=== PATIENT | female | born 1970 | race Caucasian/White ===

== ENCOUNTER → 2017-12-16 08:30 | Outpatient (POV) | payer OTHER, SELFPAY ==
[2017-12-16 09:34] LABS: Basophils # 0.1 K/mm3 (0-0.2); Basophils % 1.1 % (0.1-2.0); Eosinophils # 0.3 K/mm3 (0.0-0.4); Hematocrit 40.3 % (37.0-47.0); Hemoglobin 12.8 g/dL (12.2-16.2); Lymphocytes # 3.1 K/mm3 (0.7-4.5); Mean Corpuscular HGB Conc 31.8 g/dL (31.8-35.4); Mean Corpuscular Hemoglobin 27.4 pg (27.0-31.2); Mean Corpuscular Volume 85.9 fl (81-99); Mean Platelet Volume 8.1 fl (7.4-10.4); Monocytes # 0.4 K/mm3 (0.1-1.0); Monocytes % 4.7 % (1.7-9.3); Neutrophils # 4.3 K/mm3 (1.8-7.8); Neutrophils % 52.2 % (37.0-80.0); Platelet Count 274 K/mm3 (142-424); Red Blood Count 4.69 M/mm3 (4.20-5.40); Red Cell Distribution Width 13.2 % (11.5-17.5); White Blood Count 8.2 K/mm3 (4.8-10.8)
[2017-12-16 09:55] LABS: Alanine Aminotransferase 42 U/L (12-78); Albumin Level 3.1 gm/dL (3.4-5.0); Albumin/Globulin Ratio 0.6 (1.1-1.8); Alkaline Phosphatase 149 U/L (46-116); Aspartate Amino Transferase 33 U/L (15-37); Bilirubin,Total 0.3 mg/dL (0.2-1.0); Blood Urea Nitrogen 17 mg/dL (7-18); Carbon Dioxide 28 mmol/L (21.0-32.0); Chloride 103 mmol/L (98-107); Creatinine,Serum 1.01 mg/dL (0.55-1.02); Estimated Glomerular Filt Rate 59 ml/min (>60); GFR (African American) 71 ML/MIN (>60); Globulin 4.8 gm/dl (1.3-3.2); Glucose 147 mg/dL (74-106); Sodium 139 mmol/L (136-145); Total Protein,Serum 7.9 gm/dL (6.4-8.2)
== END ==
PROVIDERS: PCP Obstetrics & Gynecology; Visit Provider Nurse Practitioner Acute Care
DX: R94.5 Abnormal results of liver function studies (principal)
CPT/HCPCS: 36415; 80053; 85025

== ENCOUNTER → 2018-03-07 15:06 | Outpatient (CLI) | payer OTHER, SELFPAY ==
--- NOTE | 2018-03-07 15:12 | XR_ITS ---
XR foot LT min 3V HISTORY: ITS.REASON: LEFT FOOT PAIN ORDERING PHYSICIAN: Yareli Flower PATIENT AGE: 47 years COMPARISON: None FINDINGS: No fracture or dislocation. No lytic or blastic change. There is normal mineralization.. The joint spaces are well-preserved. No significant degenerative/arthritic changes. No erosive changes evident. IMPRESSION: Negative, no acute finding
== END ==
PROVIDERS: PCP Family Medicine; Visit Provider Nurse Practitioner
DX: M79.672 Pain in left foot (principal)
CPT/HCPCS: 73630

== ENCOUNTER → 2018-11-19 13:10 | Outpatient (CLI) | payer OTHER, SELFPAY ==
--- NOTE | 2018-11-19 13:18 | XR_ITS ---
XR shoulder RT min 2V HISTORY: ITS.REASON: right shoulder pain ORDERING PHYSICIAN: Christina Sparks MD PATIENT AGE: 48 years Comparison: None FINDINGS: No fracture or dislocation. No lytic or blastic change. There is normal mineralization. The joint spaces are well-preserved. No significant degenerative/arthritic changes. No erosive changes evident. IMPRESSION: Negative, no acute finding
[2018-11-19 16:55] LABS: Basophils # 0.1 K/mm3 (0-0.2); Basophils % 0.5 % (0.1-2.0); Eosinophils # 0.2 K/mm3 (0.0-0.4); Hematocrit 40.3 % (37.0-47.0); Hemoglobin 13.1 g/dL (12.2-16.2); Lymphocytes # 3.3 K/mm3 (0.7-4.5); Lymphocytes % 33.1 % (10-50); Mean Corpuscular HGB Conc 32.6 g/dL (31.8-35.4); Mean Corpuscular Hemoglobin 27.6 pg (27.0-31.2); Mean Corpuscular Volume 84.7 fl (81-99); Mean Platelet Volume 7.7 fl (7.4-10.4); Monocytes # 0.6 K/mm3 (0.1-1.0); Neutrophils # 5.8 K/mm3 (1.8-7.8); Neutrophils % 58.3 % (37.0-80.0); Platelet Count 300 K/mm3 (142-424); Red Blood Count 4.75 M/mm3 (4.20-5.40); Red Cell Distribution Width 13.7 % (11.5-17.5)
[2018-11-19 18:04] LABS: Anion Gap 14.6 mEq/L (5-15); Blood Urea Nitrogen 18 mg/dL (7-18); Calcium 9.1 mg/dL (8.5-10.1); Carbon Dioxide 27 mmol/L (21.0-32.0); Chloride 101 mmol/L (98-107); Estimated Glomerular Filt Rate 48 ml/min (>60); GFR (African American) 58 ML/MIN (>60); Glucose 117 mg/dL (74-106); Potassium 3.6 mmoL/L (3.5-5.1); Sodium 139 mmol/L (136-145)
== END ==
PROVIDERS: Visit Provider Orthopaedic Surgery
DX: Z01.818 Encounter for other preprocedural examination (principal); M75.111 Incomplete rotator cuff tear or rupture of right shoulder, not specified as traumatic
CPT/HCPCS: 36415; 73030; 80048; 85025; 93005

== ENCOUNTER 2019-02-24 09:30 | Outpatient (RCR) | payer OTHER, SELFPAY ==
--- NOTE | 2018-12-12 11:20 | HMH.OTOPEV ---
OT Inpatient Evaluation Rehab OT Outpatient Eval Start: 12/12/18 11:03 Freq: Status: Active Protocol: Document 12/12/18 11:03 RMAGUSTINAL (Rec: 12/12/18 11:20 [id number] Electronically Signed By Melissa Marino OT 12/12/18 11:03 Outpatient Therapy Subjective History Subjective History Pt is a 48 year old female who reports to therapy for initial evaluation to right shoulder. Pt recently had surgery on 12/01/18 in order to have a RTC repair and LHBT tenotomy on the Right shoulder . Pt does demonstrate with slight decrease in PROM and strength. Pt will continue to be seen in order to address all deficits. Right Shoulder AROM STG Flex: 130 degrees Abd: 130 degrees ER: 65 degrees IR: 65 degrees Right Shoulder AROM LTG Flex: 160 degrees Abd: 160 degrees ER: 80 degrees IR: 80 degrees Chief Complaint Pain Symptom Type Ache Throb Sharp Dull Stabbing Symptoms Relieved By Nothing Symptoms Aggravated By Physical Activity Prior Functional Limitations None Current Functional Limitations Reaching Lifting Housework Symptom Description Intermittent Activity Dependent Level of pain today (0-10) 0 Pain scale - at its best (0-10) 0 Pain scale - at its worst (0-10) 4 Shoulder/Elbow Eval Shoulder Objective Measurements Shoulder ROM Right Shoulder Abduction Passive Range of 120 degrees Motion (degrees) Shoulder Flexion Passive Range of Motion 110 degrees (degrees) Shoulder External Rotation Passive Range 50 degrees of Motion (degrees) Shoulder Internal Rotation Passive Range 50 degrees of Motion (degrees) pain with passive ROM shoulder exam right standard decreased ROM shoulder exam standard right full ROM shoulder exam standard left Shoulder MMT Shoulder Abduction Strength Grade 3 Fair Shoulder Extension Strength Grade 3+ Fair+ Shoulder Flexion St
--- NOTE | 2019-01-12 11:39 | HMH.RHREAS ---
Rehab Reassessment Rehab OP Re-assessment Start: 01/12/19 11:31 Freq: Status: Active Protocol: Document 01/12/19 11:32 TAHIR (Rec: 01/12/19 11:38 RMISABELHALL [id number]) Electronically Signed By Melissa Marino OT 01/12/19 11:32 Rehab Re-assessment Subjective Subjective It is coming along. Objective Objective Notes Pt continues to be seen twice a week in order to receive PROM manual stretching to right shoulder. Pt is stretched in all planes at the right shoulder while laying supine on mat. Pt also engages in AAROM exercises at right shoulder. Modalities such as e-stim and ice are provided in order to decrease pain/inflammation. Assessment Progress Assessment Progressing as Expected Assessment Notes Pt currently has full PROM while being stretched with minimal pain at the end of the motion. Pt continues to have decreased AROM and strenght at right shoulder. Current AROM R shoulder Flex: 120 degrees Abd: 115 degrees ER: 65 degrees IR: 40 degrees Right Shoulder MMT Current: Flex: 3+ Abd: 3+ ER: 3+ IR: 3+ Patient goals met n/a Goals Not Met MMT and strength goals Revised Goals AROM Goals Flex: 155 degrees Abd: 150 degrees ER: 80 degrees IR: 70 degrees MMT goals Flex: 5- Abd: 5- ER: 5- IR 5- Plan Plan Continue with OT plan of care at this time. Frequency of Therapy 2x's a week Duration of therapy 6 more weeks Time and Billing Re-Eval Time 15 Re-Eval Billing Units 1 PHYSICIAN CERTIFICATION: I certify the specified therapy services for Kristy lopez
== END 2019-02-24 09:35 | disposition home or self-care (01) ==
LOC: OT 09:30
PROVIDERS: Visit Provider Orthopaedic Surgery
DX: M75.121 Complete rotator cuff tear or rupture of right shoulder, not specified as traumatic (principal); M75.21 Bicipital tendinitis, right shoulder
CPT/HCPCS: 97014; 97110; 97140; 97164; 97166; G0283

== ENCOUNTER → 2019-03-10 15:38 | Outpatient (CLI) | payer OTHER, SELFPAY ==
--- NOTE | 2019-03-10 15:40 | MR_ITS ---
MR shoulder RT wo con HISTORY:Right shoulder pain, prior rotator cuff repair ITS.REASON: MRI ORDERING PHYSICIAN: Christina Sparks MD PATIENT AGE: 48 years Comparison: 10/28/2018 TECHNIQUE: Standard multiplanar multiecho sequences are performed without contrast. FINDINGS: Patient has had prior right rotator cuff surgery. A complete tear is not identified. There is increased T2 signal along the mid distal aspect of the supraspinatus tendon. This could represent postoperative findings. A complete tear with musculotendinous retraction is not present. There is discontinuity of the supraspinatus tendon posteriorly along its undersurface and may reflect either postsurgical changes or a partial tear. Artifact is present from the previous surgery. There is a anchor in place along the base of the greater tuberosity. The bicipital tendon is not visualized superiorly possibly related to prior tendon transfer. No obvious labral tear. The infraspinatus tendon, subscapularis, and teres minor tendons appear intact. There is mild acromioclavicular arthropathy. IMPRESSION: 1. Postsurgical changes from prior rotator cuff repair. There is discontinuity along the undersurface of the supraspinatus tendon may be related to a partial tear. A complete tear with tendinous or muscle retraction is not present. There are a few fibers intact which may be related to the previous surgery. 2. Mild acromioclavicular arthropathy.
== END ==
PROVIDERS: PCP Family Medicine; Visit Provider Orthopaedic Surgery
DX: M75.121 Complete rotator cuff tear or rupture of right shoulder, not specified as traumatic (principal); M75.21 Bicipital tendinitis, right shoulder
CPT/HCPCS: 73221

== ENCOUNTER 2019-05-28 14:00 | Outpatient (RCR) | payer OTHER, SELFPAY ==
--- NOTE | 2019-04-07 14:45 | HMH.OTOPEV ---
OT Inpatient Evaluation Rehab OT Outpatient Eval Start: 04/07/19 13:36 Freq: Status: Active Protocol: Document 04/07/19 13:36 RMARSESPERANZA (Rec: 04/07/19 14:06 RMLAMBERT [id number]) Electronically Signed By Melissa Marino OT 04/07/19 13:36 Outpatient Therapy Subjective History Subjective History Pt is a 48 year old female who has returned to therapy following a Right RTC repair. She was seen previously by therapist following her surgery on Dec 01, 2018. Pt had to take time off from therapy due to increase in pain. She returned to surgeon and was dx with biceps tendinits. She had an injection in the area ~2 weeks ago. Since the injection, pt reports her pain has improved but she continues to have difficulty with moving her arm . Pt does demonstrate with declined AROM and strength at right shoulder. Pt will continue to be seen in order to address all deficits to increase functional use of RUE . Chief Complaint Pain,Weakness Symptom Type Ache,Throb,Sharp,Dull,Stabbing Symptoms Relieved By Rest/Positioning Symptoms Aggravated By Physical Activity,Lifting Prior Functional Limitations None Current Functional Limitations Reaching,Lifting,Housework, Dressing,Desk Work/Reading, Driving,Sleeping,Recreation Activity Symptom Description Intermittent,Activity Dependent Level of pain today (0-10) 1 Pain scale - at its best (0-10) 0 Pain scale - at its worst (0-10) 5 Shoulder/Elbow Eval Shoulder Objective Measurements Shoulder ROM Right Shoulder ROM Limitations Muscle Weakness,Pain Shoulder Abduction Active Range of 110 degrees Motion (degrees) Shoulder Flexion Active Range of Motion 100 degrees (degrees) Query Text: Shoulder External Rotation Active Range 23 degrees of Motion (degrees) Shoulder Internal Rotation Active Range 40 degrees of Motion (degrees) pain with active ROM shoulder exam right standard pain with passive ROM shoulder exam ri
--- NOTE | 2019-05-11 16:18 | HMH.RHREAS ---
Rehab Reassessment Rehab OP Re-assessment Start: 05/11/19 15:59 Freq: Status: Active Protocol: Document 05/11/19 16:00 TAHIR (Rec: 05/11/19 16:18 TAHIR [id number]) Electronically Signed By Melissa Marino OT 05/11/19 16:00 Rehab Re-assessment Subjective Subjective It's still pretty painful each day. Objective Objective Notes Pt continues to be seen twice a week in order to address right shoulder deficits from surgery. Pt has been engaging in R shoulder AROM/AAROM/ Strengthening exercises. Pt also receives PROM in flexion, abduction, ER, and IR at right shoulder. Modalities are provided in order to decrease pain/inflammation (IFC, ionto , ice). Assessment Progress Assessment Slower Than Expected Assessment Notes Pt has been having difficulty with right shoulder since surgery. Pt was recently diagnosed with Biceps tendinitis. Pt returns to the doctor on the to be re- evaluated since beginning therapy. Pt continues to rate her pain between a 5-6/10 daily. Current AROM Flex: 100 Abd: 110 ER: 55 IR: 52 Current PROM Flex: 120 Abd: 120 ER: 65 IR: 65 Patient goals met N/A Goals Not Met STG and LTG Revised Goals Continue to work towards initial goals written at evaluation. Plan Plan Continue with OT plan of care at this time. Frequency of Therapy 2x's a week Duration of therapy 4 more weeks Time and Billing Re-Eval Time 15 Re-Eval Billing Units 1 PHYSICIAN CERTIFICATION: I certify the specified therapy services for Kristy Franklin are required, authorized, and reviewed every 30 days.
--- NOTE | 2019-05-14 16:26 | HMH.RHREAS ---
Rehab Reassessment Rehab OP Re-assessment Start: 05/11/19 15:59 Freq: Status: Active Protocol: Document 05/14/19 15:29 TAHIR (Rec: 05/14/19 16:26 RMISABELHALL [id number]) Electronically Signed By Melissa Marino OT 05/14/19 15:29 Rehab Re-assessment Subjective Subjective I dont know if it is helping. Objective Objective Notes Pt continues to be seen twice a week in order to address right shoulder deficits. Pt engages in AROM/AAROM/ strengthening exercises according to patients pain at right shoulder. Pt is also passively ranged at each session Assessment Progress Assessment Slower Than Expected Assessment Notes Pt is continuing to have significant pain during all active and passive motions. Pt reports her pain has stayed the same since initial evaluation. Pt's AROM has not improved since initial evaluation. Pt does have functional range passively. Current R shoulder AROM Flex: 100 degrees Abd: 100 degrees ER: 50 degrees IR: 45 degrees Current R shoulder PROM Flex: 140 degrees Abd: 150 degrees ER: 70 degrees IR: 80 degrees Patient goals met N/A Goals Not Met Short and algorithm developer goals. Revised Goals Continue progressing toward all goals written on initial evaluation. Plan Plan Continue with OT plan of care at this time. Frequency of Therapy 2x's a week Duration of therapy 4 more weeks Time and Billing Re-Eval Time 15 Re-Eval Billing Units 1 PHYSICIAN CERTIFICATION: I certify the specified therapy services for Kristy Franklin are required, authorized, and reviewed every 30 days.
== END 2019-05-28 14:05 | disposition home or self-care (01) ==
LOC: OT 14:00
PROVIDERS: Visit Provider Orthopaedic Surgery
DX: M75.21 Bicipital tendinitis, right shoulder (principal); M75.101 Unspecified rotator cuff tear or rupture of right shoulder, not specified as traumatic
CPT/HCPCS: 97014; 97033; 97035; 97110; 97140; 97164; 97166; G0283

== ENCOUNTER → 2019-06-22 15:04 | Outpatient (CLI) | payer OTHER, SELFPAY ==
--- NOTE | 2019-06-22 15:07 | XR_ITS ---
PROCEDURE: XR KNEE RT 3V CLINICAL INDICATION: RT ANTERIOR KNEE PAIN COMPARISON: No exams were available for comparison FINDINGS: No fracture or dislocation. No lytic or blastic change. There is normal mineralization. There are moderate osteoarthritic changes involving medial and lateral compartment with moderate to severe osteoarthritis of the patellofemoral joint. Spurs are noted throughout. Other findings:None. IMPRESSION: Moderate to severe osteoarthritis Dictated by: Raza Degroot MD 06/22/2019 15:38 Electronically signed by Raza Degroot MD in [place] 06/22/2019 15:38
== END ==
PROVIDERS: PCP Nurse Practitioner Family; Visit Provider Nurse Practitioner Family
DX: M25.561 Pain in right knee (principal)
CPT/HCPCS: 73562

== ENCOUNTER → 2019-06-25 08:13 | Outpatient (CLI) | payer OTHER, SELFPAY ==
--- NOTE | 2019-06-25 08:14 | MM_ITS ---
PROCEDURE: MM DIG SCREENING MAMM BI W/CAD CLINICAL INDICATION: SCREENING There is no personal or family history of breast cancer. COMPARISON: DMDXUAVR DIG MAMM-DX UNI ADD VIEWS-RT from 05/04/2016 DMDXUR DIG MAMM-DX UNI-RT W/CAD from 11/05/2016 DMSB DIG MAMM-SCREEN ASH W/CAD from 05/27/2017 TECHNIQUE: Standard CC and MLO images were obtained. R2 CAD reviewed. FINDINGS: Scattered fibroglandular densities are seen in both breasts. There is benign-appearing calcification in each breast there is no suspicious lesion and no suspicious microcalcifications. And there is a mole marker right breast near the inframammary fold. IMPRESSION: Fibrofatty parenchyma with no suspicious lesions seen BI-RAD Category: 2 Benign Finding(s) FOLLOW-UP: 1YR 1 Year Follow-up (A letter has been sent to the patient regarding results of the study.) Dictated by: Dr. Jhonatan Cheatham MD 06/26/2019 09:[address] Jhonatan Cheatham MD in [place] 06/26/2019 09:57
== END ==
PROVIDERS: PCP Family Medicine; Visit Provider Obstetrics & Gynecology
DX: Z12.31 Encounter for screening mammogram for malignant neoplasm of breast (principal)
CPT/HCPCS: 77067

== ENCOUNTER → 2019-07-16 10:35 | Outpatient (CLI) | payer OTHER, SELFPAY ==
--- NOTE | 2019-07-16 10:37 | MR_ITS ---
PROCEDURE: MR KNEE RT WO CON CLINICAL INDICATION: RIGHT MEDIAL KNEE PAIN Medial right knee pain COMPARISON: XR KNEE RT 3V from 06/22/2019 TECHNIQUE: Routine multiplanar multi echo sequences are performed without gadolinium enhancement. FINDINGS: The cruciate ligaments are intact. The collateral ligaments and quadriceps tendon is intact. There are some scattered areas of increased T1 and T2 signal within the patellar tendon consistent with tendinosis but no definite tendon tear. There are severe osteoarthritic changes involving all 3 compartments. There is a horizontal tear involving the posterior horn of the medial meniscus extending to the mid body portion of the meniscus and there also appears to be a radial tear of the body of the medial meniscus with discontinuity of the meniscus medially in its mid aspect. The anterior horn of the medial meniscus is extruded medially. There thinning of the patellar cartilage. There is a small knee joint effusion. Severe osteoarthritic changes are present involving all 3 compartments with decrease in the joint space and osteophyte formation. IMPRESSION: 1. There is a horizontal tear involving the posterior horn of the medial meniscus extending to the mid body region with a radial tear suspected in the mid body 2. Severe osteoarthritic change with knee joint effusion Dictated by: Raza Degroot MD 07/18/2019 06:59 Electronically signed by Raza Degroot MD in [place] 07/22/2019 06:16
== END ==
PROVIDERS: PCP Family Medicine; Visit Provider Nurse Practitioner
DX: M25.561 Pain in right knee (principal)
CPT/HCPCS: 73721

== ENCOUNTER → 2019-07-31 12:16 | Outpatient (CLI) | payer OTHER, SELFPAY ==
--- NOTE | 2019-07-31 12:21 | XR_ITS ---
PROCEDURE: XR KNEE RT 4V CLINICAL INDICATION: Rt knee pain COMPARISON: XR KNEE RT 3V from 06/22/2019 FINDINGS: No fracture or dislocation. No lytic or blastic change. There is normal mineralization. There are moderate to severe osteoarthritic changes of the medial compartment and patellofemoral joint with moderate osteoarthritic change of the lateral compartment. Other findings:None. IMPRESSION: No change moderate to severe osteoarthritic changes of the right knee Dictated by: Raza Degroot MD 07/31/2019 13:29 Electronically signed by Raza Degroot MD in [place] 07/31/2019 13:29
== END ==
PROVIDERS: PCP Family Medicine; Visit Provider Orthopaedic Surgery
DX: M25.561 Pain in right knee (principal)
CPT/HCPCS: 73564

== ENCOUNTER → 2020-04-29 10:20 | Outpatient (CLI) | payer OTHER, SELFPAY ==
--- NOTE | 2020-04-29 10:26 | XR_ITS ---
PROCEDURE: XR KNEE RT 4V CLINICAL INDICATION: Rt knee pain; TKA discussion COMPARISON: XR KNEE RT 3V from 06/22/2019 XR KNEE RT 4V from 07/31/2019 FINDINGS: There are moderate osteoarthritic changes all 3 compartments with bony osteophytes noted The joint spaces are well-preserved. No significant degenerative/arthritic changes. No erosive changes evident. Other findings:None. IMPRESSION: Moderate osteoarthritic changes which appears slightly worse Dictated by: Raza Degroot MD 04/29/2020 14:31 Electronically signed by Raza Degroot MD in [place] 04/29/2020 14:31
== END ==
PROVIDERS: PCP Family Medicine; Visit Provider Orthopaedic Surgery
DX: M17.10 Unilateral primary osteoarthritis, unspecified knee (principal)
CPT/HCPCS: 73564

== ENCOUNTER → 2020-05-10 06:07 | Outpatient (CLI) | payer OTHER, SELFPAY ==
--- NOTE | 2020-05-10 06:09 | CA_ITS ---
APPROVED REPORT EXAM: Comprehensive 2D, Doppler, and color-flow Echocardiogram Security Systems Integrator: Carolyne Voss RDCS Ht: 5 ft 3 in Wt: 269lbs BSA: 2.19 BP: 114/67 mmHg Indications: CP,EDEMA,SOA,DM,HTN 2D Dimensions LVOT 2.12 cm (M/F) 1.5-2.5 M-Mode Dimensions RVDd 3.40 cm (0.9-2.6) LVDd 4.80 cm (3.5-5.7) LVDs 3.40 cm (3.5-5.7) IVSd 0.68 cm (0.6-1.1) PWd 1.02 cm (0.6-1.1) EF (Teich) 55.90% FS 29.20% EDV (Teich) 107.50 mL ESV (Teich) 47.40 mL LV Diastology E/A Ratio 1.26 Mitral Valve MV A Velocity 58.00 (40-130 cm/s) Left Ventricle Left atrium is mildly enlarged, left ventricle is normal size, left ventricular wall thickness is upper limit of the normal, there is preserved left ventricular systolic function, visually estimated ejection fraction 55% with no regional wall motion abnormality. Diastolic parameters are within normal range. Right Ventricle Right atrium and right ventricle are mildly enlarged with normal contractility. Aortic Valve Aortic valve is minimally thickened and fibrosed, there is no aortic stenosis or aortic insufficiency. Mitral Valve Mitral valve is grossly normal, there is mild mitral regurgitation. Tricuspid Valve Tricuspid valve grossly normal, there is mild tricuspid regurgitation, tricuspid regurgitation jet velocity is inadequate for calculation of the right ventricular systolic pressure. Pulmonic Valve Pulmonic valve is poorly visualized. Great Vessels Aortic root is normal size. Pericardium No significant pericardial effusion noted. Conclusion 1. Mild biatrial enlargement, normal left ventricular size, visually estimated ejection fraction 55% with no regional wall motion abnormality, diastolic parameters are within normal range. 2. Mildly enlarged right ventricle with normal contractility. 3. Mild mitral and tricuspid regurgitation. 4. No significant pericardial effusion noted. Electronically signed by : Andrei Ross, 05/10/2020 16:21:25
--- NOTE | 2020-05-10 06:17 | CA_ITS ---
APPROVED REPORT Exam: Pharmacologic Technologist: Sapna Mayorga Ht: 5 ft 3 in Wt: 269 lbs BSA: 2.19 m2 HR: 76 bpm BP: 125/75 mmHg Indications: Chest pain, Shortness of Breath Medical History Medications: Lisinopril,,,,, Vitamin E,,,,, Pantoprazole,,,,, MeLOXICAM,,,,, GlUCOsamine,,,,, Stress Test Details Test: LEXISCAN HR Resting HR: 83 bpm Max Heart Rate (APMHR): 172 bpm Max HR Achieved: 115 bpm Target HR (85% APMHR): 146 bpm % of APMHR: 66 Recovery HR: 92 bpm BP Resting BP: 125.0/75.0 mmHg Max BP: 142.0/70.0 mmHg Recovery BP: 133.0/74.0 mmHg ECG Clinical Exercise duration: 04:10 min Highest Stage Achieved: Exercise capacity: 1.0 METs Stress ECG Conclusion Resting ECG: Normal sinus rhythm Symptoms: Shortness of air, malaise, aching legs. No chest pain. Arrhythmias/Ectopy: None ST-T Changes: No significant changes. Conclusion: Unremarkable Lexiscan stress. Myoview images reported separately. Electronically signed by : Andrei Ross, 05/10/2020 18:39:24
--- NOTE | 2020-05-10 06:17 | NM_ITS ---
APPROVED REPORT Exam: Nuclear Stress Test Indication: Chest pain, SOB, Palpitations, Fatigue, Dizziness, Pre op, HTN, High cholesterol, Family history Patient Location: Outpatient Stress Tech: Sapna Mayorga NM Tech:Cristina Jennings, ARRT, RT (R)(N) Ht: 5 ft 3 in Wt: 269 lbs Bra Size: 42DD HR: 76 bpm BP: 125/75 mmHg BSA: 2.19 m2 BMI: 47.6 History: Chest pain, SOB, Palpitations, Fatigue, Dizziness, Pre op, HTN, High cholesterol, Family history Procedure: Patient received a 0.4 mg of intravenous Lexiscan, resting heart rate 76 bpm, resting blood pressure 125/75 mmHg, with Lexiscan maximum heart rate achived was 101 bpm which is Less than 85 % of the maximum predicted heart rate and blood pressure was 134/64 mmHg. With Lexiscan, patient denied any complaint of chest pain. Electrocardiogram Resting electrocardiogram showed sinus rhythm, with Lexiscan there is less than 1.[address] segment depression noted from the baseline EKG. The EKG portion of the Lexiscan Myoview is nondiagnostic. Cardiac Stress and Resting SPECT Images: Cardiac Stress and Resting SPECT images were obtained using technetium 99m Myoview 31.1 mCi stress and 10.88 mCi at rest. Gated SPECT for the analysis of segmental wall motion and calculation of the ejection fraction also done. Cardiac stress and resting SPECT images show decreased tracer activity in the anterior apical wall which improves on the resting images suggestive of reversible ischemia. However the study is technically limited due to patient's body habitus, possibility of soft tissue attenuation from breast cannot be excluded. There appears to be transient ischemic dilatation of the left ventricle seen. Computer derived ejection fraction is over 65% with no regional wall motion abnormality, right ventricle is normal size and contractility. Conclusion: 1. The EKG portion of the Lexiscan Myoview is nondiagnostic. 2. Scintigraphic evidence of reversible ischemia involving the anterior apical and anteroseptal wall, there appears to be transient ischemic dilatation of the left ventricle seen. Computer derived ejection fraction is over 65% with no regional wall motion abnormality, right ventricle is normal size and contractility. There appears to be transient ischemic dilatation of the left ventricle seen. 3. Likely abnormal myocardial perfusion imaging, however this study is technically limited due to patient's body habitus. Electronically signed by : Andrei Ross, 05/10/2020 18:42:21
--- NOTE | 2020-05-10 07:17 | HMH.ITSHM ---
Current Home Medications as stated by this patient Kristy Franklin or enrollment eligibility representative. []LISINOPRIL PROTONIX MOBIC VITAMIN E
== END ==
PROVIDERS: PCP Family Medicine; Visit Provider Nurse Practitioner Family
DX: Z01.810 Encounter for preprocedural cardiovascular examination (principal); R07.9 Chest pain, unspecified; R06.00 Dyspnea, unspecified; R60.9 Edema, unspecified; I10 Essential (primary) hypertension; K21.9 Gastro-esophageal reflux disease without esophagitis
CPT/HCPCS: 78452; 93017; 93306; A9502; J2785

== ENCOUNTER 2020-05-20 08:57 | Day surgery (SDC) | payer OTHER, SELFPAY ==
[2020-05-20] VITALS (9 sets, daily range): BP systolic 97–130; BP diastolic 56–83; PULSE 72–81; RESP 16–18; TEMP 36.8; O2SAT 92–99; BMI 47.8
--- NOTE | 2020-05-20 | IR_ITS ---
APPROVED REPORT Patient Location: Outpatient PROCEDURES Left heart catheterization Left ventriculogram Selective coronary angiogram INDICATION Preoperative evaluation, Abnormal stress test Informed consent was obtained prior to the procedure. COMPLICATIONS NONE Estimated Blood Loss: LESS THAN 10 ML TECHNIQUE One percent lidocaine used to anesthetize the right anterior aspect of the wrist. The right radial artery was accessed via the Seldinger technique. A 6 Spanish sheath was placed in the right radial artery. 2.5 mg of verapamil, 800 mcg of nitroglycerin, 1mg Lidocaine and 5000 U Heparin were given through the arterial sheath. The trap catheter was also used to perform left heart catheterization, left ventriculogram and selective coronary angiogram. At the end of the procedure the sheath was removed good hemostasis was achieved using Traclet band, patient was transferred to the postop holding area in stable condition. ANGIOGRAPHIC RESULTS The left main artery Normal The left anterior descending artery Normal The circumflex artery Dominant normal The right coronary artery Nondominant normal The GALVEZ ventriculogram reveals Normal 65% The left ventricular end-diastolic pressure 15 mmHg IMPRESSION Normal coronary arteries Normal ejection fraction Mildly elevated LVEDP PLAN 1. Low risk from a cardiac standpoint to proceed with elective knee surgery Electronically signed by : Fortunato Campoverde, 05/20/2020 11:30:46
[2020-05-20 10:27] LABS: Basophils # 0.1 K/mm3 (0-0.2); Basophils % 1.1 % (0.1-2.0); Chloride 103 mmol/L (98-107); Eosinophils # 0.4 K/mm3 (0.0-0.4); Eosinophils % 4.6 % (0.1-12.0); Hematocrit 40.2 % (37.0-47.0); Hemoglobin 13.5 g/dL (12.2-16.2); Lymphocytes # 3.4 K/mm3 (0.7-4.5); Lymphocytes % 39.4 % (10-50); Mean Corpuscular HGB Conc 33.7 g/dL (31.8-35.4); Mean Corpuscular Hemoglobin 28.5 pg (27.0-31.2); Mean Corpuscular Volume 84.6 fl (81-99); Mean Platelet Volume 8.9 fl (7.4-10.4); Monocytes # 0.5 K/mm3 (0.1-1.0); Monocytes % 5.2 % (1.7-9.3); Neutrophils # 4.3 K/mm3 (1.8-7.8); Neutrophils % 49.7 % (37.0-80.0); Platelet Count 280 K/mm3 (142-424); Red Blood Count 4.75 M/mm3 (4.20-5.40); Red Cell Distribution Width 13.6 % (11.5-17.5); White Blood Count 8.6 K/mm3 (4.8-10.8)
[2020-05-20 10:28] LABS: Potassium 3.6 mmoL/L (3.5-5.1); Sodium 138 mmol/L (136-145)
[2020-05-20 10:30] LABS: Blood Urea Nitrogen 16 mg/dl (7-17)
[2020-05-20 10:31] LABS: Anion Gap 12.6 mEq/L (5-15); Calcium 9.4 mg/dl (8.4-10.2); Carbon Dioxide 26 mmol/L (22.0-30.0); Creatinine Clearance Estimated 71 mL/min (50-200); Estimated Glomerular Filt Rate 77 ml/min (>60); GFR (African American) 93 ML/MIN (>60); Glucose 135 mg/dl (74-100)
[2020-05-20 10:51] LABS: Coronavirus 19 IgG Antibody Negative (Negative); Coronavirus 19 IgM Antibody Negative (Negative)
== END 2020-05-20 14:02 | disposition home or self-care (01) ==
LOC: CATHLAB 08:59
PROVIDERS: PCP Family Medicine; Visit Provider Internal Medicine
DX: I20.8 Other forms of angina pectoris (principal); R94.39 Abnormal result of other cardiovascular function study; I10 Essential (primary) hypertension; E11.9 Type 2 diabetes mellitus without complications; Z88.8 Allergy status to other drugs, medicaments and biological substances; Z79.890 Hormone replacement therapy; Z79.899 Other long term (current) drug therapy
CPT/HCPCS: 80048; 85025; 86328; 93458; 99152; C1725; C1760; C1769; J1644; Q9967

== ENCOUNTER → 2020-06-10 15:48 | Outpatient (CLI) | payer OTHER, SELFPAY | PROVIDERS: Visit Provider Orthopaedic Surgery | DX: Z01.818 Encounter for other preprocedural examination (principal); M17.11 Unilateral primary osteoarthritis, right knee; Z96.651 Presence of right artificial knee joint | CPT/HCPCS: 87081 ==

== ENCOUNTER → 2020-06-15 10:37 | Outpatient (CLI) | payer OTHER, SELFPAY ==
--- NOTE | 2020-06-15 10:55 | XR_ITS ---
PROCEDURE: XR KNEE RT 4V CLINICAL INDICATION: pre-op knee xray: TALK TO EMILY ABOUT MARKER Pain COMPARISON: CR XR KNEE RT 3V from 06/22/2019 CR XR KNEE RT 4V from 07/31/2019 CR XR KNEE RT 4V from 04/29/2020 FINDINGS: Weightbearing views are performed. There is severe osteoarthritic change of the medial compartment and patellofemoral joint with moderate osteoarthritis of the lateral compartment. No fracture or dislocation. No lytic or blastic change. There is mild genu varum. Metallic marker is noted along the lateral aspect of the knee joint at the level of the knee joint and anteriorly at the prepatellar region. Other findings:None. IMPRESSION: Severe osteoarthritis Dictated by: Raza Degroot MD 06/15/2020 15:19 Raza Degroot MD in [place] 06/15/2020 15:19
== END ==
PROVIDERS: PCP Family Medicine; Visit Provider Orthopaedic Surgery
DX: M25.561 Pain in right knee (principal)
CPT/HCPCS: 73564

== ENCOUNTER → 2020-06-20 09:01 | Outpatient (CLI) | payer OTHER, SELFPAY ==
[2020-06-20 09:03] LABS: MANUAL DIFFERENTIAL MANUAL DIFFERENTIAL (MANUAL DIFF)
[2020-06-20 09:26] LABS: Basophils # 0.1 K/mm3 (0-0.2); Basophils % 1.3 % (0.1-2.0); Eosinophils # 0.4 K/mm3 (0.0-0.4); Eosinophils % 4.4 % (0.1-12.0); Hemoglobin 13.8 g/dL (12.2-16.2); Lymphocytes # 3.2 K/mm3 (0.7-4.5); Lymphocytes % 38.3 % (10-50); Mean Corpuscular HGB Conc 33.7 g/dL (31.8-35.4); Mean Corpuscular Volume 83.1 fl (81-99); Mean Platelet Volume 8.5 fl (7.4-10.4); Monocytes # 0.4 K/mm3 (0.1-1.0); Monocytes % 5.1 % (1.7-9.3); Neutrophils # 4.2 K/mm3 (1.8-7.8); Neutrophils % 50.9 % (37.0-80.0); Platelet Count 273 K/mm3 (142-424); Red Blood Count 4.93 M/mm3 (4.20-5.40); Red Cell Distribution Width 13.8 % (11.5-17.5); White Blood Count 8.3 K/mm3 (4.8-10.8)
[2020-06-20 10:16] LABS: Chloride 103 mmol/L (98-107); Sodium 139 mmol/L (136-145)
[2020-06-20 10:17] LABS: Potassium 4.4 mmoL/L (3.5-5.1)
[2020-06-20 10:19] LABS: Alanine Aminotransferase 22 U/L (12-78); Alkaline Phosphatase 106 U/L (38-126); Anion Gap 12.4 mEq/L (5-15); Aspartate Amino Transferase 38 U/L (14-36); Bilirubin,Total 0.6 mg/dl (0.2-1.3); Blood Urea Nitrogen 16 mg/dl (7-17); Calcium 9.6 mg/dl (8.4-10.2); Carbon Dioxide 28 mmol/L (22.0-30.0); Eosinophils % 2 % (0-3); Estimated Glomerular Filt Rate 67 ml/min (>60); GFR (African American) 81 ML/MIN (>60); Glucose 154 mg/dl (74-100); Lymphocytes % 34 % (10-50); Monocytes % 6 % (2-9); Neutrophils % 57 % (42-76); Platelet Estimate Normal; RBC Morphology Normal; Total Cells Counted 100
[2020-06-20 10:20] LABS: Albumin Level 3.8 g/dl (3.5-5.0); Albumin/Globulin Ratio 1.1 (1.1-1.8); Globulin 3.4 g/dL (1.3-3.2); Total Protein,Serum 7.2 g/dl (6.3-8.2)
[2020-06-20 11:10] LABS: Coronavirus 19 IgG Antibody Negative (Negative); Coronavirus 19 IgM Antibody Negative (Negative)
== END ==
PROVIDERS: Visit Provider Orthopaedic Surgery
DX: Z01.818 Encounter for other preprocedural examination (principal); Z20.828 Contact with and (suspected) exposure to other viral communicable diseases; I10 Essential (primary) hypertension
CPT/HCPCS: 36415; 80053; 85007; 85014; 85018; 85048; 85049; 85610; 85730; 86328; 86850

== ENCOUNTER → 2020-06-22 10:23 | Outpatient (CLI) | payer OTHER, SELFPAY ==
[2020-06-22 12:19] LABS: Coronavirus 19 IgG Antibody Negative (Negative); Coronavirus 19 IgM Antibody Negative (Negative)
== END ==
PROVIDERS: Visit Provider Orthopaedic Surgery
DX: Z01.818 Encounter for other preprocedural examination (principal); M25.561 Pain in right knee
CPT/HCPCS: 36415; 86328

== ENCOUNTER 2020-06-23 07:56 | Observation (INO) | payer OTHER, SELFPAY ==
[2020-06-16 13:01] VITALS: BMI 47.6
[2020-06-23] VITALS (24 sets, daily range): BP systolic 115–168; BP diastolic 55–87; PULSE 85–108; RESP 12–26; TEMP 22.2–36.9; O2SAT 93–100; BMI 46.5
--- NOTE | 2020-06-23 11:22 | P.PN_ITS ---
[facility] Anesthesia Checklist - Patient Identification Patient Identification: Arm Band, Verbal (Name & ) - Structural Data Admitted From: Home Planned Operative Procedure/s: Right TKA Consent for Planned Operative Procedure(s) Verified: Yes Verified Documents: Surgical Consent, History and Physical - NPO Status Verified Time NPO: 00:00 - Chart Verification Results Verified: CBC, BMP, PT, PTT, INR - Additional verifications Patient : No Anesthesia Reactions: Yes (nausea/ vomiting) Hx Blood Transfusions: No Blood Transfusion Reaction: No - Airway Assessment C-Spine Mobility Assessed: Yes TMJ Mobility Assessed: Yes Dentition: Good Dentition - Neurological Assessment Level of Consciousness: Awake, Alert, Appropriate, Follows Commands Hx Seizures: No Numbness or tingling in extremities: No - Anesthesia Plan Anesthesia Risk discussed: Yes Anesthesia Plan: Verified ASA Class: III Anesthesia Type: Spinal (with ACB) [facility] History I have reviewed the patient's past medical history: Yes Medical History: Reports:: Gastroesophageal Reflux Disease(GERD), Hypertension Denies:: Cancer, Diabetes Mellitus Type 1, Diabetes Mellitus Type 2, Internal Pacemaker, MRSA, Seizures *Have you ever received a pneumonia vaccine?: No *Have you received a flu vaccine this season?: No Other Medical History: Reports: Arthritis. Denies: Blood Transfusion Reaction Comment:: Morbid obesity Anesthesia experience/problems:: PONV Laterality Cases: Right: Arthroscopy Shoulder (R RTC repair 12/01/2018), Bilateral: Other Other Surgeries: Yes: Appendectomy, Cardiac Catheterization, Cholecystectomy, C- section, Hysterectomy-Total, Other. No: Pacemaker Amputation: No Fractures: No - *Social History Smoking Status: Never smoker Alcohol Intake: never Alcohol Intake Frequency:: other Substance Use Type: denies use *Occupational Status:: employed Housing: house Household Members: spouse *Travel in the last 8 weeks: None Family Hx:: Diabetes, Hypertension, Coronary Artery Disease, Stroke, Cancer
--- NOTE | 2020-06-23 14:29 | P.PN_ITS ---
[facility] Anesthesia Record Part I Intake, IV Amount: 2,500 Estimated blood loss (mL): 150 Urine output (mL): 300 Blood Pressure: 129/57 SaO2: 96 Pulse Rate: 106 Respiratory Rate: 14 Temperature: 97.9 F Patient is:: Awake Stable to PACU at:: 14:25
--- NOTE | 2020-06-23 14:35 | XR_ITS ---
PROCEDURE: XR KNEE RT 2V CLINICAL INDICATION: s/p R TKA Follow-up knee replacement COMPARISON: CR XR KNEE RT 3V from 06/22/2019 CR XR KNEE RT 4V from 07/31/2019 CR XR KNEE RT 4V from 04/29/2020 CR XR KNEE RT 4V from 06/15/2020 FINDINGS: Status post total knee replacement with good alignment. Postsurgical gas is present. No orthopedic complications. Other findings:None. IMPRESSION: Status post total knee replacement with good alignment Dictated by: Raza Degroot MD 06/23/2020 14:58 Raza Degroot MD in OV 06/23/2020 14:58
--- NOTE | 2020-06-23 14:46 | HMH.ORTHHP ---
*Admission Date: 06/23/20 *Reason for consult:: s/p R TKA *History of present illness: 49yo F with chronic R knee pain and radiographic evidence of severe tricompartmental DJD. She failed non-operative treatment with the following: ice, NSAIDs, brace use, corticosteroid injections, physical therapy. She has a history of HTN and GERD but is otherwise healthy; no h/o DVT/PE or diabetes. 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 The pain in her knee has become so severe that it is inhibiting her ability to perform ADLs and is adversely affecting her quality of life. I?ve discussed surgical options with the patient and have recommended total knee arthroplasty. We discussed at length the surgical technique and expected perioperative course, including length of hospitalization, need for postoperative physical therapy, use of anticoagulants, expected level of pain, and total length of recovery. I also explained the potential risks of surgery, including bleeding, infection, fracture, wound healing complications, need for revision surgery, continued pain post-operatively, DVT/PE, and risks of both general and regional anesthesia, including nerve damage, heart attack, stroke and even . I also discussed her increased risk of adverse outcome including wound healing impairment and/or periprosthetic joint infection given her increased BMI of 47. The patient vocalized understanding of these risks and has agreed to proceed with surgery; informed consent was obtained. MRSA nasal swab was negative, so bactroban was not started. Meloxicam was held for the past week, and covid testing was negative. Preoperative evaluation was performed by her PCP and engineering inspection assistant, both of whom deemed her acceptable risk for surgery. The patient underwent R TKA today without complication. EBL roughly 100cc. TXA 1g given at incision and 1g at closure. Prevena incisional wound vac placed at closure. [facility] History I have reviewed the patient's past medical history: Yes Medical History: Reports:: Gastroesophageal Reflux Disease(GERD), Hypertension Denies:: Cancer, Diabetes Mellitus Type 1, Diabetes Mellitus Type 2, Internal Pacemaker, MRSA, Seizures *Have you ever received a pneumonia vaccine?: No *Have you received a flu vaccine this season?: No Other Medical History: Reports: Arthritis. Denies: Blood Transfusion Reaction Anesthesia experience/problems:: PONV Laterality Cases: Right: Arthroscopy Shoulder (R RTC repair 12/01/2018), Bilateral: Other Other Surgeries: Yes: Appendectomy, Cardiac Catheterization, Cholecystectomy, , Hysterectomy-Total, Other. No: Pacemaker Amputation: No Fractures: No - *Social History Smoking Status: Never smoker Alcohol Intake: never Alcohol Intake Frequency:: other Substance Use Type: denies use *Occupational Status:: employed Housing: house Household Members: spouse *Travel in the last 8 weeks: None Family Hx:: Diabetes, Hypertension, Coronary Artery Disease, Stroke, Cancer Review of Systems - Review of Systems Review of systems:: pertinent systems reviewed and negative unless documented below Meds Home Medications Medication Instructions Recorded Confirmed Type glucosamine-chondroitin 250 mg-200 2 tab PO DAILY 11/19/18 06/23/20 History mg tablet Vitamin E 1,000 unit PO DAILY 11/28/18 06/23/20 History pantoprazole 40 mg tablet,delayed 40 mg PO DAILY tab 05/02/20 06/23/20 History release meloxicam 15 mg tablet 15 mg PO DAILY tab 05/17/20 06/23/20 History Estrogens, Conjugated [Premarin] 0.625 mg PO DAILY 06/23/20 06/23/20 History Lisinopril/Hydrochlorothiazide 1 tab PO DAILY 06/23/20 06/23/20 History [Lisinopril-Hctz 20-25 mg Tab*] Allergies Allergy/AdvReac Type Severity Reaction Status Date / Time celecoxib [CELECOXIB] Allergy Unknown Verified 06/23/20 08:41 naproxen [NAPROXEN] Allergy Unknown Verified 06/23/20 08:41 Exam Vital signs and Labs for Last 24 Hours: Temp Pulse Resp BP Pulse Ox 97.9 F
--- NOTE | 2020-06-23 14:46 | HMH.OPNOTE ---
Date of procedure: 06/23/20 Pre-op Diagnosis:: degenerative joint disease R knee Post-op Diagnosis:: degenerative joint disease R knee Procedure performed:: R total knee arthroplasty (TKA) Surgeon:: Christina Sparks MD Employee Health Rn(s):: Kareen Lindsey PROFESSOR OF INDUSTRIAL TECHNOLOGY:: Cholo Noriega Anesthesia: MAC, spinal Estimated blood loss (mL): 100 Clinical Note:: 49yo F with chronic R knee pain and radiographic evidence of severe tricompartmental DJD. She failed non-operative treatment with the following: ice, NSAIDs, brace use, corticosteroid injections, physical therapy. She has a history of HTN and GERD but is otherwise healthy; no h/o DVT/PE or diabetes. 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 The pain in her knee has become so severe that it is inhibiting her ability to perform ADLs and is adversely affecting her quality of life. I?ve discussed surgical options with the patient and have recommended total knee arthroplasty. We discussed at length the surgical technique and expected perioperative course, including length of hospitalization, need for postoperative physical therapy, use of anticoagulants, expected level of pain, and total length of recovery. I also explained the potential risks of surgery, including bleeding, infection, fracture, wound healing complications, need for revision surgery, continued pain post-operatively, DVT/PE, and risks of both general and regional anesthesia, including nerve damage, heart attack, stroke and even . I also discussed her increased risk of adverse outcome including wound healing impairment and/or periprosthetic joint infection given her increased BMI of 47. The patient vocalized understanding of these risks and has agreed to proceed with surgery; informed consent was obtained. MRSA nasal swab was negative, so bactroban was not started. Meloxicam was held for the past week, and covid testing was negative. Preoperative evaluation was performed by her PCP and copy messenger, both of whom deemed her acceptable risk for surgery and cleared. Operative findings:: [employer] II BCS TKA system 5 Femur 4 Tibia 13mm poly 35mm x 9mm patella Operative note:: The patient was identified in pre-operative holding and the R leg signed by myself with marking pen. Consent was verified with the patient and all questions were answered. Pre-operative labs were confirmed to be within acceptable limits, and MRSA nasal swab negative. The patient was seen by anesthesia and taken to the OR, where spinal anesthetic was administered. She was placed supine on the operative table; 2g Ancef were infused intravenously as well as 1g tranexamic acid (add additional 1g was given at closing). Nonsterile tourniquet was placed on the upper R thigh and the leg was prepped and draped in the usual sterile fashion for knee arthroplasty. Timeout was performed, identifying the correct patient, correct procedure, and correct site. The procedure was begun by exsanguinating the R lower extremity with an Esmarch and inflating the tourniquet to 300 mmHg. A longitudinal incision was made down the anterior aspect of the R knee centered over the patella, extending from 2 fingerbreadths superior to the patella to the tibial tubercle. Subcutaneous tissue was incised down to the patellar retinaculum and limited medial and lateral flaps were raised. Medial parapatellar arthrotomy was then made and Bovie used to perform a moderate medial release. Next, the patella was everted and the knee flexed to around 100 degrees. Fat pad was excised and both medial and lateral menisci were excised as well. The ACL and PCL were then excised sharply. The joint was exposed with Balbina retractors medially and laterally. Next the entry reamer was used to find and create the starting point for the distal femoral cutting guide. Through this entry point, the intramedullary alex component of the distal femoral cutting guide was inserted and the cutting guide pinned into place, set at
--- NOTE | 2020-06-23 15:33 | PC.NURSE ---
PT ARRIVED TO THE FLOOR AT THIS TIME
--- NOTE | 2020-06-23 16:30 | HMH.ANESII ---
[facility] Anesthesia Record Part II Discharge Time: 14:55 Destination: floor PACU nurse assessment reviewed?: Yes Patient Condition:: Good Anesthesia Complications:: None Swallowing reflex intact?: Yes Cyanosis?: No Blood Pressure: 151/69 Pulse Rate: 105 Temperature: 97.4 F Mental Status: Alert & Oriented Pain level:: 4 Nausea and/or vomitting:: None Intake, IV Amount: 2,500
[2020-06-24] VITALS (7 sets, daily range): BP systolic 100–144; BP diastolic 69–76; PULSE 80–103; RESP 16–18; TEMP 36.9–37.2; O2SAT 90–98; BMI 46.8
--- NOTE | 2020-06-24 03:11 | PC.NURSE ---
Pt A&OX4. lungs CTA. pt denies SOA pt c/o of rt knee pain and nausea medicated per DEC. Incision of rt knee wound vac and surgical dressing in place c/d/i. Pt has slept in intervals throughout shift. VSS
[2020-06-24 06:46] LABS: Basophils % 0.2 % (0.1-2.0); Eosinophils # 0.1 K/mm3 (0.0-0.4); Eosinophils % 0.6 % (0.1-12.0); Hematocrit 33.4 % (37.0-47.0); Hemoglobin 11.2 g/dL (12.2-16.2); Lymphocytes # 1.6 K/mm3 (0.7-4.5); Lymphocytes % 15.7 % (10-50); Mean Corpuscular HGB Conc 33.6 g/dL (31.8-35.4); Mean Corpuscular Hemoglobin 28.5 pg (27.0-31.2); Mean Corpuscular Volume 84.9 fl (81-99); Mean Platelet Volume 8.2 fl (7.4-10.4); Monocytes # 0.7 K/mm3 (0.1-1.0); Monocytes % 7.2 % (1.7-9.3); Neutrophils # 7.7 K/mm3 (1.8-7.8); Neutrophils % 76.2 % (37.0-80.0); Platelet Count 191 K/mm3 (142-424); Red Blood Count 3.94 M/mm3 (4.20-5.40); Red Cell Distribution Width 13.8 % (11.5-17.5); White Blood Count 10.1 K/mm3 (4.8-10.8)
[2020-06-24 06:48] LABS: Chloride 105 mmol/L (98-107); Potassium 3.6 mmoL/L (3.5-5.1); Sodium 137 mmol/L (136-145)
[2020-06-24 06:51] LABS: Anion Gap 10.6 mEq/L (5-15); Blood Urea Nitrogen 12 mg/dl (7-17); Calcium 8.4 mg/dl (8.4-10.2); Carbon Dioxide 25 mmol/L (22.0-30.0); Creatinine Clearance Estimated 60 mL/min (50-200); Estimated Glomerular Filt Rate 67 ml/min (>60); GFR (African American) 81 ML/MIN (>60); Glucose 176 mg/dl (74-100)
--- NOTE | 2020-06-24 07:19 | HMH.CONS ---
*Admission Date: 06/23/20 *Reason for consult:: Medical management *History of present illness: 49yo F with chronic R knee pain and radiographic evidence of severe tricompartmental DJD. She failed non-operative treatment with the following: ice, NSAIDs, brace use, corticosteroid injections, physical therapy. She has a history of HTN and GERD but is otherwise healthy; no h/o DVT/PE or diabetes. 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 The pain in her knee has become so severe that it is inhibiting her ability to perform ADLs and is adversely affecting her quality of life. I?ve discussed surgical options with the patient and have recommended total knee arthroplasty. We discussed at length the surgical technique and expected perioperative course, including length of hospitalization, need for postoperative physical therapy, use of anticoagulants, expected level of pain, and total length of recovery. I also explained the potential risks of surgery, including bleeding, infection, fracture, wound healing complications, need for revision surgery, continued pain post-operatively, DVT/PE, and risks of both general and regional anesthesia, including nerve damage, heart attack, stroke and even . I also discussed her increased risk of adverse outcome including wound healing impairment and/or periprosthetic joint infection given her increased BMI of 47. The patient vocalized understanding of these risks and has agreed to proceed with surgery; informed consent was obtained. MRSA nasal swab was negative, so bactroban was not started. Meloxicam was held for the past week, and covid testing was negative. Preoperative evaluation was performed by her PCP and hides soaker, both of whom deemed her acceptable risk for surgery. The patient underwent R TKA today without complication. EBL roughly 100cc. TXA 1g given at incision and 1g at closure. Prevena incisional wound vac placed at closure. I have been consulted as patient's primary care physician for medical management if needed. [facility] History I have reviewed the patient's past medical history: Yes Medical History: Reports:: Gastroesophageal Reflux Disease(GERD), Hypertension Denies:: Cancer, Diabetes Mellitus Type 1, Diabetes Mellitus Type 2, Internal Pacemaker, MRSA, Seizures *Have you ever received a pneumonia vaccine?: No *Have you received a flu vaccine this season?: No Other Medical History: Reports: Arthritis. Denies: Blood Transfusion Reaction Anesthesia experience/problems:: PONV Laterality Cases: Right: Arthroscopy Shoulder, Bilateral: Other Other Surgeries: Yes: Appendectomy, Cardiac Catheterization, Cholecystectomy, , Dilation and Curettage, Hysterectomy-Total, Other. No: Pacemaker Amputation: No Fractures: No - *Social History Last grade of school completed: Advanced degree Smoking Status: Never smoker Alcohol Intake: never Alcohol Intake Frequency:: other Substance Use Type: denies use *Occupational Status:: employed Housing: house Household Members: spouse *Travel in the last 8 weeks: None Family Hx:: Coronary Artery Disease, Diabetes Review of Systems - Constitutional Denies body ache(s), Denies chills (None), Denies fatigue, Denies fever(s) - ENT Denies abnormal hearing - *Cardiovascular Denies chest pain, Denies chest pain at rest - *Respiratory Denies change in phlegm color, Denies chest congestion, Denies cough - *Gastrointestinal Denies belching, Denies bloating, Denies change in bowel habits - *Musculoskeletal Reports joint pain - *Neurologic Denies abnormal hearing - Endocrine Denies cold intolerance, Denies excessive sweating, Denies flushing Meds Home Medications Medication Instructions Recorded Confirmed Type glucosamine-chondroitin 250 mg-200 2 tab PO DAILY 11/19/18 06/23/20 History mg tablet Vitamin E 1,000 unit PO DAILY 11/28/18 06/23/20 History pantoprazole 40 mg tablet,delayed 40 mg PO DAILY tab 05/02/20 06/23/20 History release me
--- NOTE | 2020-06-24 07:46 | HMH.PHAVTE ---
[facility] Pharmacy VTE Monitoring - Patient Demographics Admission date: 06/24/20 Report Date: 06/24/20 Time: 07:46 Allergies/Adverse Reactions: Patient Allergies celecoxib [CELECOXIB] Allergy (Unknown, Verified 06/23/20 08:41) naproxen [NAPROXEN] Allergy (Unknown, Verified 06/23/20 08:41) Height: 1.6 m Weight: 119.89 kg Patient Problems: Current Active Problems Degenerative joint disease of knee, right (Acute) - VTE Risk Labs: VTE Related Lab Results Hgb 11.2 g/dL (12.2-16.2) L 06/24/20 06:15 Hct 33.4 % (37.0-47.0) L 06/24/20 06:15 Plt Count 191 K/mm3 (142-424) D 06/24/20 06:15 BUN 12 mg/dl (7-17) 06/24/20 06:15 Creatinine 0.90 mg/dl (0.52-1.04) 06/24/20 06:15 Estimated Creat Clear 60 mL/min (50-200) 06/24/20 06:15 Was VTE Risk Assessment Performed: Yes VTE Score: 5 VTE Risk Level: Low Risk Clinical Trial Participant: No - Prophylaxis VTE Prophylaxis Ordered?: Yes Types of VTE Prophylaxis: IPCS Knee High, Pharmacological (LOVENOX) Location of Applied Device: Left Leg Pharmacologic Type: Enoxaparin
--- NOTE | 2020-06-24 07:48 | HMH.PHAINT ---
HOME MEDICATION RECONCILIATION COMPLETED USING LIST FROM HOME PHARMACY
--- NOTE | 2020-06-24 10:24 | HMH.OTEV ---
OT Inpatient Evaluation Rehab OT IP Evaluation Start: 06/23/20 14:36 Freq: ONCE Status: Complete Protocol: Document 06/24/20 10:15 DANIELA (Rec: 06/24/20 10:24 [email or web address] [id number]) Rehab OT IP Assessment Subjective History 49 year old woman with severe tricompartmental DJD who underwent R TKA on 06/23/20 that was referred to OP OT skilled services to return home with family. Patient verbalize to live with family and independent with ambulation and ADLs prior to R TKA. Subjective I'm hurting. My pain in my R knee is 10/10. Patient verbalize recieving pain medication ~1 hour prior to OT tx. Nursing notified of Patient's pain levels. Objective Patient Orientation Person,Place,Time,Name,Age, Birthday,Day of Month,Day of Week,Month,Year,Time of Day, Situation Upper Extremity Gross ROM WNL Bed Mobility bed mobility-scooting,bed mobility - supine/sit,bed mobility - rolling Assist Level Moderate x 2 (50% assist) Transfer Training Sit/Stand Transfer,Sit/Stand/ Step Transfer Assist Level Moderate x 2 (50% assist) Chair Transfer Ability Moderate x 2 (50% assist) Chair Transfer Technique Stand Step Pivot Chair Transfer Assistive Devices Rolling Walker Feeding Ability Independent Lower Body Dressing Ability Unable/Dependant Upper Body Dressing Ability Assistance X1 Bathing Ability Assistance x1 Performing Toilet Hygiene Ability Unable/Dependant Overall Commode/Toilet Transfer Ability Assistance x2 Commode/Toilet Transfer Technique Stand Step Pivot decrease in endurance Yes Rehab OT IP prob,goals,plan Problems Date of Evaluation: 06/24/20 OT IP Problems Bed Mobility,Transfers,Gait, Balance,Self care,Safety Rehab Potential Rehab Potential Good Equipment Needs Assistive Devices Rolling / Wheeled Walker Plan OT intervention Plan Bed Mobility,Transfers,Balance ,Self care,Safety,Therapeutic Exercise OT Plan Frequency Daily Duration LOS Discharge Go
--- NOTE | 2020-06-24 11:28 | HMH.PTEV ---
Physical Therapy Evaluation Rehab PT IP Evaluation Start: 06/23/20 14:36 Freq: ONCE Status: Active Protocol: Document 06/24/20 10:54 IMTIAZ (Rec: 06/24/20 11:28 IMTIAZ [id number]) Subjective/History History History Patient is a 49 year old female admitted to [facility] 06/23/20 S/P R TKA. Patient lives at home with . 1 step to enter home. Patient reports hx of chronic knee pain prior to surgery. Upon entering room patient was in chair with legs elevated since OT evaluation. R knee incision has a would vac. Patient was educated to prop pillow/ towels under R ankle at all time to promote full knee extension, as well as quad and glute sets. OT reports bed mobility was a mod assist x 2 to achieve EOB. Subjective Subjective I'm in a lot of pain. I haven't eaten since yesterday. I've been feeling very nauseated. Rehab PT IP Eval Objective Appearance Patient Behavior Appropriate Patient Orientation Person,Place,Day of Week Difficulty following instructions none Speech Pattern Clear Ambulation Patient Able to Ambulate Yes Ambulation Observation IP General Gait Pattern Observation Antalgic Gait,Decrease Weight Bear (R) Ambulation Distance (feet) 20 Ambulation Assistive Device Rolling Walker Ambulation Ability Minimal x 1 (25% assist) Balance Ability to Arise Able, uses arms to help Sitting Balance Steady, safe Standing Balance Steady, wide stance Dynamic Sitting Balance Ability Normal Dynamic Standing Balance Ability Good Transfers Sit to Stand Chair Transfer Ability Minimal x 1 (25% assist) Pain right knee Pain Intensity 10 ROM RLE PT ROM Status ABN Abnormal ROM Comment Pt has full ext at this time. Flexion not assesed secondary to would vac. MMT RLE PT MMT WFL Rehab PT IP prob,goals,plan Problems Date of Evaluation: 06/24/20 PT IP Problems Bed Mobility,Transfers,Gait, Balance,Self care,Safety Rehab Potential
--- NOTE | 2020-06-24 13:37 | SW/DCPLANNER ---
RECEIVED REFERRAL FOR THIS PATIENT FOR HOME HEALTH VS OUT PATIENT PT SERVICES... I SPOKE WITH PATIENT AND AT BEDSIDE AND SHE ELECTED TO COME BACK TO THE HOSPITAL FOR HER THERAPY SERVICES... I SPOKE WITH HER ABOUT EQUIPMENT AND SHE STATED SHE HAS A WALKER AND ELEVATED TOILET SEAT ALREADY AND ONLY NEEDS A SHOWER CHAIR AND WHEELCHAIR.. I ORDERED THROUGH [facility] PER PATIENT REQUEST.. IT WILL BE DELIVERED TO THE HOSPITAL LATER THIS AFTERNOON WITH ANTICIPATED DISCHARGE OR SATURDAY... OUTPATIENT APPT SCHEDULED FOR SATURDAY.
--- NOTE | 2020-06-24 15:38 | PC.NURSE ---
Pt has been pleasant and cooperative. A&O X4. Pt has had frequent complaints of pain and has been medicated with Dilaudid and Percocet per DEC. Lungs CTA. No edema noted. RT knee wound vac dressing is C/D/I. RLE is elevated with pillows and a polar pack is in place. F/C was DC'd this shift. Pt ambulates with assistance X1 and a walker. Pt worked with PT today and sat up in the chair for a few hours. Pt voids dark, idania urine per BSC without issue. No BM this shift. 20 G peripheral IV in the RT hand is patent and infusing NS @ 75 ML/HR. VSS. Call light within reach. Will continue to monitor.
--- NOTE | 2020-06-24 16:38 | HMH.ORTHPN ---
Subjective Date: 06/24/20 Time: 12:00 Principal diagnosis: s/p R TKA Interval history: The patient is doing well today, but reports significant pain in the right knee. Pain medication is doing little to take the edge off. No fevers or chills overnight, no shortness of breath or chest pain, no abdominal pain; she has had some nausea and has had little p.o. intake PN: Obj Ex Vital signs: Temp Pulse Resp BP Pulse Ox 99.0 F 94 H 16 144/74 H 94 L 06/24/20 16:00 06/24/20 16:00 06/24/20 16:00 06/24/20 16:00 06/24/20 16:00 - Constitutional no acute distress, obese - Routine HEENT Exam Head: Present: normocephalic Eye: Present: EOMI ENT: Present: mucous membranes moist - Routine Neck Exam Present: trachea midline - Routine Respiratory Exam Absent: respiratory distress - Routine Cardiovascular Exam Present: RRR - Routine Abdominal Exam Present: soft. Absent: tenderness - Routine Extremities Exam Comments: R knee incisional wound vac/dressing in place with good seal +DF/PF/EHL RLE SILT distally RLE in all distributions palpable pedal pulses RLE, foot pink/warm with BCR R calf soft, non-tender - Routine Skin Exam Present: warm - Routine Neurological Exam Present: alert, oriented X3, moving all extremities, normal tone, vision grossly intact, hearing grossly intact, normal speech. Absent: sensory deficit, motor deficit, altered mental status - Routine Psychiatric Exam Present: normal affect - Urinary Catheter Management Brady Cath placed during this visit: no Progress Note: A&P (1) Degenerative joint disease of knee, right Status: Acute Current Visit: Yes (2) GERD (gastroesophageal reflux disease) Status: Acute Current Visit: No (3) HTN (hypertension) Status: Chronic Current Visit: No Assessment and Plan for All Diagnoses:: 49yo F POD 1 s/p R TKA -- WBAT RLE, OOB as dalia with walker -- ice R knee frequently with polar care device given -- PT/OT to continue while admitted -- pain control: oral percocet with IV dilaudid for breakthrough --> will increase percocet to 10 -- DVT prophy: SCDs + lovenox started today, will continue for 14 days -- finish 24hr prophy antibiotics (Ancef) today -- Dr. Rodriguez on consult for medical management -- dispo planning: anticipate d/c home with HHPT vs OPPT; anticipate d/c home tomorrow. Outpatient PT scheduled for Saturday06/28/20 at 9am. Follow-up with me 07/08/20 at 1pm.
--- NOTE | 2020-06-24 19:11 | PC.NURSE ---
report given to octaviano
--- NOTE | 2020-06-25 03:11 | PC.NURSE ---
Pt A&OX4 lungs CTA pt denies SOA. pt c/o of rt knee pain medicated per DEC. Rt knee incision wound vac and surgical dressing in place c/d/i. pt has ambulated to BSC x1 assistance.
[2020-06-25 04:00] VITALS: BP 132/87; PULSE 113; RESP 26; TEMP 36.8; O2SAT 98
[2020-06-25 05:24] VITALS: BMI 47.2
[2020-06-25 08:00] VITALS: BP 145/71; PULSE 99; RESP 18; TEMP 36.8; O2SAT 97
--- NOTE | 2020-06-25 08:29 | HMH.ACPN2 ---
Internal Medicine - PN: Subj *Date: 06/25/20 *Time: 08:29 Interval history: Patient's only complaint this morning is right knee pain which she continues to attribute to the wound VAC. Patient is receiving IV Dilaudid and oral oxycodone for pain control. Exam Vital signs and Labs for Last 24 Hours: Temp Pulse Resp BP Pulse Ox 98.3 F 113 H 26 H 132/87 98 06/25/20 04:00 06/25/20 04:00 06/25/20 04:00 06/25/20 04:00 06/25/20 04:00 I & O for Last 24 hours: Intake & Output 06/22/20 06/23/20 06/24/20 06/25/20 11:59 11:59 11:59 11:59 Intake Total 6375 / 6375 2177 / 2177 Output Total 900 / 900 1625 / 1625 Balance 5475 / 5475 552 / 552 Weight 263 lb 1 oz 264 lb 4.995 oz 266 lb 9 oz - Constitutional no acute distress - *Routine Respiratory Exam Present: CTA bilaterally - *Routine Cardiovascular Exam Present: RRR Assessment and Plan (1) Degenerative joint disease of knee, right Current visit: Yes Status: Acute Category: Medical Code(s): M17.11 - Unilateral primary osteoarthritis, right knee (2) GERD (gastroesophageal reflux disease) Current visit: No Status: Acute Qualifiers: Esophagitis presence: esophagitis presence not specified Qualified Code(s): K21.9 - Gastro-esophageal reflux disease without esophagitis Category: Medical Code(s): K21.9 - Gastro-esophageal reflux disease without esophagitis (3) HTN (hypertension) Current visit: No Status: Chronic Qualifiers: Hypertension type: essential hypertension Qualified Code(s): I10 - Essential (primary) hypertension Category: Medical Code(s): I10 - Essential (primary) hypertension - Assessment and plan all Dx Assessment and Plan for all problems:: Medically patient is stable. No change in medical management
--- NOTE | 2020-06-25 09:30 | PC.NURSE ---
POLAR PAD ICE PLACED ON RIGHT KNEE TO HELP WITH PAIN
[2020-06-25 09:39] LABS: Chloride 100 mmol/L (98-107); Potassium 3.3 mmoL/L (3.5-5.1); Sodium 133 mmol/L (136-145)
[2020-06-25 09:40] LABS: Basophils % 0.4 % (0.1-2.0); Eosinophils # 0.1 K/mm3 (0.0-0.4); Eosinophils % 0.9 % (0.1-12.0); Hematocrit 31.2 % (37.0-47.0); Hemoglobin 10.5 g/dL (12.2-16.2); Lymphocytes # 1.9 K/mm3 (0.7-4.5); Lymphocytes % 17.8 % (10-50); Mean Corpuscular HGB Conc 33.7 g/dL (31.8-35.4); Mean Corpuscular Hemoglobin 28.8 pg (27.0-31.2); Mean Corpuscular Volume 85.5 fl (81-99); Mean Platelet Volume 8.7 fl (7.4-10.4); Monocytes # 0.8 K/mm3 (0.1-1.0); Monocytes % 7.5 % (1.7-9.3); Neutrophils # 7.7 K/mm3 (1.8-7.8); Neutrophils % 73.5 % (37.0-80.0); Platelet Count 178 K/mm3 (142-424); Red Blood Count 3.65 M/mm3 (4.20-5.40); Red Cell Distribution Width 14.1 % (11.5-17.5); White Blood Count 10.5 K/mm3 (4.8-10.8)
[2020-06-25 09:42] LABS: Anion Gap 8.3 mEq/L (5-15); Blood Urea Nitrogen 8 mg/dl (7-17); Carbon Dioxide 28 mmol/L (22.0-30.0); Creatinine Clearance Estimated 68 mL/min (50-200); Estimated Glomerular Filt Rate 77 ml/min (>60); GFR (African American) 93 ML/MIN (>60)
[2020-06-25 09:43] LABS: Calcium 8.2 mg/dl (8.4-10.2); Glucose 167 mg/dl (74-100)
--- NOTE | 2020-06-25 11:00 | PC.NURSE ---
PATIENT IN CHAIR. C/O PAIN PRN DILAUDID ADMIN PER DEC. MD HAS ROUNDED ALREADY AND AWARE OF PAIN LEVEL. WILL CONTINUE TO MONITOR. PATIENTS AT BEDSIDE. SAFETY MEASURES ARE IN PLACE.
--- NOTE | 2020-06-25 11:40 | PC.NURSE ---
PHYSICAL THERAPY AT BEDSIDE WORKING WITH PATIENT
--- NOTE | 2020-06-25 15:11 | PC.NURSE ---
PATIENT LYING IN BED WITH SAFETY MEASURES IN PLACE. PATIENT REMOVED POLAR PACK AT THIS TIME. PATIENT C/O PAIN 10/ DILAUDID AND OXYCODONE ADMIN PER DEC ALL DAY TODAY PRN. NO C/O N,V,D. NO C/O PAINFUL BURNING URINATION PATIENT URINATING VIA BSC TOLERATING FINE. CL/YELLOW URINE. LUNGS CTA PATIENT ON RA. NO C/O SOA/COUGH. PATIENT REMAINS A&OX3. RIGHT KNEE PREVENA WOUND VAC CDI TO INCISION SITE.NO ISSUES THIS SHIFT OTHER THAN PAIN-MD AWARE. PATIENT WORKED WITH PHYSICAL THERAPY TODAY TOLERATED WELL.
--- NOTE | 2020-06-25 15:27 | HMH.ORTHPN ---
Subjective Date: 06/25/20 Time: Principal diagnosis: s/p R TKA Interval history: Pt stable post op R TKA with c/o pain after moving to chair. She feels it may be related to the wound VAC. VAC appears properly positioned. Surrounding skin adjacent to incision is clean and dry w/o erhythema...moves toes and ankles, no evidence clinically of DVT. Sensated to Light touch. HCT 31% today. Impression. Stable surgically with increased pain Continue current meds and pain management. Hold discharge until pain under better control. PN: Obj Ex Vital signs: Temp Pulse Resp BP Pulse Ox 98.2 F 99 H 18 145/71 H 97 06/25/20 08:00 06/25/20 08:00 06/25/20 08:00 06/25/20 08:00 06/25/20 08:00 - Urinary Catheter Management Brady Cath placed during this visit: no Progress Note: A&P (1) Degenerative joint disease of knee, right Status: Acute Current Visit: Yes (2) GERD (gastroesophageal reflux disease) Status: Acute Current Visit: No (3) HTN (hypertension) Status: Chronic Current Visit: No
[2020-06-25 16:00] VITALS: BP 100/50; PULSE 101; RESP 18; TEMP 37.4; O2SAT 92
[2020-06-25 20:06] VITALS: BP 110/57; PULSE 107; RESP 18; TEMP 37.2; O2SAT 97
--- NOTE | 2020-06-26 03:26 | PC.NURSE ---
Pt refusing to use polar cristiano for most of this shift. RN educated pt on about benefits of use including better pain control, decreased swelling. Pt verbalized understanding and said she would use polar cristiano when she felt it was necessary.
[2020-06-26 04:25] VITALS: BP 102/52; PULSE 94; RESP 18; TEMP 37.5; O2SAT 94
[2020-06-26 05:03] VITALS: BMI 47.7
--- NOTE | 2020-06-26 05:17 | PC.NURSE ---
polar pack ice and water was changed at 20:00 patient refuses to keep on
--- NOTE | 2020-06-26 05:45 | PC.NURSE ---
polar pack was refilled at 05:30
[2020-06-26 07:53] VITALS: BP 95/56; PULSE 101; RESP 20; TEMP 37.1; O2SAT 95
--- NOTE | 2020-06-26 08:43 | P.PN_ITS ---
Internal Medicine - PN: Subj *Date: 06/26/20 *Time: 08:44 Interval history: Patient reports improvement in pain control. Exam Vital signs and Labs for Last 24 Hours: Temp Pulse Resp BP Pulse Ox 98.7 F 101 H 20 95/56 L 95 06/26/20 07:53 06/26/20 07:53 06/26/20 07:53 06/26/20 07:53 06/26/20 07:53 Laboratory Results - last 24 hr 06/25/20 09:23: WBC 10.5, RBC 3.65 L, Hgb 10.5 L, Hct 31.2 L, MCV 85.5, MCH 28.8, MCHC 33.7, RDW 14.1, Plt Count 178, MPV 8.7, Neut % (Auto) 73.5, Lymph % (Auto) 17.8, Pecos % (Auto) 7.5, Eos % (Auto) 0.9, Baso % (Auto) 0.4, Neut # (Auto) 7.7, Lymph # (Auto) 1.9, [place] # (Auto) 0.8, Eos # (Auto) 0.1, Baso # (Auto) 0.0 06/25/20 09:23: Sodium 133 L, Potassium 3.3 L, Chloride 100, Carbon Dioxide 28, Anion Gap 8.3, BUN 8 D, Creatinine 0.80, Estimated Creat Clear 68, Estimated GFR 77, Est GFR ( Amer) 93, Glucose 167 H, Calcium 8.2 L I & O for Last 24 hours: Intake & Output 06/23/20 06/24/20 06/25/20 06/26/20 11:59 11:59 11:59 11:59 Intake Total 6375 / 6375 2417 / 2417 3364 / 3364 Output Total 900 / 900 1625 / 1625 1000 / 1000 Balance 5475 / 5475 792 / 792 2364 / 2364 Weight 263 lb 1 oz 264 lb 4.995 oz 266 lb 9 oz 269 lb 3 oz - Constitutional no acute distress - *Routine Respiratory Exam Present: CTA bilaterally - *Routine Cardiovascular Exam Present: RRR Assessment and Plan (1) Degenerative joint disease of knee, right Current visit: Yes Status: Acute Category: Medical Code(s): M17.11 - Unilateral primary osteoarthritis, right knee (2) GERD (gastroesophageal reflux disease) Current visit: No Status: Acute Qualifiers: Esophagitis presence: esophagitis presence not specified Qualified Code(s): K21.9 - Gastro-esophageal reflux disease without esophagitis Category: Medical Code(s): K21.9 - Gastro-esophageal reflux disease without esophagitis (3) HTN (hypertension) Current visit: No Status: Chronic Qualifiers: Hypertension type: essential hypertension Qualified Code(s): I10 - Essential (primary) hypertension Category: Medical Code(s): I10 - Essential (primary) hypertension - Assessment and plan all Dx Assessment and Plan for all problems:: Patient is medically stable. From a medical standpoint she may be discharged when primary service prefers
[2020-06-26 09:05] VITALS: PULSE 101; RESP 20; O2SAT 95
--- NOTE | 2020-06-26 09:08 | P.PN_ITS ---
Subjective Date: 06/26/20 Time: 09:08 Principal diagnosis: s/p R TKA Interval history: Awake alert sitting in chair. Feels much better today with regard to pain control and wnats to go home. Right LE slightly swollen\, no evident DVT clinically. - Homans, - calf ten derness. Dressing intact. sensate to LT B LE. Imp. stable s/p R TKA with adequate pain control... Plan--discharge to home PN: Obj Ex Vital signs: Temp Pulse Resp BP Pulse Ox 98.7 F 101 H 20 95/56 L 95 06/26/20 07:53 06/26/20 07:53 06/26/20 07:53 06/26/20 07:53 06/26/20 07:53 - Urinary Catheter Management Brady Cath placed during this visit: no Progress Note: A&P (1) Degenerative joint disease of knee, right Status: Acute Current Visit: Yes (2) GERD (gastroesophageal reflux disease) Status: Acute Current Visit: No (3) HTN (hypertension) Status: Chronic Current Visit: No
--- NOTE | 2020-06-26 10:38 | HMH.PHAINT ---
DISCHARGE COUNSELING COMPLETED ON PATIENT. TWO NEW PRESCRIPTIONS FOR PERCOCET AND LOVENOX. BOTH SCRIPTS WERE PRINTED. PATIENT IS TO CONTINUE ALL OTHER HOME MEDICATIONS. PATIENT VERBALIZED UNDERSTANDING AND HAD NO QUESTIONS AT THIS TIME. -CYNTHIA FIELDS, RADHIKAD
--- NOTE | 2020-08-03 10:16 | HMH.DCSUM ---
General - General Admission date:: 06/23/20 Discharge date: 06/26/20 HPI HPI: 49yo F with chronic R knee pain and radiographic evidence of severe tricompartmental DJD. She failed non-operative treatment with the following: ice, NSAIDs, brace use, corticosteroid injections, physical therapy. She has a history of HTN and GERD but is otherwise healthy; no h/o DVT/PE or diabetes. 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 The pain in her knee has become so severe that it is inhibiting her ability to perform ADLs and is adversely affecting her quality of life. I?ve discussed surgical options with the patient and have recommended total knee arthroplasty. We discussed at length the surgical technique and expected perioperative course, including length of hospitalization, need for postoperative physical therapy, use of anticoagulants, expected level of pain, and total length of recovery. I also explained the potential risks of surgery, including bleeding, infection, fracture, wound healing complications, need for revision surgery, continued pain post-operatively, DVT/PE, and risks of both general and regional anesthesia, including nerve damage, heart attack, stroke and even . I also discussed her increased risk of adverse outcome including wound healing impairment and/or periprosthetic joint infection given her increased BMI of 47. The patient vocalized understanding of these risks and has agreed to proceed with surgery; informed consent was obtained. MRSA nasal swab was negative, so bactroban was not started. Meloxicam was held for the past week, and covid testing was negative. Preoperative evaluation was performed by her PCP and adult literacy instructor, both of whom deemed her acceptable risk for surgery. The patient underwent R TKA 06/23/2020 without complication. EBL roughly 100cc. TXA 1g given at incision and 1g at closure. Prevena incisional wound vac placed at closure. Hospital Course Hospital Course: The patient underwent R TKA on 06/23/2020 without complication. Post-operatively she was admitted to the med/surg floor for continuing post-operative care. IV antibiotics were continued for 24 hours for standard surgical prophylaxis. Spinal wore off the night of surgery and ortiz removed afterwards, on morning of POD 1. Lovenox started POD 1 for DVT prophylaxis. She began participating in PT/OT the afternoon of surgery and was ambulating well on POD 1. Vitals remained stable with no fevers/chills, no hypotension or tachycardia. Pain was adequately controlled with oral medication. She was medically and surgically appropriate for discharge home on POD 3. The patient was seen on POD 2-[address] Rosario. She was provided with prescriptions for pain medication and lovenox, in addition to written post-op discharge instructions. Objective Vital signs: Temp Pulse Resp BP Pulse Ox 98.7 F 101 H 20 95/56 L 95 06/26/20 07:53 06/26/20 09:05 06/26/20 09:05 06/26/20 07:53 06/26/20 09:05 no acute distress - *Routine HEENT Exam Head: Present: normocephalic Eye: Present: EOMI ENT: Present: mucous membranes moist - *Routine Neck Exam Present: trachea midline - *Routine Respiratory Exam Absent: respiratory distress, wheezes - *Routine Cardiovascular Exam Present: RRR - *Routine Abdominal Exam Present: soft. Absent: tenderness - *Routine Extremities Exam Comments: R knee incisional wound vac/dressing in place with good seal +DF/PF/EHL RLE SILT distally RLE in all distributions palpable pedal pulses RLE, foot pink/warm with BCR R calf soft, non-tender - *Routine Skin Exam Present: warm - *Routine Neurological Exam Present: alert, oriented X3, moving all extremities, normal tone, vision grossly intact, hearing grossly intact, normal speech. Absent: sensory deficit, motor deficit, altered mental status - Routine Psychiatric Exam Present: normal affect Results Completed studies during hospitalization [Text1]:
== END 2020-06-26 10:55 | disposition home or self-care (01) ==
LOC: 2ND 07:57
PROVIDERS: Admitting Provider Orthopaedic Surgery; PCP Family Medicine; Visit Provider Orthopaedic Surgery
PROC: (CPT 27447; principal; 2020-06-23 09:45)
DX: M17.11 Unilateral primary osteoarthritis, right knee (principal); I10 Essential (primary) hypertension; E66.01 Morbid (severe) obesity due to excess calories; Z68.42 Body mass index [BMI] 45.0-49.9, adult
CPT/HCPCS: 27447; 36415; 73560; 80048; 85025; 86850; 96374; 97110; 97116; 97140; 97162; 97165; 97530; C1713; C1776; G0378; J2405; J2704

== ENCOUNTER → 2020-07-07 12:27 | Outpatient (CLI) | payer OTHER, SELFPAY ==
--- NOTE | 2020-07-07 12:34 | XR_ITS ---
PROCEDURE: XR KNEE RT 3V Referring Doctor: Christina Sparks Patient Age:49Y CLINICAL INDICATION: s/p RT TKA 06/23/2020/with follow-up COMPARISON: CR XR KNEE RT 4V from 07/31/2019 CR XR KNEE RT 4V from 04/29/2020 CR XR KNEE RT 4V from 06/15/2020 CR XR KNEE RT 2V from 06/23/2020 FINDINGS: Right knee three view AP lateral and oblique Comparison is made to 06 23 20 postoperative study The right TK A.. Appears to remain in good position well seated. No fracture or loosening evident. Adequate relationships but there is some persistent subcutaneous soft tissue edema particularly medial to the knee. IMPRESSION: Right TKA. Satisfactory appearance. Dictated by: Nicolas Coburn MD 07/07/2020 14:55 Nicolas Coburn MD in [place] 07/07/2020 14:55
== END ==
PROVIDERS: PCP Family Medicine; Visit Provider Orthopaedic Surgery
DX: M25.561 Pain in right knee (principal); Z96.651 Presence of right artificial knee joint
CPT/HCPCS: 73562

== ENCOUNTER 2020-08-24 10:00 | Outpatient (RCR) | payer OTHER, SELFPAY ==
--- NOTE | 2020-06-28 10:01 | HMH.PTOPEV ---
PT Outpatient Evaluation Rehab PT Outpatient Evaluation Start: 06/28/20 09:52 Freq: Status: Active Protocol: Document 06/28/20 09:52 SCOTTIE (Rec: 06/28/20 10:01 SCOTTIE [id number]) Electronically Signed By Prince Mcclure, PT 06/28/20 09:52 Outpatient Therapy Subjective History Subjective History THis is the initial Physical THerapy evaluation for Kristy Franklin. Pt is a 49 y/o female referred to PT s/p R TKA. Pt had TKA 06/23/20. Pt reports to PT w/ c/o significant pain and decreased ROM. Chief Complaint Pain,Stiff,Swelling Symptom Type Ache,Throb,Sharp,Stabbing, Numbness Symptoms Relieved By Rest/Positioning,Ice, Prescription Meds Symptoms Aggravated By Standing,Physical Activity, Walking Prior Functional Limitations None Current Functional Limitations Housework,Standing,Squatting, Recreation Activity,Walking, Stairs Symptom Description Constant but Variable Level of pain today (0-10) 9 Pain scale - at its best (0-10) 2 Pain scale - at its worst (0-10) 10 Hip/Knee Eval Gait Observation General Gait Pattern Observation Antalgic Gait Assistive Device Assistive Devices Rolling / Wheeled Walker Palpation Tenderness right Knee Palpation Finding Tenderness Knee Palpation Overall Comment TTP along B jt line MMT Hip Flexion Strength Grade 3- Fair- Knee Extension Strength Grade 3- Fair- Knee Flexion Strength Grade 3- Fair- ROM Knee Extension Active Range of Motion ( 7 from neutral degrees) Knee Flexion Active Range of Motion ( 77 degrees) Outpatient Therapy Assessment Impairments Problems/Impairmments Palpation Tenderness,Impaired Range of Motion,Impaired Strength,Impaired Endurance, Impaired Transfers,Impaired Gait Pattern,Impaired Walking, Impaired Standing,Impaired Sitting,Impaired Driving, Impaired Shower/Bathing, Impaired Household Care, Impaired Stair Climbing, Impaired Incline Stepping, Impaired Stepping on Uneven Surface,Impaired Squatting, Impaired Recreational Activities,Im
== END 2020-08-24 10:05 | disposition home or self-care (01) ==
LOC: PT 10:00
PROVIDERS: PCP Family Medicine; Visit Provider Orthopaedic Surgery
DX: M25.561 Pain in right knee; Z96.651 Presence of right artificial knee joint
CPT/HCPCS: 97010; 97014; 97110; 97140; 97163; 97164; G0283

== ENCOUNTER → 2020-08-29 07:59 | Outpatient (CLI) | payer OTHER, SELFPAY ==
--- NOTE | 2020-08-29 08:02 | XR_ITS ---
PROCEDURE: XR KNEE RT 3V CLINICAL INDICATION: s/p RT TKA COMPARISON: CR XR KNEE RT 4V from 04/29/2020 CR XR KNEE RT 4V from 06/15/2020 CR XR KNEE RT 2V from 06/23/2020 CR XR KNEE RT 3V from 07/07/2020 FINDINGS: No fracture or dislocation. No lytic or blastic change. There is normal mineralization. Good alignment status post total knee replacement. No evidence of orthopedic complication. No acute fracture or dislocation. No lytic or blastic change. The Other findings:None. IMPRESSION: S/p total knee replacement with good alignment Dictated by: Raza Degroot MD 08/29/2020 10:27 Raza Degroot MD in [place] 08/29/2020 10:27
== END ==
PROVIDERS: PCP Family Medicine; Visit Provider Orthopaedic Surgery
DX: M25.561 Pain in right knee (principal); Z96.651 Presence of right artificial knee joint
CPT/HCPCS: 73562

== ENCOUNTER → 2021-01-06 09:14 | Outpatient (CLI) | payer OTHER, SELFPAY ==
--- NOTE | 2021-01-06 09:20 | XR_ITS ---
PROCEDURE: XR KNEE RT 3V CLINICAL INDICATION: s/p right knee arthroplasty COMPARISON: CR XR KNEE RT 4V from 06/15/2020 CR XR KNEE RT 2V from 06/23/2020 CR XR KNEE RT 3V from 07/07/2020 CR XR KNEE RT 3V from 08/29/2020 FINDINGS: Total right knee arthroplasty is noted. No periprosthetic fractures. Bone density is normal. No significant periprosthetic lucencies noted to suggest the loosening or infection. Patellar osteotomy is noted. No significant soft tissue abnormality. IMPRESSION: Total right knee arthroplasty. No acute abnormality. Dictated by: Faye Mclaughlin 01/06/2021 10:02 Faye Mclaughlin in [place] 01/06/2021 10:02
== END ==
PROVIDERS: PCP Family Medicine; Visit Provider Orthopaedic Surgery
DX: Z96.659 Presence of unspecified artificial knee joint (principal)
CPT/HCPCS: 73562

== ENCOUNTER → 2021-05-24 12:22 | Outpatient (CLI) | payer OTHER, SELFPAY ==
--- NOTE | 2021-05-24 12:26 | XR_ITS ---
PROCEDURE: XR KNEE LT 2V CLINICAL INDICATION: LT KNEE PAIN COMPARISON: CR XR KNEE RT 2V from 06/23/2020 CR XR KNEE RT 3V from 07/07/2020 CR XR KNEE RT 3V from 08/29/2020 CR XR KNEE RT 3V from 01/06/2021 FINDINGS: [id number] osteoarthritic changes are present at the medial compartment and patellofemoral joint. Mild osteoarthritis also noted of the lateral compartment. There are osteophytes with joint space narrowing. Along the left lateral tibial plateau there is an osteophyte measuring 7 mm. IMPRESSION: Mild to moderate osteoarthritic changes. Dictated by: Raza Degroot MD 05/24/2021 12:44 Raza Degroot MD in [place] 05/24/2021 12:44
== END ==
PROVIDERS: PCP Family Medicine; Visit Provider Family Medicine
DX: M25.562 Pain in left knee (principal)
CPT/HCPCS: 73560

== ENCOUNTER → 2021-06-20 08:18 | Outpatient (CLI) | payer OTHER, SELFPAY ==
--- NOTE | 2021-06-20 08:23 | XR_ITS ---
PROCEDURE: XR KNEE LT 4V CLINICAL INDICATION: left knee pain; weightbearing COMPARISON: CR XR KNEE RT 3V from 07/07/2020 CR XR KNEE RT 3V from 08/29/2020 CR XR KNEE RT 3V from 01/06/2021 CR XR KNEE LT 2V from 05/24/2021 FINDINGS: There are mild osteoarthritic changes involving all 3 compartments. A loose body is noted along the lateral aspect of the lateral joint space. This loose body measures approximately 9 mm. There is a small suprapatellar effusion suspected. IMPRESSION: Mild osteoarthritic changes with small loose body along the lateral compartment and small knee joint effusion Dictated by: Raza Degroot MD 06/20/2021 14:43 Raza Degroot MD in [place] 06/20/2021 14:43
--- NOTE | 2021-06-20 10:24 | XR_ITS ---
PROCEDURE: XR KNEE RT 2V CLINICAL INDICATION: sp RT TKA by Dr Sparks COMPARISON: CR XR KNEE RT 3V from 08/29/2020 CR XR KNEE RT 3V from 01/06/2021 CR XR KNEE LT 2V from 05/24/2021 CR XR KNEE LT 4V from 06/20/2021 FINDINGS: Status post total knee arthroplasty with good alignment and no obvious orthopedic complications. No fracture or dislocation. Other findings:None. IMPRESSION: Good alignment status post total knee arthroplasty Dictated by: Raza Degroot MD 06/20/2021 14:22 Raza Degroot MD in [place] 06/20/2021 14:22
== END ==
PROVIDERS: PCP Family Medicine; Visit Provider Orthopaedic Surgery
DX: M25.562 Pain in left knee (principal); Z09 Encounter for follow-up examination after completed treatment for conditions other than malignant neoplasm
CPT/HCPCS: 73560; 73564

== ENCOUNTER 2021-07-25 11:00 | Outpatient (RCR) | payer OTHER, SELFPAY ==
--- NOTE | 2021-06-27 10:41 | HMH.PTOPEV ---
PT Outpatient Evaluation Rehab PT Outpatient Evaluation Start: 06/27/21 10:13 Freq: Status: Active Protocol: Document 06/27/21 10:22 LASHA (Rec: 06/27/21 10:40 LASHA [id number]) Electronically Signed By Paul Russ, PT 06/27/21 10:22 Outpatient Therapy Subjective History Subjective History Pt reports h/o chronic left knee pain, severe OA changes globally in left knee. Pt reports recent cortizone injection has provided 'great relief' of left knee pain and catching/locking. PMH: R TKA 2019 Chief Complaint Pain,Stiff,Catches/Locks Symptom Type Ache,Sharp,Dull Symptoms Relieved By Rest/Positioning,Heat, Prescription Meds Symptoms Aggravated By Standing,Walking Prior Functional Limitations Standing,Walking,Stairs Current Functional Limitations Standing,Squatting,Walking, Stairs Symptom Description Constant but Variable Level of pain today (0-10) 5 Pain scale - at its best (0-10) 4 Pain scale - at its worst (0-10) 10 Hip/Knee Eval Gait Observation General Gait Pattern Observation No Deviations/Normal Palpation Tenderness left Knee Palpation Finding Tenderness Knee Palpation Overall Comment 2-3/4 medial, lateral jt line MMT Hip Flexion Strength Grade 4- Good- Hip Abduction Strength Grade 4- Good- Hip Adduction Strength Grade 4- Good- Hip Extension Strength Grade 4 Good Gluteus Mario Strength Grade 4 Good Hip External Rotation Strength Grade 4- Good- Hip Internal Rotation Strength Grade 4 Good Knee Extension Strength Grade 5 Normal Knee Flexion Strength Grade 5 Normal ROM Knee Flexion Active Range of Motion ( 0-115 degrees) Knee ROM Limitations Soft Tissue Tightness,Pain Effusion joint effusion knee exam standard left Mid - Patellar Circumerential Measure ( 49 cm) Outpatient Therapy Assessment Impairments Problems/Impairmments Palpation Tenderness,Impaired Range of Motion,Impaired Strength,Impaired Gait Pattern ,Impaired Walking,Impaired Standing,Impaired Household Care,Impaired Squatting, Impaired Work Activities, Increased Edema,Subjective C/O Pain,Impaired Self Care/Self Management Prognosis Rehab Potential Good Clinical Impre
== END 2021-07-25 11:05 | disposition home or self-care (01) ==
LOC: PT 11:00
PROVIDERS: PCP Family Medicine; Visit Provider Orthopaedic Surgery
DX: M17.12 Unilateral primary osteoarthritis, left knee (principal)
CPT/HCPCS: 97010; 97014; 97110; 97163; G0283

== ENCOUNTER → 2021-08-22 09:01 | Outpatient (CLI) | payer OTHER, SELFPAY | PROVIDERS: PCP Nurse Practitioner Family; Visit Provider Nurse Practitioner | DX: Z20.822 Contact with and (suspected) exposure to COVID-19 (principal) | CPT/HCPCS: C9803; U0003; U0005 ==

== ENCOUNTER → 2021-11-08 11:17 | Outpatient (CLI) | payer OTHER, SELFPAY ==
[2021-11-09 09:38] LABS: Covid-19 Nasal PCR Sendout Lex POSITIVE
== END ==
PROVIDERS: PCP Family Medicine; Visit Provider Nurse Practitioner
DX: U07.1 COVID-19 (principal)
CPT/HCPCS: C9803; U0004; U0005

== ENCOUNTER → 2022-01-11 11:13 | Outpatient (CLI) | payer OTHER, SELFPAY ==
--- NOTE | 2022-01-11 11:16 | XR_ITS ---
FINAL REPORT CLINICAL HISTORY: knee pain, pre op COMPARISON: 05/24/2021 FINDINGS: LEFT KNEE Three views were obtained. There is no acute fracture or dislocation. No joint effusion is identified. There are moderate to severe degenerative changes with significant medial compartment and patellofemoral joint space narrowing. No soft tissue abnormality is identified. IMPRESSION: Degenerative changes as above. No significant change from previous. Reviewed, Interpreted and Dictated by Cristobal Sommers III, MD Transcribed by Carline Franklin Authenticated by Cristobal Sommers III, MD on 01/11/2022 12:49:55 PM [facility]
== END ==
PROVIDERS: PCP Family Medicine; Visit Provider Orthopaedic Surgery
DX: M25.562 Pain in left knee (principal)
CPT/HCPCS: 73562

== ENCOUNTER → 2022-03-27 10:13 | Outpatient (CLI) | payer OTHER, SELFPAY ==
[2022-03-27 10:17] LABS: Microscopic, Urine URINE MICROSCOPIC (MICROSCOPIC)
--- NOTE | 2022-03-27 10:30 | XR_ITS ---
FINAL REPORT CLINICAL HISTORY: pre-op, hypertension, obesity FINDINGS: Two views of the chest were obtained. The heart size and pulmonary vascularity are within normal limits. The mediastinum is normal. No acute pulmonary abnormality is identified. There is no pneumothorax. There are postoperative changes in the lower cervical spine. IMPRESSION: No active cardiopulmonary disease. Reviewed, Interpreted and Dictated by Cristobal Sommers III, MD Transcribed by Kiara Bustillos Authenticated and [facility]
[2022-03-27 10:37] LABS: Appearance,Urine CLEAR (Clear); Bilirubin,Urine Negative (Negative); Blood, Urine Negative (Negative); Color,Urine YELLOW (Yellow); Glucose,Urine (UA) 3+ (Negative); Ketones,Urine Negative (Negative); Leukocyte Esterase,Urine Negative (Negative); Nitrate,Urine Negative (Negative); PH,Urine 5.5 (5.0-8.5); Protein,Urine Negative (Negative)
[2022-03-27 10:39] LABS: Basophils # 0.2 K/mm3 (0-0.2); Basophils % 1.9 % (0.1-2.0); Eosinophils # 0.4 K/mm3 (0.0-0.4); Eosinophils % 5.2 % (0.1-12.0); Hematocrit 42.8 % (37.0-47.0); Mean Corpuscular HGB Conc 32.7 g/dL (31.8-35.4); Mean Corpuscular Hemoglobin 28.2 pg (27.0-31.2); Mean Corpuscular Volume 86.2 fl (81-99); Mean Platelet Volume 9.4 fl (7.4-10.4); Monocytes # 0.4 K/mm3 (0.1-1.0); Monocytes % 5.4 % (1.7-9.3); Neutrophils % 49.6 % (37.0-80.0); Platelet Count 253 K/mm3 (142-424); Red Blood Count 4.97 M/mm3 (4.20-5.40); Red Cell Distribution Width 14.3 % (11.5-17.5)
[2022-03-27 10:53] LABS: Bacteria,Urine 1+ /lpf; Squamous Epithelial Cell,Urine Occasional #/hpf (0-5); WBC,Urine Occasional #/hpf (0-3)
[2022-03-27 11:17] LABS: Alanine Aminotransferase 32 U/L (12-78); Albumin Level 3.6 g/dl (3.5-5.0); Albumin/Globulin Ratio 1.2 (1.1-1.8); Alkaline Phosphatase 130 U/L (38-126); Aspartate Amino Transferase 40 U/L (14-36); Bilirubin,Total 0.3 mg/dl (0.2-1.3); Blood Urea Nitrogen 16 mg/dl (7-17); Calcium 9.2 mg/dl (8.4-10.2); Carbon Dioxide 26 mmol/L (22.0-30.0); Chloride 103 mmol/L (98-107); Estimated Glomerular Filt Rate 66 ml/min (>60); GFR (African American) 80 ML/MIN (>60); Globulin 3.1 g/dL (1.3-3.2); Glucose 319 mg/dl (74-100); Sodium 137 mmol/L (136-145); Total Protein,Serum 6.7 g/dl (6.3-8.2)
== END ==
PROVIDERS: PCP Family Medicine; Visit Provider Orthopaedic Surgery
DX: M17.12 Unilateral primary osteoarthritis, left knee (principal)
CPT/HCPCS: 36415; 71046; 80053; 81001; 85025; 86850

== ENCOUNTER → 2022-04-03 10:25 | Outpatient (CLI) | payer BC, SELFPAY | PROVIDERS: PCP Family Medicine; Visit Provider Orthopaedic Surgery | DX: Z20.822 Contact with and (suspected) exposure to COVID-19 (principal); Z01.812 Encounter for preprocedural laboratory examination; M25.562 Pain in left knee | CPT/HCPCS: C9803; U0003; U0005 ==

== ENCOUNTER 2022-04-05 07:06 | Observation (INO) | payer BC, SELFPAY ==
[2022-03-29 11:24] VITALS: BMI 50.5
--- NOTE | 2022-03-29 11:39 | SW/DCPLANNER ---
I spoke with this patient today regarding plans once medically stable for discharge after her TKA on 04/02/22. Patient stated that she intends on returning home with assistance from her family, returning to [facility] outpatient PT and will need a rolling walker at time of discharge. Patient stated that she will also need a shower chair: I explained to patient that this DME is never covered under insurance. Patient stated that she will reach out to family/friends to try to borrow shower chair. I will continue to follow this patient after her surgery during hospital admission.
[2022-04-05] VITALS (19 sets, daily range): BP systolic 84–150; BP diastolic 47–83; PULSE 80–118; RESP 12–20; TEMP 36.1–43; O2SAT 91–100; BMI 51.2
[2022-04-05 06:49] LABS: Coronavirus 19, PCR Not Detected (NotDetected); Influenza A, PCR Not Detected (NotDetected); Influenza B, PCR Not Detected (NotDetected)
[2022-04-05 07:12] LABS: POC Glucose,Bedside 253 (70-110)
--- NOTE | 2022-04-05 08:00 | HMH.ORTHHP ---
*Admission Date: 04/05/22 *Reason for consult:: left total knee arthroplasty *History of present illness: Patient is a 51-year-old female admitted to the inpatient service today following an uneventful primary left total knee arthroplasty. She has had chronic left knee pain and degenerative arthritis in her left knee which she states has gradually worsened. Her pain has failed to respond satisfactorily to extensive nonsurgical management. Although she has minimal pain at rest, she rates her pain an 8 out of 10 with activity. She reports that the pain interferes with her work, quality life, and activities of daily living. She also reports frequent night pain and intermittent sleep disturbances. She endorses frequent swelling and crepitus in the left knee and reports that she has frequent sensations of the left knee giving out on her. She has not had any falls. She has had multiple intra-articular steroid injections, physical therapy, and has been taking NSAIDs without any significant relief. She denies any distal tingling/numbness. No history of any hip or back pain. She previously had a right total knee arthroplasty performed by Dr. Sparks and states that she has done well with that knee. 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 Her past medical history is significant for hypertension, angina, arthritis, and GERD. This afternoon following surgery, the patient is doing well. She is sitting in the bed comfortably. She denies any left knee pain, she states that her left lower extremity is still numb after receiving spinal anesthesia. She reports that she was able to eat a little lunch and denies any episodes of nausea or vomiting. She has not yet ambulated. She denies any other symptoms or concerns at this time. [facility] History Medical History: Reports:: Gastroesophageal Reflux Disease(GERD), Hypertension Denies:: Cancer, Diabetes Mellitus Type 1, Diabetes Mellitus Type 2, Internal Pacemaker, MRSA, Seizures *Have you ever received a pneumonia vaccine?: No *Have you received a flu vaccine this season?: No Other Medical History: Reports: Arthritis. Denies: Blood Transfusion Reaction Laterality Cases: Right: Arthroscopy Knee, Arthroscopy Shoulder, Bilateral: Other Other Surgeries: Yes: Appendectomy, Cardiac Catheterization, Cholecystectomy, , Dilation and Curettage, Diagnostic Lap, Hysterectomy-Total, Hysterectomy-Partial, Tubal Ligation, Other. No: Pacemaker Amputation: No Fractures: Yes (cervical) - *Social History Last grade of school completed: Advanced degree Smoking Status: Never smoker Alcohol Intake: never Alcohol Intake Frequency:: other Substance Use Type: denies use *Occupational Status:: employed Housing: house Household Members: spouse *Travel in the last 8 weeks: None Family Hx:: Diabetes, Heart Attack Review of Systems - Review of Systems Review of systems:: pertinent systems reviewed and negative unless documented below - Constitutional Denies anorexia, Denies body ache(s), Denies chills, Denies fatigue, Denies fever(s), Denies headache(s), Denies lack of energy - Eyes Denies change in vision - ENT Denies poor balance, Denies dizziness, Denies mouth pain, Denies nasal congestion, Denies neck pain, Denies sore throat, Denies throat swelling - *Cardiovascular Denies chest pain, Denies chest pain at rest, Denies shortness of breath, Denies shortness of breath with activity, Denies rapid, pounding, or irregular heartbeat, Denies radiating jaw, neck or arm pain - *Respiratory Denies chest congestion, Denies cough, Denies shortness of breath, Denies shortness of breath with activity, Denies pain on inspiration, Denies wheezing - *Gastrointestinal Denies abdominal pain, Denies change in bowel habits, Denies change in stools, Denies constipation, Denies loose stools, Denies bright, red blood in stools, Denies black, tarry stools, Denies nausea, Denies vomiting - *Genitourinary Denies diff
--- NOTE | 2022-04-05 08:10 | HMH.PHAINT ---
MEDICATION RECONCILIATION COMPLETED ON PATIENT USING EXTERNAL FILL HISTORY FROM PHARMACY. -CYNTHIA FIELDS, RADHIKAD
--- NOTE | 2022-04-05 08:58 | P.PN_ITS ---
[facility] Anesthesia Checklist - Structural Data Admitted From: Home Planned Operative Procedure/s: l TKA Consent for Planned Operative Procedure(s) Verified: Yes - Additional verifications Anesthesia Reactions: Yes (nausea/ vomiting) Hx Blood Transfusions: No Blood Transfusion Reaction: No - Airway Assessment C-Spine Mobility Assessed: Yes TMJ Mobility Assessed: Yes Dentition: Good Dentition - Neurological Assessment Level of Consciousness: Awake, Alert, Appropriate - Anesthesia Plan Anesthesia Risk discussed: Yes Anesthesia Plan: Verified ASA Class: III Anesthesia Type: MAC w/Spinal - Preoperative Comments Pre-Operative Comments: morbid obesity [facility] History I have reviewed the patient's past medical history: Yes Medical History: Reports:: Gastroesophageal Reflux Disease(GERD), Hypertension Denies:: Cancer, Diabetes Mellitus Type 1, Diabetes Mellitus Type 2, Internal Pacemaker, MRSA, Seizures *Have you ever received a pneumonia vaccine?: No *Have you received a flu vaccine this season?: No Other Medical History: Reports: Arthritis. Denies: Blood Transfusion Reaction Anesthesia experience/problems:: none Laterality Cases: Right: Arthroscopy Knee, Arthroscopy Shoulder, Bilateral: Other Other Surgeries: Yes: Appendectomy, Cardiac Catheterization, Cholecystectomy, , Dilation and Curettage, Diagnostic Lap, Hysterectomy-Total, Hysterectomy-Partial, Tubal Ligation, Other. No: Pacemaker Amputation: No Fractures: Yes (cervical) - *Social History Last grade of school completed: Advanced degree Smoking Status: Never smoker Alcohol Intake: never Alcohol Intake Frequency:: other Substance Use Type: denies use *Occupational Status:: employed Housing: house Household Members: spouse *Travel in the last 8 weeks: None Family Hx:: Diabetes, Heart Attack
--- NOTE | 2022-04-05 10:34 | SUR.OPER ---
1034-family updated at this time
--- NOTE | 2022-04-05 10:56 | SUR.OPER ---
1055-family updated at this time
--- NOTE | 2022-04-05 11:52 | P.PN_ITS ---
[facility] Anesthesia Record Part I Intake, IV Amount: 2,800 Estimated blood loss (mL): 100 Urine output (mL): 400 Blood Pressure: 97/58 SaO2: 93 Pulse Rate: 102 Respiratory Rate: 12 Temperature: 97.3 F Patient is:: Awake, Stable Stable to PACU at:: 11:45
--- NOTE | 2022-04-05 11:55 | XR_ITS ---
FINAL REPORT CLINICAL HISTORY: total knee COMPARISON: 01/11/2022 FINDINGS: LEFT KNEE Three views were obtained. There is no acute fracture or dislocation. The joint spaces appear normal. There are postoperative changes from knee arthroplasty. There is no evidence of complication. Soft tissue air is identified. IMPRESSION: Status post knee arthroplasty with soft tissue air. Reviewed, Interpreted and Dictated by Cristobal Sommers III, MD Transcribed by Carline Franklin Authenticated and [facility]
[2022-04-05 11:59] LABS: POC Glucose,Bedside 221 (70-110)
--- NOTE | 2022-04-05 12:36 | PC.NURSE ---
PT arrived to the floor at this time
--- NOTE | 2022-04-05 12:39 | HMH.OPNOTE ---
Date of procedure: 04/05/22 Pre-op Diagnosis:: Advanced osteoarthritis, left knee Post-op Diagnosis:: Same Procedure performed:: Total knee arthroplasty, left knee Surgeon:: Vinnie Mclaughlin MD Prism Measurer(s):: Leann Silver PA-C Anesthesia: spinal Estimated blood loss (mL): 50 Clinical Note:: Patient is a 51-year-old female with advanced tricompartmental osteoarthritis and bexa-li-eeis changes over the medial compartment with a progressive varus deformity of her left knee presented with unremitting severe pain. She had extensive nonsurgical management with initial good response. Her symptoms worsened over a period of time and she failed to obtain satisfactory results with conservative management. The arthritic process and pain are advanced to the point that it is becoming a hazard for the patient with risk of falling and injuring herself. A total knee arthroplasty is indicated to relieve the pain, improve function, reduce the risk of falls and improve quality of life. Please refer to my office note for full details. Operative findings:: As noted on the preoperative evaluation, the knee joint has a 5 degrees of varus deformity. As seen on the x-rays, the medial and patellofemoral compartments are showing advanced degenerative changes with [id number] appearance. The menisci and cruciate ligaments are degenerate. There is osteophyte formation over all 3 compartments. Bone quality is good. Operative note:: On the day of the surgery the patient and her were seen in the preoperative area. I have again reviewed the clinical and x-ray findings and again discussed the diagnosis, natural history and management options in detail including both nonsurgical and surgical. Patient has end-stage degenerative arthritis of the left knee and has failed to respond satisfactorily to appropriate conservative management so far and has opted for a total knee arthroplasty. The left knee joint is stiff and painful, and is limiting mobility, ADLs and quality of life. Also the knee gives out and patient is at risk of falls resulting in fractures. I have again discussed the details of the procedure, risks and benefits and alternatives in detail. The complications discussed include but are not limited to infection, injury to nerves and blood vessels including injury to popliteal artery, injury to tendons and ligaments, DVT and PE, fat embolism, intraoperative fracture, limb length inequality, patella fracture, patellofemoral instability, patellar clunk syndrome, quadriceps and patellar tendon rupture, implant failure, component loosening, periprosthetic femur and tibia fractures, stiffness /arthrofibrosis, limp, incomplete relief of pain, incomplete functional recovery, likely need for further surgery in future including revision and anesthetic complications including heart attack, stroke and even . We also discussed about the likely need for blood transfusion and transfusion reactions. We discussed how any of these events can be devastating. We have discussed nonsurgical alternatives as well. Patient understands and wishes to proceed with a left total knee arthroplasty as planned and I believe that he is fully informed as to the risks, benefits, and alternatives including nonsurgical alternatives. We also discussed the postoperative course including the rehab and physical therapy required. A physical examination was performed and documented. Patient understood the risks, agreed to proceed with surgery, signed the consent form and no guarantees or assurances were given or implied. The limb was appropriately marked and initialed by me. The patient was then brought to the operating room and a spinal anesthesia was administered by the cardiovascular sonographer. The patient was then positioned supine on the operating table. All the bony prominences were appropriately padded. A well-padded tourniquet cuff was placed high over the upper thigh. The left knee was then prepped with iso
--- NOTE | 2022-04-05 13:22 | PC.NURSE ---
Spoke with Nia in OR to clarify if we needed to give medication.
--- NOTE | 2022-04-05 13:37 | P.CONPHA_ITS ---
[facility] Pharmacy VTE Monitoring - Patient Demographics Admission date: 04/05/22 Report Date: 04/05/22 Time: 13:38 Allergies/Adverse Reactions: Patient Allergies celecoxib [CELECOXIB] Allergy (Unknown, Verified 04/05/22 08:10) Unknown allergy reaction naproxen [NAPROXEN] Allergy (Unknown, Verified 04/05/22 08:10) Unknown allergy reaction Height: 1.6 m Weight: 131.088 kg - VTE Risk Clinical Trial Participant: No - Prophylaxis VTE Prophylaxis Ordered?: Yes Types of VTE Prophylaxis: IPCS Thigh High (POST OP)
[2022-04-05 15:52] LABS: Microscopic,Cath URINE MICROSCOPIC (MICROSCOPIC)
[2022-04-05 16:44] LABS: Appearance,Urine/Cath CLEAR (Clear); Bilirubin,Cath Negative (Negative); Blood, Urine/Cath Negative (Negative); Color,Urine/Cath YELLOW (Yellow); Glucose,Urine/Cath (UA) Negative (Negative); Ketones,Urine/Cath Negative (Negative); Leukocyte Esterase,Cath Negative (Negative); Nitrate,Cath Negative (Negative); PH,Urine/Cath 5.5 (5.0-8.5); Protein,Urine/Cath Negative (Negative); Specific Gravity, Urine/Cath 1.025 (1.005-1.030); Urobilinogen,Cath 0.2 EU/dl (0.2)
[2022-04-05 17:37] LABS: Squamous Epithelial Ur./Cath Occasional #/hpf (0-5); WBC,Urine/Cath Occasional #/hpf (0-3)
[2022-04-05 17:43] LABS: Hemoglobin A1C 9.1 % (4.0-6.0)
--- NOTE | 2022-04-05 19:45 | PC.NURSE ---
Called and got order for morphine 2 mg q 2 hrs IV PRN for pain, as norco was ineffective. Pt states pain is still there but has improved. Educated pt on frequency of prn meds and repositioned, along with polar pack in use. CB in reach. VSS
[2022-04-06] VITALS: BP 149/89; PULSE 114; RESP 21; TEMP 36.9; O2SAT 95
--- NOTE | 2022-04-06 03:22 | PC.NURSE ---
Patient has require pain control around the clock. Patient vitals remain stable. Patient remains on room air. Pulses palpable in both feet. No acute changes have occurred thus far.
[2022-04-06 04:00] VITALS: BP 150/93; PULSE 119; RESP 20; TEMP 36.9; O2SAT 96
[2022-04-06 07:33] VITALS: BP 151/89; PULSE 104; RESP 20; TEMP 36.8; O2SAT 100
[2022-04-06 08:00] VITALS: PULSE 116; O2SAT 100
[2022-04-06 08:26] LABS: Basophils % 0.3 % (0.1-2.0); Eosinophils # 0.1 K/mm3 (0.0-0.4); Eosinophils % 0.6 % (0.1-12.0); Hematocrit 38.2 % (37.0-47.0); Hemoglobin 12.7 g/dL (12.2-16.2); Lymphocytes # 1.5 K/mm3 (0.7-4.5); Lymphocytes % 15.4 % (10-50); Mean Corpuscular HGB Conc 33.3 g/dL (31.8-35.4); Mean Corpuscular Hemoglobin 27.2 pg (27.0-31.2); Mean Corpuscular Volume 81.6 fl (81-99); Mean Platelet Volume 8.4 fl (7.4-10.4); Monocytes # 0.8 K/mm3 (0.1-1.0); Monocytes % 7.8 % (1.7-9.3); Neutrophils # 7.4 K/mm3 (1.8-7.8); Neutrophils % 75.9 % (37.0-80.0); Platelet Count 196 K/mm3 (142-424); Red Blood Count 4.69 M/mm3 (4.20-5.40); Red Cell Distribution Width 13.7 % (11.5-17.5); White Blood Count 9.7 K/mm3 (4.8-10.8)
[2022-04-06 08:35] LABS: Anion Gap 7.9 mEq/L (5-15); Blood Urea Nitrogen 12 mg/dl (7-17); Calcium 8.5 mg/dl (8.4-10.2); Carbon Dioxide 27 mmol/L (22.0-30.0); Chloride 101 mmol/L (98-107); Creatinine Clearance Estimated 70 mL/min (50-200); Estimated Glomerular Filt Rate 76 ml/min (>60); GFR (African American) 92 ML/MIN (>60); Glucose 275 mg/dl (74-100); Potassium 3.9 mmoL/L (3.5-5.1); Sodium 132 mmol/L (136-145)
--- NOTE | 2022-04-06 09:00 | PC.NURSE ---
Patient refused Estradial stating the Dr. Mclaughlin did not want her to restart for 2 weeks post surgery r/t increase risk for blood clots.
--- NOTE | 2022-04-06 09:13 | HMH.OTEV ---
OT Inpatient Evaluation Rehab OT IP Evaluation Start: 04/05/22 12:04 Freq: ONCE Status: Complete Protocol: Document 04/06/22 09:07 JAYLENALAN (Rec: 04/06/22 09:12 DANIELA [id number]) Rehab OT IP Assessment Subjective History Patient is a 51-year-old female with advanced tricompartmental osteoarthritis and bone-on- bone changes over the medial compartment with a progressive varus deformity of her left knee presented with unremitting severe pain. Patient underwent total knee arthroplasty on 04/05/22. She had extensive nonsurgical management with initial good response. Her symptoms worsened over a period of time and she failed to obtain satisfactory results with conservative management. The arthritic process and pain are advanced to the point that it is becoming a hazard for the patient with risk of falling and injuring herself. A total knee arthroplasty is indicated to relieve the pain, improve function, reduce the risk of falls and improve quality of life. Subjective I can get up. Nursing in room at arrival of tx to provide pain medication. Instructed Patient on proper hand/foot placement to complete supine->sit @ EOB-> stand->ambulate ~3ft to recliner with usage of RW requiring CGA/Min A for safety and needing increase time 2* pain levels. Left Patient sitting up in chair with needs met at end of session and will attempt to complete additional ADLs and fx'l mobility task with pain management more under control. Objective Patient Orientation Person,Place,Name,Birthday,
[2022-04-06 10:34] VITALS: BP 149/83; PULSE 116; RESP 17; TEMP 36.7; O2SAT 100
--- NOTE | 2022-04-06 11:47 | HMH.PTEV ---
Physical Therapy Evaluation Rehab PT IP Evaluation Start: 04/05/22 12:04 Freq: ONCE Status: Active Protocol: Document 04/06/22 11:45 PHORNE (Rec: 04/06/22 11:47 PHORNE [id number]) Subjective/History History History 51 yowf adm to [facility] for L TKA. She reports no steps to enter the home and is generally independent with all mobility. Subjective Subjective Pt reports significant pain in L LE with all movement, but agrees to treatment. Rehab PT IP Eval Objective Appearance Patient Behavior Appropriate Patient Orientation Person,Place,Time Difficulty following instructions none Speech Pattern Clear Ambulation Patient Able to Ambulate Yes Ambulation Observation IP General Gait Pattern Observation Antalgic Gait Ambulation Distance (feet) 10 Ambulation Assistive Device Rolling Walker Ambulation Ability Contact Guard/Hand Hold Balance Ability to Arise Able, uses arms to help Sitting Balance Steady, safe Standing Balance Steady, wide stance Dynamic Sitting Balance Ability Good Dynamic Standing Balance Ability Good Transfers Bed Transfer Ability Contact Guard/Hand Hold Chair Transfer Ability Contact Guard/Hand Hold Sit to Stand Bed Transfer Ability Contact Guard/Hand Hold Sit to Stand Chair Transfer Ability Contact Guard/Hand Hold Rehab PT IP prob,goals,plan Problems Date of Evaluation: 04/06/22 PT IP Problems Bed Mobility,Transfers,Gait, Self care Rehab Potential Rehab Potential Good Equipment Needs Assistive Devices Rolling / Wheeled Walker Plan PT Intervention Plan Bed Mobility,Transfers,Gait, Self care,Therapeutic Exercise PT Plan Frequency BID Duration LOS Discharge Goals Bed Transfer Ability Supervision/Stand by Sit to Stand Chair Transfer Ability Supervision/Stand by Ambulation Assistive Device Rolling Walker Ambulation Distance (feet) 30 Discharge Plan PT Discharge Plan Pt is appropriate to return home once medically stable, recommend HHPT vs Outpatient PT. G -code Required No Eval Complexity Eval Charge Codes 32142 - Moderate Complexity PHYSICIAN CERTIFICATION: I certify the specified therapy services for Kristy Franklin are required, authorized, and reviewed every 30 days.
--- NOTE | 2022-04-06 12:02 | CARE MANAGER ---
Patient will require a rolling walker and a BSC r/t TKA. BSC is needed due to ambulation distance in home to bathroom.
--- NOTE | 2022-04-06 12:10 | HMH.DCSUM ---
General - General Admission date:: 04/05/22 Discharge date: 04/06/22 HPI HPI: Patient is a 51-year-old female admitted to the inpatient service today following an uneventful primary left total knee arthroplasty. She has had chronic left knee pain and degenerative arthritis in her left knee which she states has gradually worsened. Her pain has failed to respond satisfactorily to extensive nonsurgical management. Although she has minimal pain at rest, she rates her pain an 8 out of 10 with activity. She reports that the pain interferes with her work, quality life, and activities of daily living. She also reports frequent night pain and intermittent sleep disturbances. She endorses frequent swelling and crepitus in the left knee and reports that she has frequent sensations of the left knee giving out on her. She has not had any falls. She has had multiple intra-articular steroid injections, physical therapy, and has been taking NSAIDs without any significant relief. She denies any distal tingling/numbness. No history of any hip or back pain. She previously had a right total knee arthroplasty performed by Dr. Sparks and states that she has done well with that knee. 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 Her past medical history is significant for hypertension, angina, arthritis, and GERD. This afternoon following surgery, the patient is doing well. She is sitting in the bed comfortably. She denies any left knee pain, she states that her left lower extremity is still numb after receiving spinal anesthesia. She reports that she was able to eat a little lunch and denies any episodes of nausea or vomiting. She has not yet ambulated. She denies any other symptoms or concerns at this time. Hospital Course Hospital Course: Following an uncomplicated primary left total knee arthroplasty the patient was admitted to the inpatient service and has progressed well. Her postoperative check x-ray was satisfactory with good alignment and fixation of the orthopedic components. She was advised to ambulate weightbearing as tolerated on the left lower extremity and has managed this very well. Her pain is well controlled with oral analgesics. She is eating and drinking well without any difficulty. Patient is medically stable at the time of discharge he was cleared for discharge by Dr. Mclaughlin as well as physical therapy. Her surgical dressings were changed on the first postoperative day and the surgical incision is healthy and healing well. No erythema, induration, purulent drainage, bleeding, or other signs of infection noted. Distal neurovascular status is intact and there is no clinical evidence of DVT. The patient was started on aspirin 325 mg p.o. daily for DVT prophylaxis after surgery. On the day of discharge, she is afebrile and her vital signs have been stable throughout her admission. She is being discharged home with home health services. Additionally, during her inpatient admission, the patient's blood glucose was also found to be elevated. Her HbA1c drawn postoperatively was found to be 9.1. The patient is not a known diabetic. I spoke with Dr. Hernandez, who recommended starting the patient on metformin 500 mg twice daily until the patient is able to follow-up with her primary care provider, Dr. Best. Objective Vital signs: Temp Pulse Resp BP Pulse Ox 98.1 F 116 H 17 149/83 H 100 04/06/22 10:34 04/06/22 10:34 04/06/22 10:34 04/06/22 10:34 04/06/22 10:34 no acute distress, obese, cooperative - *Routine HEENT Exam Head: Present: normocephalic, atraumatic Eye: Present: EOMI, PERRL ENT: Present: mucous membranes moist - *Routine Neck Exam Present: supple, full ROM, trachea midline. Absent: JVD, lymphadenopathy, tracheal deviation - *Routine Respiratory Exam Absent: accessory muscle use, respiratory distress Comments: Symmetric chest movement, able to speak in complete sentences
--- NOTE | 2022-04-06 12:42 | PC.NURSE ---
ROUNDED ON PATIENT. PATIENT WAS RESTING IN BED WITH EYES CLOSED. FAMILY AT BEDSIDE. UPON ENTERING ROOM PATIENT EASILY AWOKE. SHE DID START YELLING OUT IN PAIN AND STATED IT WAS TIME FOR HER PAIN MEDICATION. PRIMARY NURSE GETTING PAIN MEDICATION AT THAT TIME. NO CONCERNS OR QUESTIONS CURRENTLY.
[2022-04-06 13:39] VITALS: BMI 51.1
--- NOTE | 2022-04-06 14:19 | CARE MANAGER ---
Spoke with patient and she signed Patient Choice for [facility]. Orders for BSC and rolling walker were faxed to [facility]. Delivered to hospital prior to discharge.
[2022-04-06 15:04] VITALS: BP 146/87; PULSE 111; RESP 17; TEMP 36.9; O2SAT 100
--- NOTE | 2022-04-06 17:18 | PC.NURSE ---
patient has been provided with a new ice pitcher and trash has been taken out
--- NOTE | 2022-04-10 13:52 | CARE MANAGER ---
Called and spoke with Mrs. Franklin today to discuss post discharge status. Patient confirmed that she is planning to attend her scheduled outpatient PT appointment tomorrow, 04/11 @ 1500. She states that she was able to get her medications prior to leaving this facility. She has no concerns or questions at this time.
--- NOTE | 2022-04-10 14:50 | HMH.ANESII ---
[facility] Anesthesia Record Part II Discharge Time: 12:25 Destination: Medical Surgical Department PACU nurse assessment reviewed?: Yes Patient Condition:: Good Anesthesia Complications:: None Swallowing reflex intact?: Yes Cyanosis?: No Blood Pressure: 94/58 Pulse Rate: 95 Temperature: 97.3 F Mental Status: Alert & Oriented Pain level:: 0 Nausea and/or vomitting:: None Intake, IV Amount: 0
[2022-04-10 14:51] VITALS: BP 94/58; PULSE 95; TEMP 36.3
== END 2022-04-06 18:05 | disposition home health service (06) ==
LOC: 2ND 07:36
PROVIDERS: Physician Assistant Surgical; Admitting Provider Orthopaedic Surgery; PCP Family Medicine; Visit Provider Orthopaedic Surgery
PROC: (CPT 27447; principal; 2022-04-05 07:30)
DX: M17.12 Unilateral primary osteoarthritis, left knee (principal); I10 Essential (primary) hypertension; Z79.890 Hormone replacement therapy; Z79.899 Other long term (current) drug therapy; E11.9 Type 2 diabetes mellitus without complications; Z79.84 Long term (current) use of oral hypoglycemic drugs; Z20.822 Contact with and (suspected) exposure to COVID-19
CPT/HCPCS: 27447; 73560; 80048; 81001; 82962; 83036; 85025; 86850; 96374; 97162; 97165; C1776; C9803; G0378; J2405; J2704; J3370; U0003; U0005

== ENCOUNTER → 2022-04-24 10:05 | Outpatient (CLI) | payer BC, SELFPAY ==
--- NOTE | 2022-04-24 10:12 | XR_ITS ---
FINAL REPORT CLINICAL HISTORY: s/p lt TKA on 04/05/2022 COMPARISON: 04/05/2022 FINDINGS: LEFT KNEE Note this exam was performed on 04/24/2022 and submitted for interpretation on 04/25/2022. Three views of the left knee were obtained. There are postoperative changes from knee arthroplasty. Bony alignment is normal. No complication is identified. There is no joint effusion. Soft tissues are unremarkable. IMPRESSION: Postoperative change with no identified complication. Reviewed, Interpreted and Dictated by Cristobal Sommers III, MD Transcribed by Kiara Bustillos Authenticated and [facility]
== END ==
PROVIDERS: PCP Family Medicine; Visit Provider Orthopaedic Surgery
DX: M25.562 Pain in left knee (principal); Z96.652 Presence of left artificial knee joint
CPT/HCPCS: 73562

== ENCOUNTER → 2022-05-22 09:24 | Outpatient (CLI) | payer BC, SELFPAY ==
--- NOTE | 2022-05-22 09:34 | XR_ITS ---
FINAL REPORT CLINICAL HISTORY: s/p Lt TKA COMPARISON: April 24, 2022 FINDINGS: LEFT KNEE: Three views of the left knee were obtained. There is no acute fracture or dislocation. Stable postoperative changes from knee arthroplasty. There is no joint effusion. Soft tissues are unremarkable. IMPRESSION: No acute bony abnormality. Reviewed, Interpreted and Dictated by Cristobal Sommers III, MD Transcribed by Margot Cheney Authenticated and [facility]
== END ==
PROVIDERS: PCP Family Medicine; Visit Provider Physician Assistant Surgical
DX: M25.562 Pain in left knee (principal); Z96.652 Presence of left artificial knee joint
CPT/HCPCS: 73562

== ENCOUNTER 2022-06-05 08:00 | Outpatient (RCR) | payer BC, SELFPAY ==
--- NOTE | 2022-04-11 16:15 | HMH.PTOPEV ---
PT Outpatient Evaluation Rehab PT Outpatient Evaluation Start: 04/11/22 14:57 Freq: Status: Active Protocol: Document 04/11/22 14:57 SONIA (Rec: 04/11/22 16:14 SONIA [id number]) Electronically Signed By Roz Stovall PT 04/11/22 14:57 Outpatient Therapy Subjective History Subjective History Pt is a 51 y/o female that presents to PT s/p left total knee arthroplasty performed at [facility]. Pt denies complications with the surgery and only stayed overnight in the hospital. Pt states she was given a brace the day of surgery by PT and was told to wear it during standing/ walking due to the knee giving out and to wear it until she could do a SLR independently. Pt states she was independent prior to surgery and not using an AD for ambulation. Pt reports she has a wheelchair ramp at home, no stairs. Pt states she is independent with car transfers but requires help from with donning shoes/socks. Pt reports she had her right knee replaced almost 2 years ago. Pt denies numbness/tingling. Pt states the doctor told her to do ankle pumps which she has been doing. Pt reports she is taking cat naps but is unable to sleep due to pain. Pt reports she returns to see her doctor on the . 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
--- NOTE | 2022-05-09 11:03 | HMH.RHREAS ---
Rehab Reassessment Rehab OP Re-assessment Start: 05/09/22 09:54 Freq: Status: Active Protocol: Document 05/09/22 09:55 SONIA (Rec: 05/09/22 11:03 SONIA [id number]) Electronically Signed By Roz Stovall, PT 05/09/22 09:55 Rehab Re-assessment Subjective Subjective Pt reports she feels she has improved 100% since the initial evaluation in regards to her overall function. Pt states she is able to perform transfers and ADLs independently without issues now. Pt reports she feels safe walking without an AD and has no fear of falling. Pt reports pain at worse as 6/10 within the past week. Pt reports she returns to her surgeon on 05/22/22. Objective Objective Notes L knee AROM: -6 to 97 LE MMT: hip flex 3+, knee ext/ flex 4/5 Gait: lack of terminal knee extension in stance phase and decreased flexion in swing phase, improved heel strike since IE Incision observation: well healing without signs of infection Assessment Progress Assessment Progressing as Expected Assessment Notes Pt is ~5 weeks s/p L TKA performed on 04/05/22 and has attended 7 PT sessions consisting of gait training, manual therapy, ROM, MMT, aerobic exercise, and modalities. Pt would continue to benefit from skilled PT to further improve gait mechanics , knee AROM, and LE strength/ endurance to assist with return to PLOF. Patient goals met ST/11 Goals Not Met Distal knee girth measurement Revised Goals n/a Plan Plan Continue initial POC Frequency of Therapy 2-3x/week Duration of therapy 4 weeks Time and Billing Re-Eval Time 8 Re-Eval Billing Units 1 PHYSICIAN CERTIFICATION: I certify the
== END 2022-06-05 08:05 | disposition home or self-care (01) ==
LOC: PT 08:00
PROVIDERS: PCP Family Medicine; Visit Provider Orthopaedic Surgery
DX: M17.12 Unilateral primary osteoarthritis, left knee (principal); Z96.652 Presence of left artificial knee joint
CPT/HCPCS: 97010; 97014; 97110; 97112; 97140; 97163; 97164; 97530; G0283

== ENCOUNTER → 2022-06-19 08:53 | Outpatient (CLI) | payer BC, SELFPAY ==
--- NOTE | 2022-06-19 08:55 | XR_ITS ---
FINAL REPORT CLINICAL HISTORY: s/p lt TKA COMPARISON: May 22, 2022 FINDINGS: Three views of the left knee reveal no evidence of fracture or dislocation. There has been total knee arthroplasty. There is no evidence of joint effusion. No localized soft tissue abnormality is seen. IMPRESSION: Knee arthroplasty without evidence of complication. Reviewed, Interpreted and Dictated by Cristobal Sommers III, MD Transcribed by Sohan Ralph Authenticated and [facility]
== END ==
PROVIDERS: PCP Family Medicine; Visit Provider Orthopaedic Surgery
DX: Z96.652 Presence of left artificial knee joint (principal); M25.562 Pain in left knee
CPT/HCPCS: 73562

== ENCOUNTER → 2022-11-08 12:41 | Outpatient (CLI) | payer BC, SELFPAY ==
--- NOTE | 2022-11-08 12:51 | XR_ITS ---
FINAL REPORT CLINICAL HISTORY: back and neck pain, hx of cspine surgery FINDINGS: CERVICAL SPINE Five views demonstrate no acute fracture. There is fusion from C5-C7. There are mild degenerative changes with osteophytes. There is mild right neural foraminal narrowing at C5-6. There is no malalignment. IMPRESSION: Degenerative and postoperative changes. THORACIC SPINE Three views demonstrate no acute fracture. There are mild degenerative changes with osteophytes. There is no malalignment. IMPRESSION: No acute process. Reviewed, Interpreted and Dictated by Cristobal Sommers III, MD Transcribed by Carline Franklin Authenticated and . [facility]
== END ==
PROVIDERS: PCP Family Medicine; Visit Provider Nurse Practitioner Family
DX: M54.2 Cervicalgia (principal); M54.6 Pain in thoracic spine; Z98.890 Other specified postprocedural states
CPT/HCPCS: 72084

== ENCOUNTER → 2022-11-15 07:52 | Outpatient (CLI) | payer BC, SELFPAY ==
--- NOTE | 2022-11-15 07:58 | MR_ITS ---
FINAL REPORT CLINICAL HISTORY: CERVICALGIA COMPARISON: 09/20/2017 FINDINGS: Multi planar MR imaging was obtained of the cervical spine. There is magnetic artifact from anterior and interbody fusion hardware at C5-6 and C6-7. There is abnormal decreased signal throughout the cervical discs. The vertebrae are of normal height. There is no malalignment. The cervical cord demonstrates normal signal and configuration. C2-C3: There is no evidence of significant disc bulge or protrusion. There is no significant facet hypertrophy. C3-C4: There is a large left paracentral disc protrusion with high-grade compromise of the left side of the spinal canal and high-grade left and moderate right neuroforaminal narrowing. C4-C5: A mild to moderate diffuse disc bulge is present with mild bilateral neuroforaminal narrowing. C5-C6: A right paracentral disc protrusion is present with endplate hypertrophy. There is moderate compromise of the right-side of the spinal canal with high-grade right neuroforaminal narrowing. C6-C7: There is a moderate diffuse disc bulge with moderate right neuroforaminal narrowing. C7-T1: A mild diffuse disc bulge is present with mild bilateral neuroforaminal narrowing. IMPRESSION: Interval anterior interbody fusion at C5-6 and C6-7. Left paracentral protrusion at C3-4 with the left high-grade neuroforaminal narrowing. Right paracentral protrusion at C4-5 with right high-grade neuroforaminal narrowing. Reviewed, Interpreted and Dictated by Abner Harley MD Transcribed by Kiara Bustillos Authenticated and [facility]
== END ==
PROVIDERS: PCP Family Medicine; Visit Provider Nurse Practitioner Family
DX: M54.2 Cervicalgia (principal); Z98.890 Other specified postprocedural states
CPT/HCPCS: 72141; 76376

== ENCOUNTER → 2022-12-04 08:57 | Outpatient (POV) | payer BC, SELFPAY ==
[2022-12-04 09:01] VITALS: BP 130/85; PULSE 91; RESP 18; O2SAT 99; BMI 47.8
--- NOTE | 2022-12-04 09:16 | EXP.PAIN.OV ---
HPI Data of Consult Patient: new to practice Consult date: 12/04/22 Requesting Physician: Roz Joyce APRN Primary Care Provider: Eros Best MD Consult Narrative Reason for consult: Neck pain, right shoulder pain, scapular pain History of present illness: Ms. Franklin is a 52 year old female who presents today as a new patient. She is a referral from [facility]. Today she rates her pain a 1 out of 10. Patient states her pain is primarily in her right shoulder/scapula area that radiates to her mid back and around towards her abdomen. Patient states this has been going on for approximately a month and a half. Patient states that this has happened before approximately 6 months ago and that it did resolve over time however this instance seems to be lingering. Patient does state that it is a aching with tingling and numbness and occasional spasms. Patient states the spasms are random and do not seem to be precipitated by any certain activity. Patient states she has used [id number] ibuprofen with some improvement. Patient states she was prescribed tramadol in the past however she only used a couple of these. Patient does use a heating pad which does provide significant improvement however only temporary. Patient denies any topicals or history of physical therapy/chiropractor. Patient states that she did try a muscle relaxer at the last episode she had however she did not notice significant improvement. Patient denies any specific injury or trauma that started this pain. 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 Patient does have a history of cervical fusion approximately [address] Jerome Joyce at [facility]. Patient states she did get significant improvement following this surgery that it did help take away some of her radicular symptoms into her bilateral arms. Her Sam is [phone]. Its been reviewed and appropriate. CC: Roz Joyce APRN [facility] Disclaimer: The information contained in this section may have been updated after the patient was seen, as this information can be updated by other users. Medical History (Updated 12/04/22 @ 09:41 by Roz Joyce APRN) Chest pain Degenerative disc disease, cervical Dyspnea Edema Encounter for pre-operative cardiovascular clearance GERD (gastroesophageal reflux disease) HTN (hypertension) Social History (Updated 12/04/22 @ 09:14 by Neha Wong RN) Smoking Status: Never smoker second hand exposure: No alcohol intake: never substance use type: denies use current occupational status: other Travel in the last 8 weeks: None household members: spouse housing: house current occupation: [employer] current occupational exposures/hazards: Yes caffeine: Yes Review of Systems Review of Systems Review of systems:: pertinent systems reviewed and negative unless documented below Review of systems (narrative): Review of Systems: General: No recent weight changes, no fever, no sleep disturbances Respiratory: No cough, no shortness of air, no recurring pulmonary infections Cardiovascular/peripheral vascular: No chest pain, no palpitations, no edema, no shortness of breath Gastrointestinal: No new onset incontinence, normal bowel movements reported Genitourinary: No new onset incontinence Musculoskeletal: Mid back pain pain, right shoulder pain, scapular pain Psychiatric: [Normal mood/affect] Neurological: [Denies weakness in extremities], [denies balance issues] Meds Home Medications and Allergies Home Medications Medication Instructions Recorded Confirmed Type glucosamine-chondroitin 250 mg-200 2 tab PO DAILY Supplement 11/19/18 12/04/22 History mg tablet (Osteo Bi-Flex) vitamin E 670 mg (1,000 unit) 1,000 unit PO DAILY Supplement 11/28/18 12/04/22 History capsule pantoprazole 40 mg tablet,delayed 40 mg PO DAILY GERD 05/02/20
== END | disposition home or self-care (01) ==
PROVIDERS: PCP Family Medicine; Visit Provider Nurse Practitioner Family
DX: M51.14 Intervertebral disc disorders with radiculopathy, thoracic region (principal); M79.18 Myalgia, other site; M54.12 Radiculopathy, cervical region; Z98.1 Arthrodesis status; M25.511 Pain in right shoulder
CPT/HCPCS: 99202; G0463

== ENCOUNTER 2022-12-11 10:51 | Day surgery (SDC) | payer BC, SELFPAY ==
[2022-12-11 11:01] VITALS: BP 147/60; PULSE 81; RESP 18; TEMP 36.4; O2SAT 99; BMI 47.8
[2022-12-11 11:07] VITALS: BP 146/86; PULSE 76; RESP 18; O2SAT 97
[2022-12-11 11:08] VITALS: BP 146/86; PULSE 76; RESP 18; O2SAT 97
[2022-12-11 11:13] VITALS: BP 145/75; PULSE 72; RESP 18; O2SAT 99
--- NOTE | 2022-12-11 11:13 | P.PCN_ITS ---
Procedure Date: 12/11/22 Time: 11:14 Anesthesiologist:: Moris Taylor CRNA Complications:: None Pre-procedure Diagnosis:: Myofascial pain right trapezius. Right thoracic paraspinous muscle. Post-procedure Diagnosis:: Same. Indications for Procedure:: Patient has extreme point tenderness over the right trapezius as well as the right thoracic paraspinous muscles. Procedure Details:: Details of the procedure explained to the patient. The patient taken to procedure room placed in sitting position. The area over the right trapezius muscle as well as right thoracic paraspinous muscle was cleaned using chlorhexidine as a cleansing solution. Using a 25-gauge needle 2 separate sites of the right trapezius were injected after negative aspiration with 3 cc of 0.25% Marcaine +10 mg of Depo-Medrol at each site. Using a 25-gauge inch and h care home needle the right thoracic paraspinous muscle was injected at 2 separate areas. Each area was injected with 3 cc of 0.25% Marcaine +10 mg of Depo-Medrol at each site. This was after negative aspiration. Patient tolerated the procedure without difficulty. There are no complications Plan and Disposition:: Patient was discharged without incident.
== END 2022-12-11 11:13 | disposition home or self-care (01) ==
PROVIDERS: PCP Family Medicine; Visit Provider Nurse Anesthetist, Certified Registered
DX: M79.18 Myalgia, other site (principal)
CPT/HCPCS: 20552; J1040

== ENCOUNTER → 2023-01-24 14:10 | Outpatient (POV) | payer BC, SELFPAY ==
[2023-01-24 14:42] VITALS: BP 125/61; PULSE 89; RESP 20; BMI 48.6
--- NOTE | 2023-01-24 14:42 | EXP.PAIN.SOA ---
[facility] Pain Management SOAP Note Subjective:: Patient is a pleasant 52-year-old female who presents today for follow-up of trigger point injections of right trapezius and right thoracic paraspinous muscles on 12/11/2022. We are currently treating the patient for neck pain, right shoulder pain, scapular pain, myofascial pain of right trapezius and right thoracic paraspinous muscles, status post cervical spinal fusion, mid back pain, degenerative disc disease of thoracic spine with cervical and thoracic radiculopathy. Today she rates her pain a 1 out of 10. Patient states she has had at least 80 to 90% improvement following these injections. At our last visit we did prescribe her methocarbamol 500 mg at bedtime along with compounding cream. Patient states both of these have provided significant improvement. She states she does not need refills of the muscle relaxer at this time. Patient did have a denial from insurance for her thoracic MRI due to not having physical therapy. Patient's Sam is [phone]. Its been reviewed and appropriate. Review of Systems: General: No recent weight changes, no fever, no sleep disturbances Respiratory: No cough, no shortness of air, no recurring pulmonary infections Cardiovascular/peripheral vascular: No chest pain, no palpitations, no edema, no shortness of breath Gastrointestinal: No new onset incontinence, normal bowel movements reported Genitourinary: No new onset incontinence Musculoskeletal: Neck pain, mid back pain Psychiatric: [Normal mood/affect] Neurological: [Denies weakness in extremities], [denies balance issues] Objective:: Physical Exam: General: Alert and oriented x3, no acute distress, pleasant and cooperative Lungs: Respirations even and unlabored, symmetrical chest expansion Eyes: PERRL Musculoskeletal: Flexion and extension of cervical, thoracic [spine] somewhat guarded secondary to pain, [antalgic gait noted] Neurological: Speech clear, no gross sensory deficit Assessment:: Neck pain, right shoulder pain, scapular pain, myofascial pain of right trapezius and right thoracic paraspinous muscles, status post cervical spinal fusion, mid back pain, degenerative disc disease of cervical and thoracic spine with cervical and thoracic radiculopathy symptoms Plan:: Patient has had significant improvement of her neck and mid back pain following her trigger point injections and does not require any additional injective therapy. I will order the patient physical therapy at today's visit and have the patient return to clinic in 1 month for reevaluation of symptoms and plan of care. Patient has been instructed to contact the clinic with any concerns before the next appointment. Dr. Rodriguez has reviewed this note and agrees with this plan of care. This note was dictated using voice recognition software and make contain errors or omissions. [facility] Disclaimer: The information contained in this section may have been updated after the patient was seen, as this information can be updated by other users. Medical History Chest pain Degenerative disc disease, cervical Dyspnea Edema Encounter for pre-operative cardiovascular clearance GERD (gastroesophageal reflux disease) HTN (hypertension) Family History (Updated 12/11/22 @ 11:02 by Alpa Ponce RN) Other No significant family history Social History Smoking Status: Never smoker second hand exposure: No alcohol intake: never substance use type: denies use current occupational status: other Travel in the last 8 weeks: None household members: spouse housing: house current occupation: [employer] current occupational exposures/hazards: Yes caffeine: Yes
== END ==
PROVIDERS: PCP Family Medicine; Visit Provider Nurse Practitioner Family
DX: M50.10 Cervical disc disorder with radiculopathy, unspecified cervical region (principal); M51.14 Intervertebral disc disorders with radiculopathy, thoracic region; Z98.1 Arthrodesis status; M79.18 Myalgia, other site; M25.511 Pain in right shoulder
CPT/HCPCS: 99212; G0463

== ENCOUNTER → 2023-02-21 09:29 | Outpatient (POV) | payer BC, SELFPAY ==
[2023-02-21 10:07] VITALS: BP 112/76; PULSE 78; RESP 18; O2SAT 96; BMI 48.6
--- NOTE | 2023-02-21 10:55 | EXP.PAIN.SOA ---
[facility] Pain Management SOAP Note Subjective:: Patient is a pleasant 52-year-old female who presents today for follow-up. 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 Today she rates her pain a 3 out of 10. At her last visit we did order physical therapy due to insurance denial for additional thoracic MRI imaging. Patient does state that she has gone for multiple occasions now however it is worsening her symptoms. Patient is experiencing debilitating mid back pain that is worse with this increased activity. Patient states it makes it difficult to perform activities of daily living such as cooking and cleaning or even simple ambulation. Due to the pain. Patient is currently managed with methocarbamol 500 mg at bedtime and compounding cream. Patient has tried and failed conservative therapy such as oral medications, heat and ice, topicals, physical therapy, at home stretching and exercise for longer than 6 weeks. Her Sam is [phone]. Its been reviewed and appropriate. Review of Systems: General: No recent weight changes, no fever, no sleep disturbances Respiratory: No cough, no shortness of air, no recurring pulmonary infections Cardiovascular/peripheral vascular: No chest pain, no palpitations, no edema, no shortness of breath Gastrointestinal: No new onset incontinence, normal bowel movements reported Genitourinary: No new onset incontinence Musculoskeletal: Mid back pain Psychiatric: [Normal mood/affect] Neurological: [Denies weakness in extremities], [denies balance issues] Objective:: Physical Exam: General: Alert and oriented x3, no acute distress, pleasant and cooperative Lungs: Respirations even and unlabored, symmetrical chest expansion Eyes: PERRL Musculoskeletal: Flexion and extension of thoracic [spine] somewhat guarded secondary to pain, [antalgic gait noted] Neurological: Speech clear, no gross sensory deficit Assessment:: degenerative disc disease of cervical and thoracic spine with cervical and thoracic radiculopathy symptoms, neck pain, right shoulder pain, scapular pain, myofascial pain of right trapezius, right thoracic paraspinous muscles, mid back pain and status post cervical fusion Plan:: Patient is continuing to experience significant debilitating pain in her mid back with limited range of motion. Patient has tried physical therapy however this is causing worsening symptoms of her back pain. I will resubmit for MRI without contrast of her thoracic spine during today's visit. She has tried and failed conservative therapy such as oral medications, heat and ice, topicals, physical therapy and at home and stretching for longer than 6 weeks. Patient will follow-up in clinic following this imaging in 1 month to review findings and determine plan of care. Patient has been instructed to contact the clinic with any concerns before the next appointment. Dr. Rodriguez has reviewed this note and agrees with this plan of care. This note was dictated using voice recognition software and make contain errors or omissions. [facility] Disclaimer: The information contained in this section may have been updated after the patient was seen, as this information can be updated by other users. Medical History Chest pain Degenerative disc disease, cervical Dyspnea Edema Encounter for pre-operative cardiovascular clearance GERD (gastroesophageal reflux disease) HTN (hypertension) Family History (Updated 12/11/22 @ 11:02 by Alpa Ponce RN) Other No significant family history Social History Smoking Status: Never smoker second hand exposure: No alcoh
== END ==
PROVIDERS: PCP Family Medicine; Visit Provider Nurse Practitioner Family
DX: M50.10 Cervical disc disorder with radiculopathy, unspecified cervical region (principal); M51.14 Intervertebral disc disorders with radiculopathy, thoracic region; M25.511 Pain in right shoulder; M79.18 Myalgia, other site
CPT/HCPCS: 99212; G0463

== ENCOUNTER 2023-02-21 10:30 | Outpatient (RCR) | payer BC, SELFPAY ==
--- NOTE | 2023-02-07 11:29 | HMH.PTOPEV ---
PT Outpatient Evaluation Rehab PT Outpatient Evaluation Start: 02/07/23 11:19 Freq: Status: Active Protocol: Document 02/07/23 11:19 LASHA (Rec: 02/07/23 11:29 LASHA [id number]) E-signed By Paul Russ, PT Outpatient Therapy Subjective History Subjective History Pt reports h/o chronic LBP for multiple years. Pt reports recent exacerbation over the last 'couple months' w/pain just left of midline in the lumbar region, and w/ intermittent N&T in anterior thigh area of B/L LE's. Pt has also undergone recent pain mngmt injection in the right thoracic area with good results, and is hopeful for a lumbar spine MRI soon. Pt reports work-related lifting/ pt. care at [facility] is very provocative for LBP. Chief Complaint Pain,Stiff,Paresthesia Symptom Type Ache,Sharp,Dull,Numbness, Tingling Symptoms Relieved By Rest/Positioning,Heat Symptoms Aggravated By Physical Activity,Lifting Prior Functional Limitations Lifting,Housework Current Functional Limitations Lifting,Housework Symptom Description Constant but Variable Level of pain today (0-10) 2 Pain scale - at its best (0-10) 1 Pain scale - at its worst (0-10) 8 Lumbopelvic Eval Posture Thoracic Spine Posture Standing Position Neutral Lumbar Spine Posture Standing Position Increased Lordosis Assistive device Assistive Devices None / NA Gait Observation General Gait Pattern Observation No Deviations/Normal Palapation tenderness right thoracic spinal tenderness Yes: 2/4 lumbar spinal tenderness Yes: 2/4 paraspinal tenderness Yes: 2/4 buttock tenderness Yes: 1/4 left thoracic spinal tenderness Yes: 2/4 lumbar spinal tenderness Yes: 3/4 paraspinal tenderness Yes: 3/4 buttock tenderness Yes: 1/4 Lumbar/Sacral Palpation Findings Tenderness Accessory Movement T-spine Vertebrae Accessory Movements Central P/A Smith that Elicit Symptoms T10 bilateral T11 bilateral T12 bilateral L-spine Vertebrae Accessory Movements Left P/A Smith that Elicit Symptoms L4 left L5 left Range of Motion Lumbar Spi
== END 2023-02-21 10:35 | disposition home or self-care (01) ==
LOC: PT 10:30
PROVIDERS: PCP Family Medicine; Visit Provider Nurse Practitioner Family
DX: M54.9 Dorsalgia, unspecified (principal); M54.50 Low back pain, unspecified
CPT/HCPCS: 97010; 97012; 97014; 97110; 97163; 97530; G0283

== ENCOUNTER → 2023-03-12 10:57 | Outpatient (CLI) | payer BC, SELFPAY ==
--- NOTE | 2023-03-12 11:01 | MR_ITS ---
FINAL REPORT TECHNIQUE: Multiplanar MR without contrast CLINICAL HISTORY: MID BACK PAIN pain between shoulder blades stinging and burning sensation off and on x 6-7 years FINDINGS: The vertebral heights are normal. Marrow signal pattern is unremarkable. Alignment is normal. Thoracic spinal cord shows a normal MR appearance. T1-T2: Unremarkable. T2-T3: Unremarkable. T3-T4: Unremarkable. T4-T5: Small bilateral disc protrusions without canal stenosis. T5-T6: Small left paracentral disc protrusion indents the thecal sac. T6-T7: Moderate bilateral disc protrusions with mild canal stenosis. T7-T8: Moderate to large annular bulge asymmetric to the left. Moderate central canal stenosis. T8-T9: Moderate to large annular bulge. Moderate central canal stenosis. T9-T10: Moderate to large annular bulge. Moderate right paracentral disc protrusion. Moderate central canal stenosis. Severe right lateral canal stenosis. T10-T11: Moderate left paracentral disc protrusion contacts the cord. Moderate to severe left lateral canal stenosis. T11-T12: Moderate right paracentral disc protrusion. Moderate right canal stenosis and right neuroforaminal narrowing. T12-L1: Large right lateral canal disc protrusion. Advanced right lateral canal stenosis with mass effect on the cord. IMPRESSION: Severe multilevel degenerative disease. Reviewed, Interpreted and Dictated by Rico Shane MD Transcribed by Sohan Ralph Authenticated and . [facility]
== END ==
PROVIDERS: PCP Family Medicine; Visit Provider Nurse Practitioner Family
DX: M54.6 Pain in thoracic spine (principal)
CPT/HCPCS: 72146

== ENCOUNTER → 2023-03-21 09:31 | Outpatient (POV) | payer BC, SELFPAY ==
--- NOTE | 2023-03-21 09:47 | EXP.PAIN.SOA ---
[facility] Pain Management SOAP Note Subjective:: Patient is a pleasant 52-year-old female who presents today for thoracic MRI follow-up. 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 Today she rates her pain a 1 out of 10. Patient denies any new trauma or injury. Patient denies any change to location or type of pain she experiences. She does states she is doing better today however she had a really rough time last night. She states she worked all day and then had significant pain but it has resolved this morning. Patient is currently managed with methocarbamol 500 mg at bedtime and compounding cream. She denies any side effects from these medications. She states she does not need any refills. Her Sam is [id number]. Its been reviewed and appropriate. Review of Systems: General: No recent weight changes, no fever, no sleep disturbances Respiratory: No cough, no shortness of air, no recurring pulmonary infections Cardiovascular/peripheral vascular: No chest pain, no palpitations, no edema, no shortness of breath Gastrointestinal: No new onset incontinence, normal bowel movements reported Genitourinary: No new onset incontinence Musculoskeletal: Mid back pain Psychiatric: [Normal mood/affect] Neurological: [Denies weakness in extremities], [denies balance issues] Objective:: Physical Exam: General: Alert and oriented x3, no acute distress, pleasant and cooperative Lungs: Respirations even and unlabored, symmetrical chest expansion Eyes: PERRL Musculoskeletal: Flexion and extension of thoracic [spine] somewhat guarded secondary to pain, [antalgic gait noted] Neurological: Speech clear, no gross sensory deficit FINAL REPORT TECHNIQUE: Multiplanar MR without contrast CLINICAL HISTORY: MID BACK PAIN? pain between shoulder blades ? stinging and burning sensation ? off and on x 6-7 years FINDINGS: The vertebral heights are normal. Marrow signal pattern is unremarkable. Alignment is normal.? Thoracic spinal cord shows a normal MR appearance.? T1-T2: Unremarkable.? T2-T3: Unremarkable.? T3-T4: Unremarkable.? T4-T5: Small bilateral disc protrusions without canal stenosis.? T5-T6: Small left paracentral disc protrusion indents the thecal sac.? T6-T7: Moderate bilateral disc protrusions with mild canal stenosis. T7-T8: Moderate to large annular bulge asymmetric to the left. Moderate central canal stenosis.? T8-T9: Moderate to large annular bulge.? Moderate central canal stenosis.? T9-T10: Moderate to large annular bulge.? Moderate right paracentral disc protrusion.? Moderate central canal stenosis.? Severe right lateral canal stenosis.? T10-T11: Moderate left paracentral disc protrusion contacts the cord.? Moderate to severe left lateral canal stenosis.? T11-T12: Moderate right paracentral disc protrusion.? Moderate right canal stenosis and right neuroforaminal narrowing.? T12-L1: Large right lateral canal disc protrusion.? Advanced right lateral canal stenosis with mass effect on the cord. IMPRESSION: Severe multilevel degenerative disease. Reviewed, Interpreted and Dictated by Rico Shane MD Transcribed by Sohan Ralph Authenticated and ERN [place] FINAL REPORT CLINICAL HISTORY: CERVICALGIA COMPARISON: 09/20/2017 FINDINGS: Multi planar MR imaging was obtained of the cervical spine. There is magnetic artifact from anterior and interbody fusion hardware at C5-6 and C6-7.? There is abnormal decreased signal throughout the cervical discs. The vertebrae are of normal height. There is no malalignment. The cervical cord demonstrates normal signal and configuration.? C2-C3: There is no evidence of sig
== END ==
PROVIDERS: PCP Family Medicine; Visit Provider Nurse Practitioner Family
DX: M51.14 Intervertebral disc disorders with radiculopathy, thoracic region (principal); M50.10 Cervical disc disorder with radiculopathy, unspecified cervical region; M25.511 Pain in right shoulder; M79.18 Myalgia, other site; M43.22 Fusion of spine, cervical region
CPT/HCPCS: 99212; G0463

== ENCOUNTER → 2023-07-11 13:39 | Outpatient (CLI) | payer BC, SELFPAY ==
--- NOTE | 2023-07-11 13:44 | MM_ITS ---
PROCEDURE INFORMATION: Exam: US Right Breast, Complete MG Bilateral Diagnostic Breast Tomosynthesis Exam date and time: 07/11/2023 2:12 PM Age: 52 years old Clinical indication: Right breast palpable lump TECHNIQUE: Imaging protocol: Complete ultrasound of all four quadrants of the right breast and the retroareolar regions, including ultrasound of the axilla when performed. Bilateral Diagnostic tomosynthesis and 2D mammography including computer-aided detection (CAD) when performed. Unilateral or bilateral exam. COMPARISON: MG MM DIG MAMM BI DX W/CAD 07/11/2023 1:40 PM FINDINGS: MAMMOGRAPHY: Breast composition: The breasts are almost entirely fatty. Interval development of a lobulated 2.0 x 3.5 cm mass corresponding to the patient's complaint of a palpable abnormality in the right approximate 3 o'clock axis. No suspicious microcalcifications in either breast. No mass lesion or suspicious findings in the left breast. No skin thickening or axillary adenopathy. ULTRASOUND: Sonographic images of the right 2 o'clock axis 5 cm from the nipple demonstrates a poorly defined partially lobulated hypoechoic solid mass measuring 2.3 x 2.3 x 3.2 cm in dimension. There is associated architectural distortion present. The finding is suspicious for primary carcinoma. There is no other solid or cystic mass in the remainder of the right breast. No axillary adenopathy. IMPRESSION: Palpable abnormality in the right breast corresponds to a suspicious solid mass. Ultrasound-guided core biopsy is recommended for further evaluation. ASSESSMENT: BI-RADS Category 5: Highly suggestive of malignancy
== END ==
PROVIDERS: PCP Family Medicine; Visit Provider Nurse Practitioner
DX: N63.10 Unspecified lump in the right breast, unspecified quadrant (principal)
CPT/HCPCS: 76641; 77062; 77066; G0279

== ENCOUNTER → 2023-07-22 08:49 | Outpatient (CLI) | payer BC, SELFPAY ==
--- NOTE | 2023-07-22 09:06 | US_ITS ---
FINAL REPORT CLINICAL HISTORY: RT BREAST 200 -- DR. NATALIA BURNS-- US GUIDED CORE BX, right breast mass FINDINGS: ULTRASOUND-GUIDED RIGHT BREAST CORE BIOPSY TECHNIQUE: Limited images were obtained to localize region of interest. The right breast was prepped in a routine sterile fashion and locally anesthetized with 1% lidocaine. Standard written informed consent was obtained. The biopsy needle was positioned within the outer periphery of the lesion. A total of 4 passes were made with a 16 gauge core biopsy needle. A biopsy marker clip was deployed in satisfactory position. Postbiopsy mammogram showed postbiopsy changes with clip in satisfactory position. Procedure was well tolerated . CONCLUSION: 1. Technically successful ultrasound guided core biopsy of right breast lesion as above. 2. Biopsy marker clip deployed Histopathology results reveal invasive ductal carcinoma.. Pathology is concordant with mammographic findings. Recommend medical and surgical oncologic follow-up. Authenticated and ERN
--- NOTE | 2023-07-22 09:07 | MM_ITS ---
FINAL REPORT CLINICAL HISTORY: . CLIP PLACEMENT FINDINGS: MAMMOGRAM RIGHT TECHNIQUE: Standard digital 2-D views COMPARISON: Prebiopsy exam done earlier 2022 DENSITY: There are scattered areas of fibroglandular density FINDINGS: Post biopsy marker clip is noted to be in satisfactory position. Postbiopsy changes are noted. Biopsy marker clip is seen associated with of the right upper inner quadrant. IMPRESSION: Biopsy marker clip in good position RECOMMENDATION: Given findings of invasive ductal carcinoma, medical and surgical oncologic follow-up recommended Authenticated and ERN
== END ==
PROVIDERS: PCP Family Medicine; Visit Provider Nurse Practitioner
DX: N63.11 Unspecified lump in the right breast, upper outer quadrant (principal)
CPT/HCPCS: 19083; 77065

== ENCOUNTER → 2023-08-15 11:00 | Outpatient (POV) | payer BC, SELFPAY ==
--- NOTE | 2023-08-15 11:44 | EXP.PAIN.SOA ---
[facility] Pain Management SOAP Note Subjective:: Patient is a pleasant 52-year-old female who presents today for follow-up. We are currently treating the patient for degenerative disc disease of cervical and thoracic spine with cervical and thoracic radiculopathy symptoms, myofascial pain, mid back pain, status post cervical fusion. Today she rates her pain a 6 out of 10. Patient denies any new trauma or injury since the last visit. Patient does state that she did end up going to the neurosurgeon, Dr. Foss and he did state that although her imaging did show severe degenerative disc disease that the procedure was too risky and he was not recommending surgery. Patient does state that he was recommending conservative therapy and recommending coming back to our office for treatment. Patient does describe her pain as a constant achy, throbbing sensation that does limit her ability to perform activities of daily living such as cooking and cleaning. Patient is currently managed with methocarbamol 500 mg at bedtime, compounded cream and has been given tramadol 50 mg in the past. Patient denies any side effects from the muscle relaxer the cream however states the tramadol made her severely sick and she did not continue this. She does state that recently she has been diagnosed with breast cancer and is going to see her doctor today regarding it. Her Sam has been reviewed and is appropriate. Review of Systems: General: No recent weight changes, no fever, no sleep disturbances Respiratory: No cough, no shortness of air, no recurring pulmonary infections Cardiovascular/peripheral vascular: No chest pain, no palpitations, no edema, no shortness of breath Gastrointestinal: No new onset incontinence, normal bowel movements reported Genitourinary: No new onset incontinence Musculoskeletal: Neck pain, mid back pain Psychiatric: [Normal mood/affect] Neurological: [Denies weakness in extremities], [denies balance issues] Objective:: Physical Exam: General: Alert and oriented x3, no acute distress, pleasant and cooperative Lungs: Respirations even and unlabored, symmetrical chest expansion Eyes: PERRL Musculoskeletal: Flexion and extension of thoracic [spine] somewhat guarded secondary to pain, [antalgic gait noted] Neurological: Speech clear, no gross sensory deficit Assessment:: Degenerative disc disease of thoracic and cervical spine with cervical and thoracic radiculopathy symptoms, mid back pain, neck pain, myofascial pain, cervical fusion, chronic pain syndrome Plan:: Patient continues to experience significant pain in her neck and mid back with radiating symptoms. I have discussed with the patient due to her chronic pain that she may benefit from a intrathecal pain pump trial in the future. Risk and benefits and educational handouts were given to the patient during today's visit. Patient would like to proceed forward with this plan of care. I will order a psychological evaluation and if she is deemed an appropriate candidate for the device we will plan on proceeding forward at a later date for the pump trial. I have counseled the patient due to her recent diagnosis of breast cancer that this will be also contingent on her plan of care with this physician and making sure there are no contraindications to our interventions here in this office. Patient has tried and failed conservative therapy such as oral medication, heat and ice, topicals, physical therapy, at home stretching and exercise for longer than 12 weeks. Patient has also been to neurosurgery and was told she is not a surgical candidate. Patient will follow-up in clinic in 1 month following her psych eval for reevaluation of symptoms and plan of care. Patient has been instructed to contact the clinic with any concerns before the next appointment. Dr. Rodriguez has reviewed this note and agrees with this plan of care. This note was dictated using voice recognition software and make contain errors or omissions. ROSSANA
[2023-08-15 12:49] VITALS: BP 153/78; PULSE 83; RESP 18; O2SAT 97; BMI 49.6
== END ==
PROVIDERS: PCP Family Medicine; Visit Provider Nurse Practitioner Family
DX: M50.10 Cervical disc disorder with radiculopathy, unspecified cervical region (principal); M51.14 Intervertebral disc disorders with radiculopathy, thoracic region; M43.22 Fusion of spine, cervical region; M79.10 Myalgia, unspecified site; G89.4 Chronic pain syndrome
CPT/HCPCS: 99212; G0463

== ENCOUNTER → 2023-08-16 08:37 | Outpatient (CLI) | payer BC, SELFPAY | PROVIDERS: PCP Family Medicine; Visit Provider Internal Medicine Hematology & Oncology | DX: C50.811 Malignant neoplasm of overlapping sites of right female breast (principal) | CPT/HCPCS: 36415; 82533 ==

== ENCOUNTER → 2023-09-12 09:41 | Outpatient (POV) | payer BC, SELFPAY ==
--- NOTE | 2023-09-12 09:58 | EXP.PAIN.SOA ---
[facility] Pain Management SOAP Note Subjective:: Patient is a pleasant 52-year-old female who presents today for follow-up. We are currently treating the patient for degenerative disc disease of cervical and lumbar spine with cervical and lumbar radiculopathy symptoms, myofascial pain, mid back pain, status post cervical fusion, recent diagnosis of breast cancer. Today she rates her pain a 3 out of 10. Patient denies any new trauma or injury. She does state that she is officially started her chemo treatments and she will go once a week for 12 weeks and then it will decrease for additional couple months. Patient at our last visit had wanted to proceed forward with the intrathecal pain pump trial however due to the recent diagnosis this is on hold. Patient was previously prescribed compounding cream, methocarbamol 500 mg at night and tramadol 50 mg however she states she is not using this medication at all. Her Sam has been reviewed and is appropriate. Review of Systems: General: No recent weight changes, no fever, no sleep disturbances Respiratory: No cough, no shortness of air, no recurring pulmonary infections Cardiovascular/peripheral vascular: No chest pain, no palpitations, no edema, no shortness of breath Gastrointestinal: No new onset incontinence, normal bowel movements reported Genitourinary: No new onset incontinence Musculoskeletal: Low back pain Psychiatric: [Normal mood/affect] Neurological: [Denies weakness in extremities], [denies balance issues] Objective:: Physical Exam: General: Alert and oriented x3, no acute distress, pleasant and cooperative Lungs: Respirations even and unlabored, symmetrical chest expansion Eyes: PERRL Musculoskeletal: Flexion and extension of lumbar [spine] somewhat guarded secondary to pain, [antalgic gait noted] Neurological: Speech clear, no gross sensory deficit Assessment:: Degenerative disc disease of cervical and lumbar spine with cervical and lumbar radiculopathy symptoms, myofascial pain, mid back pain, status post cervical fusion, recent diagnosis of breast cancer Plan:: Patient is doing overall well today. I have discussed with her that we are here for anything she may need while she goes through her breast cancer treatment. We will hold off on the intrathecal pump trial at this time. Patient will return to clinic in 2 months for reevaluation of symptoms and plan of care. Patient has been instructed to contact the clinic with any concerns before the next appointment. Dr. Rodriguez has reviewed this note and agrees with this plan of care. This note was dictated using voice recognition software and make contain errors or omissions. [facility] Disclaimer: The information contained in this section may have been updated after the patient was seen, as this information can be updated by other users. Medical History Chest pain Degenerative disc disease, cervical Dyspnea Edema Encounter for pre-operative cardiovascular clearance GERD (gastroesophageal reflux disease) HTN (hypertension) Family History (Updated 12/11/22 @ 11:02 by Alpa Ponce RN) Other No significant family history Social History Smoking Status: Never smoker second hand exposure: No alcohol intake: never substance use type: denies use current occupational status: other Travel in the last 8 weeks: None household members: spouse housing: house current occupation: [employer] current occupational exposures/hazards: Yes caffeine: Yes
[2023-09-12 10:00] VITALS: BP 148/100; PULSE 94; RESP 19; O2SAT 94; BMI 49.6
== END ==
PROVIDERS: PCP Family Medicine; Visit Provider Nurse Practitioner Family
DX: M50.10 Cervical disc disorder with radiculopathy, unspecified cervical region (principal); M51.16 Intervertebral disc disorders with radiculopathy, lumbar region; M79.10 Myalgia, unspecified site; M43.22 Fusion of spine, cervical region; C50.919 Malignant neoplasm of unspecified site of unspecified female breast
CPT/HCPCS: 99212; G0463

== ENCOUNTER → 2023-09-23 12:58 | Outpatient (CLI) | payer BC, SELFPAY ==
[2023-09-23 13:06] LABS: Microscopic, Urine URINE MICROSCOPIC (MICROSCOPIC)
[2023-09-23 13:22] LABS: Appearance,Urine CLEAR (Clear); Blood, Urine Negative (Negative); Color,Urine YELLOW (Yellow); Glucose,Urine (UA) 3+ (Negative); Ketones,Urine Negative (Negative); Leukocyte Esterase,Urine Negative (Negative); Nitrate,Urine Negative (Negative); Protein,Urine Negative (Negative); Specific Gravity, Urine >= 1.030 (1.005-1.030)
[2023-09-23 13:26] LABS: Bilirubin,Urine 1+ (Negative)
[2023-09-23 15:43] LABS: Bacteria,Urine Trace /lpf; Squamous Epithelial Cell,Urine Occasional #/hpf (0-5)
== END ==
PROVIDERS: PCP Family Medicine; Visit Provider Internal Medicine Hematology & Oncology
DX: R30.0 Dysuria (principal)
CPT/HCPCS: 36415; 81001

== ENCOUNTER → 2023-11-07 11:20 | Outpatient (POV) | payer BC, OTHER, SELFPAY ==
--- NOTE | 2023-11-07 11:28 | A.OFFVIS_ITS ---
[facility] Pain Management SOAP Note Subjective:: Patient is a pleasant 52-year-old female who presents today for follow-up. We are currently treating the patient for degenerative disc disease of cervical and lumbar spine with cervical and lumbar radiculopathy symptoms, myofascial pain, mid back pain, status post cervical fusion, recent diagnosis of breast cancer. Today she rates her pain a 4 out of 10. Patient denies any new trauma or injury. Patient is still undergoing chemotherapy and does have fatigue and weakness related to this. Patient states she is still not needed to be on her previous tramadol pain medication or muscle relaxer. Patient is still prescribed compounded cream. Patient states that they have had 1 updated scan and it did show some shrinkage to be mass. Patient does state that she has been experiencing more problems with her port. Patient states initially she had accessing issues however currently it is infected and they are trying to give her antibiotics to see if this will improve otherwise they will have to have another port placed with this 1 removed. Her Sam has been reviewed and is appropriate. Review of Systems: General: No recent weight changes, no fever, no sleep disturbances Respiratory: No cough, no shortness of air, no recurring pulmonary infections Cardiovascular/peripheral vascular: No chest pain, no palpitations, no edema, no shortness of breath Gastrointestinal: No new onset incontinence, normal bowel movements reported Genitourinary: No new onset incontinence Musculoskeletal: Low back pain Psychiatric: [Normal mood/affect] Neurological: [Denies weakness in extremities], [denies balance issues] Objective:: Physical Exam: General: Alert and oriented x3, no acute distress, pleasant and cooperative Lungs: Respirations even and unlabored, symmetrical chest expansion Eyes: PERRL Musculoskeletal: Flexion and extension of lumbar [spine] somewhat guarded secondary to pain, [antalgic gait noted] Neurological: Speech clear, no gross sensory deficit Assessment:: Degenerative disc disease of cervical and lumbar spine with cervical and lumbar radiculopathy symptoms, myofascial pain, mid back pain, status post cervical fusion, recent diagnosis of breast cancer Plan:: Patient is doing well overall and does not need anything at this time. I have counseled the patient that she will return in 3 months for reevaluation of s ymptoms and plan of care. Her does mention today that he has chronic issues with his knees. I have counseled him that he can call at any time and make an appointment as a new patient for evaluation. Patient has been instructed to contact the clinic with any concerns before the next appointment. Dr. Rodriguez has reviewed this note and agrees with this plan of care. This note was dictated using voice recognition software and make contain errors or omissions. [facility] Disclaimer: The information contained in this section may have been updated after the patient was seen, as this information can be updated by other users. Medical History Chest pain Degenerative disc disease, cervical Dyspnea Edema Encounter for pre-operative cardiovascular clearance GERD (gastroesophageal reflux disease) HTN (hypertension) Family History (Updated 12/11/22 @ 11:02 by Alpa Ponce RN) Other No significant family history Social History Smoking Status: Never smoker second hand exposure: No alcohol intake: never substance use type: denies use current occupational status: other Travel in the last 8 weeks: None household members: spouse housing: house current occupation: [employer] current occupational exposures/hazards: Yes caffeine: Yes
[2023-11-07 12:23] VITALS: BP 111/77; PULSE 99; RESP 18; O2SAT 100; BMI 49.0
== END ==
LOC: SC.PAIN 11:21
PROVIDERS: Visit Provider Nurse Practitioner Family
DX: M50.10 Cervical disc disorder with radiculopathy, unspecified cervical region (principal); M43.22 Fusion of spine, cervical region; M51.16 Intervertebral disc disorders with radiculopathy, lumbar region; M79.10 Myalgia, unspecified site; C50.919 Malignant neoplasm of unspecified site of unspecified female breast
CPT/HCPCS: 99212; G0463

== ENCOUNTER 2024-01-02 09:58 | Outpatient (POV) | payer OTHER, SELFPAY ==
--- NOTE | 2024-01-02 10:07 | A.OFFVIS_ITS ---
[facility] Pain Management SOAP Note Subjective:: Patient is a pleasant 52-year-old female who presents today for follow-up. We are currently treating the patient for degenerative disc disease of cervical and lumbar spine with cervical and lumbar radiculopathy symptoms, myofascial pain, mid back pain, status post cervical fusion, recent diagnosis of breast cancer. Today she rates her pain a 2 out of 10 but does state the pain will go up with the added pressure on her back. She states that this pain is now all along her left mid back area around where her bra strap would be. She describes it as an aching, throbbing sensation that is worse with increased pressure. She states that she has not been able to sleep in the bed for several weeks due to this pain. She states the pain is interfering with her ability to perform activities of daily living such as cooking and cleaning. Patient denies any new trauma or injury. She does state that her chemo and radiation has seen to be effective. She states that they are not seen any of the cancer anymore. She states that she is going for a lumpectomy on January 14 and that they are planning on taking a lymph node or 2 as a precaution. Patient has recently been prescribed Percocet 5 mg and pregabalin from an outside provider. She is prescribed compounded cream from our office. She does state that she feels like she misplaced this and would like more. Her Sam has been reviewed and is appropriate. Review of Systems: General: No recent weight changes, no fever, no sleep disturbances Respiratory: No cough, no shortness of air, no recurring pulmonary infections Cardiovascular/peripheral vascular: No chest pain, no palpitations, no edema, no shortness of breath Gastrointestinal: No new onset incontinence, normal bowel movements reported Genitourinary: No new onset incontinence Musculoskeletal: Mid back pain, left-sided Psychiatric: [Normal mood/affect] Neurological: [Denies weakness in extremities], [denies balance issues] Objective:: Physical Exam: General: Alert and oriented x3, no acute distress, pleasant and cooperative Lungs: Respirations even and unlabored, symmetrical chest expansion Eyes: PERRL Musculoskeletal: Flexion and extension of thoracic [spine] somewhat guarded secondary to pain, [antalgic gait noted] point tenderness along left thoracic paraspinous muscles Neurological: Speech clear, no gross sensory deficit Assessment:: Degenerative disc disease of cervical and lumbar spine with cervical and lumbar radiculopathy symptoms, myofascial pain, mid back pain, status post cervical fusion, recent diagnosis of breast cancer Plan:: Patient is experiencing worsening pain in her mid back along the left side. Patient did have limited range of motion of her thoracic spine with point tenderness along her left thoracic paraspinous muscles. I have discussed with the patient that she may benefit from trigger point injections at this area. Risk and benefits were discussed with patient and she would like to proceed forward with this plan of care. Patient did have trigger point injections along the right side a few months ago and it did provide 100% relief and patient states she is still not having any problems on that side. patient will be scheduled for left trigger point injections of her thoracic paraspinous muscles. I have counseled the patient to contact the number for her compounding cream and that she should still have refills however if she does not want to contact our office. Patient has been instructed to contact the clinic with any concerns before the next appointment. Dr. Rodriguez has reviewed this note and agrees with this plan of care. This note was dictated using voice recognition software and make contain errors or omissions. Mid back along the left side [facility] Disclaimer: The information contained in this section may have been updated after the patient was seen, as this information can be updated by other users. Medical History Degenerative disc disease, cervical Dyspnea Chest pain GERD (gastroesophageal reflux disease) HTN (hypertension) Encounter for pre-operative cardiovascular clearance Edema Family History (Updated 12/11/22 @ 11:02 by Alpa Ponce RN) Other No significant family history Social History Smoking Status: Never smoker second hand exposure: No alcohol intake: never substance use type: denies use current occupational status: other Travel in the last 8 weeks: None household members: spouse housing: house current occupation: [employer] current occupational exposures/hazards: Yes caffeine: Yes
[2024-01-02 10:10] VITALS: BP 125/71; PULSE 95; RESP 18; O2SAT 99; BMI 48.3
== END 2024-01-02 23:59 ==
LOC: SC.PAIN 09:59
PROVIDERS: PCP Family Medicine; Visit Provider Nurse Practitioner Family
DX: M50.10 Cervical disc disorder with radiculopathy, unspecified cervical region (principal); M51.16 Intervertebral disc disorders with radiculopathy, lumbar region; M79.10 Myalgia, unspecified site; M43.22 Fusion of spine, cervical region; C50.919 Malignant neoplasm of unspecified site of unspecified female breast
CPT/HCPCS: 99212; G0463

== ENCOUNTER 2024-01-28 09:22 | Day surgery (SDC) | payer OTHER, SELFPAY ==
[2024-01-28 09:39] VITALS: BP 111/60; PULSE 104; RESP 16; TEMP 36.2; O2SAT 96; BMI 48.5
[2024-01-28] MEDS: LIDOCAINE 1% 5ML PF VIAL 5 ML (09:45)
[2024-01-28] MEDS: methylPREDNISolone ACETATE 80MG/ML VIAL 80 MG (09:45)
[2024-01-28] MEDS: BUPIVACAINE 0.25% 10ML INJ 25 MG IJ (09:45)
[2024-01-28 09:46] VITALS: BP 111/78; PULSE 105; RESP 19; O2SAT 95
[2024-01-28 09:47] VITALS: BP 111/78; PULSE 96; RESP 19; O2SAT 96
--- NOTE | 2024-01-28 09:52 | EXP.PAIN.PRO ---
Procedure Date: 01/28/24 Time: 09:35 Anesthesiologist:: Moris Taylor CRNA Complications:: None Pre-procedure Diagnosis:: Myofascial pain left trapezius/rhomboid. Post-procedure Diagnosis:: Same. Indications for Procedure:: Patient is a pleasant 53-year-old female that comes our clinic today for trigger point injections of the left trapezius and rhomboid muscle. Patient reports spasm in the muscle lasting several weeks now. She rates her pain 7/10. She has responded well to trigger point injections in the past in the same area. Procedure Details:: Details of the procedure explained to the patient. The patient taken the procedure room patient sitting position. The area over the left trapezius and rhomboid was cleansed using chlorhexidine as a cleansing solution. Both muscles on the left were injected with 3 cc into separate areas after negative aspiration with a 25-gauge inch and half needle. The solution contained 1% lidocaine +0.25% Marcaine and 40 mg of Depo-Medrol. Patient tolerated procedure without difficulty. Dental complications. Plan and Disposition:: Patient was discharged out incident.
[2024-01-28 09:54] VITALS: BP 134/71; PULSE 94; RESP 16; O2SAT 96
== END 2024-01-28 09:54 | disposition home or self-care (01) ==
PROVIDERS: PCP Family Medicine; Visit Provider Nurse Anesthetist, Certified Registered
DX: M79.18 Myalgia, other site (principal)
CPT/HCPCS: 20552; J1010

== ENCOUNTER 2024-02-10 13:43 | Outpatient (POV) | payer OTHER, SELFPAY ==
[2024-02-10 13:53] VITALS: BP 140/78; PULSE 78; RESP 18; TEMP 36.6; O2SAT 98; BMI 48.3
--- NOTE | 2024-02-10 14:46 | EXP.PAIN.SOA ---
[facility] Pain Management SOAP Note Subjective:: Patient is a pleasant 53-year-old female who presents today for follow-up of trigger point injections of her left trapezius and left rhomboid muscle on 01/28/2024. Patient states she has had 100% improvement following this injection. She does state that pain is a 0 out of 10. She does state however that she has been experiencing worsening bilateral shoulder pain and states that pain can go and 9 out of 10. She states that it is typically worse with increased activity or ambulation or while she goes to bed trying to sleep. Patient states that she has difficulty laying [id number] due to the shoulder pain. Patient denies any surgery on the left side however states about 3 to 4 years ago she did have a rotator cuff repair. Patient states that the pain does interfere with her ability to perform activities of daily living such as cooking and cleaning and that she also has decreased strength and feels overall weakness into her arms related to her shoulder pain. Patient does state that she is scheduled to start her first radiation treatments coming up Saturday and that she will go 5 days a week for a full month. Patient is prescribed Percocet and pregabalin from an outside provider. She did also recently get a prescription for some tramadol. Patient does get compounded cream from our office and states it still helps. Her Sam has been reviewed and is appropriate. Review of Systems: General: No recent weight changes, no fever, no sleep disturbances Respiratory: No cough, no shortness of air, no recurring pulmonary infections Cardiovascular/peripheral vascular: No chest pain, no palpitations, no edema, no shortness of breath Gastrointestinal: No new onset incontinence, normal bowel movements reported Genitourinary: No new onset incontinence Musculoskeletal: Bilateral shoulder pain Psychiatric: [Normal mood/affect] Neurological: [Denies weakness in extremities], [denies balance issues] Objective:: Physical Exam: General: Alert and oriented x3, no acute distress, pleasant and cooperative Lungs: Respirations even and unlabored, symmetrical chest expansion Eyes: PERRL Musculoskeletal: Flexion and extension of bilateral shoulders somewhat guarded secondary to pain, [antalgic gait noted] Neurological: Speech clear, no gross sensory deficit Assessment:: Degenerative disc disease of cervical and lumbar spine with cervical and lumbar radiculopathy symptoms, myofascial pain, mid back pain, status post cervical fusion, recent diagnosis of breast cancer Plan:: Patient is experiencing worsening pain in her bilateral shoulders with limited range of motion. I have discussed with patient that she may benefit from intra-articular shoulder injection. Risk and benefits were discussed with patient and she would like to proceed forward with this plan of care. Patient has tried and failed conservative therapy. We will submit to insurance for bilateral shoulder intra-articular injection. Patient has been instructed to contact the clinic with any concerns before the next appointment. Dr. Rodriguez has reviewed this note and agrees with this plan of care. This note was dictated using voice recognition software and make contain errors or omissions. [facility] Disclaimer: The information contained in this section may have been updated after the patient was seen, as this information can be updated by other users. Medical History Degenerative disc disease, cervical Dyspnea Chest pain GERD (gastroesophageal reflux disease) HTN (hypertension) Encounter for pre-operative cardiovascular clearance Edema Family History Other No significant family history Social History Smoking Status: Never smoker second hand exposure: No alcohol intake: never substance use type: denies use current occupational status: other Travel in the last 8 weeks: None household members: spouse housing: house current occupation: [employer] current occupational exposures/hazards: Yes caffeine: Yes
== END 2024-02-10 23:59 | disposition home or self-care (01) ==
LOC: SC.PAIN 13:44
PROVIDERS: PCP Family Medicine; Visit Provider Nurse Practitioner Family
DX: M50.10 Cervical disc disorder with radiculopathy, unspecified cervical region (principal); M51.16 Intervertebral disc disorders with radiculopathy, lumbar region; M79.10 Myalgia, unspecified site; M43.22 Fusion of spine, cervical region; C50.919 Malignant neoplasm of unspecified site of unspecified female breast
CPT/HCPCS: 99212; G0463

== ENCOUNTER → 2024-03-03 14:11 | Day surgery (SDC) | payer OTHER, SELFPAY ==
[2024-03-03 14:28] VITALS: BP 119/56; PULSE 98; RESP 18; TEMP 36.6; O2SAT 95; BMI 49.4
--- NOTE | 2024-03-03 14:52 | P.PCN_ITS ---
Procedure Date: 03/03/24 Time: 14:45 Anesthesiologist:: Moris Taylor CRNA Complications:: None Pre-procedure Diagnosis:: DJD bilateral shoulders. Chronic bilateral shoulder pain. Post-procedure Diagnosis:: Same. Indications for Procedure:: Patient is a very pleasant 53-year-old female comes our clinic today for bilateral shoulder injections. Patient has 5/5 strength bilateral arms. However, she has limited range of motion due to bilateral shoulder pain. She rates pain 7/10. Procedure Details:: Procedure Details: Bilateral shoulder intra-articular injection Informed consent was obtained risk and benefits of the procedure were explained to the patient. Patient was taken to the procedure room. The right shoulder was prepped using ChloraPrep. A 25-gauge needle was used first anteriorly, laterally, and then posteriorly to inject 10 mL bupivacaine 0.25% and Depo- Medrol 40 mg. Same procedure was carried out in the left shoulder. Patient tolerated procedure well with no complications. Plan and Disposition:: Patient was discharged without incident.
[2024-03-03 14:58] VITALS: BP 108/69; PULSE 101; RESP 18; O2SAT 95
[2024-03-03 15:20] VITALS: BP 125/88; PULSE 85; RESP 18; O2SAT 95
[2024-03-03] MEDS: LIDOCAINE 1% 5ML PF VIAL 5 ML (15:20)
[2024-03-03] MEDS: methylPREDNISolone ACETATE 80MG/ML VIAL 80 MG (15:20)
[2024-03-03] MEDS: BUPIVACAINE 0.25% 10ML INJ 25 MG IJ (15:20)
[2024-03-03 15:22] VITALS: BP 125/88; PULSE 85; RESP 18; O2SAT 95
== END | disposition home or self-care (01) ==
PROVIDERS: PCP Family Medicine; Visit Provider Nurse Anesthetist, Certified Registered
DX: M19.011 Primary osteoarthritis, right shoulder (principal); M19.012 Primary osteoarthritis, left shoulder; M25.511 Pain in right shoulder; M25.512 Pain in left shoulder; G89.29 Other chronic pain
CPT/HCPCS: 20610

== ENCOUNTER 2024-03-16 18:27 | Emergency (ER) | payer OTHER, SELFPAY ==
[2024-03-16 18:27] VITALS: BP 96/61; PULSE 90; RESP 20; TEMP 36.6; O2SAT 95; BMI 48.6
--- NOTE | 2024-03-16 19:33 | XR_ITS ---
PROCEDURE INFORMATION: Exam: XR Right Ankle Exam date and time: 03/16/2024 7:33 PM Age: 53 years old Clinical indication: Injury or trauma; Fall; Blunt trauma; Ankle; Right TECHNIQUE: Imaging protocol: Radiologic exam of the right ankle. Views: 3 or more views. COMPARISON: CR XR KNEE RT 2V 06/20/2021 10:25 AM FINDINGS: Bones/joints: Small bone fragment just distal to the lateral malleolus is likely an avulsion fracture from the lateral talus. Medial malleolar osteophytic spurring. Small posterior and plantar surface calcaneal enthesophytes. Soft tissues: Lateral soft tissue swelling. IMPRESSION: 1. Small bone fragment just distal to the lateral malleolus is likely an avulsion fracture from the lateral talus. 2. Lateral soft tissue swelling.
[2024-03-16 19:45] VITALS: BP 98/63; PULSE 98; RESP 18; O2SAT 95
--- NOTE | 2024-03-16 19:54 | HMH.EDGENADL ---
Discharge Plan Disposition Patient Disposition: Home, Self-Care Prescriptions Prescriptions: No Action meloxicam 15 mg tablet 15 mg PO DAILY estradiol 0.5 mg tablet 0.5 mg PO DAILY Patient Comments: TAKE 1 TABLET BY MOUTH ONCE DAILY pantoprazole [Protonix] 40 mg tablet,delayed release (DR/EC) 40 mg PO DAILY glucosamine-chondroitin [Osteo Bi-Flex] 250-200 mg tablet 2 tab PO DAILY metformin 500 MG tablet 500 mg PO BID aspirin 325 MG tablet 325 mg PO DAILY vitamin E 1,000 UNIT capsule 1,000 unit PO DAILY lisinopril-hydrochlorothiazide 1 EACH tablet 1 tab PO DAILY docusate sodium 100 MG capsule 100 mg PO BIDP PRN (Reason: Constipation) Qty: 20 0RF oxycodone-acetaminophen 1 EACH tablet 1 tab PO Q4H PRN (Reason: Moderate To Severe Pain) Qty: 40 0RF methocarbamol 500 mg tablet 500 mg PO HS PRN (Reason: Spasms) Qty: 30 0RF Referrals Follow up/Referrals: Eros Best MD [Primary Care Provider] - See instructions Grayson Joyce DO [Staff Physician] - See instructions Activity Restrictions/Add. Instructions Additional Instructions/Restrictions: Please do not bear weight on your affected leg, please wear your boot and crutches and call Dr. Joyce's office tomorrow morning and schedule an appointment. For pain please take Tylenol and ibuprofen. Clinical Impressions Clinical Impression: Avulsion fracture of talus Discharge ED Provider: Aramis Jha General Adult HPI General Chief complaint: Extremity Injury, Lower Stated complaint: AO 03/16, right ankle pain Time Seen by Provider: 03/16/24 19:45 Mode of Arrival: Ambulatory Source of Information: Patient Limitations: No Limitations Description of Symptoms (Recalled from ER Triage Doc. by RN): pt was at park today and rolled right ankle on edge of pavement today, no head injury or loc, pain on outside of ankle upon weight bearing History of Present Illness HPI narrative: Patient is a 53-year-old female with no pertinent past medical history presents emergency department for evaluation of traumatic ankle injury. She suffered an [place] causing pain to her right ankle with limited ability to bear weight since. No other traumatic complaints at this time. Related Data Home Medications Medication Instructions Recorded Confirmed glucosamine-chondroitin 250 mg-200 2 tab PO DAILY Supplement 11/19/18 01/28/24 mg tablet (Osteo Bi-Flex) vitamin E 670 mg (1,000 unit) 1,000 unit PO DAILY Supplement 11/28/18 01/28/24 capsule pantoprazole 40 mg tablet,delayed 40 mg PO DAILY GERD 05/02/20 01/28/24 release (Protonix) meloxicam 15 mg tablet 15 mg PO DAILY pain 05/17/20 01/28/24 lisinopril 20 1 tab PO DAILY Hypertension 06/23/20 01/28/24 mg-hydrochlorothiazide 25 mg tablet estradiol 0.5 mg tablet 0.5 mg PO DAILY hormone replacement 02/01/22 01/28/24 aspirin 325 mg tablet 325 mg PO DAILY Blood thinner 12/04/22 01/28/24 metformin 500 mg tablet 500 mg PO BID Diabetes 12/04/22 01/28/24 Previous Rx's Medication Instructions Recorded docusate sodium 100 mg capsule 100 mg PO BIDP PRN Constipation 04/06/22 #20 caps oxycodone-acetaminophen 5 mg-325 1 tab PO Q4H PRN Moderate To 04/06/22 mg tablet Severe Pain #40 tabs methocarbamol 500 mg tablet 500 mg PO HS PRN Spasms #30 tabs 07/24/23 Allergies Allergy/AdvReac Type Severity Reaction Status Date / Time celecoxib [CELECOXIB] Allergy Unknown Unknown Verified 01/28/24 09:40 allergy reaction naproxen [NAPROXEN] Allergy Unknown Unknown Verified 01/28/24 09:40 allergy reaction PFS PFS Disclaimer: The information contained in this section may have been updated after the patient was seen, as this information can be updated by other users. Medical History (Updated 03/16/24 @ 21:03 by Aramis Jha MD) Degenerative disc disease, cervical Dyspnea Chest pain GERD (gastroesophageal reflux disease) HTN (hypertension) Encounter for pre-operative cardiovascular clearance Edema Family History Other No significant family history Social History Smoking Status: Never smoker second hand exposure: No alcohol intake: never substance use type: denies use current occupational status: other Travel in the last 8 weeks: None household members: spouse housing: house current occupation: [employer] current occupational exposures/hazards: Yes caffeine: Yes ROS Obtained: Yes Systems reviewed as appropriate & no additional complaints except as documented Physical Exam General General appearance: alert and in no apparent distress Head Head exam: atraumatic and normocephalic Eye Eye exam: Present PERRL ENT ENT exam: Present mucous membranes moist Neck Neck exam: Present normal inspection Chest Chest inspection: Present normal inspection and symmetric chest wall rise Respiratory Respiratory exam: Absent respiratory distress Cardiovascular Cardiovascular exam: Present regular rate and normal rhythm Abdominal Exam Abdominal exam: Present soft Extremities Exam Extremities exam: Present other (Swelling of the lateral aspect of the right ankle. Palpable dorsal pedal pulse. Tenderness over the lateral malleolus.) Neurological Exam Neurological exam: Present alert and oriented X3 Psychiatric Psychiatric exam: Present normal affect Skin Skin exam: Present warm and dry Medical Decision Making Sam Inquiry Pt receiving controlled substance: No Vital Signs: 03/16/24 18:27 03/16/24 19:45 03/16/24 20:00 Temperature 97.8 F Temperature Source Oral Pulse Rate 98 H 96 H Pulse Rate [Right Radial] 90 Respiratory Rate 20 18 16 Blood Pressure 98/63 L 117/70 Blood Pressure [Right Arm] 96/61 L Blood Pressure Mean [Right Arm] 72 02 Sat by Pulse Oximetry 95 95 95 Oxygen Delivery Method Room Air Room Air Room Air 03/16/24 20:15 Temperature Temperature Source Pulse Rate 94 H Pulse Rate [Right Radial] Respiratory Rate 18 Blood Pressure 126/73 Blood Pressure [Right Arm] Blood Pressure Mean [Right Arm] 02 Sat by Pulse Oximetry 96 Oxygen Delivery Method Room Air Orders (Tests/Meds): ORDERS Category Date Time Status Ankle XR -Right minimum 3 Views [XR ankle RT min 3V] Exams 03/16/24 19:33 Completed Stat Medical Decision Narrative: In summary patient is a 53-year-old female with past medical history described above presents emergency department for evaluation of an inversion injury of her right ankle. Patient is hemodynamically stable and nontoxic-appearing upon arrival, afebrile. Based on history and physical exam differential includes fracture of the ankle, strain, among others. Limited workup was conducted with plain film. X-ray informally interpreted by me, it appears there is a fracture fragment of the lateral aspect of the ankle. Formal read shows avulsion fracture of the talus. The case was discussed with Dr. Joyce who recommends nonweightbearing status. Patient was placed in a boot and was given crutches and will schedule follow-up with Dr. Joyce on an outpatient basis. Critical Care Critical Care Time Critical Care Time: No
[2024-03-16 20:00] VITALS: BP 117/70; PULSE 96; RESP 16; O2SAT 95
[2024-03-16 20:15] VITALS: BP 126/73; PULSE 94; RESP 18; O2SAT 96
[2024-03-16 21:06] VITALS: BP 125/72; PULSE 91; RESP 18; TEMP 36.6; O2SAT 96
== END 2024-03-16 21:07 | disposition home or self-care (01) ==
PROVIDERS: Emergency Provider Emergency Medicine; PCP Family Medicine
DX: S92.151A Displaced avulsion fracture (chip fracture) of right talus, initial encounter for closed fracture (principal); M25.571 Pain in right ankle and joints of right foot; X50.1XXA Overexertion from prolonged static or awkward postures, initial encounter
CPT/HCPCS: 73610; 99283

== ENCOUNTER 2024-03-23 13:47 | Outpatient (POV) | payer OTHER, SELFPAY ==
[2024-03-23 13:52] VITALS: BP 139/86; PULSE 100; RESP 16; O2SAT 96; BMI 48.6
--- NOTE | 2024-03-23 13:55 | EXP.PAIN.SOA ---
[facility] Pain Management SOAP Note Subjective:: Patient is a pleasant 53-year-old female who presents today for follow-up of bilateral shoulder injections 03/03/2024. Today she rates her pain a 3 out of 10. Patient states that she did get approximately 60 to 70% relief following these injections and that they are still working well. She states she is able to sleep better and move around easier with better motion. Patient does state however that she did have an [place] She states she just stepped off the concrete and then awkward position enough that caused a right talus fracture. Patient does present today in a walking boot. Patient states she is going to see orthopedics as soon as she leaves our office. Patient is unsure whether or not it is going to require surgical intervention or just staying in the boot for longer as it heals. Patient does also state that she did just bring her pill for completion of her radiation treatment for breast cancer. She states that here she thought she was doing really well and was having much better pain improvement and then this happened. Patient is prescribed Percocet and pregabalin from outside providers. She is prescribed compounded cream from our office. Her Sam has been reviewed and is appropriate. Review of Systems: General: No recent weight changes, no fever, no sleep disturbances Respiratory: No cough, no shortness of air, no recurring pulmonary infections Cardiovascular/peripheral vascular: No chest pain, no palpitations, no edema, no shortness of breath Gastrointestinal: No new onset incontinence, normal bowel movements reported Genitourinary: No new onset incontinence Musculoskeletal: Right ankle pain Psychiatric: [Normal mood/affect] Neurological: [Denies weakness in extremities], [denies balance issues] Objective:: Physical Exam: General: Alert and oriented x3, no acute distress, pleasant and cooperative Lungs: Respirations even and unlabored, symmetrical chest expansion Eyes: PERRL Musculoskeletal: Flexion and extension of lumbar [spine] somewhat guarded secondary to pain, [antalgic gait noted] Neurological: Speech clear, no gross sensory deficit Assessment:: Degenerative disc disease of cervical and lumbar spine with cervical and lumbar radiculopathy symptoms, myofascial pain, mid back pain, status post cervical fusion, recent diagnosis of breast cancer Plan:: Patient has had significant improvement following her shoulder intra-articular injections and does not require any additional injection interventions at this time. We will follow-up on her right ankle fracture in future visits. Patient will return to clinic in 2 months for reevaluation of symptoms and plan of care. Patient has been instructed to contact the clinic with any concerns before the next appointment. Dr. Rodriguez has reviewed this note and agrees with this plan of care. This note was dictated using voice recognition software and make contain errors or omissions. [facility] Disclaimer: The information contained in this section may have been updated after the patient was seen, as this information can be updated by other users. Medical History (Updated 03/16/24 @ 21:03 by Aramis Jha MD) Degenerative disc disease, cervical Dyspnea Chest pain GERD (gastroesophageal reflux disease) HTN (hypertension) Encounter for pre-operative cardiovascular clearance Edema Family History Other No significant family history Social History Smoking Status: Never smoker second hand exposure: No alcohol intake: never substance use type: denies use current occupational status: unemployed Travel in the last 8 weeks: None household members: spouse housing: house current occupation: [employer] current occupational exposures/hazards: Yes caffeine: Yes
== END 2024-03-23 23:59 | disposition home or self-care (01) ==
LOC: SC.PAIN 13:47
PROVIDERS: PCP Family Medicine; Visit Provider Nurse Practitioner Family
DX: M50.10 Cervical disc disorder with radiculopathy, unspecified cervical region (principal); M51.16 Intervertebral disc disorders with radiculopathy, lumbar region; M79.10 Myalgia, unspecified site; M43.22 Fusion of spine, cervical region; C50.919 Malignant neoplasm of unspecified site of unspecified female breast
CPT/HCPCS: 99212; G0463

== ENCOUNTER 2024-04-20 13:26 | Outpatient (CLI) | payer OTHER, SELFPAY ==
--- NOTE | 2024-04-20 13:29 | XR_ITS ---
FINAL REPORT CLINICAL HISTORY: right foot fx; F/U FINDINGS: AP, oblique and lateral views of the right foot were obtained. There is no prior exam for comparison. There is no acute fracture or dislocation. There is mild multi joint degenerative disease. There is soft tissue edema along the dorsum of the foot. IMPRESSION: Multi joint degenerative disease. Reviewed, Interpreted and Dictated by Deborah Mcnally MD Transcribed by Carline Franklin Authenticated and [facility]
--- NOTE | 2024-04-20 14:04 | XR_ITS ---
FINAL REPORT CLINICAL HISTORY: Rt Ankle pain FINDINGS: AP, oblique, and lateral views of the right ankle were obtained. There is no prior exam for comparison. There is no fracture or dislocation. There is a chronic appearing avulsion from the medial malleolus. Soft tissue edema is identified. IMPRESSION: No acute osseous abnormality of the right ankle. Reviewed, Interpreted and Dictated by Deborah Mcnally MD Transcribed by Carline Franklin Authenticated and [facility]
== END 2024-04-20 23:59 | disposition home or self-care (01) ==
LOC: RAD 13:27
PROVIDERS: PCP Family Medicine; Visit Provider Physician Assistant
DX: M25.571 Pain in right ankle and joints of right foot (principal); M79.671 Pain in right foot; S92.151A Displaced avulsion fracture (chip fracture) of right talus, initial encounter for closed fracture
CPT/HCPCS: 73610; 73630

== ENCOUNTER 2024-04-20 14:56 | Outpatient (RCR) | payer OTHER, SELFPAY | END 2024-04-20 23:59 | disposition home or self-care (01) | LOC: PT 14:56 | PROVIDERS: Visit Provider Physician Assistant | DX: M25.571 Pain in right ankle and joints of right foot (principal); S82.891A Other fracture of right lower leg, initial encounter for closed fracture; S93.431A Sprain of tibiofibular ligament of right ankle, initial encounter | CPT/HCPCS: 97760 ==

== ENCOUNTER 2024-04-30 10:49 | Outpatient (POV) | payer OTHER, SELFPAY ==
[2024-04-30 10:51] VITALS: BP 104/64; PULSE 87; RESP 18; TEMP 36.8; O2SAT 98; BMI 49.6
--- NOTE | 2024-04-30 11:58 | EXP.PAIN.SOA ---
[facility] Disclaimer: The information contained in this section may have been updated after the patient was seen, as this information can be updated by other users. Medical History Degenerative disc disease, cervical Dyspnea Chest pain GERD (gastroesophageal reflux disease) HTN (hypertension) Encounter for pre-operative cardiovascular clearance Edema Family History Other No significant family history Social History Smoking Status: Never smoker second hand exposure: No alcohol intake: never substance use type: denies use current occupational status: other Travel in the last 8 weeks: None household members: spouse housing: house current occupation: [employer] current occupational exposures/hazards: Yes caffeine: Yes PM Subjective & Objective Subjective Subjective:: Patient is a pleasant 53-year-old female who presents today for follow-up. She does state that her pain today is a 4 out of 10 however states it will go up to a 6 out of 10 very quickly and is all in her low back. Patient denies any radiating symptoms into her legs. She describes it as a pressure, achy sensation that is worse with bending, twisting or lifting. Patient states it is pretty much constant and that she even has trouble rolling over while she is in bed. Patient denies any new injuries. She does state the pain is interfering with her ability perform activities of daily living and she is interested in any help we may be able to provide. Patient denies having prior low back injections for some time. Patient states that she has had chronic low back pain however it has not been as severe except for the last several months. Patient is still in recovery of her previous breast cancer. She is prescribed Percocet and pregabalin from outside providers and compounded cream from our office. She denies any side effects. Her Sam has been reviewed and is appropriate. Review of Systems: General: No recent weight changes, no fever, no sleep disturbances Respiratory: No cough, no shortness of air, no recurring pulmonary infections Cardiovascular/peripheral vascular: No chest pain, no palpitations, no edema, no shortness of breath Gastrointestinal: No new onset incontinence, normal bowel movements reported Genitourinary: No new onset incontinence Musculoskeletal: Low back pain Psychiatric: [Normal mood/affect] Neurological: [Denies weakness in extremities], [denies balance issues] Pain at rest (0-10 scale): 6 Objective Objective:: Physical Exam: General: Alert and oriented x3, no acute distress, pleasant and cooperative Lungs: Respirations even and unlabored, symmetrical chest expansion Eyes: PERRL Musculoskeletal: Flexion and extension of lumbar [spine] somewhat guarded secondary to pain, [antalgic gait noted] positive Kemps test Neurological: Speech clear, no gross sensory deficit Has patient had previous pain injection?: No Conservative treatment options previously tried: Home exercise plan Length of treatment: Longer than 12 weeks and Prescription medications Length of treatment: Longer than 12 weeks Meds Home Medications and Allergies Home Medications ?Medication ?Instructions ?Recorded ?Confirmed ?Type glucosamine-chondroitin 250 mg-200 2 tab PO DAILY Supplement 11/19/18 04/20/24 History mg tablet (Osteo Bi-Flex) vitamin E 670 mg (1,000 unit) 1,000 unit PO DAILY Supplement 11/28/18 04/20/24 History capsule pantoprazole 40 mg tablet,delayed 40 mg PO DAILY GERD 05/02/20 04/20/24 History release (Protonix) meloxicam 15 mg tablet 15 mg PO DAILY pain 05/17/20 04/20/24 History lisinopril 20 1 tab PO DAILY Hypertension 06/23/20 04/20/24 History mg-hydrochlorothiazide 25 mg tablet estradiol 0.5 mg tablet 0.5 mg PO DAILY hormone replacement 02/01/22 04/20/24 History docusate sodium 100 mg capsule 100 mg PO BIDP PRN Constipation 04/06/22 04/20/24 Rx #20 caps oxycodone-acetaminophen 5 mg-325 1 tab PO Q4H PRN Moderate To 04/06/22 04/20/24 Rx mg tablet Severe Pain #40 tabs aspirin 325 mg tablet 325 mg PO DAILY Blood thinner 12/04/22 04/20/24 History metformin 500 mg tablet 500 mg PO BID Diabetes 12/04/22 04/20/24 History methocarbamol 500 mg tablet 500 mg PO HS PRN Spasms #30 tabs 07/24/23 04/20/24 Rx New Prescriptions to Start Prescriptions: Allergies Allergy/AdvReac Type Severity Reaction Status Date / Time celecoxib [CELECOXIB] Allergy Unknown Unknown Verified 04/20/24 14:28 allergy reaction naproxen [NAPROXEN] Allergy Unknown Unknown Verified 04/20/24 14:28 allergy reaction Assessment and Plan *Assessment and plan (1) Degenerative disc disease, lumbar: Status: Acute Category: Medical Code(s): M51.36 - Other intervertebral disc degeneration, lumbar region (2) Lumbar facet arthropathy: Status: Acute Category: Medical Code(s): M47.816 - Spondylosis without myelopathy or radiculopathy, lumbar region Plan Patient is experiencing worsening pain throughout her low back with no radiating symptoms to her legs. Patient did have limited range of motion of her lumbar spine and a positive Kemps test. I have discussed with patient that she may benefit from a lumbar medial branch block bilaterally. Risk and benefits were discussed with patient and she would like to proceed forward with this plan of care. Patient has tried and failed conservative treatment including oral medication, heat and ice, topicals, ongoing chiropractor therapy that has been going on for months and continued at home stretching exercises for longer than 6 weeks. We will submit to insurance for the lumbar MBB L4-L5 and L5-S1 under fluoroscopy. Patient was counseled if she does have significant improvement following this procedure that we will plan on repeating this injection with the plan to do a lumbar RFA at a later date. Patient agrees with this plan of care. Patient has been instructed to contact the clinic with any concerns before the next appointment. Dr. Rodriguez has reviewed this note and agrees with this plan of care. This note was dictated using voice recognition software and make contain errors or omissions. All injections are used with Lidocaine or Bupivacaine and Depo Medrol.
== END 2024-04-30 23:59 | disposition home or self-care (01) ==
LOC: SC.PAIN 10:49
PROVIDERS: PCP Family Medicine; Visit Provider Nurse Practitioner Family
DX: M51.36 Other intervertebral disc degeneration, lumbar region (principal); M47.816 Spondylosis without myelopathy or radiculopathy, lumbar region; Z96.659 Presence of unspecified artificial knee joint; Z86.03 Personal history of neoplasm of uncertain behavior; Z79.899 Other long term (current) drug therapy
CPT/HCPCS: 99212; G0463

== ENCOUNTER 2024-05-12 10:37 | Day surgery (SDC) | payer OTHER, SELFPAY ==
[2024-05-12 11:06] VITALS: BP 133/77; PULSE 90; RESP 18; TEMP 36.8; O2SAT 97; BMI 49.6
[2024-05-12] MEDS: methylPREDNISolone ACETATE 80MG/ML VIAL 80 MG (11:09)
[2024-05-12] MEDS: LIDOCAINE 1% 5ML PF VIAL 5 ML (11:09)
[2024-05-12] MEDS: BUPIVACAINE 0.25% 10ML INJ 25 MG IJ (11:09)
[2024-05-12 11:10] VITALS: BP 134/71; PULSE 89; RESP 19; O2SAT 95
[2024-05-12 11:11] VITALS: BP 134/71; PULSE 89; RESP 19; O2SAT 95
--- NOTE | 2024-05-12 11:13 | P.PCN_ITS ---
Procedure Date: 05/12/24 Time: 11:00 Anesthesiologist:: Moris Taylor CRNA Complications:: None Pre-procedure Diagnosis:: Degenerative disc [facility] spine pathology right lumbar radiculopathy. Lumbar spondylosis. Multilevel lumbar facet arthropathy. Post-procedure Diagnosis:: Same. Indications for Procedure:: Patient is a pleasant 53-year-old female who comes our clinic today for round 1 lumbar medial branch blocks/facet injections bilaterally L4-5, L5-S1. Patient describes low back pain is constant, dull, aching. She has difficulty with flexion, extension, left and right rotation. Standing increases pain significantly. She rates her pain 7/10. Procedure Details:: Informed consent was obtained and the risk and benefits of the procedure was explained to the patient. Patient was taken to the procedure room where noninvasive monitors were placed, including noninvasive blood pressure cuff as well as pulse oximeter. The area over the lumbar spine was cleansed using chlorhexidine as a cleansing solution. I anesthetized the skin and subcutaneous tissues with 1% Lidocaine. I placed 22-gauge spinal needles into the facet joint/ medial branches of L4-L5, and L5-S1] bilaterally. Needle placement was confirmed with fluoroscopy. After confirmation of needle placement, each site was injected with 1 mL of 1% lidocaine and 0.25 % Marcaine and 10 mg of Depo- Medrol. A total of 80 mg of depo medrol was used for bilateral medial branch blocks of L4-L5, and L5-S1] bilaterally. Patient tolerated the procedure without difficulty. There were no complications. Plan and Disposition:: Patient was discharge without incident.
[2024-05-12 11:14] VITALS: BP 145/89; PULSE 86; RESP 20; O2SAT 97
== END 2024-05-12 11:15 | disposition home or self-care (01) ==
PROVIDERS: PCP Family Medicine; Visit Provider Nurse Anesthetist, Certified Registered
DX: M47.816 Spondylosis without myelopathy or radiculopathy, lumbar region (principal); M51.16 Intervertebral disc disorders with radiculopathy, lumbar region
CPT/HCPCS: 64493; 64494; J1010

== ENCOUNTER 2024-05-21 13:40 | Outpatient (POV) | payer OTHER, SELFPAY ==
[2024-05-21 13:49] VITALS: BP 142/61; PULSE 91; RESP 16; O2SAT 94; BMI 50.5
--- NOTE | 2024-05-21 14:13 | EXP.PAIN.SOA ---
[facility] Disclaimer: The information contained in this section may have been updated after the patient was seen, as this information can be updated by other users. Medical History Degenerative disc disease, cervical Dyspnea Chest pain GERD (gastroesophageal reflux disease) HTN (hypertension) Encounter for pre-operative cardiovascular clearance Edema Family History Other No significant family history Social History Smoking Status: Never smoker second hand exposure: No alcohol intake: never substance use type: denies use current occupational status: unemployed Travel in the last 8 weeks: None household members: spouse housing: house current occupation: [employer] current occupational exposures/hazards: Yes caffeine: Yes PM Subjective & Objective Subjective Subjective:: Patient is a pleasant 53-year-old female who presents today for follow-up and worsening pain in her right shoulder. She does rate her pain today a 10 out of 10. She states the pain is throughout her back and right shoulder and will even have occasional knee pain. Patient describes it as a constant aching, throbbing sensation that is very limited with range of motion. Patient states that she frequently has trouble sleeping due to the pain between her shoulder and her chronic back pain. Patient does state it interferes with her ability to perform activities of daily living such as cooking and cleaning. Patient denies having any recent updated shoulder imaging. Patient does state in the past she did have a rotator cuff tear that was repaired by Dr. Arango. Patient denies any other issues. Patient feels like she may have really done something more significant here lately. Her Sam has been reviewed and is appropriate. Review of Systems: General: No recent weight changes, no fever, no sleep disturbances Respiratory: No cough, no shortness of air, no recurring pulmonary infections Cardiovascular/peripheral vascular: No chest pain, no palpitations, no edema, no shortness of breath Gastrointestinal: No new onset incontinence, normal bowel movements reported Genitourinary: No new onset incontinence Musculoskeletal: Right shoulder pain, chronic low back pain Psychiatric: [Normal mood/affect] Neurological: [Denies weakness in extremities], [denies balance issues] Pain at rest (0-10 scale): 10 Objective Objective:: Physical Exam: General: Alert and oriented x3, no acute distress, pleasant and cooperative Lungs: Respirations even and unlabored, symmetrical chest expansion Eyes: PERRL Musculoskeletal: Flexion and extension of right shoulder somewhat guarded secondary to pain, [antalgic gait noted] Neurological: Speech clear, no gross sensory deficit Has patient had previous pain injection?: No Conservative treatment options previously tried: Home exercise plan Length of treatment: Longer than 6 weeks and Prescription medications Length of treatment: Longer than 6 weeks Meds Home Medications and Allergies Home Medications ?Medication ?Instructions ?Recorded ?Confirmed ?Type glucosamine-chondroitin 250 mg-200 2 tab PO DAILY Supplement 11/19/18 05/21/24 History mg tablet (Osteo Bi-Flex) vitamin E 670 mg (1,000 unit) 1,000 unit PO DAILY Supplement 11/28/18 05/21/24 History capsule pantoprazole 40 mg tablet,delayed 40 mg PO DAILY GERD 05/02/20 05/21/24 History release (Protonix) meloxicam 15 mg tablet 15 mg PO DAILY pain 05/17/20 05/21/24 History lisinopril 20 1 tab PO DAILY Hypertension 06/23/20 05/21/24 History mg-hydrochlorothiazide 25 mg tablet estradiol 0.5 mg tablet 0.5 mg PO DAILY hormone replacement 02/01/22 05/21/24 History docusate sodium 100 mg capsule 100 mg PO BIDP PRN Constipation 04/06/22 05/21/24 Rx #20 caps oxycodone-acetaminophen 5 mg-325 1 tab PO Q4H PRN Moderate To 04/06/22 05/21/24 Rx mg tablet Severe Pain #40 tabs aspirin 325 mg tablet 325 mg PO DAILY Blood thinner 12/04/22 05/21/24 History metformin 500 mg tablet 500 mg PO BID Diabetes 12/04/22 05/21/24 History methocarbamol 500 mg tablet 500 mg PO HS PRN Spasms #30 tabs 07/24/23 05/21/24 Rx New Prescriptions to Start Prescriptions: Allergies Allergy/AdvReac Type Severity Reaction Status Date / Time celecoxib [CELECOXIB] Allergy Unknown Unknown Verified 05/12/24 10:53 allergy reaction naproxen [NAPROXEN] Allergy Unknown Unknown Verified 05/12/24 10:53 allergy reaction Assessment and Plan *Assessment and plan (1) Lumbar facet arthropathy: Status: Acute Category: Medical Code(s): M47.816 - Spondylosis without myelopathy or radiculopathy, lumbar region (2) Degenerative disc disease, lumbar: Status: Acute Category: Medical Code(s): M51.36 - Other intervertebral disc degeneration, lumbar region (3) Degenerative disc disease, thoracic: Status: Acute Category: Medical Code(s): M51.34 - Other intervertebral disc degeneration, thoracic region (4) Status post cervical spinal fusion: Status: Acute Category: Surgical Code(s): Z98.1 - Arthrodesis status (5) Degenerative disc disease, cervical: Status: Acute Category: Medical Code(s): M50.30 - Other cervical disc degeneration, unspecified cervical region (6) Right shoulder pain: Status: Acute Qualifiers: Chronicity: chronic Qualified Code(s): M25.511 - Pain in right shoulder; G89.29 - Other chronic pain Category: Medical Code(s): M25.511 - Pain in right shoulder Plan Patient has chronic pain throughout her entire spine that is been going on for years and progressively worsened. In the past we did discuss prior to her breast cancer diagnosis that she may be a beneficial candidate of a pain pump trial. Patient does state that she would like to proceed forward with this now that her cancer is in remission. I did go over the risk and benefits and educational handouts today. I will order the patient a psychological evaluation and if she is deemed an appropriate candidate we will proceed forward with a trial at a later date. I did also discuss at length regarding her worsening shoulder pain and will order x-ray and MRI without contrast to follow to rule out any additional tears. I have also discussed with the patient that she did really well with her last intra-articular shoulder injection with 90% relief lasting up until the last week. I did review over the risk and benefits of repeat shoulder injection and she would like to proceed forward with this plan of care. Patient has tried and failed conservative therapy including continued at home stretching exercise for longer than 6 weeks. We will schedule the patient for repeat right intra-articular shoulder injection. Patient has been instructed to contact the clinic with any concerns before the next appointment. Dr. Rodriguez has reviewed this note and agrees with this plan of care. This note was dictated using voice recognition software and make contain errors or omissions. All injections are used with Lidocaine or Bupivacaine and Depo Medrol.
--- NOTE | 2024-05-21 14:21 | XR_ITS ---
FINAL REPORT CLINICAL HISTORY: RT SHOULDER PAIN FINDINGS: Right shoulder Three views were obtained. There is no acute fracture or dislocation. There are mild degenerative changes of the AC and glenohumeral joints. Postoperative changes are seen in the right axilla. Right-sided chest port is present. No soft tissue abnormality is identified. IMPRESSION: Mild degenerative changes. Reviewed, Interpreted and Dictated by Cristobal Sommers III, MD Transcribed by Carline Franklin Authenticated and [facility]
== END 2024-05-21 23:59 | disposition home or self-care (01) ==
PROVIDERS: PCP Family Medicine; Visit Provider Nurse Practitioner Family
DX: M47.816 Spondylosis without myelopathy or radiculopathy, lumbar region (principal); M51.36 Other intervertebral disc degeneration, lumbar region; M51.34 Other intervertebral disc degeneration, thoracic region; Z98.1 Arthrodesis status; M50.30 Other cervical disc degeneration, unspecified cervical region; M25.511 Pain in right shoulder; G89.29 Other chronic pain; Z96.652 Presence of left artificial knee joint; Z73.89 Other problems related to life management difficulty; Z79.899 Other long term (current) drug therapy; Z85.3 Personal history of malignant neoplasm of breast
CPT/HCPCS: 73030; 99212; G0463

== ENCOUNTER 2024-06-02 14:01 | Day surgery (SDC) | payer OTHER, SELFPAY ==
[2024-06-02 14:16] VITALS: BP 130/69; PULSE 84; RESP 16; TEMP 36.3; O2SAT 100; BMI 50.5
[2024-06-02 14:36] VITALS: BP 130/78; PULSE 83; RESP 16; O2SAT 100
[2024-06-02] MEDS: BUPIVACAINE 0.25% 10ML INJ 25 MG IJ (14:40)
[2024-06-02] MEDS: LIDOCAINE 1% 5ML PF VIAL 5 ML (14:40)
[2024-06-02 14:41] VITALS: BP 132/74; PULSE 88; RESP 18; O2SAT 98
[2024-06-02] MEDS: methylPREDNISolone ACETATE 80MG/ML VIAL 80 MG (14:41)
[2024-06-02 14:42] VITALS: BP 132/74; PULSE 88; RESP 18; O2SAT 98
--- NOTE | 2024-06-02 14:57 | P.PCN_ITS ---
Procedure Date: 06/02/24 Time: 14:50 Anesthesiologist:: Moris Taylor CRNA Complications:: None Pre-procedure Diagnosis:: DJD right shoulder. Chronic right shoulder pain. Post-procedure Diagnosis:: Same. Indications for Procedure:: Patient is a pleasant 53-year-old female who comes our clinic today for right intra-articular shoulder injection. Patient has had rotator cuff surgery on the right shoulder years ago. She is continue to have some pain in the right shoulder. Recent x-ray shows degenerative joint disease. Patient has responded well to intra-articular cortisone injections in the past. She rates her pain today 7/10. Patient has 5/5 strength in the right arm. However, decreased range of motion secondary to right shoulder pain. Procedure Details:: Procedure Details: Right shoulder intra-articular injection Informed consent was obtained risk and benefits of the procedure were explained to the patient. Patient was taken to the procedure room. The right shoulder was prepped using ChloraPrep. A 25-gauge needle was used first anteriorly, laterally, and then posteriorly to inject 10 mL bupivacaine 0.25% and Depo- Medrol 40 mg. Patient tolerated procedure well with no complications. Plan and Disposition:: Patient was discharged without incident.
== END 2024-06-02 14:36 | disposition home or self-care (01) ==
LOC: SC.PAINP 14:02
PROVIDERS: PCP Family Medicine; Visit Provider Nurse Anesthetist, Certified Registered
DX: M19.011 Primary osteoarthritis, right shoulder (principal); M25.511 Pain in right shoulder; G89.29 Other chronic pain
CPT/HCPCS: 20610; J1010

== ENCOUNTER 2024-07-01 14:06 | Outpatient (POV) | payer OTHER, SELFPAY ==
[2024-07-01 14:15] VITALS: BP 104/68; PULSE 94; RESP 16; O2SAT 98; BMI 54.0
--- NOTE | 2024-07-01 14:46 | EXP.PAIN.SOA ---
[facility] Disclaimer: The information contained in this section may have been updated after the patient was seen, as this information can be updated by other users. Medical History Degenerative disc disease, cervical Dyspnea Chest pain GERD (gastroesophageal reflux disease) HTN (hypertension) Encounter for pre-operative cardiovascular clearance Edema Family History Other No significant family history Social History Smoking Status: Never smoker second hand exposure: No alcohol intake: never substance use type: denies use current occupational status: other Travel in the last 8 weeks: None household members: spouse housing: house current occupation: [employer] current occupational exposures/hazards: Yes caffeine: Yes PM Subjective & Objective Subjective Subjective:: Patient is a pleasant 53-year-old female who presents today for follow-up of right shoulder intra-articular injection on 06/02/2024 and MRI denial. Today she rates her pain a 7 out of 10. Patient denies any new injuries or trauma. Patient does state that in her shoulder she has had at least 80% improvement and feels like it still helping. Patient states she has been able to move that joint around easier with decreased pain and feels much more functional. Patient does state however a lot of her pain today is more related to her low back. Patient denies any radiating symptoms into her legs. She does state the pain is a constant aching, throbbing sensation with it more severe along the left side today however the right has been bad as well. Patient does state that that pain interferes with her ability perform activities of daily living such as cooking and cleaning and that she is interested in injection therapy to see about improvement. Patient is currently in remission of breast cancer. She is prescribed pregabalin 150 mg twice a day from an outside provider. Her Sam has been reviewed and is appropriate. Review of Systems: General: No recent weight changes, no fever, no sleep disturbances Respiratory: No cough, no shortness of air, no recurring pulmonary infections Cardiovascular/peripheral vascular: No chest pain, no palpitations, no edema, no shortness of breath Gastrointestinal: No new onset incontinence, normal bowel movements reported Genitourinary: No new onset incontinence Musculoskeletal: Low back pain Psychiatric: [Normal mood/affect] Neurological: [Denies weakness in extremities], [denies balance issues] Pain at rest (0-10 scale): 7 Objective Objective:: Physical Exam: General: Alert and oriented x3, no acute distress, pleasant and cooperative Lungs: Respirations even and unlabored, symmetrical chest expansion Eyes: PERRL Musculoskeletal: Flexion and extension of lumbar [spine] somewhat guarded secondary to pain, [antalgic gait noted] point tenderness along bilateral SIs with positive bilateral Justina's, Connie's, Gaenslen's, compression and distraction exam Neurological: Speech clear, no gross sensory deficit Has patient had previous pain injection?: Yes Percent improvement in pain since last injection: 80% Conservative treatment options previously tried: Home exercise plan Length of treatment: Longer than 12 weeks Meds Home Medications and Allergies Home Medications ?Medication ?Instructions ?Recorded ?Confirmed ?Type glucosamine-chondroitin 250 mg-200 2 tab PO DAILY Supplement 11/19/18 07/01/24 History mg tablet (Osteo Bi-Flex) vitamin E 670 mg (1,000 unit) 1,000 unit PO DAILY Supplement 11/28/18 07/01/24 History capsule pantoprazole 40 mg tablet,delayed 40 mg PO DAILY GERD 05/02/20 07/01/24 History release (Protonix) meloxicam 15 mg tablet 15 mg PO DAILY pain 05/17/20 07/01/24 History lisinopril 20 1 tab PO DAILY Hypertension 06/23/20 07/01/24 History mg-hydrochlorothiazide 25 mg tablet estradiol 0.5 mg tablet 0.5 mg PO DAILY hormone replacement 02/01/22 07/01/24 History docusate sodium 100 mg capsule 100 mg PO BIDP PRN Constipation 04/06/22 07/01/24 Rx #20 caps oxycodone-acetaminophen 5 mg-325 1 tab PO Q4H PRN Moderate To 04/06/22 07/01/24 Rx mg tablet Severe Pain #40 tabs aspirin 325 mg tablet 325 mg PO DAILY Blood thinner 12/04/22 07/01/24 History metformin 500 mg tablet 500 mg PO BID Diabetes 12/04/22 07/01/24 History methocarbamol 500 mg tablet 500 mg PO HS PRN Spasms #30 tabs 07/24/23 07/01/24 Rx New Prescriptions to Start Prescriptions: Allergies Allergy/AdvReac Type Severity Reaction Status Date / Time celecoxib [CELECOXIB] Allergy Unknown Unknown Verified 07/01/24 14:16 allergy reaction naproxen [NAPROXEN] Allergy Unknown Unknown Verified 07/01/24 14:16 allergy reaction Assessment and Plan *Assessment and plan (1) Bilateral sacroiliitis: Status: Acute Category: Medical Code(s): M46.1 - Sacroiliitis, not elsewhere classified Plan Patient did have significant improvement following her intra-articular shoulder injection and does not need any additional injections in this location. Patient is however experiencing worsening pain in her low back with point tenderness along her bilateral SIs and a positive bilateral Justina's, Connie's, Gaenslen's, compression and distraction exam. I did discuss with the patient that she may benefit from bilateral SI injections. Risk and benefits were discussed with the patient and she would like to proceed forward with this plan of care. Patient has tried and failed conservative therapy including continued at home stretching exercise for longer than 12 weeks. Patient will be submitted for bilateral SI injections under fluoroscopy. I did also review over the denial related to her MRI of her right shoulder. I will order her physical therapy evaluation and treatment of her right shoulder pain and follow-up with her at a later date regarding this. Patient agrees with plan of care. Patient has been instructed to contact the clinic with any concerns before the next appointment. Dr. Rodriguez has reviewed this note and agrees with this plan of care. This note was dictated using voice recognition software and make contain errors or omissions. All injections are used with Lidocaine or Bupivacaine and Depo Medrol.
== END 2024-07-01 23:59 | disposition home or self-care (01) ==
LOC: SC.PAIN 14:07
PROVIDERS: PCP Family Medicine; Visit Provider Nurse Practitioner Family
DX: M46.1 Sacroiliitis, not elsewhere classified (principal); Z73.89 Other problems related to life management difficulty
CPT/HCPCS: 99212; G0463

== ENCOUNTER 2024-07-28 13:33 | Day surgery (SDC) | payer OTHER, SELFPAY ==
[2024-07-28 13:58] VITALS: BP 112/67; PULSE 89; RESP 16; O2SAT 92; BMI 52.2
[2024-07-28] MEDS: BUPIVACAINE 0.25% 10ML INJ 25 MG IJ (14:12)
[2024-07-28] MEDS: methylPREDNISolone ACETATE 80MG/ML VIAL 80 MG (14:12)
[2024-07-28] MEDS: LIDOCAINE 1% 5ML PF VIAL 5 ML (14:12)
--- NOTE | 2024-07-28 14:15 | P.PCN_ITS ---
Procedure Date: 07/28/24 Time: 14:00 Anesthesiologist:: Moris Taylor CRNA Complications:: None Pre-procedure Diagnosis:: Bilateral sacroiliitis. Post-procedure Diagnosis:: Same. Indications for Procedure:: Patient is a very pleasant 53-year-old female who comes our clinic today for bilateral sacroiliac joint injections of cortisone and local anesthetic. Patient had minimal to no relief from previous lumbar facet blocks at the L4-5 and L5-S1 level. She reports lumbar back pain off the midline bilaterally. Bilateral posterior hip pain. Difficulty transitioning from sitting to standing. Difficulty with ambulation. Difficulty with standing in 1 spot for any length of time. She rates her pain 7/10. Procedure Details:: Procedure: Bilateral sacroiliac joint injections under fluoroscopy Informed consent was obtained and the risks and benefits of the procedure were explained to the patient.~ The patient was taken to the procedure room and noninvasive monitors were placed including a noninvasive blood pressure cuff and pulse oximeter.~ The patient was placed prone on the procedure table. Both hips were cleansed using Betadine as a cleansing solution. C-arm fluoroscopy was used to view the right sacroiliac joint.~ The skin and subcutaneous tissues were anesthetized using lidocaine 1.5% and a 25-gauge needle.~ After this, a 22-gauge spinal needle was inserted under fluoroscopic guidance into the inferior aspect of the right sacroiliac joint.~ Omnipaque dye was injected and good spread was seen throughout the joint.~ After this, approximately 5 mL of bupivacaine, 0.25% and Depo-Medrol, 40 mg was incrementally injected into the right sacroiliac joint. We then moved to the left sacroiliac joint.~ The skin and subcutaneous tissues were anesthetized using lidocaine 1.5% and a 25-gauge needle.~ After this, a 22- gauge spinal needle was inserted under fluoroscopic guidance into the inferior aspect of the left sacroiliac joint.~ Omnipaque dye was injected and good spread was seen throughout the joint. After this, approximately 5 mL of bupivacaine, 0.25% and Depo-Medrol, 40 mg was incrementally injected into the left sacroiliac joint.~ The patient tolerated the procedure well with no complications. The patient was observed in the Pain Clinic and then was discharged home neurologically intact. Plan and Disposition:: Patient was discharged without incident.
[2024-07-28 14:30] VITALS: BP 105/64; PULSE 84; RESP 16; O2SAT 98
== END 2024-07-28 14:30 | disposition home or self-care (01) ==
PROVIDERS: PCP Family Medicine; Visit Provider Nurse Anesthetist, Certified Registered
DX: M46.1 Sacroiliitis, not elsewhere classified (principal)
CPT/HCPCS: 27096; G0260; J1010

== ENCOUNTER 2024-08-06 11:00 | Outpatient (RCR) | payer OTHER, SELFPAY ==
--- NOTE | 2024-07-06 15:07 | HMH.OTOPEV ---
OT Inpatient Evaluation Rehab OT Outpatient Eval Start: 07/06/24 14:38 Freq: Status: Active Protocol: Document 07/06/24 14:39 RMLAMBERT (Rec: 07/06/24 15:07 RMARSHALL [id number]) E-signed By Melissa Cheney, OT Outpatient Therapy Subjective History Subjective History Pt seen this date for initial evaluation due to R shoulder pain. Pt had RTC repair on to R shoulder. Pt reports that the pain returned a few months ago. Pt does not recall any incidence of injury that could have caused the pain to begin. Pt has received 2 steroid injections. The latest injection was on . Pt reports that the injection helps with pain and mobility, but it is only temporary. Pt is R hand dominant. Pt presents with R shoulder weakness and impaired ROM. Pt has a history of R sided breast cancer from July 2023. Pt had a lumpectomy, chemo, and radiation for treatment. Pt reports that the cancer is no longer present. New diagnosis of cancer in past 12 Yes months? 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 Strength,Decreased Coordination Symptom Type Ache,Throb,Sharp,Dull,Stabbing ,Burning,Numbness,Tingling, Shooting Symptoms Relieved By Rest/Positioning Symptoms Aggravated By Prone,Supine,Bending/Stooping, Physical Activity,Twisting, Lifting Prior Functional Limitations None Current Functional Limitations Reaching,Lifting,Housework, Dressing,Driving,Sleeping, Recreation Activity Symptom Description Intermittent Level of pain today (0-10) 2 Pain scale - at its best (0-10) 1 Pain scale - at its worst (0-10) 8 Shoulder/Elbow Eval Shoulder Objective Measurements Shoulder ROM Right Shoulder ROM Limitations Muscle Weakness,Pain Shoulder Abduction Active Range of 122 Motion (degrees) Shoulder Flexion Active Range of Motion 120 (degrees) Query Text: Shoulder External Rotation Active Range 25 of Motion (degrees) Shoulder Internal Rotation Active Range 60 of Motion (degrees) Shoulder MMT Shoulder Abduction Strength Grade 3+ Fair+ Shoulder Flexion Strength Grade 3+ Fair+ Shoulder External Rotation Strength 3+ Fair+ Grade Shoulder Internal Rotation Strength 3+ Fair+ Grade Shoulder Strength Patient Testing Sitting Position Elbow Objective Measurements QuickDASH Activities Please rate your ability to do the following activities in the last week by selecting the number below the appropriate response. 1. Open a tight or new jar. Severe difficulty 2. Do heavy greeting card editor (e.g., wash Moderate difficulty miguel, floors). 3. Carry a shopping bag or briefcase. Mild difficulty 4. Wash your back. Severe difficulty 5. Use a knife to cut food. Moderate difficulty 6. Recreational activities in which you Severe difficulty take some force or impact through your arm, shoulder, or hand (e.g., golf, hammering, tennis, etc.). 7. During the past week, to what extent Moderately has your arm, shoulder or hand problem interfered with your normal social activities with family, friends, neighbors or groups? 8. During the past week, were you Moderately limited limited in your work or other regular daily activites as a result of your arm, shoulder or hand problem? 9. Arm, shoulder or hand pain. Severe 10. Tingling (pins and needles) in your Mild arm, shoulder or hand. 11. During the past week, how much Moderate difficulty difficulty have you had sleeping because of the pain in your arm, shoulder or hand? Quick DASH 35 OT Outpatient Assessment Impairments Problems/Impairments Impaired Range of Motion, Impaired Strength,Impaired Endurance,Subjective C/O Pain Prognosis Rehab Potential Good Clinical Impression Consistent with Diagnosis Yes Short Term Goals Number of Weeks 3 Increase Range of Motion Yes: flex: 145 abduction: 145 IR: 70 ER: 50 Increase Strength Yes: 4-/5 throughout R shoulder Increase Endurance Yes: Pt will tolerate ~20 minutes of R shoulder exercise prior to rest Decrease Subjective C/O Pain Yes: 5/10 at worst Patient to be Ind w/ HEP Yes: AROM/AAROM exercises; pulleys, wand, wall wipes Improve Quick Dash Score Yes: activities: 25 or below Custodial Goals Number of Weeks 6 Increase Range of Motion Yes: flex: 165 abduction: 165 IR: 70 ER: 80 Increase Strength Yes: 4/5 throughout R shoulder Increase Endurance Yes: Pt will tolerate ~30 minutes of R shoulder exercise prior to rest Decrease Subjective C/O Pain Yes: 3/10 at worst Patient to be Ind w/ Advanced HEP Yes: Advanced strengthening [place] exercises Improve Quick Dash Score Yes: activities: 15 or below Outpatient Therapy Plan of Care Treatment Plan May Include Therapeutic Exercise Including Home Yes Exercise Program Manual Therapy Techniques Yes Neuromuscular Re-education Yes Therapeutic Activities to Return to Yes Previous Functional/Work Level ADL/Self Care Education Yes Thermal Modalities Yes Electrical Stimulation Yes Ultrasound/Phonophoresis Yes Iontophoresis Yes Orthotics/Bracing/Splinting Yes Massage Yes Eval/Re-Eval Yes Frequency Times per week 2 Duration Number of Weeks 6 Addendums This patient is a candidate for social No or vocational rehab? Patient/Guardian verbally acknowledges Yes understanding of treatment program and consents to further treatment? Patient/Guardian verbally acknowledges Yes understanding of diagnosis, prognosis and goals for treatment? Eval Complexity OT Charge 21708 - Moderate Complexity PHYSICIAN CERTIFICATION: I certify the specified therapy services for Kristy Franklin are required, authorized, and reviewed every 30 days.
--- NOTE | 2024-08-03 10:46 | HMH.RHREAS ---
Rehab Reassessment Rehab OP Re-assessment Start: 07/06/24 14:38 Freq: Status: Active Protocol: Document 08/03/24 10:07 TAHIR (Rec: 08/03/24 10:46 LAMBERT [id number]) E-signed By Melissa Cheney OT Rehab Re-assessment Subjective Subjective It is still bothering me a lot. Objective Objective Notes Pt continues to be seen weekly in order to address right shoulder deficits. Each session, pt engages in AROM and AAROM exercises. Pt has not been able to tolerate strengthening exercises due to pain. Pt also receives PROM manual stretching in all planes: flexion, abduction, ER , and IR. Modalities are provided in order to decrease pain/inflammation. Assessment Progress Assessment Slower Than Expected Assessment Notes Pt continues to have significant pain in right shoulder despite therapy. Pt complains of pain reaching 8/ 10 at worst. Pt returns to doctor this coming due to continued pain. Pt's AROM has maintained since initial evaluation, but has not made much of an improvement. Pt also complains of catching in the shoulder especially when moving in abduction. Therapist has been focusing on AROM and AAROM exercises in order to improve overall motion. Pt has been unable to complete strengthening exercises due to pain while completing them. Current R shoulder AROM: Flex: 125 Abd: 120 ER: 35 IR: [address] and 5 Goals Not Met See below Revised Goals ST, 2, 4, and 6 LT-6 Plan Plan Continue with OT plan of care at this time Frequency of Therapy 1-2x's a week Duration of therapy 4 more weeks Time and Billing Re-Eval Time 9 Re-Eval Billing Units 1 PHYSICIAN CERTIFICATION: I certify the specified therapy services for Kristy Franklin are required, authorized, and reviewed every 30 days.
== END 2024-08-06 23:59 | disposition home or self-care (01) ==
LOC: OT 11:00
PROVIDERS: Visit Provider Nurse Practitioner Family
DX: M25.511 Pain in right shoulder (principal)
CPT/HCPCS: 97014; 97110; 97140; 97166; G0283

== ENCOUNTER 2024-08-06 12:40 | Outpatient (POV) | payer OTHER, SELFPAY ==
[2024-08-06 13:53] VITALS: BP 101/71; PULSE 83; RESP 16; O2SAT 96; BMI 53.1
--- NOTE | 2024-08-06 14:30 | A.OFFVIS_ITS ---
[facility] Disclaimer: The information contained in this section may have been updated after the patient was seen, as this information can be updated by other users. Medical History Degenerative disc disease, cervical Dyspnea Chest pain GERD (gastroesophageal reflux disease) HTN (hypertension) Encounter for pre-operative cardiovascular clearance Edema Family History Other No significant family history Social History Smoking Status: Never smoker second hand exposure: No alcohol intake: never substance use type: denies use current occupational status: other Travel in the last 8 weeks: None household members: spouse housing: house current occupation: [employer] current occupational exposures/hazards: Yes caffeine: Yes PM Subjective & Objective Subjective Subjective:: Patient is a pleasant 53-year-old female who presents today for follow-up of bilateral SI injections and worsening pain in her right shoulder and overall back. She does rate her pain today a 5 out of 10. She denies any new trauma or injury. She describes her pain as a constant aching, throbbing sensation that is very limited with range of motion. Patient states that she frequently has trouble sleeping due to the pain. Patient does state it interferes with her ability to perform activities of daily living such as cooking and cleaning. She has completed 6 weeks physical therapy with no additional changes to her shoulder pain. She would like to proceed forward with MRI imaging. She has taylor Vargas has been reviewed and is appropriate. Review of Systems: General: No recent weight changes, no fever, no sleep disturbances Respiratory: No cough, no shortness of air, no recurring pulmonary infections Cardiovascular/peripheral vascular: No chest pain, no palpitations, no edema, no shortness of breath Gastrointestinal: No new onset incontinence, normal bowel movements reported Genitourinary: No new onset incontinence Musculoskeletal: Right shoulder pain, chronic back pain Psychiatric: [Normal mood/affect] Neurological: [Denies weakness in extremities], [denies balance issues] Pain at rest (0-10 scale): 5 Objective Objective:: Physical Exam: General: Alert and oriented x3, no acute distress, pleasant and cooperative Lungs: Respirations even and unlabored, symmetrical chest expansion Eyes: PERRL Musculoskeletal: Flexion and extension of lumbar [spine] somewhat guarded secondary to pain, [antalgic gait noted] Neurological: Speech clear, no gross sensory deficit Has patient had previous pain injection?: Yes Percent improvement in pain since last injection: 75-80% Conservative treatment options previously tried: Home exercise plan Length of treatment: longer than 12 weeks Meds Home Medications and Allergies Home Medications ?Medication ?Instructions ?Recorded ?Confirmed ?Type glucosamine-chondroitin 250 mg-200 2 tab PO DAILY Supplement 11/19/18 08/06/24 History mg tablet (Osteo Bi-Flex) vitamin E 670 mg (1,000 unit) 1,000 unit PO DAILY Supplement 11/28/18 08/06/24 History capsule pantoprazole 40 mg tablet,delayed 40 mg PO DAILY GERD 05/02/20 08/06/24 History release (Protonix) meloxicam 15 mg tablet 15 mg PO DAILY pain 05/17/20 08/06/24 History furosemide 40 mg tablet 40 mg PO DAILY 07/08/24 08/06/24 History glimepiride 4 mg tablet 4 mg PO DAILY 07/08/24 08/06/24 History lisinopril 20 mg tablet 20 mg PO DAILY HTN 07/08/24 08/06/24 History potassium chloride 10 mEq 10 meq PO DAILY 07/08/24 08/06/24 History tablet,extended release pregabalin 150 mg capsule 150 mg PO BID 07/08/24 08/06/24 History sitagliptin phosphate 100 mg 100 mg PO DAILY DM 07/08/24 08/06/24 History tablet (Januvia) New Prescriptions to Start Prescriptions: Allergies Allergy/AdvReac Type Severity Reaction Status Date / Time celecoxib [CELECOXIB] Allergy Unknown Unknown Verified 07/08/24 11:31 allergy reaction naproxen [NAPROXEN] Allergy Unknown Unknown Verified 07/08/24 11:31 allergy reaction Assessment and Plan *Assessment and plan (1) Degenerative disc disease, lumbar: Status: Acute Category: Medical Code(s): M51.36 - Other intervertebral disc degeneration, lumbar region (2) Degenerative disc disease, thoracic: Status: Acute Category: Medical Code(s): M51.34 - Other intervertebral disc degeneration, thoracic region (3) Status post cervical spinal fusion: Status: Acute Category: Surgical Code(s): Z98.1 - Arthrodesis status (4) Right shoulder pain: Status: Acute Qualifiers: Chronicity: chronic Qualified Code(s): M25.511 - Pain in right shoulder; G89.29 - Other chronic pain Category: Medical Code(s): M25.511 - Pain in right shoulder Plan Patient has chronic pain throughout her entire back as well as right shoulder with limited range of motion of her lumbar spine. Patient has already completed a psychological evaluation and was deemed appropriate candidate for the intrathecal pain pump trial. Patient did have this completed at the beginning of June. Patient was reviewed over the risk and benefits of the trial and she would like to proceed forward with this plan of care. Patient does also have a significant history of breast cancer that is currently in remission. Patient has tried and failed conservative therapy including continued at home stretching exercise for longer than 12 weeks. I will also order the patient an MRI without contrast of her right shoulder due to the continued pain unchanged by 6 weeks of physical therapy. Patient will be scheduled for an intrathecal pain pump trial under fluoroscopy. Patient has been instructed to contact the clinic with any concerns before the next appointment. Dr. Rodriguez has reviewed this note and agrees with this plan of care. This note was dictated using voice recognition software and make contain errors or omissions. All injections are used with Lidocaine or Bupivacaine and Depo Medrol.
== END 2024-08-06 23:59 | disposition home or self-care (01) ==
LOC: SC.PAIN 12:41
PROVIDERS: PCP Family Medicine; Visit Provider Nurse Practitioner Family
DX: M51.34 Other intervertebral disc degeneration, thoracic region; Z98.1 Arthrodesis status; M25.511 Pain in right shoulder; G89.29 Other chronic pain; Z73.89 Other problems related to life management difficulty; M51.360 Other intervertebral disc degeneration, lumbar region with discogenic back pain only
CPT/HCPCS: 99212; G0463

== ENCOUNTER 2024-08-27 07:54 | Outpatient (CLI) | payer OTHER, SELFPAY ==
--- NOTE | 2024-08-27 07:59 | XR_ITS ---
FINAL REPORT CLINICAL HISTORY: right shoulder pain COMPARISON: 05/21/2024 FINDINGS: RIGHT SHOULDER 2 views demonstrate no acute fracture or dislocation. There are mild hypertrophic changes at the acromioclavicular and glenohumeral joints consistent with mild osteoarthritis. The soft tissues are unremarkable. A right chest port is present. There are surgical clips in the right axilla. IMPRESSION: Degenerative changes without acute bony abnormality, similar to the prior exam. Reviewed, Interpreted and Dictated by Abner Harley MD Transcribed by Esther Rose Authenticated and [facility]
== END 2024-08-27 23:59 | disposition home or self-care (01) ==
LOC: RAD 07:56
PROVIDERS: PCP Family Medicine; Visit Provider Physician Assistant
DX: M25.511 Pain in right shoulder (principal)
CPT/HCPCS: 73030

== ENCOUNTER 2024-09-17 06:58 | Day surgery (SDC) | payer OTHER, SELFPAY ==
[2024-09-17 07:23] VITALS: BP 125/69; PULSE 82; RESP 18; TEMP 36.6; O2SAT 97; BMI 54.9
--- NOTE | 2024-09-17 07:30 | EXP.ANES.CKL ---
[facility] Disclaimer: The information contained in this section may have been updated after the patient was seen, as this information can be updated by other users. Medical History (Updated 09/17/24 @ 07:29 by Lolly Reina RN) History of COVID-19 Anxiety Diabetes mellitus, type 2 Breast cancer Abnormal result of cardiovascular function study Angina pectoris Chest pain Dyspnea Edema Encounter for pre-operative cardiovascular clearance Gastroesophageal reflux disease Hypertension Osteoarthritis of right knee Degenerative disc disease, cervical Dyspnea Chest pain GERD (gastroesophageal reflux disease) HTN (hypertension) Encounter for pre-operative cardiovascular clearance Edema Surgical History (Updated 09/17/24 @ 07:31 by Lolly Reina RN) Hx of neck surgery History of appendectomy History of cholecystectomy Hx of section Hx of total knee replacement H/O: hysterectomy H/O rotator cuff surgery Family History (Updated 09/17/24 @ 07:29 by Lolly Reina RN) Other DJD (degenerative joint disease) Diabetes Fatty liver Hypertension Social History (Updated 08/27/24 @ 09:41 by CECILY Christianson) Smoking Status: Never smoker second hand exposure: No alcohol intake: never substance use type: denies use current occupational status: unemployed Travel in the last 8 weeks: None household members: spouse housing: house current occupation: [employer] current occupational exposures/hazards: Yes caffeine: Yes [facility] Anesthesia Checklist Patient Identification Patient Identification: Arm Band and Verbal (Name & ) Structural Data Admitted From: Home Planned Operative Procedure/s: Colonoscopy Consent for Planned Operative Procedure(s) Verified: Yes Verified Documents: Surgical Consent and History and Physical NPO Status Verified Time NPO: 06:00 Additional verifications Patient : No Anesthesia Reactions: Yes (+PONV) Hx Blood Transfusions: No Blood Transfusion Reaction: No Cardiovascular Assessment Heart Sounds: S1 & S2 Pulse Rhythm: Irregular Peripheral Edema: No Airway Assessment Mallampati Score:: Class II C-Spine Mobility Assessed: Yes TMJ Mobility Assessed: Yes Dentition: Good Dentition (Nothing loose per pt.) Neurological Assessment Level of Consciousness: Awake, Alert, Appropriate and Follows Commands Hx Seizures: No Numbness or tingling in extremities: No Anesthesia Plan Anesthesia Risk discussed: Yes Anesthesia Plan: Verified ASA Class: III Anesthesia Type: MAC
[2024-09-17] MEDS: LACTATED RINGERS 1000ML 1,000 ML 25 ML IV (07:37)
--- NOTE | 2024-09-17 08:20 | EXP.HP ---
History of Present Illness *Admission Date: 09/17/24 *Reason for visit:: Family history colon cancer/personal history of adenomatous polyps *History of present illness: Mrs. Franklin is a 53-year-old female who is here for surveillance colonoscopy secondary to personal history of adenomatous polyps and family history. The examination is deemed medically necessary for surveillance colonoscopy. The patient has been seen, interviewed and examined prior to the procedure by both myself and the anesthesia provider. [facility] Disclaimer: The information contained in this section may have been updated after the patient was seen, as this information can be updated by other users. Medical History (Updated 09/17/24 @ 07:29 by Lolly Reina RN) History of COVID-19 Anxiety Diabetes mellitus, type 2 Breast cancer Abnormal result of cardiovascular function study Angina pectoris Chest pain Dyspnea Edema Encounter for pre-operative cardiovascular clearance Gastroesophageal reflux disease Hypertension Osteoarthritis of right knee Degenerative disc disease, cervical Dyspnea Chest pain GERD (gastroesophageal reflux disease) HTN (hypertension) Encounter for pre-operative cardiovascular clearance Edema Surgical History (Updated 09/17/24 @ 07:31 by Lolly Reina RN) Hx of neck surgery History of appendectomy History of cholecystectomy Hx of section Hx of total knee replacement H/O: hysterectomy H/O rotator cuff surgery Family History (Updated 09/17/24 @ 07:36 by Lolly Reina RN) Grandmother Colon cancer Family/Other Colon cancer Other DJD (degenerative joint disease) Diabetes Fatty liver Hypertension Social History (Updated 09/17/24 @ 07:31 by Lolly Reina RN) Smoking Status: Never smoker second hand exposure: No alcohol intake: never substance use type: denies use current occupational status: unemployed Travel in the last 8 weeks: None household members: spouse housing: house current occupation: [employer] current occupational exposures/hazards: Yes caffeine: Yes Other Medical History Have you received the Flu Vaccine for this season: Yes Have you received the Pneumonia Vaccine: Yes Review of Systems Review of Systems Review of systems (narrative): Negative *Cardiovascular Comments: Negative *Gastrointestinal Comments: Negative *Genitourinary Comments: Negative *Musculoskeletal Comments: Negative *Neurologic Comments: Negative Meds Home Medications and Allergies Home Medications ?Medication ?Instructions ?Recorded ?Confirmed ?Type glucosamine-chondroitin 250 mg-200 2 tab PO DAILY Supplement 11/19/18 09/17/24 History mg tablet (Osteo Bi-Flex) vitamin E 670 mg (1,000 unit) 1,000 unit PO DAILY Supplement 11/28/18 09/17/24 History capsule pantoprazole 40 mg tablet,delayed 40 mg PO DAILY GERD 05/02/20 09/17/24 History release (Protonix) meloxicam 15 mg tablet 15 mg PO DAILY pain 05/17/20 09/17/24 History furosemide 40 mg tablet 40 mg PO DAILY 07/08/24 09/17/24 History glimepiride 4 mg tablet 4 mg PO DAILY 07/08/24 09/17/24 History lisinopril 20 mg tablet 20 mg PO DAILY HTN 07/08/24 09/17/24 History potassium chloride 10 mEq 10 meq PO BID 07/08/24 09/17/24 History tablet,extended release pregabalin 150 mg capsule 150 mg PO BID 07/08/24 09/17/24 History sitagliptin phosphate 100 mg 100 mg PO DAILY DM 07/08/24 09/17/24 History tablet (Januvia) sodium,potassium,mag sulfates 17.5 See Rx Instructions PO .COMPLEX 09/07/24 09/17/24 Rx gram-3.13 gram-1.6 gram oral soln #354 mL (Suprep Bowel Prep Kit) peg 3350-electrolytes 236 240 ml PO Q10M colonscopy #4,000 mL 09/09/24 09/17/24 Rx gram-22.74 gram-6.74 gram-5.86 gram solution (Golytely) New Prescriptions to Start Prescriptions: Allergies Allergy/AdvReac Type Severity Reaction Status Date / Time celecoxib (CELECOXIB) Allergy Unknown Unknown Verified 09/17/24 07:18 allergy reaction naproxen (NAPROXEN) Allergy Unknown Unknown Verified 09/17/24 07:18 allergy reaction adhesive Allergy Blister Verified 09/17/24 07:18 carboplatin Allergy Hives Verified 09/17/24 07:18 Exam Data for Last 24 hours Vital signs and Labs for Last 24 Hours: Temp Pulse Resp BP Pulse Ox O2 Del Method 97.9 F 82 18 125/69 97 Room Air 09/17/24 07:23 09/17/24 07:23 09/17/24 07:23 09/17/24 07:23 09/17/24 07:23 09/17/24 07:23 I & O for Last 24 hours: Intake & Output 09/14/24 09/15/24 09/16/24 09/17/24 23:59 23:59 23:59 23:59 Weight 310 lb *Routine HEENT Exam Head: Present normocephalic Eye: Present EOMI and PERRL ENT: Present mucous membranes moist *Routine Neck Exam Neck: Present supple *Routine Respiratory Exam Respiratory: Present CTA bilaterally *Routine Cardiovascular Exam Cardiovascular: Present RRR *Routine Abdominal Exam Abdominal: Present soft and normoactive bowel sounds; Absent tenderness *Routine Rectal Exam Rectal:: deferred *Routine Genitalia Exam Genitalia:: deferred *Routine Extremities Exam Extremities: Absent cyanosis, clubbing or edema *Routine Skin Exam Skin: Present warm; Absent rash *Routine Neurological Exam Neurological: Present alert and oriented X3 Assessment and Plan *Assessment and plan (1) History of adenomatous polyp of colon: Status: Acute Category: Medical Code(s): Z86.0101 - Personal history of adenomatous and serrated colon polyps (2) Family history of colon cancer: Status: Acute Category: Medical Code(s): Z80.0 - Family history of malignant neoplasm of digestive organs Plan A/P: 1. Personal history of adenomatous polyps and family history is the preprocedural diagnosis. The patient will be anesthetized/sedated using MAC sedation. The patient has been seen and examined. Cardiac and lung assessment prior to the examination is stable. Proceed with planned surveillance colonoscopy
[2024-09-17 08:25] VITALS: O2SAT 100
--- NOTE | 2024-09-17 08:50 | P.PCN_ITS ---
[facility] Procedure Note Date: 09/17/24 Time: 08:51 Procedure Note:: Colonoscopy Procedure Report: Colonoscopy with cold snare polypectomy Endoscopist: Abhishek Toscano II, MD Referring physician: Brayden Best M.D. Date of Procedure: September 17, 2024 Equipment: Olympus 190 variable stiffness pediatric colonoscope Sedation: MAC sedation Indication: Mrs. Franklin is a 53-year-old female who is here for follow-up screening/surveillance colonoscopy. She had a colonoscopy 10 years ago at which time adenomatous polyps were removed. Her maternal uncle had colon cancer in his mid to late 40s and her maternal grandmother had colon cancer in her early 60s. The patient reports no abdominal pain, weight loss, change in her bowel habits or rectal bleeding. Her prior diarrhea resolved. Procedure: Prior to the procedure, a history and physical exam was performed, and patient's medications and allergies were reviewed. The risks, benefits and alternatives of the sedation and procedure were discussed with the patient. All questions were answered and informed consent was obtained. The patient was brought to the procedure room. Patient identification and proposed procedure were verified by the physician and the nurse. The patient was placed in a left lateral decubitus position and the scope was passed under direct vision. Throughout the procedure, the patient's blood pressure, pulse, and oxygen saturations were monitored continuously. The colonoscopy was accomplished without difficulty. The patient tolerated the procedure well. Findings: On digital rectal examination there was normal rectal tone. There were no external hemorrhoids. The colonoscope was introduced through the anal canal to the rectum and advanced to the cecum. The ileocecal valve and appendiceal orifice were identified. The scope was advanced a short distance into the ileum which appeared grossly normal. The scope was then withdrawn into the colon. There were 2 polyps (cecum x 1 (5 mm) and sigmoid x 1 (4 mm)). Both of these were removed via cold snare polypectomy. The cecum, ascending and transverse colon and mucosa were grossly normal. There were scattered extensive diverticuli throughout the descending and sigmoid colon (LEFT colon). The rectum itself was normal. Upon retroflexion within the rectum there were grade 1-2 internal hemorrhoids. The preparation was excellent throughout with Huntington Preparation Score of 9. The cecal time was 12 minutes. Impression: 1. Diminutive colonic polyps x 2 2. Extensive left-sided diverticulosis 3. Grade 1-2 internal hemorrhoids Plan: I will follow-up the polyp histology and recommend repeat surveillance colonoscopy again in 7 years. I would encourage psyllium bulking fiber supplementation on a maintenance basis.
[2024-09-17 08:54] VITALS: BP 137/94; PULSE 85; RESP 16; TEMP 36.1; O2SAT 98
[2024-09-17 09:04] VITALS: BP 143/83; PULSE 80; RESP 16; O2SAT 99
[2024-09-17 09:07] LABS: POC Glucose,Bedside 93 (70-110)
[2024-09-17 09:14] VITALS: BP 112/62; PULSE 76; RESP 16; O2SAT 96
[2024-09-17 09:24] VITALS: BP 116/74; PULSE 75; RESP 16; O2SAT 96
== END 2024-09-17 09:33 | disposition home or self-care (01) ==
PROVIDERS: PCP Family Medicine; Visit Provider Internal Medicine Gastroenterology
PROC: (CPT 45385; principal; 2024-09-17 08:30)
DX: Z12.11 Encounter for screening for malignant neoplasm of colon (principal); Z86.0101 Personal history of adenomatous and serrated colon polyps; Z80.0 Family history of malignant neoplasm of digestive organs; K63.5 Polyp of colon; K57.30 Diverticulosis of large intestine without perforation or abscess without bleeding; K64.8 Other hemorrhoids
CPT/HCPCS: 45385; 82962; J7120

== ENCOUNTER 2024-09-18 07:45 | Outpatient (CLI) | payer OTHER, SELFPAY ==
--- NOTE | 2024-09-18 07:46 | MR_ITS ---
FINAL REPORT CLINICAL HISTORY: Shoulder pain. LIMITED ROM. WEAKNESS IN ARM COMPARISON: 03/20/2019 FINDINGS: Multiplanar MR imaging of the right shoulder was performed without contrast. There are postoperative changes of rotator cuff repair again seen. There is a complete tear of the distal supraspinatus tendon, worse from prior exam. There is also a partial-thickness, articular surface tear of the infraspinatus tendon measuring greater than 50%, also worse. There is moderate AC joint arthrosis. A moderate amount of fluid is seen in the subacromial/subdeltoid bursa. The glenoid labrum is intact. The long head of the biceps tendon is not well-visualized and likely partially torn. There is no evidence of fracture, bone bruise or marrow edema. No significant glenohumeral joint effusion is identified. The musculature is intact. There is no evidence of soft tissue mass. IMPRESSION: Complete tear of the distal supraspinatus tendon, worse from prior exam. Partial tear of the infraspinatus tendon, greater than 50%, worse from prior exam. Probable tear of the long head of the biceps tendon. Reviewed, Interpreted and Dictated by Cristobal Sommers III, MD Transcribed by Adriana Sood Authenticated and [facility]
== END 2024-09-18 23:59 | disposition home or self-care (01) ==
LOC: RAD 07:46
PROVIDERS: PCP Family Medicine; Visit Provider Physician Assistant
DX: M75.51 Bursitis of right shoulder (principal)
CPT/HCPCS: 73221

== ENCOUNTER 2024-11-11 11:23 | Outpatient (POV) | payer OTHER, SELFPAY ==
[2024-11-11 11:54] VITALS: BP 125/86; PULSE 90; RESP 16; O2SAT 98; BMI 55.7
--- NOTE | 2024-11-11 12:13 | A.OFFVIS_ITS ---
[facility] Disclaimer: The information contained in this section may have been updated after the patient was seen, as this information can be updated by other users. Medical History History of COVID-19 Anxiety Diabetes mellitus, type 2 Breast cancer Abnormal result of cardiovascular function study Angina pectoris Chest pain Dyspnea Edema Encounter for pre-operative cardiovascular clearance Gastroesophageal reflux disease Hypertension Osteoarthritis of right knee Degenerative disc disease, cervical Dyspnea Chest pain GERD (gastroesophageal reflux disease) HTN (hypertension) Encounter for pre-operative cardiovascular clearance Edema Surgical History Hx of neck surgery History of appendectomy History of cholecystectomy Hx of section Hx of total knee replacement darius H/O: hysterectomy H/O rotator cuff surgery Family History Grandmother Colon cancer Family/Other Colon cancer Other DJD (degenerative joint disease) Diabetes Fatty liver Hypertension Social History Smoking Status: Never smoker second hand exposure: No alcohol intake: never substance use type: denies use current occupational status: other Travel in the last 8 weeks: None household members: spouse housing: house current occupation: [employer] current occupational exposures/hazards: Yes caffeine: Yes PM Subjective & Objective Subjective Subjective:: Patient is a pleasant 54-year-old female who presents today for follow-up. Today she rates her pain a 6 out of 10. She does state that she has been having worsening mid back pain and did go see Dr. Douglas who was discussing possible injection therapy. She states that they are wanting her to try conservative treatment before proceeding forward with surgical intervention. Patient did end up having a thoracic MRI done. She does present today with a copy of those records. Patient did state that Dr. Douglas was asking whether or not if there were any contraindications for his office to doing this injection versus ours. Patient is prescribed compounded cream from our office and is requesting refills. Patient does also state that she was having more mid back spasms last night that she has not been experiencing. Her Sam has been reviewed and is appropriate. Review of Systems: General: No recent weight changes, no fever, no sleep disturbances Respiratory: No cough, no shortness of air, no recurring pulmonary infections Cardiovascular/peripheral vascular: No chest pain, no palpitations, no edema, no shortness of breath Gastrointestinal: No new onset incontinence, normal bowel movements reported Genitourinary: No new onset incontinence Musculoskeletal: Low back pain, mid back pain Psychiatric: [Normal mood/affect] Neurological: [Denies weakness in extremities], [denies balance issues] Pain at rest (0-10 scale): 6 Objective Objective:: Physical Exam: General: Alert and oriented x3, no acute distress, pleasant and cooperative Lungs: Respirations even and unlabored, symmetrical chest expansion Eyes: PERRL Musculoskeletal: Flexion and extension of thoracic [spine] somewhat guarded secondary to pain, [antalgic gait noted] Neurological: Speech clear, no gross sensory deficit Has patient had previous pain injection?: No Conservative treatment options previously tried: Home exercise plan Length of treatment: Longer than 12 weeks Meds Home Medications and Allergies Home Medications ?Medication ?Instructions ?Recorded ?Confirmed ?Type glucosamine-chondroitin 250 mg-200 2 tab PO DAILY Supplement 11/19/18 11/11/24 History mg tablet (Osteo Bi-Flex) vitamin E 670 mg (1,000 unit) 1,000 unit PO DAILY Supplement 11/28/18 11/11/24 History capsule pantoprazole 40 mg tablet,delayed 40 mg PO DAILY GERD 05/02/20 11/11/24 History release (Protonix) meloxicam 15 mg tablet 15 mg PO DAILY pain 05/17/20 11/11/24 History furosemide 40 mg tablet 40 mg PO DAILY 07/08/24 11/11/24 History glimepiride 4 mg tablet 4 mg PO DAILY 07/08/24 11/11/24 History lisinopril 20 mg tablet 20 mg PO DAILY HTN 07/08/24 11/11/24 History potassium chloride 10 mEq 10 meq PO BID 07/08/24 11/11/24 History tablet,extended release pregabalin 150 mg capsule 150 mg PO BID 07/08/24 11/11/24 History sitagliptin phosphate 100 mg 100 mg PO DAILY DM 07/08/24 11/11/24 History tablet (Januvia) sodium,potassium,mag sulfates 17.5 See Rx Instructions PO .COMPLEX 09/07/24 11/11/24 Rx gram-3.13 gram-1.6 gram oral soln #354 mL (Suprep Bowel Prep Kit) peg 3350-electrolytes 236 240 ml PO Q10M colonscopy #4,000 mL 09/09/24 11/11/24 Rx gram-22.74 gram-6.74 gram-5.86 gram solution (Golytely) New Prescriptions to Start Prescriptions: Allergies Allergy/AdvReac Type Severity Reaction Status Date / Time celecoxib (CELECOXIB) Allergy Unknown Unknown Verified 09/22/24 09:10 allergy reaction naproxen (NAPROXEN) Allergy Unknown Unknown Verified 09/22/24 09:10 allergy reaction adhesive Allergy Blister Verified 09/22/24 09:10 carboplatin Allergy Hives Verified 09/22/24 09:10 Assessment and Plan *Assessment and plan (1) Thoracic radiculopathy: Status: Acute Category: Medical Code(s): M54.14 - Radiculopathy, thoracic region (2) Degenerative disc disease, thoracic: Status: Acute Category: Medical Code(s): M51.34 - Other intervertebral disc degeneration, thoracic region Plan I did discuss with the patient that I have no problem with her proceeding forward with the injection with Dr. Douglas's office and we will plan on following up with her after. Patient has already completed a psychological evaluation wi th the possible plan to proceed forward with the pump trial. Patient does state that she is still very interested in this option and most likely feels like she will proceed forward. Patient will be sent in a prescription of Flexeril 10 [facility] [place]. Patient has had this medication in the past and denies any side effects. I will also refill her compounded cream. P atient will return to clinic in 1 month. Patient has been instructed to contact the clinic with any concerns before the next appointment. Dr. Rodriguez has reviewed this note and agrees with this plan of care. This note was dictated using voice recognition software and make contain errors or omissions. All injections are used with Lidocaine, Bupivacaine and Depo Medrol. Occasionally urine drug screen is needed to verify patient's compliance with our office pain contract. This is ordered based off specific treatments related to chronic pain with the potential to abuse certain medications.
== END 2024-11-11 23:59 | disposition home or self-care (01) ==
PROVIDERS: PCP Family Medicine; Visit Provider Nurse Practitioner Family
DX: M51.14 Intervertebral disc disorders with radiculopathy, thoracic region (principal)
CPT/HCPCS: 99212; G0463

== ENCOUNTER 2025-01-07 10:30 | Outpatient (POV) | payer BC, SELFPAY ==
[2025-01-07 11:09] VITALS: BP 109/63; PULSE 81; RESP 14; O2SAT 95; BMI 55.7
--- NOTE | 2025-01-07 11:14 | EXP.PAIN.SOA ---
[facility] Disclaimer: The information contained in this section may have been updated after the patient was seen, as this information can be updated by other users. Medical History History of COVID-19 Anxiety Diabetes mellitus, type 2 Breast cancer Abnormal result of cardiovascular function study Angina pectoris Chest pain Dyspnea Edema Encounter for pre-operative cardiovascular clearance Gastroesophageal reflux disease Hypertension Osteoarthritis of right knee Degenerative disc disease, cervical Dyspnea Chest pain GERD (gastroesophageal reflux disease) HTN (hypertension) Encounter for pre-operative cardiovascular clearance Edema Surgical History Hx of neck surgery History of appendectomy History of cholecystectomy Hx of section Hx of total knee replacement darius H/O: hysterectomy H/O rotator cuff surgery Family History Grandmother Colon cancer Family/Other Colon cancer Other DJD (degenerative joint disease) Diabetes Fatty liver Hypertension Social History Smoking Status: Never smoker second hand exposure: No alcohol intake: never substance use type: denies use current occupational status: other Travel in the last 8 weeks: None household members: spouse housing: house current occupation: [employer] current occupational exposures/hazards: Yes caffeine: Yes PM Subjective & Objective Subjective Subjective:: Patient is a pleasant 54-year-old female who presents today for 1 month follow-up. Today she does rate her pain a 7 out of 10 and states that it is all in her low back and denies any radiating symptoms to her legs. Patient does state that she did end up having the epidural injection with [facility] and she had at least 75% improvement and feels like it is still helping. Patient states that the chronic back pain is just very bothersome. Patient denies any recent imaging. She states it is worse with walking, bending or lifting. She is prescribed Flexeril 10 mg 3 times a day and compounded cream. her Sam has been reviewed and is appropriate. Review of Systems: General: No recent weight changes, no fever, no sleep disturbances Respiratory: No cough, no shortness of air, no recurring pulmonary infections Cardiovascular/peripheral vascular: No chest pain, no palpitations, no edema, no shortness of breath Gastrointestinal: No new onset incontinence, normal bowel movements reported Genitourinary: No new onset incontinence Musculoskeletal: Low back pain Psychiatric: [Normal mood/affect] Neurological: [Denies weakness in extremities], [denies balance issues] Pain at rest (0-10 scale): 7 Objective Objective:: Physical Exam: General: Alert and oriented x3, no acute distress, pleasant and cooperative Lungs: Respirations even and unlabored, symmetrical chest expansion Eyes: PERRL Musculoskeletal: Flexion and extension of lumbar [spine] somewhat guarded secondary to pain Neurological: Speech clear, no gross sensory deficit Has patient had previous pain injection?: No Conservative treatment options previously tried: Home exercise plan Length of treatment: Longer than 12 weeks Meds Home Medications and Allergies Home Medications ?Medication ?Instructions ?Recorded ?Confirmed ?Type glucosamine-chondroitin 250 mg-200 2 tab PO DAILY Supplement 11/19/18 01/07/25 History mg tablet (Osteo Bi-Flex) vitamin E 670 mg (1,000 unit) 1,000 unit PO DAILY Supplement 11/28/18 01/07/25 History capsule pantoprazole 40 mg tablet,delayed 40 mg PO DAILY GERD 05/02/20 01/07/25 History release (Protonix) meloxicam 15 mg tablet 15 mg PO DAILY pain 05/17/20 01/07/25 History furosemide 40 mg tablet 40 mg PO DAILY 07/08/24 01/07/25 History glimepiride 4 mg tablet 4 mg PO DAILY 07/08/24 01/07/25 History lisinopril 20 mg tablet 20 mg PO DAILY HTN 07/08/24 01/07/25 History potassium chloride 10 mEq 10 meq PO BID 07/08/24 01/07/25 History tablet,extended release pregabalin 150 mg capsule 150 mg PO BID 07/08/24 01/07/25 History sitagliptin phosphate 100 mg 100 mg PO DAILY DM 07/08/24 01/07/25 History tablet (Januvia) sodium,potassium,mag sulfates 17.5 See Rx Instructions PO .COMPLEX 09/07/24 01/07/25 Rx gram-3.13 gram-1.6 gram oral soln #354 mL (Suprep Bowel Prep Kit) peg 3350-electrolytes 236 240 ml PO Q10M colonscopy #4,000 mL 09/09/24 01/07/25 Rx gram-22.74 gram-6.74 gram-5.86 gram solution (Golytely) cyclobenzaprine 10 mg tablet 10 mg PO TID #90 tabs 11/11/24 01/07/25 Rx New Prescriptions to Start Prescriptions: Allergies Allergy/AdvReac Type Severity Reaction Status Date / Time celecoxib (CELECOXIB) Allergy Unknown Unknown Verified 09/22/24 09:10 allergy reaction naproxen (NAPROXEN) Allergy Unknown Unknown Verified 09/22/24 09:10 allergy reaction adhesive Allergy Blister Verified 09/22/24 09:10 carboplatin Allergy Hives Verified 09/22/24 09:10 Assessment and Plan *Assessment and plan (1) Lumbar degenerative disc disease: Status: Acute Category: Medical Code(s): M51.369 - Other intervertebral disc degeneration, lumbar region without mention of lumbar back pain or lower extremity pain Plan Patient is experiencing chronic pain throughout her low back that has been present for longer than 6 months. I will order x-ray imaging and plan to proceed forward with an MRI without contrast of her lumbar spine due to her chronic low back pain. Patient will return to clinic in 1 month for reevaluation of symptoms and plan of care. Patient has been instructed to contact the clinic with any concerns before the next appointment. Dr. Rodriguez has reviewed this note and agrees with this plan of care. This note was dictated using voice recognition software and make contain errors or omissions. All injections are used with Lidocaine, Bupivacaine and Depo Medrol. Occasionally urine drug screen is needed to verify patient's compliance with our office pain contract. This is ordered based off specific treatments related to chronic pain with the potential to abuse certain medications.
--- NOTE | 2025-01-07 11:21 | XR_ITS ---
FINAL REPORT CLINICAL HISTORY: Low back pain x2 months FINDINGS: No fracture is identified. There are moderate diffuse degenerative disc changes, most pronounced at L5-S1. Alignment is normal. IMPRESSION: Moderate degenerative disc disease. Reviewed, Interpreted and Dictated by Rico Shane MD Transcribed by Carline Franklin Authenticated and [facility]
== END 2025-01-07 23:59 | disposition home or self-care (01) ==
PROVIDERS: PCP Family Medicine; Visit Provider Nurse Practitioner Family
DX: M51.369 Other intervertebral disc degeneration, lumbar region without mention of lumbar back pain or lower extremity pain (principal)
CPT/HCPCS: 72100; 99212; G0463

== ENCOUNTER 2025-02-04 08:24 | Outpatient (CLI) | payer BC, SELFPAY ==
--- NOTE | 2025-02-04 08:27 | MR_ITS ---
FINAL REPORT CLINICAL HISTORY: HARDWARE IN NECK /ASH KNEES/LBP XMONTHS. BILATERAL LEG PAIN WITH NUMBNESS AND TINGLING. NO INJURY OR TRAUMA COMPARISON: None FINDINGS: Multiplanar MR imaging of the lumbar spine was performed without contrast. On the sagittal T2-weighted images, there is abnormal decreased signal throughout the lower thoracic and lower lumbar discs. The vertebrae are of normal height. The vertebral alignment is normal. T11-12: Moderate globular right paracentral disc protrusion with moderate compromise right side of the spinal canal, well-seen on image 3 of series 5. T12-L1: Large right paracentral disc extrusion. High-grade compromise right side of the spinal canal, well-seen on image 7 of series 2 and images 7 and 8 of series 5. L1-2: There is no significant canal stenosis or neural foraminal narrowing. L2-3: There is no significant canal stenosis or neural foraminal narrowing. L3-4: Moderate diffuse disc bulge. Broad-based midline disc protrusion. Moderate spinal canal compromise and bilateral neuroforaminal narrowing. L4-5: Mild to moderate right paracentral disc protrusion. Moderate compromise right side of the spinal canal, well-seen on image 26 of series 5. L5-S1: Moderate diffuse disc bulge. High-grade left and moderate to high-grade right neuroforaminal narrowing. IMPRESSION: Multilevel degenerative changes. Dominant abnormality is a large right paracentral disc extrusion at T12-L1 with high-grade compromise right side of the spinal canal. Reviewed, Interpreted and Dictated by Abner Harley MD Transcribed by Georgia Hester Authenticated and [facility]
--- OUTSIDE RECORDS SUMMARY | 2025-02-04 08:27 | XMS_ITS ---
Care Plan - [facility] Created on: February 04, 2025 Kristy Franklin : 1970 Sex: Female Author Organization [facility] Address [address] [place] [address] Phone Care Team Providers Care Composition Tile Layer Name Role Phone Isiah GOSS, Jerome Cooney Unavailable [phone] Jael Flower APRN Primary Care Provider [phone] CHANTELLE COELLO MD Unavailable [phone]
--- OUTSIDE RECORDS SUMMARY | 2025-02-04 08:27 | XMS_ITS | Clinical Summary ---
Author Organization [facility] , [facility] Address [address] [place] [address] Phone Care Team Providers Care Press Assistant And Feeder Name Role Phone Isiah GOSS, Jerome Cooney Unavailable [phone] Jael Flower APRN Primary Care Provider [phone] CHANTELLE COELLO MD Unavailable [phone] Reason for Visit and Chief Complaint The Chief Complaint is: follow-up; C5-7 ACDF 6.26.18 Problems Includes: Problems addressed during this encounter and other active Problems All Visits Onset Date Resolved Date Provider Condition S tatus Joint Pain, Localized in Both Shoulders 03/20/2018 Jerome Joyce MD Active Last Documented On 8 1:17PM ; [facility] Plan of Treatment Patient was seen by myself Gregg Bustillos PA-C and Dr. Joyce We will see her back in 6 weeks we'll try a injection for the right shoulder today she'll continue with her diclofenac inset taking it once a day she'll try twice a day The risks of the procedure were explained and verbally acknowledge by the patient. A verbal consent was obtained. Skin was prepped with betadine/alcohol. Patient was given a cortisone injection to the subacromial space of the right shoulder 1 cc Celestone 4 cc lidocaine and Marcaine in the tolerated well. Band-Aid was applied to the site afterwards. she was advised to make sure she checks her blood sugars as she is diabetic also. - Last Documented On 09/02/2018 4:50PM ; [facility] Pending Tests Order Diagnosis Results Due [facility] - [facility] MRI Shoulder 11/04/18 Jerome Joyce MD Last Documented On 9 3:29PM ; [facility], [facility] Instructions to patient Instructions for patient see pcp for weight management Last Documented On 8 8:54AM ; [facility] Lose weight Last Documented On 8 8:54AM ; [facility] Assessments Includes: Assessments from this encounter Findings Right shoulder pain acromioclavicular joint arthritis - Last Documented On 09/02/2018 4:50PM ; [facility] C5-C7 fusion - Last Documented On 09/02/2018 4:50PM ; [facility] Instructions Includes: Instructions from this encounter Instructions to patient Instructions for patient see pcp for weight management Last Documented On 8 8:54AM ; [facility] Lose weight Last Documented On 8 8:54AM ; [facility], [facility] Medical Equipment - Implanted Devices Includes: Current Devices No Medical Equipment Recorded Medications Includes: Medications discussed during this encounter and other current Medications Current Medications (continue as prescribed) Lisinopril 20MG Oral Tablet 05/15/2018 Provider: Diagnosis: Last Documented On 8 9:06AM By [facility], [facility] Diclofenac Sodium 75MG Oral Tablet Delayed Release 06/2018 Provider: Diagnosis: Last Documented On 8 9:06AM By Bria AVINA [facility], [facility] Protonix 40MG Oral Packet 05/15/2018 Provider: Diagnosis: Last Documented On 8 9:06AM By [facility], [facility] Premarin 0.625MG Oral Tablet 05/15/2018 Provider: Diagnosis: Last Documented On 8 9:06AM By Bria Bernal ; [facility], [facility] SAMe 400MG Oral Tablet 05/15/2018 Provider: Diagnosis: Last Documented On 8 9:07AM By Bria Bernal ; [facility], [facility] Past Medications on file Percocet 5-325MG Oral Tablet 03/26/2018 - 04/25/2018 P rovider: Jerome Joyce MD Diagnosis: 1-2 po q 4-6h prn for pain surgery 04/01/18 Last Documented On 8 10:50AM By Georgia Carmona ; [facility], [facility] Medications Administered Includes: Administered Medications from this encounter No Administered Medications Recorded Vital Signs Includes: Vital Signs from this encounter Vital Name 08/21/2018 08:53A Blood Pressure Sitting (mmHg) 130/85 Pulse Rate-Sitting (bpm) 74 Height (in) 63 Weight (lb) 250 Body Mass Index (kg/m2) 44.3 Body Surface Area (m2) 2.1 Note: csl Last Documented: On 08/21/2018 9:03AM ; [facility], [facility] Results Includes: Results discussed during this encounter No Results Recorded For Specified Dates History of Present Illness Includes: History of Present Illness from this encounter HPI Kristy Franklin is a 47 year old female. - Medication list reviewed with patient. Patient is here today for follow-up of her C5-C7 ACDF she has a secondary new complaint today of some right shoulder pain. She still having pain with the right arm right shoulder area. It bothers her more at nighttime. Her cervical fusion was done April 01, 2018 Social History Description Last Updated No tobacco use 03/20/2018 Last Documented On 8 8:53AM ; [facility], [facility] Smoking status : Never smoker 03/20/2018 Last Documented On 8 8:53AM ; [facility], [facility] Caffeine use 03/20/2018 Last Documented On 8 8:53AM ; [facility], [facility] Exercising regularly 03/20/2018 Last Documented On 8 8:53AM ; [facility], [facility] No recent change in diet 03/20/2018 Last Documented On 8 8:53AM ; [facility], [facility] Not a current smoker 03/20/2018 Last Documented On 8 8:53AM ; [facility], [facility] Not using alcohol 03/20/2018 Last Documented On 8 8:53AM ; [facility], [facility] Not using drugs 03/20/2018 Last Documented On 8 8:53AM ; [facility], [facility] Procedures and Surgical History Includes: Procedures from this encounter Procedures Code Diagnosis Performing Provider Service L ocation Service Date history of orthopedic options: physical therapy Last Documented On 8 8:53AM ; [facility], [facility] Clinical summary provided to patient Last Documented On 8 8:54AM ; [facility], [facility] Surgical History Last Updated History of appendectomy 03/20/2018 Last Documented On 8 8:53AM ; [facility] History of hysterectomy 03/20/2018 Last Documented On 8 8:53AM ; [facility] Medical History Includes: Medical History addressed during this encounter Description Last Updated Arthritic joint problems 03/20/2018 Last Documented On 8 8:53AM ; [facility] Gallbladder disease 03/20/2018 Last Documented On 8 8:53AM ; [facility] History of diverticulitis of colon 03/20 Last Documented On 8 8:53AM ; [facility] Intermittent hypertension 03/20/2018 Last Documented On 8 8:53AM ; [facility], [facility] Family History Includes: Family History addressed during this encounter Description Last Updated Family history of diabetes m ellitus mother, maternal grandmother, paternal grandmother 03/20/2018 Last Documented On 8 8:53AM ; [facility] Family history of heart disease mother, father 03/20/2018 Last Documented On 8 8:53AM ; [facility], [facility] Maternal grandmother's history of family history of cancer 03/20/2018 Last Documented On 8 8:53AM ; [facility] Review of Systems Includes: Review of Systems from this encounter Systemic: Not feeling tired (fatigue), no recent weight loss, and no recent weight gain. No edema. Head: No headache and no sinus pain. Eyes: No vision problems and no glaucomatous visual field defect. Otolaryngeal: No hearing loss and no tinnitus. No nasal symptoms. Cardiovascular: No chest pain or discomfort and no palpitations. Pulmonary: No daytime asthma symptoms, no cough, and no chronic cough. No wheezing. Gastrointestinal: No heartburn and no abdominal pain. Endocrine: No hot flashes and no muscle weakness. Hematologic: No easy bleeding and no tendency for easy bruising. Musculoskeletal: No lower back pain. No soft tissue swelling and no localized joint pain. Neurological: No dizziness, no convulsions, and no numbness. Psychological: No anxiety, no emotional lability, no depression, and no insomnia. Not crying for no reason. Skin: No dry skin, no rash, and no ulcers. Allergic and Immunologic: No complaint of seasonal allergic reaction. Mental Status Includes: Mental Status from this encounter Description No anxiety Functional Status Includes: Functional Status from this encounter No Functional Status Recorded Physical Exam Includes: Physical Exam from this encounter Allergies Includes: Active Allergies Substance Type Reaction Onset Date Resolved Date Statu s Naproxen Allergy 03/20/2018 Active Last Documented On 9 8:45AM ; [facility], [facility] CeleBREX Allergy 03/20/2018 Active Last Documented On 9 8:45AM ; [facility], [facility] Encounters Encounter Provider Location Date Check-In Time Check- Out Time Diagnosis Follow Up Jerome Joyce MD [facility] 8 8:47AM 9:33AM Insurance Includes: Active Insurance Policies Plan Name Member ID Group # Subscriber Relationship Effect gala Dates 1 - [facility] [id number] Kristy Franklin Self 2 - [facility] [id number] Kristy David 10/07/2017 - Unknown Clinical Notes Includes: Clinical Notes from this encounter No Clinical Notes Recorded
--- OUTSIDE RECORDS SUMMARY | 2025-02-04 08:27 | XMS_ITS | Clinical Summary ---
Author Organization [facility] , [facility] Address [address] [place] [address] Phone Care Team Providers Care Wafer Cutter Name Role Phone Isiah GOSS, Jerome Cooney Unavailable [phone] Jael Flower APRN Primary Care Provider [phone] CHANTELLE COELLO MD Unavailable [phone] Reason for Visit and Chief Complaint The Chief Complaint is: right shoulder pain Problems Includes: Problems addressed during this encounter and other active Problems All Visits Onset Date Resolved Date Provider Condition S tatus Joint Pain, Localized in Both Shoulders 03/20/2018 Jerome Joyce MD Active Last Documented On 8 1:17PM ; [facility], [facility] Plan of Treatment Pending Tests Order Diagnosis Results Due Ordering P rovider Radiology - MRI MRI Shoulder 11/04/18 Jerome Joyce MD Last Documented On 9 3:29PM ; [facility], [facility] Instructions to patient Instructions for patient to see pcp for bp and wt Last Documented On 9 8:45AM ; [facility], [facility] Lose weight Last Documented On 9 8:45AM ; [facility], [facility] Assessments Includes: Assessments from this encounter No Assessments Recorded Instructions Includes: Instructions from this encounter Instructions to patient Instructions for patient to see pcp for bp and wt Last Documented On 9 8:45AM ; [facility], [facility] Lose weight Last Documented On 9 8:45AM ; [facility], [facility] Medical Equipment - Implanted Devices Includes: Current Devices No Medical Equipment Recorded Medications Includes: Medications discussed during this encounter and other current Medications Current Medications (continue as prescribed) Lisinopril 20MG Oral Tablet 05/15/2018 Provider: Diagnosis: Last Documented On 8 9:06AM By Bria Bernal ; [facility], [facility] Diclofenac Sodium 75MG Oral Tablet Delayed Release 06/2018 Provider: Diagnosis: Last Documented On 8 9:06AM By Bria Bernal ; [facility], [facility] Protonix 40MG Oral Packet 05/15/2018 Provider: Diagnosis: Last Documented On 8 9:06AM By Bria Bernal ; [facility], [facility] Premarin 0.625MG Oral Tablet 05/15/2018 Provider: Diagnosis: Last Documented On 8 9:06AM By Bria Bernal ; [facility], [facility] SAMe 400MG Oral Tablet 05/15/2018 Provider: Diagnosis: Last Documented On 8 9:07AM By Bria Bernal ; [facility], [facility] Past Medications on file Percocet 5-325MG Oral Tablet 03/26/2018 - 04/25/2018 Randa coker: Jerome Joyce MD Diagnosis: 1-2 po q 4-6h prn for pain surgery 04/01/18 Last Documented On 8 10:50AM By Georgia Carmona ; [facility], [facility] Medications Administered Includes: Administered Medications from this encounter No Administered Medications Recorded Vital Signs Includes: Vital Signs from this encounter Vital Name 10/30/2018 08:47A Height (in) 63 Weight (lb) 270 Body Mass Index (kg/m2) 47.8 Body Surface Area (m2) 2.2 Last Documented: On 10/30/2018 8:47AM ; [facility], [facility] Results Includes: Results discussed during this encounter No Results Recorded For Specified Dates History of Present Illness Includes: History of Present Illness from this encounter HPI Kristy Franklin is a 48 year old female. - Medication list reviewed with patient. Social History Description Last Updated No tobacco use 03/20/2018 Last Documented On 9 8:45AM ; [facility], [facility] Smoking status : Never smoker 03/20/2018 Last Documented On 9 8:45AM ; [facility], [facility] Caffeine use 03/20/2018 Last Documented On 9 8:45AM ; [facility] Exercising regularly 03/20/2018 Last Documented On 9 8:45AM ; [facility] No recent change in diet 03/20/2018 Last Documented On 9 8:45AM ; [facility] Not a current smoker 03/20/2018 Last Documented On 9 8:45AM ; [facility] Not using alcohol 03/20/2018 Last Documented On 9 8:45AM ; [facility] Not using drugs 03/20/2018 Last Documented On 9 8:45AM ; [facility] Procedures and Surgical History Includes: Procedures from this encounter Procedures Code Diagnosis Performing Provider Service L ocation Service Date history of orthopedic options: physical therapy Last Documented On 9 8:45AM ; [facility] Clinical summary provided to patient Last Documented On 9 8:45AM ; [facility] Surgical History Last Updated History of appendectomy 03/20/2018 Last Documented On 9 8:45AM ; [facility] History of hysterectomy 03/20/2018 Last Documented On 9 8:45AM ; [facility] Medical History Includes: Medical History addressed during this encounter Description Last Updated Arthritic joint problems 03/20/2018 Last Documented On 9 8:45AM ; [facility] Gallbladder disease 03/20/2018 Last Documented On 9 8:45AM ; [facility] History of diverticulitis of colon 03/20 Last Documented On 9 8:45AM ; [facility] Intermittent hypertension 03/20/2018 Last Documented On 9 8:45AM ; [facility] Family History Includes: Family History addressed during this encounter Description Last Updated Family history of diabetes m ellitus mother, maternal grandmother, paternal grandmother 03/20/2018 Last Documented On 9 8:45AM ; [facility] Family history of heart disease mother, father 03/20/2018 Last Documented On 9 8:45AM ; [facility] Maternal grandmother's history of family history of cancer 03/20/2018 Last Documented On 9 8:45AM ; [facility] Review of Systems Includes: Review of [...] Active Last Documented On 9 8:45AM ; [facility] CeleBREX Allergy 03/20/2018 Active Last Documented On 9 8:45AM ; [facility] Encounters Encounter Provider Location Date Check-In Time Check- Out Time Diagnosis Follow Up Jerome Jyoce MD [facility] 9 8:34AM 8:58AM Insurance Includes: Active Insurance Policies Plan Name Member ID Group # Subscriber Relationship Effect gala Dates 1 - [facility] [id number] Kristy Franklin Self 2 - [facility] [id number] Kristy David 10/07/2017 - Unknown Clinical Notes Includes: Clinical Notes from this encounter No Clinical Notes Recorded
--- OUTSIDE RECORDS SUMMARY | 2025-02-04 08:27 | XMS_ITS ---
Author Organization [facility] Address [address] [place] [address] Phone Care Team Providers Care Mobile Mechanic Name Role Phone Isiah GOSS, Jerome Cooney Unavailable [phone] Jael Flower APRN Primary Care Provider [phone] OUMOU GOSS, CHANTELLE Mitchell Unavailable [phone] Problems Includes: Active, inactive, and resolved Problems All Visits Onset Date Resolved Date Provider Condition S tatus Joint Pain, Localized in Both Shoulders 03/20/2018 Jerome Joyce MD Active Last Documented On 8 1:17PM ; [facility] Plan of Treatment Pending Tests Order Diagnosis Results Due Ordering P rovider Radiology - MRI MRI Shoulder 11/04/18 Jerome Joyce MD Last Documented On 9 3:29PM ; [facility], [facility] Instructions to patient Instructions for patient to see pcp for bp and wt Last Documented On 9 8:45AM ; [facility] Lose weight Last Documented On 9 8:45AM ; [facility] Instructions for patient to see pcp for bp and wt Last Documented On 9 1:06PM ; [facility] Lose weight Last Documented On 9 1:06PM ; [facility] Instructions for patient see pcp for weight management Last Documented On 8 8:54AM ; [facility], [facility] Lose weight Last Documented On 8 8:54AM ; [facility] Assessments Includes: Assessments for all patient encounters No Assessments Recorded Instructions Includes: Instructions for all patient encounters Instructions to patient Instructions for patient to see pcp for bp and wt Last Documented On 9 8:45AM ; [facility] Lose weight Last Documented On 9 8:45AM ; [facility] Instructions for patient to see pcp for bp and wt Last Documented On 9 1:06PM ; [facility] Lose weight Last Documented On 9 1:06PM ; [facility], [facility] Instructions for patient see pcp for weight management Last Documented On 8 8:54AM ; [facility] Lose weight Last Documented On 8 8:54AM ; [facility], [facility] Medical Equipment - Implanted Devices Includes: Current and historical Devices No Medical Equipment Recorded Medications Includes: Current and historical Medications Current Medications (continue as prescribed) Lisinopril 20MG Oral Tablet 05/15/2018 Provider: Diagnosis: Last Documented On 8 9:06AM By Bria Bernal ; [facility], [facility] Diclofenac Sodium 75MG Oral Tablet Delayed Release 06/2018 Provider: Diagnosis: Last Documented On 8 9:06AM By Bria Bernal ; [facility], [facility] Protonix 40MG Oral Packet 05/15/2018 Provider: Diagnosis: Last Documented On 8 9:06AM By Bria Culp [facility], [facility] Premarin 0.625MG Oral Tablet 05/15/2018 Provider: Diagnosis: Last Documented On 8 9:06AM By Bria Bernal ; [facility], [facility] SAMe 400MG Oral Tablet 05/15/2018 Provider: Diagnosis: Last Documented On 8 9:07AM By Bria Bernal ; [facility], [facility] Past Medications on file Percocet 5-325MG Oral Tablet 03/26/2018 - 04/25/2018 Randa coker: Jerome Joyce MD Diagnosis: 1-2 po q 4-6h prn for pain surgery 04/01/18 Last Documented On 8 10:50AM By Georgia Carmona ; [facility], [facility] Medications Administered Includes: Administered Medications in patient's chart No Administered Medications Recorded Results Includes: Results from 02/05/2024 through 02/04/2025 No Results Recorded For Specified Dates History of Present Illness History of Present Illness not supported for this document type No History of Present Illness Recorded Social History Description Last Updated No tobacco use 03/20/2018 Last Documented On 8 4:23PM ; [facility] Smoking status : Never smoker 03/20/2018 Last Documented On 8 4:23PM ; [facility] Caffeine use 03/20/2018 Last Documented On 8 4:23PM ; [facility], [facility] Exercising regularly 03/20/2018 Last Documented On 8 4:23PM ; [facility], [facility] No recent change in diet 03/20/2018 Last Documented On 8 4:23PM ; [facility], [facility] Not a current smoker 03/20/2018 Last Documented On 8 4:23PM ; [facility] Not using alcohol 03/20/2018 Last Documented On 8 4:23PM ; [facility], [facility] Not using drugs 03/20/2018 Last Documented On 8 4:23PM ; [facility], [facility] Procedures and Surgical History Surgical History Last Updated History of appendectomy 03/20/2018 Last Documented On 8 4:23PM ; [facility], [facility] History of hysterectomy 03/20/2018 Last Documented On 8 4:23PM ; [facility], [facility] Medical History Includes: Medical History in patient's chart Description Last Updated Arthritic joint problems 03/20/2018 Last Documented On 8 4:23PM ; [facility], [facility] Gallbladder disease 03/20/2018 Last Documented On 8 4:23PM ; [facility], [facility] History of diverticulitis of colon 03/20 Last Documented On 8 4:23PM ; [facility], [facility] Intermittent hypertension 03/20/2018 Last Documented On 8 4:23PM ; [facility] Family History Includes: Family History in patient's chart Description Last Updated Family history of diabetes m ellitus mother, maternal grandmother, paternal grandmother 03/20/2018 Last Documented On 8 4:23PM ; [facility], [facility] Family history of heart disease mother, father 03/20/2018 Last Documented On 8 4:23PM ; [facility], [facility] Maternal grandmother's history of family history of cancer 03/20/2018 Last Documented On 8 4:23PM ; [facility], [facility] Review of Systems Review of Systems not supported for this document type No Review of Systems Recorded Mental Status Description No anxiety Functional Status No Functional Status Recorded Physical Exam Physical Exam not supported for this document type No Physical Exam Recorded Allergies Includes: Active, inactive, and resolved Allergies Substance Type Reaction Onset Date Resolved Date Statu s Naproxen Allergy 03/20/2018 Active Last Documented On 9 8:45AM ; [facility] CeleBREX Allergy 03/20/2018 Active Last Documented On 9 8:45AM ; [facility], [facility] Insurance Includes: Active Insurance Policies Plan Name Member ID Group # Subscriber Relationship Effect gala Dates 1 - [facility] [id number] Kristy Franklin Self 2 - [facility] [id number] Kristy David 10/07/2017 - Unknown Clinical Notes Includes: Signed Clinical Notes starting from 09/20/2022 No Clinical Notes Recorded
--- OUTSIDE RECORDS SUMMARY | 2025-02-04 08:27 | XMS_ITS | Clinical Summary ---
Author Organization [facility] Address [address] [place] [address] Phone Care Team Providers Care Manager Laboratory Name Role Phone Isiah GOSS, Jerome Cooney Unavailable [phone] Jael Flower APRN Primary Care Provider [phone] OUMOU GOSS, CHANTELLE Mitchell Unavailable [phone] Reason for Visit and Chief Complaint MRI Problems Includes: Problems addressed during this encounter and other active Problems All Visits Onset Date Resolved Date Provider Condition S tatus Joint Pain, Localized in Both Shoulders 03/20/2018 Jerome Joyce MD Active Last Documented On 8 1:17PM ; [facility] Plan of Treatment No Plan of Treatment Recorded Assessments Includes: Assessments from this encounter No Assessments Recorded Medical Equipment - Implanted Devices Includes: Current Devices No Medical Equipment Recorded Medications Includes: Medications discussed during this encounter and other current Medications Current Medications (continue as prescribed) Lisinopril 20MG Oral Tablet 05/15/2018 Provider: Diagnosis: Last Documented On 8 9:06AM By Bria [facility], [facility] Diclofenac Sodium 75MG Oral Tablet Delayed Release 06/2018 Provider: Diagnosis: Last Documented On 8 9:06AM By Bria [facility] Protonix 40MG Oral Packet 05/15/2018 Provider: Diagnosis: Last Documented On 8 9:06AM By [facility], [facility] Premarin 0.625MG Oral Tablet 05/15/2018 Provider: Diagnosis: Last Documented On 8 9:06AM By Bria Culp [facility], [facility] SAMe 400MG Oral Tablet 05/15/2018 Provider: Diagnosis: Last Documented On 8 9:07AM By Bria Culp [facility], [facility] Medications Administered Includes: Administered Medications from this encounter No Administered Medications Recorded Results Includes: Results discussed during this encounter No Results Recorded For Specified Dates History of Present Illness Includes: History of Present Illness from this encounter No History of Present Illness Recorded Social History No Social History Recorded - Smoking Status Unknown Medical History Includes: Medical History addressed during this encounter No Medical History Recorded Family History Includes: Family History addressed during this encounter No Family History Recorded Review of Systems Includes: Review of Systems from this encounter No Review of Systems Recorded Mental Status Includes: Mental Status from this encounter No Mental Status Recorded Functional Status Includes: Functional Status from this encounter No Functional Status Recorded Physical Exam Includes: Physical Exam from this encounter No Physical Exam Recorded Allergies Includes: Active Allergies Substance Type Reaction Onset Date Resolved Date Statu s Naproxen Allergy 03/20/2018 Active Last Documented On 9 8:45AM ; [facility], [facility] CeleBREX Allergy 03/20/2018 Active Last Documented On 9 8:45AM ; [facility], [facility] Encounters Encounter Provider Location Date Check-In Time Check-Out Time Diagnosis MRI [facility] 10/28/2018 3:10PM 4:01PM Insurance Includes: Active Insurance Policies Plan Name Member ID Group # Subscriber Relationship Effect gala Dates 1 - [facility] [id number] Kristy Franklin Self 2 - [facility] [id number] Kristy David 10/07/2017 - Unknown Clinical Notes Includes: Clinical Notes from this encounter No Clinical Notes Recorded
--- OUTSIDE RECORDS SUMMARY | 2025-02-04 08:27 | XMS_ITS | Clinical Summary ---
Author Organization [facility] , [facility] Address [address] [place] [address] Phone Care Team Providers Care Binding Folder Machine Name Role Phone Isiah GOSS, Jerome Cooney Unavailable [phone] Jael Flower APRN Primary [...] Active Last Documented On 8 1:17PM ; [facility], [facility] Plan of Treatment Patient was seen by myself Gregg Bustillos PA-C. Patient will follow up after the MRI of the right shoulder with myself and Dr. Joyce - Last Documented On 10/31/2018 3:29PM ; [facility], [facility] Pending Tests Order Diagnosis Results Due Ordering P rovider Radiology - MRI MRI Shoulder 11/04/18 Jerome Joyce MD Last Documented On 9 3:29PM ; [facility], [facility] Instructions to patient Instructions for patient to see pcp for bp and wt Last Documented On 9 1:06PM ; [facility], [facility] Lose weight Last Documented On 9 1:06PM ; [facility], [facility] Assessments Includes: Assessments from this encounter Findings Right shoulder pain - Last Documented On 10/31/2018 3:29PM ; [facility], [facility] Instructions Includes: Instructions from this encounter Instructions to patient Instructions for patient to see pcp for bp and wt Last Documented On 9 1:06PM ; [facility] Lose weight Last Documented On 9 1:06PM ; [facility], [facility] Medical Equipment - Implanted Devices Includes: Current Devices No Medical Equipment Recorded Medications Includes: Medications discussed during this encounter and other current Medications Current Medications (continue as prescribed) Lisinopril 20MG Oral Tablet 05/15/2018 Provider: Diagnosis: Last Documented On 8 9:06AM By Bria Bernal ; [facility] Diclofenac Sodium 75MG Oral Tablet Delayed Release 06/2018 Provider: Diagnosis: Last Documented On 8 9:06AM By Bria Bernal ; [facility] Protonix 40MG Oral Packet 05/15/2018 Provider: Diagnosis: Last Documented On 8 9:06AM By Bria Bernal ; [facility] Premarin 0.625MG Oral Tablet 05/15/2018 Provider: Diagnosis: Last Documented On 8 9:06AM By Bria Bernal ; [facility] SAMe 400MG Oral Tablet 05/15/2018 Provider: Diagnosis: Last Documented On 8 9:07AM By Bria Bernal ; [facility] Past Medications on file Percocet 5-325MG Oral Tablet 03/26/2018 - 04/25/2018 Randa coker: Jerome Joyce MD Diagnosis: 1-2 po q 4-6h prn for pain surgery 04/01/18 Last Documented On 8 10:50AM By Georgia Carmona ; [facility] Medications Administered Includes: Administered Medications from this encounter No Administered Medications Recorded Vital Signs Includes: Vital Signs from this encounter Vital Name 10/21/2018 01:05P Blood Pressure Sitting (mmHg) 136/80 Pulse Rate-Sitting (bpm) 88 Height (in) 63 Weight (lb) 270 Body Mass Index (kg/m2) 47.8 Body Surface Area (m2) 2.2 Note: kg Last Documented: On 10/21/2018 1:05PM ; [facility], [facility] Results Includes: Results discussed during this encounter No Results Recorded For Specified Dates History of Present Illness Includes: History of Present Illness from this encounter DEWAYNE Franklin is a 47 year old female. - Medication list reviewed with patient. Follow-up on her right shoulder pain she says injection maybe helped for a day she continues to complain of pain between both scapulas pain that radiated down the right arm to about mid deltoid. Social History Description Last Updated No tobacco use 03/20/2018 Last Documented On 9 1:04PM ; [facility], [facility] Smoking status : Never smoker 03/20/2018 Last Documented On 9 1:04PM ; [facility] Caffeine use 03/20/2018 Last Documented On 9 1:04PM ; [facility] Exercising regularly 03/20/2018 Last Documented On 9 1:04PM ; [facility], [facility] No recent change in diet 03/20/2018 Last Documented On 9 1:04PM ; [facility] Not a current smoker 03/20/2018 Last Documented On 9 1:04PM ; [facility] Not using alcohol 03/20/2018 Last Documented On 9 1:04PM ; [facility] Not using drugs 03/20/2018 Last Documented On 9 1:04PM ; [facility] Procedures and Surgical History Includes: Procedures from this encounter Procedures Code Diagnosis Performing Provider Service L ocation Service Date history of orthopedic options: physical therapy Last Documented On 9 1:04PM ; [facility] Clinical summary provided to patient Last Documented On 9 1:05PM ; [facility], [facility] Surgical History Last Updated History of appendectomy 03/20/2018 Last Documented On 9 1:04PM ; [facility], [facility] History of hysterectomy 03/20/2018 Last Documented On 9 1:04PM ; [facility], [facility] Medical History Includes: Medical History addressed during this encounter Description Last Updated Arthritic joint problems 03/20/2018 Last Documented On 9 1:04PM ; [facility] Gallbladder disease 03/20/2018 Last Documented On 9 1:04PM ; [facility], [facility] History of diverticulitis of colon 03/20 Last Documented On 9 1:04PM ; [facility], [facility] Intermittent hypertension 03/20/2018 Last Documented On 9 1:04PM ; [facility], [facility] Family History Includes: Family History addressed during this encounter Description Last Updated Family history of diabetes m ellitus mother, maternal grandmother, paternal grandmother 03/20/2018 Last Documented On 9 1:04PM ; [facility], [facility] Family history of heart disease mother, father 03/20/2018 Last Documented On 9 1:04PM ; [facility], [facility] Maternal grandmother's history of family history of cancer 03/20/2018 Last Documented On 9 1:04PM ; [facility], [facility] Review of Systems Includes: Review of [...] Active Last Documented On 9 8:45AM ; [facility], [facility] CeleBREX Allergy 03/20/2018 Active Last Documented On 9 8:45AM ; [facility], [facility] Encounters Encounter Provider Location Date Check-In Time Check- Out Time Diagnosis [facility] 9 12:44PM 1:16PM Insurance Includes: Active Insurance Policies Plan Name Member ID Group # Subscriber Relationship Effect gala Dates 1 - [facility] [id number] Kristy David 2 - [facility] [id number] Kristy David 10/07/2017 - Unknown Clinical Notes Includes: Clinical Notes from this encounter No Clinical Notes Recorded
--- OUTSIDE RECORDS SUMMARY | 2025-02-04 08:27 | XMS_ITS | Clinical Summary ---
Author Organization [facility] , [facility] Address [address] [place] [address] Phone Care Team Providers Care Probe Operator Name Role Phone Isiah GOSS, Jerome Cooney Unavailable [phone] Jael Flower APRN Primary [...] Active Last Documented On 8 1:17PM ; [facility], [facility] Plan of Treatment Pending Tests Order Diagnosis Results Due Ordering P rovider Radiology - MRI MRI Shoulder 11/04/18 Jerome Joyce MD Last Documented On 9 3:29PM ; [facility], [facility] Assessments Includes: Assessments from this encounter No Assessments Recorded Medical Equipment - Implanted Devices Includes: Current Devices No Medical Equipment Recorded Medications Includes: Medications discussed during this encounter and other current Medications Current Medications (continue as prescribed) Lisinopril 20MG Oral Tablet 05/15/2018 Provider: Diagnosis: Last Documented On 8 9:06AM By Bria Bernal ; [facility] Diclofenac Sodium 75MG Oral Tablet Delayed Release 06/2018 Provider: Diagnosis: Last Documented On 8 9:06AM By Bria Bernal ; [facility], [facility] Protonix 40MG Oral Packet 05/15/2018 Provider: Diagnosis: Last Documented On 8 9:06AM By Bria Bernal ; [facility] Premarin 0.625MG Oral Tablet 05/15/2018 Provider: Diagnosis: Last Documented On 8 9:06AM By Bria Bernal ; [facility] SAMe 400MG Oral Tablet 05/15/2018 Provider: Diagnosis: Last Documented On 8 9:07AM By Bria Bernal ; [facility], [facility] Past Medications on file Percocet 5-325MG Oral Tablet 03/26/2018 - 04/25/2018 Randa coker: Jerome Joyce MD Diagnosis: 1-2 po q 4-6h prn for pain surgery 04/01/18 Last Documented On 8 10:50AM By Georgia Carmona ; [facility] Medications Administered Includes: Administered Medications from this encounter No Administered Medications Recorded Vital Signs Includes: Vital Signs from this encounter Vital Name 07/10/2018 08:41A Height (in) 63 Weight (lb) 250 Body Mass Index (kg/m2) 44.3 Body Surface Area (m2) 2.1 Note: TL Last Documented: On 07/10/2018 8:44AM ; [facility] Results Includes: Results discussed during this encounter No Results Recorded For Specified Dates History of Present Illness Includes: History of Present Illness from this encounter HPI Kristy Franklin is a 47 year old female. - Medication list reviewed with patient. Follow up for C5-C7 ACDF she's recently she's noticed a return of pain in the right arm using a right arm. 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 Social History Description Last Updated No tobacco use 03/20/2018 Last Documented On 8 8:40AM ; [facility] Smoking status : Never smoker 03/20/2018 Last Documented On 8 8:40AM ; [facility] Caffeine use 03/20/2018 Last Documented On 8 8:40AM ; [facility] Exercising regularly 03/20/2018 Last Documented On 8 8:40AM ; [facility] No recent change in diet 03/20/2018 Last Documented On 8 8:40AM ; [facility] Not a current smoker 03/20/2018 Last Documented On 8 8:40AM ; [facility] Not using alcohol 03/20/2018 Last Documented On 8 8:40AM ; [facility] Not using drugs 03/20/2018 Last Documented On 8 8:40AM ; [facility] Procedures and Surgical History Includes: Procedures from this encounter Procedures Code Diagnosis Performing Provider Service L ocation Service Date history of orthopedic options: physical therapy Last Documented On 8 8:41AM ; [facility] Surgical History Last Updated History of appendectomy 03/20/2018 Last Documented On 8 8:40AM ; [facility] History of hysterectomy 03/20/2018 Last Documented On 8 8:40AM ; [facility] Medical History Includes: Medical History addressed during this encounter Description Last Updated Arthritic joint problems 03/20/2018 Last Documented On 8 8:40AM ; [facility] Gallbladder disease 03/20/2018 Last Documented On 8 8:40AM ; [facility] History of diverticulitis of colon 03/20 Last Documented On 8 8:40AM ; [facility] Intermittent hypertension 03/20/2018 Last Documented On 8 8:40AM ; [facility] Family History Includes: Family History addressed during this encounter Description Last Updated Family history of diabetes m ellitus mother, maternal grandmother, paternal grandmother 03/20/2018 Last Documented On 8 8:40AM ; [facility] Family history of heart disease mother, father 03/20/2018 Last Documented On 8 8:40AM ; [facility] Maternal grandmother's history of family history of cancer 03/20/2018 Last Documented On 8 8:40AM ; [facility] Review of Systems Includes: Review of Systems [...] Active Last Documented On 9 8:45AM ; [facility] CeleBREX Allergy 03/20/2018 Active Last Documented On 9 8:45AM ; [facility] Encounters Encounter Provider Location Date Check-In Time Check- Out Time Diagnosis Post Op Jerome Joyce MD [facility] 8 8:20AM 9:05AM Insurance Includes: Active Insurance Policies Plan Name Member ID Group # Subscriber Relationship Effect gala Dates 1 - [facility] [id number] Kristy Franklin Self 2 - [facility] [id number] Kristy David 10/07/2017 - Unknown Clinical Notes Includes: Clinical Notes from this encounter No Clinical Notes Recorded
== END 2025-02-04 23:59 | disposition home or self-care (01) ==
LOC: RAD 08:25
PROVIDERS: PCP Family Medicine; Visit Provider Nurse Practitioner Family
DX: M51.369 Other intervertebral disc degeneration, lumbar region without mention of lumbar back pain or lower extremity pain (principal)
CPT/HCPCS: 72148

== ENCOUNTER 2025-02-05 14:12 | Outpatient (POV) | payer BC, SELFPAY ==
--- OUTSIDE RECORDS SUMMARY | 2025-02-05 14:15 | XMS_ITS | Clinical Summary ---
Author Organization [facility] , [facility] Address [address] [place] [address] Phone Care Team Providers Care Apron Operator Name Role Phone Isiah GOSS, Jerome Cooney Unavailable [phone] Jael Flower APRN Primary [...] Active Last Documented On 8 1:17PM ; [facility], [facility] Plan of Treatment Pending Tests Order Diagnosis Results Due Ordering P rovider Radiology - MRI MRI Shoulder 11/04/18 Jerome Joyce MD Last Documented On 9 3:29PM ; [facility], [facility] Assessments Includes: Assessments from this encounter No Assessments Recorded Medical Equipment - Implanted Devices Includes: Current Devices No Medical Equipment Recorded Medications Includes: Medications discussed during this encounter and other current Medications Current Medications (continue as prescribed) Lisinopril 20MG Oral Tablet 05/15/2018 Provider: Diagnosis: Last Documented On 8 9:06AM By [facility]ria [facility]al ; [facility] Diclofenac Sodium 75MG Oral Tablet Delayed Release 06/2018 Provider: Diagnosis: Last Documented On 8 9:06AM By Bria Bernal ; [facility], [facility] Protonix 40MG Oral Packet 05/15/2018 Provider: [...] Active Last Documented On 9 8:45AM ; [facility] CeleBREX Allergy 03/20/2018 Active Last Documented On 9 8:45AM ; [facility] Encounters Encounter Provider Location Date Check-In Time Check- Out Time Diagnosis Post Op Jerome Joyce MD [facility] 8 8:20AM 9:05AM Insurance Includes: Active Insurance Policies Plan Name Member ID Group # Subscriber Relationship Effect gala Dates 1 - [facility] [id number] Kristy Franklin Self 2 - [facility] [id number] Kristy David 10/07/2017 - Unknown Clinical Notes Includes: Clinical Notes from this encounter No Clinical Notes Recorded
--- OUTSIDE RECORDS SUMMARY | 2025-02-05 14:15 | XMS_ITS | Clinical Summary ---
Author Organization [facility] , [facility] Address [address] [place] [address] Phone Care Team Providers Care Field Instructor Name Role Phone Isiah GOSS, Jerome Cooney Unavailable [phone] Jael Flower APRN Primary [...] Active Last Documented On 8 1:17PM ; [facility], [facility] Plan of Treatment Patient was seen by myself Gregg Bustillos PA-C. Patient will follow up after the MRI of the right shoulder with myself and Dr. Joyce - Last Documented On 10/31/2018 3:29PM ; [facility], [facility] Pending Tests Order Diagnosis Results Due Ordering P rovider Radiology - MRI MRI Shoulder 11/04/18 Jerome Joyce MD Last Documented On 9 3:29PM ; [facility], [facility] Instructions to patient Instructions for patient to see pcp for bp and wt Last Documented On 9 1:06PM ; [facility], [facility] Lose weight Last Documented On 9 1:06PM ; [facility], [facility] Assessments Includes: Assessments from this encounter Findings Right shoulder pain - Last Documented On 10/31/2018 3:29PM ; [facility], [facility] Instructions Includes: Instructions from this encounter Instructions to patient Instructions for patient to see pcp for bp and wt Last Documented On 9 1:06PM ; [facility] Lose weight Last Documented On 9 1:06PM ; [facility], [facility] Medical Equipment - Implanted Devices Includes: Current Devices No Medical Equipment Recorded Medications Includes: Medications discussed during this encounter and other current Medications Current Medications (continue as prescribed) Lisinopril 20MG Oral Tablet 05/15/2018 Provider: Diagnosis: Last Documented On 8 9:06AM By Bria Bernal ; [facility], [facility] Diclofenac Sodium 75MG Oral Tablet Delayed Release 06/2018 Provider: Diagnosis: Last Documented On 8 9:06AM By Bria Bernal ; [facility] Protonix 40MG Oral Packet 05/15/2018 Provider: Diagnosis: Last Documented On 8 9:06AM By Bria Bernal ; [facility] Premarin 0.625MG Oral Tablet 05/15/2018 Provider: Diagnosis: Last Documented On 8 9:06AM By Bria Bernal ; [facility] SAMe 400MG Oral Tablet 05/15/2018 Provider: Diagnosis: Last Documented On 8 9:07AM By Bria Bernal ; [facility], [facility] Past Medications on file Percocet 5-325MG Oral Tablet 03/26/2018 - 04/25/2018 Randa coker: Jerome Joyce MD Diagnosis: 1-2 po q 4-6h prn for pain surgery 04/01/18 Last Documented On 8 10:50AM By Georgia Carmona ; [facility], [facility] Medications Administered Includes: Administered Medications from this encounter No Administered Medications Recorded Vital Signs Includes: Vital Signs from this encounter Vital Name 10/21/2018 01:05P Blood Pressure Sitting (mmHg) 136/80 Pulse Rate-Sitting (bpm) 88 Height (in) 63 Weight (lb) 270 Body Mass Index (kg/m2) 47.8 Body Surface Area (m2) 2.2 Note: kg Last Documented: On 10/21/2018 1:05PM ; [facility], [facility] Results Includes: Results discussed during [...] Documented On 9 1:04PM ; [facility], [facility] Smoking status : Never smoker 03/20/2018 Last Documented On 9 1:04PM ; [facility] Caffeine use 03/20/2018 Last Documented On 9 1:04PM ; [facility] Exercising regularly 03/20/2018 Last Documented On 9 1:04PM ; [facility], [facility] No recent change in diet 03/20/2018 Last Documented On 9 1:04PM ; [facility] Not a current smoker 03/20/2018 Last Documented On 9 1:04PM ; [facility], [facility] Not using alcohol 03/20/2018 Last Documented On 9 1:04PM ; [facility], [facility] Not using drugs 03/20/2018 Last Documented On 9 1:04PM ; [facility] Procedures and Surgical History Includes: Procedures from this encounter Procedures Code Diagnosis Performing Provider Service L ocation Service Date history of orthopedic options: physical therapy Last Documented On 9 1:04PM ; [facility], [facility] Clinical summary provided to patient Last Documented On 9 1:05PM ; [facility], [facility] Surgical History Last Updated History of appendectomy 03/20/2018 Last Documented On 9 1:04PM ; [facility], [facility] History of hysterectomy 03/20/2018 Last Documented On 9 1:04PM ; [facility], [facility] Medical History Includes: Medical History addressed during this encounter Description Last Updated Arthritic joint problems 03/20/2018 Last Documented On 9 1:04PM ; [facility] Gallbladder disease 03/20/2018 Last Documented On 9 1:04PM ; [facility], [facility] History of diverticulitis of colon 03/20 Last Documented On 9 1:04PM ; [facility], [facility] Intermittent hypertension 03/20/2018 Last Documented On 9 1:04PM ; [facility], [facility] Family History Includes: Family History addressed during this encounter Description Last Updated Family history of diabetes m ellitus mother, maternal grandmother, paternal grandmother 03/20/2018 Last Documented On 9 1:04PM ; [facility], [facility] Family history of heart disease mother, father 03/20/2018 Last Documented On 9 1:04PM ; [facility], [facility] Maternal grandmother's history of family history of cancer 03/20/2018 Last Documented On 9 1:04PM ; [facility], [facility] Review of Systems Includes: Review [...] Active Last Documented On 9 8:45AM ; [facility], [facility] CeleBREX Allergy 03/20/2018 Active Last Documented On 9 8:45AM ; [facility], [facility] Encounters Encounter Provider Location Date Check-In Time Check- Out Time Diagnosis [facility] 9 12:44PM 1:16PM Insurance Includes: Active Insurance Policies Plan Name Member ID Group # Subscriber Relationship Effect gala Dates 1 - [facility] [id number] Kristy David 2 - [facility] [id number] Kristy David 10/07/2017 - Unknown Clinical Notes Includes: Clinical Notes from this encounter No Clinical Notes Recorded
--- OUTSIDE RECORDS SUMMARY | 2025-02-05 14:15 | XMS_ITS | Clinical Summary ---
Author Organization [facility] , [facility] Address [address] [place] [address] Phone Care Team Providers Care Electronic Imaging System Operator Name Role Phone Isiah GOSS, Jerome Cooney Unavailable [phone] Jael Flower APRN Primary Care [...] Active Last Documented On 8 1:17PM ; [facility] Plan of Treatment Patient was seen [...] - Last Documented On 09/02/2018 4:50PM ; [facility] Pending Tests Order Diagnosis Results Due Ordering [facility] Radiology - MRI MRI Shoulder 11/04/18 Jerome Joyce MD Last Documented On 9 3:29PM ; [facility], [facility] Instructions to patient Instructions for patient [...] Last Documented On 8 8:54AM ; [facility], [facility] Medical Equipment - Implanted Devices Includes: Current Devices No Medical Equipment Recorded Medications Includes: Medications discussed during this encounter and other current Medications Current Medications (continue as prescribed) Lisinopril 20MG Oral Tablet 05/15/2018 Provider: Diagnosis: Last Documented On 8 9:06AM By Bria [facility], [facility] Diclofenac Sodium 75MG Oral Tablet Delayed Release 06/2018 Provider: Diagnosis: Last Documented On 8 9:06AM By Bria [facility], [facility] Protonix 40MG Oral Packet 05/15/2018 Provider: Diagnosis: Last Documented On 8 9:06AM By Bria [facility], [facility] Premarin 0.625MG Oral Tablet 05/15/2018 Provider: Diagnosis: Last Documented On 8 9:06AM By Bria Bernal ; [facility], [facility] SAMe 400MG Oral Tablet 05/15/2018 Provider: Diagnosis: Last Documented On 8 9:07AM By Bria eBrnal ; [facility], [facility] Past Medications on file Percocet 5-325MG Oral Tablet 03/26/2018 - 04/25/2018 P rovider: Jerome Joyce MD Diagnosis: 1-2 po q 4-6h prn for pain surgery 04/01/18 Last Documented On 8 10:50AM By Georgia Carmona ; [facility], [facility] Medications Administered Includes: Administered Medications from this encounter No Administered Medications Recorded Vital Signs Includes: Vital Signs from this encounter Vital Name 08/21/2018 08:53A Blood Pressure Sitting (mmHg) 130/85 Pulse Rate-Sitting (bpm) 74 Height (in) 63 Weight (lb) 250 Body Mass Index (kg/m2) 44.3 Body Surface Area (m2) 2.1 Note: csl Last Documented: On 08/21/2018 9:03AM ; [facility], [facility] Results Includes: Results discussed during this [...] 03/20/2018 Last Documented On 8 8:53AM ; [facility], [facility] Smoking status : Never smoker 03/20/2018 Last Documented On 8 8:53AM ; [facility], [facility] Caffeine use 03/20/2018 Last Documented On 8 8:53AM ; [facility], [facility] Exercising regularly 03/20/2018 Last Documented On 8 8:53AM ; [facility], [facility] No recent change in diet 03/20/2018 Last Documented On 8 8:53AM ; [facility], [facility] Not a current smoker 03/20/2018 Last Documented On 8 8:53AM ; [facility], [facility] Not using alcohol 03/20/2018 Last Documented On 8 8:53AM ; [facility], [facility] Not using drugs 03/20/2018 Last Documented On 8 8:53AM ; [facility], [facility] Procedures and Surgical History Includes: Procedures from this encounter Procedures Code Diagnosis Performing Provider Service L ocation Service Date history of orthopedic options: physical therapy Last Documented On 8 8:53AM ; [facility], [facility] Clinical summary provided to patient Last Documented On 8 8:54AM ; [facility], [facility] Surgical History Last Updated History of [...] Documented On 8 8:53AM ; [facility], [facility] Family History Includes: Family History addressed during this encounter Description Last Updated Family history of diabetes m ellitus mother, maternal grandmother, paternal grandmother 03/20/2018 Last Documented On 8 8:53AM ; [facility] Family history of heart disease mother, father 03/20/2018 Last Documented On 8 8:53AM ; [facility], [facility] Maternal grandmother's history of family history of cancer 03/20/2018 Last Documented On 8 8:53AM ; [facility] Review of Systems Includes: Review of [...] Active Last Documented On 9 8:45AM ; [facility], [facility] CeleBREX Allergy 03/20/2018 Active Last Documented On 9 8:45AM ; [facility], [facility] Encounters Encounter Provider Location Date Check-In Time Check- Out Time Diagnosis Follow Up Jerome Joyce MD [facility] 8 8:47AM 9:33AM Insurance Includes: Active Insurance Policies Plan Name Member ID Group # Subscriber Relationship Effect gala Dates 1 - [facility] [id number] Kristy Franklin Self 2 - [facility] [id number] Kristy David 10/07/2017 - Unknown Clinical Notes Includes: Clinical Notes from this encounter No Clinical Notes Recorded
--- OUTSIDE RECORDS SUMMARY | 2025-02-05 14:15 | XMS_ITS ---
Author Organization [facility] , [facility] Address [address] [place] [address] Phone Care Team Providers Care Erp Specialist Name Role Phone Isiah GOSS, Jerome Cooney Unavailable [phone] Jael Flower APRN Primary Care Provider [phone] OUMOU GOSS, CHANTELLE Mitchell Unavailable [phone] Problems Includes: Active, inactive, and resolved Problems All Visits Onset Date Resolved Date Provider Condition S tatus Joint Pain, Localized in Both Shoulders 03/20/2018 Jerome Joyce MD Active Last Documented On 8 1:17PM ; [facility], [facility] Plan of Treatment Pending Tests Order Diagnosis Results Due Ordering P rovider Radiology - MRI MRI Shoulder 11/04/18 Jerome Joyce MD Last Documented On 9 3:29PM ; [facility] Instructions to patient Instructions for patient to see pcp for bp and wt Last Documented On 9 8:45AM ; [facility] Lose weight Last Documented On 9 8:45AM ; [facility] Instructions for patient to see pcp for bp and wt Last Documented On 9 1:06PM ; [facility] Lose weight Last Documented On 9 1:06PM ; [facility], [facility] Instructions for patient see pcp for weight management Last Documented On 8 8:54AM ; [facility], [facility] Lose weight Last Documented On 8 8:54AM ; [facility] Assessments Includes: Assessments for all patient encounters No Assessments Recorded Instructions Includes: Instructions for all patient encounters Instructions to patient Instructions for patient to see pcp for bp and wt Last Documented On 9 8:45AM ; [facility] Lose weight Last Documented On 9 8:45AM ; [facility] Instructions for patient to see pcp for bp and wt Last Documented On 9 1:06PM ; [facility] Lose weight Last Documented On 9 1:06PM ; [facility], [facility] Instructions for patient see pcp for weight management Last Documented On 8 8:54AM ; [facility] Lose weight Last Documented On 8 8:54AM ; [facility], [facility] Medical Equipment - Implanted Devices Includes: Current and historical Devices No Medical Equipment Recorded Medications Includes: Current and historical Medications Current Medications (continue as prescribed) Lisinopril 20MG Oral Tablet 05/15/2018 Provider: Diagnosis: Last Documented On 8 9:06AM By Bria Bernal ; [facility], [facility] Diclofenac Sodium 75MG Oral Tablet Delayed Release 06/2018 Provider: Diagnosis: Last Documented On 8 9:06AM By Bria Bernal ; [facility], [facility] Protonix 40MG Oral Packet 05/15/2018 Provider: Diagnosis: Last Documented On 8 9:06AM By Bria [facility]ulp [facility], [facility] Premarin 0.625MG Oral Tablet 05/15/2018 Provider: Diagnosis: Last Documented On 8 9:06AM By Bria Bernal ; [facility], [facility] SAMe 400MG Oral Tablet 05/15/2018 Provider: Diagnosis: Last Documented On 8 9:07AM By Bria Bernal ; [facility], [facility] Past Medications on file Percocet 5-325MG Oral Tablet 03/26/2018 - 04/25/2018 Randa coker: Jerome Joyce MD Diagnosis: 1-2 po q 4-6h prn for pain surgery 04/01/18 Last Documented On 8 10:50AM By Georgia Carmona ; [facility], [facility] Medications Administered Includes: Administered Medications in patient's chart No Administered Medications Recorded Results Includes: Results from 02/06/2024 through 02/05/2025 No Results Recorded For Specified Dates History of Present Illness History of Present Illness not supported for this document type No History of Present Illness Recorded Social History Description Last Updated No tobacco use 03/20/2018 Last Documented On 8 4:23PM ; [facility] Smoking status : Never smoker 03/20/2018 Last Documented On 8 4:23PM ; [facility] Caffeine use 03/20/2018 Last Documented On 8 4:23PM ; [facility], [facility] Exercising regularly 03/20/2018 Last Documented On 8 4:23PM ; [facility], [facility] No recent change in diet 03/20/2018 Last Documented On 8 4:23PM ; [facility], [facility] Not a current smoker 03/20/2018 Last Documented On 8 4:23PM ; [facility] Not using alcohol 03/20/2018 Last Documented On 8 4:23PM ; [facility], [facility] Not using drugs 03/20/2018 Last Documented On 8 4:23PM ; [facility], [facility] Procedures and Surgical History Surgical History Last Updated History of appendectomy 03/20/2018 Last Documented On 8 4:23PM ; [facility], [facility] History of hysterectomy 03/20/2018 Last Documented On 8 4:23PM ; [facility], [facility] Medical History Includes: Medical History in patient's chart Description Last Updated Arthritic joint problems 03/20/2018 Last Documented On 8 4:23PM ; [facility], [facility] Gallbladder disease 03/20/2018 Last Documented On 8 4:23PM ; [facility], [facility] History of diverticulitis of colon 03/20 Last Documented On 8 4:23PM ; [facility], [facility] Intermittent hypertension 03/20/2018 Last Documented On 8 4:23PM ; [facility] Family History Includes: Family History in patient's chart Description Last Updated Family history of diabetes m ellitus mother, maternal grandmother, paternal grandmother 03/20/2018 Last Documented On 8 4:23PM ; [facility], [facility] Family history of heart disease mother, father 03/20/2018 Last Documented On 8 4:23PM ; [facility], [facility] Maternal grandmother's history of family history of cancer 03/20/2018 Last Documented On 8 4:23PM ; [facility], [facility] Review of Systems Review of Systems not [...] Documented On 9 8:45AM ; [facility] CeleBREX Allergy 03/20/2018 Active Last Documented On 9 8:45AM ; [facility], [facility] Insurance Includes: Active Insurance Policies Plan Name Member ID Group # Subscriber Relationship Effect gala Dates 1 - [facility] [id number] Kristy Franklin Self 2 - [facility] [id number] Kristy David 10/07/2017 - Unknown Clinical Notes Includes: Signed Clinical Notes starting from 09/20/2022 No Clinical Notes Recorded
--- OUTSIDE RECORDS SUMMARY | 2025-02-05 14:15 | XMS_ITS | Clinical Summary ---
Author Organization [facility] , [facility] Address [address] [place] [address] Phone Care Team Providers Care Weather Observer Name Role Phone Isiah GOSS, Jerome Cooney Unavailable [phone] Jael Flower APRN Primary [...] Active Last Documented On 8 1:17PM ; [facility], [facility] Plan of Treatment Pending Tests Order Diagnosis Results Due Ordering P rovider Radiology - MRI MRI Shoulder 11/04/18 Jerome Joyce MD Last Documented On 9 3:29PM ; [facility], [facility] Instructions to patient Instructions for patient to see pcp for bp and wt Last Documented On 9 8:45AM ; [facility], [facility] Lose weight Last Documented On 9 8:45AM ; [facility], [facility] Assessments Includes: Assessments from this encounter No Assessments Recorded Instructions Includes: Instructions from this encounter Instructions to patient Instructions for patient to see pcp for bp and wt Last Documented On 9 8:45AM ; [facility], [facility] Lose weight Last Documented On 9 8:45AM ; [facility], [facility] Medical Equipment - Implanted Devices Includes: Current Devices No Medical Equipment Recorded Medications Includes: Medications discussed during this encounter and other current Medications Current Medications (continue as prescribed) Lisinopril 20MG Oral Tablet 05/15/2018 Provider: Diagnosis: Last Documented On 8 9:06AM By Bria Bernal ; [facility], [facility] Diclofenac Sodium 75MG Oral Tablet Delayed Release 06/2018 Provider: Diagnosis: Last Documented On 8 9:06AM By Bria Bernal ; [facility], [facility] Protonix 40MG Oral Packet 05/15/2018 Provider: Diagnosis: Last Documented On 8 9:06AM By Bria Bernal ; [facility], [facility] Premarin 0.625MG Oral Tablet 05/15/2018 Provider: Diagnosis: Last Documented On 8 9:06AM By Bria Bernal ; [facility], [facility] SAMe 400MG Oral Tablet 05/15/2018 Provider: Diagnosis: Last Documented On 8 9:07AM By Bria Bernal ; [facility] Past Medications on file Percocet 5-325MG Oral Tablet 03/26/2018 - 04/25/2018 Randa coker: Jerome Joyce MD Diagnosis: 1-2 po q 4-6h prn for pain surgery 04/01/18 Last Documented On 8 10:50AM By Georgia Carmona ; [facility], [facility] Medications Administered Includes: Administered Medications from this encounter No Administered Medications Recorded Vital Signs Includes: Vital Signs from this encounter Vital Name 10/30/2018 08:47A Height (in) 63 Weight (lb) 270 Body Mass Index (kg/m2) 47.8 Body Surface Area (m2) 2.2 Last Documented: On 10/30/2018 8:47AM ; [facility], [facility] Results Includes: Results discussed during this encounter No Results Recorded For Specified Dates History of Present Illness Includes: History of Present Illness from this encounter HPI Kristy Franklin is a 48 year old female. - Medication list reviewed with patient. Social History Description Last Updated No tobacco use 03/20/2018 Last Documented On 9 8:45AM ; [facility], [facility] Smoking status : Never smoker 03/20/2018 Last Documented On 9 8:45AM ; [facility], [facility] Caffeine use 03/20/2018 Last Documented On 9 [...] 03/20/2018 Last Documented On 9 8:45AM ; [facility] Maternal grandmother's history of family history of cancer 03/20/2018 Last Documented On 9 8:45AM ; [facility] Review of Systems Includes: Review of [...] Last Documented On 9 8:45AM ; [facility] CeleBREX Allergy 03/20/2018 Active Last Documented On 9 8:45AM ; [facility] Encounters Encounter Provider Location Date Check-In Time Check- Out Time Diagnosis Follow Up Jerome Joyce MD [facility] 9 8:34AM 8:58AM Insurance Includes: Active Insurance Policies Plan Name Member ID Group # Subscriber Relationship Effect gala Dates 1 - [facility] [id number] Kristy Franklin Self 2 - [facility] [id number] Kristy David 10/07/2017 - Unknown Clinical Notes Includes: Clinical Notes from this encounter No Clinical Notes Recorded
--- OUTSIDE RECORDS SUMMARY | 2025-02-05 14:15 | XMS_ITS | Clinical Summary ---
Author Organization [facility] , [facility] Address [address] [place] [address] Phone Care Team Providers Care Waiter/Waitress First Class Name Role Phone Isiah GOSS, Jerome Cooney Unavailable [phone] Jael Flower APRN Primary [...] Last Documented On 8 1:17PM ; [facility] Plan of Treatment No Plan of Treatment Recorded Assessments Includes: Assessments from this encounter No Assessments Recorded Medical Equipment - Implanted Devices Includes: Current Devices No Medical Equipment Recorded Medications Includes: Medications discussed during this encounter and other current Medications Current Medications (continue as prescribed) Lisinopril 20MG Oral Tablet 05/15/2018 Provider: Diagnosis: Last Documented On 8 9:06AM By [facility], [facility] Diclofenac Sodium 75MG Oral Tablet Delayed Release 06/2018 Provider: Diagnosis: Last Documented On 8 9:06AM By [facility] Protonix 40MG Oral Packet 05/15/2018 Provider: Diagnosis: Last Documented On 8 9:06AM By B[facility], [facility] Premarin 0.625MG Oral Tablet 05/15/2018 Provider: Diagnosis: Last Documented On 8 9:06AM By Bria Culp [facility], [facility] SAMe 400MG Oral Tablet 05/15/2018 Provider: Diagnosis: Last Documented On 8 9:07AM By Bria Culp [facility], [facility] Medications Administered Includes: Administered Medications from [...] Active Last Documented On 9 8:45AM ; [facility], [facility] CeleBREX Allergy 03/20/2018 Active Last Documented On 9 8:45AM ; [facility], [facility] Encounters Encounter Provider Location Date Check-In Time Check-Out Time Diagnosis MRI [facility] 10/28/2018 3:10PM 4:01PM Insurance Includes: Active Insurance Policies Plan Name Member ID Group # Subscriber Relationship Effect gala Dates 1 - [facility] [id number] Kristy Franklin Self 2 - [facility] [id number] Kristy David 10/07/2017 - Unknown Clinical Notes Includes: Clinical Notes from this encounter No Clinical Notes Recorded
--- OUTSIDE RECORDS SUMMARY | 2025-02-05 14:15 | XMS_ITS ---
Care Plan - [facility], [facility] Created on: February 05, 2025 Kristy Franklin : 1970 Sex: Female Author Organization [facility] , [facility] Address [address] [place] [address] Phone Care Team Providers Care Nurse Clinical Name Role Phone Isiah GOSS, Jerome Cooney Unavailable [phone] Jael Flower APRN Primary Care Provider [phone] CHANTELLE COELLO MD Unavailable [phone]
[2025-02-05 14:27] VITALS: BP 139/76; PULSE 82; RESP 16; O2SAT 96; BMI 55.7
--- NOTE | 2025-02-05 14:45 | A.OFFVIS_ITS ---
[facility] Disclaimer: The information contained in this section may have been updated after the patient was seen, as this information can be updated by other users. Medical History History of COVID-19 Anxiety Diabetes mellitus, type 2 Breast cancer Abnormal result of cardiovascular function study Angina pectoris Chest pain Dyspnea Edema Encounter for pre-operative cardiovascular clearance Gastroesophageal reflux disease Hypertension Osteoarthritis of right knee Degenerative disc disease, cervical Dyspnea Chest pain GERD (gastroesophageal reflux disease) HTN (hypertension) Encounter for pre-operative cardiovascular clearance Edema Surgical History Hx of neck surgery History of appendectomy History of cholecystectomy Hx of section Hx of total knee replacement darius H/O: hysterectomy H/O rotator cuff surgery Family History Grandmother Colon cancer Family/Other Colon cancer Other DJD (degenerative joint disease) Diabetes Fatty liver Hypertension Social History Smoking Status: Never smoker second hand exposure: No alcohol intake: never substance use type: denies use current occupational status: other Travel in the last 8 weeks?: None household members: spouse housing: house current occupation: [employer] current occupational exposures/hazards: Yes caffeine: Yes PM Subjective & Objective Subjective Subjective:: Patient is a pleasant 54-year-old female who presents today for follow-up of her updated lumbar MRI. Today she rates her pain a 2 out of 10 in the middle back however does states she has been having worsening pain in her low back that does radiate down into and across her hips and upper right leg. Patient describes it as fairly constant and describes it as an aching sensation with numbness. Patient does like that occasionally she feels like even her right leg is going to give out. Patient has continued conservative treatment with minimal improvement. Patient was previously discussed that she may be a beneficial candidate of a intrathecal pump and has passed a psychological evaluation in the past however it is out of date. Patient does state that she would like to proceed forward with this option. Patient is being seen by orthospine at [facility] and does have a follow-up coming up to discuss whether or not she is a candidate of surgical intervention. Her Sam has been reviewed and is appropriate. Review of Systems: General: No recent weight changes, no fever, no sleep disturbances Respiratory: No cough, no shortness of air, no recurring pulmonary infections Cardiovascular/peripheral vascular: No chest pain, no palpitations, no edema, no shortness of breath Gastrointestinal: No new onset incontinence, normal bowel movements reported Genitourinary: No new onset incontinence Musculoskeletal: Low back pain, bilateral hip pain, right leg pain Psychiatric: [Normal mood/affect] Neurological: [Denies weakness in extremities], [denies balance issues] Pain at rest (0-10 scale): 5 Objective Objective:: Physical Exam: General: Alert and oriented x3, no acute distress, pleasant and cooperative Lungs: Respirations even and unlabored, symmetrical chest expansion Eyes: PERRL Musculoskeletal: Flexion and extension of lumbar [spine] somewhat guarded secondary to pain, [antalgic gait noted] positive leg raise Neurological: Speech clear, no gross sensory deficit FINDINGS: Multiplanar MR imaging of the lumbar spine was performed without contrast. On the sagittal T2-weighted images, there is abnormal decreased signal throughout the lower thoracic and lower lumbar discs. The vertebrae are of normal height. The vertebral alignment is normal. T11-12: Moderate globular right paracentral disc protrusion with moderate compromise right side of the spinal canal, well-seen on image 3 of series 5. T12-L1: Large right paracentral disc extrusion. High-grade compromise right side of the spinal canal, well-seen on image 7 of series 2 and images 7 and 8 of series 5. L1-2: There is no significant canal stenosis or neural foraminal narrowing. L2-3: There is no significant canal stenosis or neural foraminal narrowing. L3-4: Moderate diffuse disc bulge. Broad-based midline disc protrusion. Moderate spinal canal compromise and bilateral neuroforaminal narrowing. L4-5: Mild to moderate right paracentral disc protrusion. Moderate compromise right side of the spinal canal, well-seen on image 26 of series 5. L5-S1: Moderate diffuse disc bulge. High-grade left and moderate to high-grade right neuroforaminal narrowing. IMPRESSION: Multilevel degenerative changes. Dominant abnormality is a large right paracentral disc extrusion at T12-L1 with high-grade compromise right side of the spinal canal. Reviewed, Interpreted and Dictated by Abner Harely MD Transcribed by Georgia Hester Authenticated and ERN RUSHFORD Has patient had previous pain injection?: No Conservative treatment options previously tried: Home exercise plan Length of tr eatment: Longer than 12 weeks Meds Home Medications and Allergies Home Medications ?Medication ?Instructions ?Recorded ?Confirmed ?Type glucosamine-chondroitin 250 mg-200 2 tab PO DAILY Supplement 11/19/18 02/05/25 History mg tablet (Osteo Bi-Flex) vitamin E 670 mg (1,000 unit) 1,000 unit PO DAILY Supplement 11/28/18 02/05/25 History capsule pantoprazole 40 mg tablet,delayed 40 mg PO DAILY GERD 05/02/20 02/05/25 History release (Protonix) meloxicam 15 mg tablet 15 mg PO DAILY pain 05/17/20 02/05/25 History furosemide 40 mg tablet 40 mg PO DAILY 07/08/24 02/05/25 History glimepiride 4 mg tablet 4 mg PO DAILY 07/08/24 02/05/25 History lisinopril 20 mg tablet 20 mg PO DAILY HTN 07/08/24 02/05/25 History potassium chloride 10 mEq 10 meq PO BID 07/08/24 02/05/25 History tablet,extended release pregabalin 150 mg capsule 150 mg PO BID 07/08/24 02/05/25 History sitagliptin phosphate 100 mg 100 mg PO DAILY DM 07/08/24 02/05/25 History tablet (Januvia) sodium,potassium,mag sulfates 17.5 See Rx Instructions PO .COMPLEX 09/07/24 02/05/25 Rx gram-3.13 gram-1.6 gram oral soln #354 mL (Suprep Bowel Prep Kit) peg 3350-electrolytes 236 240 ml PO Q10M colonscopy #4,000 mL 09/09/24 02/05/25 Rx gram-22.74 gram-6.74 gram-5.86 gram solution (Golytely) cyclobenzaprine 10 mg tablet 10 mg PO TID #90 tabs 11/11/24 02/05/25 Rx New Prescriptions to Start Prescriptions: Allergies Allergy/AdvReac Type Severity Reaction Status Date / Time celecoxib (CELECOXIB) Allergy Unknown Unknown Verified 09/22/24 09:10 allergy reaction naproxen (NAPROXEN) Allergy Unknown Unknown Verified 09/22/24 09:10 allergy reaction adhesive Allergy Blister Verified 09/22/24 09:10 carboplatin Allergy Hives Verified 09/22/24 09:10 Assessment and Plan *Assessment and plan (1) Degenerative disc disease: Status: Acute Category: Medical (2) Lumbar radiculopathy: Status: Acute Category: Medical Code(s): M54.16 - Radiculopathy, lumbar region Plan Patient is experiencing worsening pain in her low back with numbness and tingling into her hips and right lower extremity. Patient did have limited range of motion of her lumbar spine with a positive leg raise. I did discuss with patient that I do believe they would benefit from a lumbar epidural steroid injection. Risk and benefits were discussed with patient and the patient would like to proceed forward with this plan of care. Patient is not on any blood thinner. Patient has tried and failed conservative therapy including continued at home stretching exercise for longer than 12 weeks between injections. Patient has not had any lumbar epidurals from our office. Patient did have significant narrowing at the L3-L4 level and does have her symptoms consistent following the dermatome at that level radiating down into her hips and upper thighs. We will schedule the patient for an LESI L3-L4 under fluoroscopy. I wi ll also go ahead and order her psychological evaluation and if she is deemed an appropriate candidate we will proceed forward with the pump trial at a later date. Patient agrees with this plan of care. Patient has been instructed to contact the clinic with any concerns before the next appointment. Dr. Rodriguez has reviewed this note and agrees with this plan of care. This note was dictated using voice recognition software and make contain errors or omissions. All injections are used with Lidocaine, Bupivacaine and Depo Medrol. Occasionally urine drug screen is needed to verify patient's compliance with our office pain contract. This is ordered based off specific treatments related to chronic pain with the potential to abuse certain medications.
== END 2025-02-05 23:59 | disposition home or self-care (01) ==
LOC: SC.PAIN 14:13
PROVIDERS: PCP Family Medicine; Visit Provider Nurse Practitioner Family
DX: M54.16 Radiculopathy, lumbar region (principal); Z96.653 Presence of artificial knee joint, bilateral
CPT/HCPCS: 99212; G0463

== ENCOUNTER 2025-03-02 06:40 | Day surgery (SDC) | payer OTHER, SELFPAY ==
[2025-02-26 09:43] VITALS: BMI 55.7
[2025-03-02] VITALS (7 sets, daily range): BP systolic 106–146; BP diastolic 51–94; PULSE 79–88; RESP 16–18; TEMP 36.1–36.6; O2SAT 96–99
[2025-03-02] MEDS: PHENYLEPHRINE 2.5% OPHTH SOLN 2ML OP ×3 (06:55→07:05)
[2025-03-02] MEDS: CYCLOPENTOLATE 2% OPHTH SOLN 2ML BOTTLE OP ×3 (06:55→07:05)
[2025-03-02] MEDS: TETRACAINE 0.5% OPTH SOL 15ML OP ×3 (06:55→07:05)
[2025-03-02] MEDS: MIDAZOLAM 2MG/2ML VIAL 1 MG IV (08:04)
[2025-03-02] MEDS: SODIUM CHLORIDE 0.9% 10ML FLUSH SYRINGE 10 ML IV (08:04)
[2025-03-02] MEDS: TIMOLOL 0.5% OPTH SOLN 5ML OP (08:17)
[2025-03-02] MEDS: LIDOCAINE 1% PF 2ML AMPULE 2 ML IJ (08:17)
--- NOTE | 2025-03-02 12:31 | HMH.PROCNOTE ---
[facility] Procedure Note Date: 03/02/25 Time: 12:31 Procedure Note:: .cat
--- NOTE | 2025-03-02 12:34 | P.PCN_ITS ---
[facility] Procedure Note Date: 03/02/25 Time: 12:34 Procedure Note:: Preoperative Diagnosis: Cataract combined NS Cortical Complex [Left] Eye Postop diagnosis: same Operation: Microscopic phacoemulsification with intraocular lens implant [Left] Eye Specimen: None Blood Loss: None The patient was examined in the office with a complaint of poor vision in the [left] eye. The patient reports that this interferes with ADLs such as reading, watching TV and/or driving or the vision is like looking through a foggy haze and is very troubling. The patient was examined and found to have a visually significant cataract with best corrected vision of [20/400] by refraction and/or glare testing. Treatment options, risks and benefits were explained and the patient elected to have cataract surgery in an attempt to improve their vision. The patient had the eye anesthetized with topical tetracaine, the eye ways prepped and draped in the usual fashion for cataract surgery. A paracentesis and a temporal keratotomy were made. 0.2cc of 1% lidocaine PF was placed into the anterior chamber. And aqueous/viscoelastic exchange was done and a 360 degree capsulorexis was performed. Through hydrodissection and delineation with BSS on a cannula was done. The lens nucleus was phecoemulsified with CDE of [6.73]. Residual cortical material was removed using automated I&A The capsular bag was deepened with viscoelastica and a PCIOL was placed in the capsular bag with good centration and stability. Residual viscoelastic was removed using automated I&A. The keratotomy incision was hydrated with BSS on a cannula. The wound were checked and found to be water tight. IOP was checked digitally and adjusted as needed so as not to be too high. 1 drop of timolol 0.5%, ofloxacin, prednisolone acetate and ketorolac was instilled and eye shield taped over the eye. The patient was taken to recovery in good condition and will be seen postoperatively.
[2025-03-02 14:50] LABS: POC Glucose,Bedside 140 (70-110)
== END 2025-03-02 08:41 | disposition home or self-care (01) ==
PROVIDERS: PCP Family Medicine; Visit Provider Ophthalmology
PROC: (CPT 66984; principal; 2025-03-02 08:00)
DX: H25.812 Combined forms of age-related cataract, left eye (principal)
CPT/HCPCS: 66984; 82962; J2250; V2632

== ENCOUNTER 2025-03-16 06:38 | Day surgery (SDC) | payer OTHER, SELFPAY ==
[2025-03-15 14:09] VITALS: BMI 56.7
[2025-03-16] VITALS (10 sets, daily range): BP systolic 113–155; BP diastolic 56–87; PULSE 74–87; RESP 16–17; TEMP 36.1–36.6; O2SAT 96–100
[2025-03-16] MEDS: CYCLOPENTOLATE 2% OPHTH SOLN 2ML BOTTLE OP ×3 (07:15→07:25)
[2025-03-16] MEDS: TETRACAINE 0.5% OPTH SOL 15ML OP ×3 (07:15→07:25)
[2025-03-16] MEDS: PHENYLEPHRINE 2.5% OPHTH SOLN 2ML OP ×3 (07:15→07:25)
[2025-03-16 07:27] LABS: POC Glucose,Bedside 92 (70-110)
[2025-03-16] MEDS: MIDAZOLAM 2MG/2ML VIAL 1 MG IV (08:05)
[2025-03-16] MEDS: SODIUM CHLORIDE 0.9% 10ML FLUSH SYRINGE 10 ML IV (08:05)
[2025-03-16] MEDS: LIDOCAINE 1% PF 2ML AMPULE 2 ML IJ (08:15)
[2025-03-16] MEDS: TIMOLOL 0.5% OPTH SOLN 5ML OP (08:15)
[2025-03-16] MEDS: TRI-MOXI 15MG/1MG/ML 1ML OPHTH VIAL 1 ML OP (08:16)
--- NOTE | 2025-03-16 10:31 | P.PCN_ITS ---
[facility] Procedure Note Date: 03/16/25 Time: 10:32 Procedure Note:: Preoperative Diagnosis: Cataract combined NS Cortical Complex [Left] Eye Postop diagnosis: same Operation: Microscopic phacoemulsification with intraocular lens implant [Left] Eye Specimen: None Blood Loss: None The patient was examined in the office with a complaint of poor vision in the [left] eye. The patient reports that this interferes with ADLs such as reading, watching TV and/or driving or the vision is like looking through a foggy haze and is very troubling. The patient was examined and found to have a visually significant cataract with best corrected vision of [20/400] by refraction and/or glare testing. Treatment options, risks and benefits were explained and the patient elected to have cataract surgery in an attempt to improve their vision. The patient had the eye anesthetized with topical tetracaine, the eye ways prepped and draped in the usual fashion for cataract surgery. Patient was placed in the reverse trendelenburg positipon. A paracentesis and a temporal keratotomy were made. 0.2cc of 1% lidocaine PF was placed into the anterior chamber. An aqueous/viscoelastic exchange was done. The patient had posterior pressure. A rent in the capsulorhexis develped requiring a postage stamp ca psulorhexis. Thorough hydrodissection and delineation with BSS on a cannula was done. The lens nucleus was phacoemulsified with CDE of [11.17]. Residual cortical material was removed using automated I&A The capsular bag was deepened with viscoelastic and a PCIOL was placed in the capsular bag with good centration and stability. 0.2ml of trimoxie was injected into the posterior chamber through the zonule for dropless cataract surgery. Residual viscoelastic was removed using automated I&A. The posterior pressure caused prolapse of the iris through the keratotomy multiple times when trying to hydrate the keratotomy. The keratotomy was sutured with 10-0 nylon with the knots buried. The iris was verified to not be caught in the keratotomy incision. The implant was recentered behind the iris. The anterior chamber was deepened through the paracentesis incicion with BSS. The wound was checked and found to be water tight. IOP was checked digitally and adjusted as needed so as not to be too high. 1 drop of timolol 0.5%, ofloxacin, prednisolone acetate and ketorolac was instilled and eye shield taped over the eye. The patient was taken to recovery in good condition and will be seen postoperatively.
== END 2025-03-16 08:55 | disposition home or self-care (01) ==
PROVIDERS: PCP Family Medicine; Visit Provider Ophthalmology
PROC: (CPT 66982; principal; 2025-03-16 08:00)
DX: E11.36 Type 2 diabetes mellitus with diabetic cataract (principal); H25.812 Combined forms of age-related cataract, left eye; K21.9 Gastro-esophageal reflux disease without esophagitis; E78.00 Pure hypercholesterolemia, unspecified; M17.11 Unilateral primary osteoarthritis, right knee; Z97.3 Presence of spectacles and contact lenses; Z98.41 Cataract extraction status, right eye; Z96.1 Presence of intraocular lens; Z88.6 Allergy status to analgesic agent; Z88.8 Allergy status to other drugs, medicaments and biological substances; Z79.84 Long term (current) use of oral hypoglycemic drugs; Z79.1 Long term (current) use of non-steroidal anti-inflammatories (NSAID); Z79.899 Other long term (current) drug therapy; Z83.3 Family history of diabetes mellitus; Z91.09 Other allergy status, other than to drugs and biological substances
CPT/HCPCS: 66982; 82962; J2250; V2632

== ENCOUNTER 2025-03-25 11:17 | Outpatient (POV) | payer OTHER, SELFPAY ==
--- OUTSIDE RECORDS SUMMARY | 2025-03-25 11:19 | XMS_ITS | Encounter Summary ---
Author Organization [employer] Address [address] [place] [address] Care Team Providers Care Sales Representative Printing Name Role Phone Raul Best MD Primary Care Provider [phone] Teetee Singleton MD Unavailable [phone] Jose Angel Schaefer Unavailable Unavailable Reason for Visit * Reason Onset Date Comments Medication Refill 03/10/2025 Encounter Details Date Type Department Care Team (Late st Contact Info) Description 03/10/2025 Refill [place] [facility] [address] [facility] [address] [place] [address] Teetee Singleton MD [facility] [address] [place] [address] Social History Tobacco Use Types Packs/Day Years Used Date Smoking Tobacco: Never Passive Smoke Exposure: Past Smokeless Tobacco: Never Alcohol Use Standard Drinks/Week Comments Not Currently 0 (1 standard drink = 0.6 oz pur e alcohol) PHQ-2 Answer Date Recorded PHQ-2 Total Score 0 01/23/2024 PRAPARE - Transportation Answer Date Re corded In the past 12 months, has l ack of transportation kept you from medical appointments or from getting medications? No 12/06/2023 Lack of Transportation (Non-Medical) Not on file 12/06/2023 Housing Stability Vital Sign Answer Hal e Recorded In the last 12 months, was t here a time when you were not able to pay the mortgage or rent on time? No 12/06/2023 In the last 12 months, how many places have you lived? 1 12/06/2023 In the last 12 months, was t here a time when you did not have a steady place to sleep or slept in a residential (including now)? No 12/06/2023 Utilities Answer Date Recorded In the past 12 months, has t he electric, gas, oil, or water company threatened to shut off services in your home? No 12/06/2023 Interpersonal Safety Answer Date Record ed How often does anyone, dov thomas family and friends, physically hurt you? Never 12/06/2023 How often does anyone, dov thomas family and friends, insult or talk down to you? Never 12/06/2023 How often does anyone, dov thomas family and friends, threaten you with harm? Never 12/06/2023 How often does anyone, dov thomas family and friends, scream or curse at you? Never 12/06/2023 Housing Stability Answer Date Recorded What is your living situation today? I have a [facility] place to live 12/06/[address] you li ve. Do you have problems with any of the following? None of the above 12/06/2023 Food Insecurity Answer Date Recorded Within the past 12 months, y ou worried that your food would run out before you got money to buy more. Never true 12/06/2023 Within the past 12 months, t he food you bought just didn't last and you didn't have money to get more. Never true 12/06/2023 Transportation Needs Answer Date Record ed In the past 12 months, has l ack of reliable transportation kept you from medical appointments, meetings, work or from getting things needed for daily living? No 12/06/2023 Financial Resource Strain Answer Date R ecorded How hard is it for you to pa y for the very basics like food, housing, medical care, and heating? Would you say it is: Not hard at all 12/06/2023 Employment Answer Date Recorded Do you want help finding or keeping work or a job? I do not need or want help 12/06/2023 Family and Community Support Answer Hal e Recorded If for any reason you need h elp with day-to-day activities such as bathing, preparing meals, shopping, managing finances, etc., do you get the help you need? I don't need any help 12/06/2023 Feeling Lonely or Isolated 0 12/05 Educational Attainment Answer Date Marvin rded Do you speak a language other than [place] at ho me? No 12/06/2023 Do you want help with school or training? For example, starting or completing job training or getting a high school diploma, GED or equivalent. No 12/06/2023 Physical Activity Answer Date Recorded Number of minutes of exercise per week 0 12/06/2023 Alcohol Use Answer Date Recorded 5 or More Drinks Per Day Past 12 Months 0 08/15/2024 Depression Answer Date Recorded Calculation of above two rows 0 Stress Answer Date Recorded Stress means a situation in which a person feels tense, restless, nervous, or anxious, or is unable to sleep at night because his or her mind is troubled all the time. Do you feel this kind of stress these days? Not at all 12/06/2023 Disabilities Answer Date Recorded Because of a physical, menta l, or emotional condition, do you have serious difficulty concentrating, remembering, or making decisions? (5 years or older) No 12/06/2023 Because of a physical, menta l, or emotional condition, do you have difficulty doing errands alone such as visiting a doctor's office or shopping? (15 years or older) No 12/06/2023 Substance Use Answer Date Recorded How many times in the past y ear have you used prescription drugs for non-medical reasons? Never 12/06/2023 How many times in the past year have you used il legal drugs? 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 Answer Date of Assessment Author No 12/08/2023 11:28 AM Yudith Ortiz RN * Are you blind or do you have serious difficulty seeing, even when wearing glasses? Answer Date of Assessment Author No 12/08/2023 11:28 AM Yudith Ortiz RN * Do you have serious difficulty walking or climbing stairs? Answer Date of Assessment Author No 12/08/2023 11:28 AM Yudith Ortiz RN * Do you have serious difficulty dressing or bathing? Answer Date of Assessment Author No 12/08/2023 11:28 AM Yudith Ortiz RN * Because of a physical, mental, or emotional condition, do you have serious difficulty doing errandsalone such as visiting the doctor? Answer Date of Assessment Author No 12/08/2023 11:28 AM Yudith Ortiz RN documented as of this encounter Mental Status * Because of a physical, mental, or emotional condition, do you have serious difficulty concentrating, remembering, or making decisions? (5 years old or older) Answer Entry Date Author No 12/08/2023 11:28 AM Yudith Ortiz RN documented in this encounter Miscellaneous Notes * Telephone Encounter - Nia Vitale RN - 03/10/2025 8:03 AM EDT Prescription Refill Name/Strength/Directions: Potassium Chloride 10 MEQ CR tablet, Take 1 tablet by mouth two times daily. Quantity:60 tablets Last Fill Date/Provider:02/09/25Lili Santos PA-C Last Appt:01/18/25 Next Appt:07/20/25 [facility] Med[facility] refilled per protocol. documented in this encounter Plan of Treatment Upcoming Encounters Date Type Department Care Team (Late st Contact Info) Description 07/20/2025 9:30 AM EDT Office Visit [place] - [place] [address] [facility] [address] [place] [address] Teetee Singleton MD [address] [facility] [address] [place] [address] 08/23/2025 10:00 AM EST Appointment [address] [place] [phone] 08/23/2025 11:00 AM EST Office Visit [facility] [address] [facility] [address] [place] [address] Erick Valle MD [address] [place] [phone] 08/23/2025 11:30 AM EST Appointment [facility] - [facility] [address] [facility] [address] [place] [phone] Jayson Schwartz MD [address] [place] [address] documented as of this encounter Visit Diagnoses Not on filedocumented in this encounter Care Teams Sales Representative Printing Relationship Specialty Start Date End Date Raul Best MD [address] [place] [address] PCP - General Family Medicine 07/25/23 Teetee Singleton MD [address] [facility] [address] [place], [place] [id number] Medical Oncologist Hematology and Oncology 08/14/23 Jose Angel Schaefer Comber Operator Research Coordinator 04/21/24 documented as of this encounter
--- OUTSIDE RECORDS SUMMARY | 2025-03-25 11:19 | XMS_ITS | Encounter Summary ---
Author Organization [employer] Address [address] [place] [address] Care Team Providers Care Marketing Forecaster Name Role Phone Raul Best MD Primary Care Provider [phone] Teetee Singleton MD Unavailable [phone] Jose Angel Schaefer Unavailable Unavailable Reason for Visit * Reason Onset Date Comments Medication Refill 02/09/2025 Encounter Details Date Type Department Care Team (Late st Contact Info) Description 02/09/2025 Refill [place] [facility] - [place] [address] [place] [phone] Thalia Noe RN Social History Tobacco Use Types Packs/Day Years [...] place to sleep or slept in a longterm (including now)? No 12/06/2023 Utilities Answer Date [...] your living situation today? I have a [facility] place to live 12/06/2023 Think about the [...] Do you speak a language other than [place] at [facility]? No 12/06/2023 Do you want help with [...] Assessment Author No 12/08/2023 11:28 AM Yudith Ortiz, SAL * Do you have serious difficulty walking or climbing stairs? Answer Date of Assessment Author No 12/08/2023 11:28 AM Yudith Ortiz, SAL * Do you have serious difficulty dressing [...] encounter Miscellaneous Notes * Telephone Encounter - Thalia Noe RN - 02/09/2025 3:55 PM EDT wasn't sure if patient still needed last K was 4.3 documented in this encounter Plan of Treatment Upcoming Encounters Date Type Department Care Team (Late st Contact Info) Description 07/20/2025 9:30 AM EDT Office Visit [place] [facility] - [place] [address] [facility] [address] [place] [phone] Teetee Singleton MD [address] [place] [id number] 08/23/2025 10:00 AM EST [facility]ointment [facility] [address] [facility] [address] [place] [address] 08/23/2025 11:00 AM EST [facility] [address] [facility] [address] [place] [address] Erick Valle MD [address] [facility] [address] [place] [address] 08/23/2025 11:30 AM EST Appointment [place] [facility] - [facility] [address] [facility] [address] [place] [address] Jayson Schwartz MD [address] [place] [address] documented as of this encounter Visit Diagnoses Not on filedocumented in this encounter Care Teams Marketing Forecaster Relationship Specialty Start Date End Date Raul Best MD [address] [place] [address] PCP - General Family Medicine 07/25/23 Teetee Singleton MD [address] [facility] [address] [place] [address] Medical Oncologist Hematology and Oncology 08/14/23 Jose Angel Schaefer Clinical Research Administrator Research Coordinator 04/21/24 documented as of this encounter
--- OUTSIDE RECORDS SUMMARY | 2025-03-25 11:19 | XMS_ITS | Encounter Summary ---
Author Organization [employer] Address [address] [place] [address] Care Team Providers Care Riding Coach Name Role Phone Raul Best MD Primary Care Provider [phone] Teetee Singleton MD Unavailable [phone] Jose Angel Schaefer Unavailable Unavailable Reason for Visit * Reason Onset Date Comments Medication Refill 06/10/2024 Encounter Details Date Type Department Care Team (Late st Contact Info) Description 06/10/2024 Refill [place] [facility] - [place] [address] [facility] [address] [place] [address] Teetee Singleton MD [facility] [address] [place] [address] Social History Tobacco Use Types Packs/Day Years [...] place to sleep or slept in a detention (including now)? No 12/06/2023 Utilities Answer Date [...] your living situation today? I have a [facility] place to live 12/06/2023 Think about the [...] Do you speak a language other than Portuguese at ho me? No 12/06/2023 Do you want help with school or training? For example, starting or completing job training or getting a high school diploma, GED or equivalent. No 12/06/2023 Physical Activity Answer Date Recorded Number of minutes of exercise per week 0 12/06/2023 Alcohol Use Answer Date Recorded 5 or More Drinks Per Day Past 12 Months 0 12/06/2023 Depression Answer Date Recorded Calculation of above [...] Telephone Encounter - Nia Vitale RN - 06/10/2024 2:22 PM EDT Prescription Refill Name/Strength/Directions: Potassium Chloride (Klor-Con-M) 10 MEQ CR tablet, Take 1 tablet by mouth twice daily. Quantity:60 tablets Last Fill Date/Provider:05/22/2024jane Singleton Last Appt:05/28/2024 Next Appt:07/09/2024 [facility] Medication refilled per protocol. documented in this encounter Plan of Treatment Upcoming Encounters Date Type Department Care Team (Late st Contact Info) Description 07/20/2025 9:30 AM EDT Office Visit [place] [facility] - [place] [address] [facility] [address] [place] [phone] Teetee Singleton MD [address] [place] [address] 08/23/2025 10:00 AM EST Appointment [address] [place] [address] 08/23/2025 11:00 AM EST Office Visit [facility] [address] [facility] [address] [place] [address] Erick Valle MD [address] [facility] [address] [place] [phone] 08/23/2025 11:30 AM EST Appointment [place] [facility] - [place] [address] [facility] [address] [place] [phone] Jayson Schwartz MD [address] [facility] [address] [place] [address] documented as of this encounter Visit Diagnoses Not on filedocumented in this encounter Care Teams Riding Coach Relationship Specialty Start Date End Date Raul Best MD [address] [place] [address] PCP - General Family Medicine 07/25/23 Teetee Singleton MD [address] [facility] [address] [place] [address] Medical Oncologist Hematology and Oncology 08/14/23 Jose Angel Schaefer Mud Jack Nozzle Worker Research Coordinator 04/21/24 documented as of this encounter
--- OUTSIDE RECORDS SUMMARY | 2025-03-25 11:19 | XMS_ITS ---
Author Organization [employer] Address [address] [place] [place] [address] Care Team Providers Care Nuclear Equipment Operator Name Role Phone Raul Best MD Primary Care Provider [phone] Teetee Singleton MD Unavailable [phone] Jose Angel Schaefer Unavailable Unavailable Active Problems Problem Noted Date Diagnosed Date Neutropenic fever 12/05/2023 Cancer of overlapping sites of right breast 06/2023 Cancer Staging:Clinical:Stage IIB(cT2, cN0, cM0, G3, ER-, OR-, HER2-) - Signed by Teetee Singleton MD on 08/15/2023 Pathologic stage from 01/15/2024:No Stage Recommended(ypT0, pN0(sn), cM0, G3, ER- , OR-, HER2-) - Signed by Jayson Schwartz MD on 01/23/2024 Abnormal result of cardiovascular function study 08/15/2023 Cervical radiculopathy 08/15/2023 Thoracic radiculopathy 08/15/2023 Degenerative disc disease, cervical 08/15/2023 Degenerative disc disease, thoracic 08/15/2023 Degenerative joint disease of knee, right 2022 Dyspnea 08/15/2023 Edema 08/15/2023 Encounter for pre-operative cardiovascular clear ance 08/15/2023 GERD (gastroesophageal reflux disease) HTN (hypertension) 08/15/2023 Angina pectoris 08/15/2023 Chest pain 08/15/2023 Mid back pain 08/15/2023 Myofascial pain on right side 08/15/2023 Right shoulder pain 08/15/2023 Status post cervical spinal fusion 08/15/2023 Status post total left knee replacement 08/15/20 Current Oncology Plans [facility] LINE CARE - USE WITH INFUSIONS* Plan Start Date:08/28/2023 Plan Provider:Teetee Singleton MD Linked Problems Cancer of overlapping sites of right breast (HCC) Treatment Medications alteplase (CATHFLO) 2 mg in SW 2 mL syringe Past Plans ONCOLOGY TREATMENT Plan Name Start Date Discontinue Date Treatment Medications Discontinue Reason Plan Provider Cycles [facility] Breast - pembrolizumab 200 day 1 + (PACLitaxel + CARBOplatin) d 1,8,15 [id number] x4 fb (pembrolizumab 200(400) + DOXOrubicin + cyclophosphamid e) [id number] x4 fb pembrolizumab 400 q42 days 023 11/12/2024 CARBOplatin (PARAPLATIN) chemo infusion (by AUC) Injcyclophosphamide (CYTOXAN) chemo infusiondexamethasone (DECADRON) IVPBDOXOrubicin (ADRIAMYCIN)fosaprepit ant (EMEND) IVPB 150 mg in NSPACLitaxel (TAXOL) chemo infusionpalonosetron (ALOXI)palonosetron (ALOXI) 0.25 mg/5 mLpegfilgrastim (NEULASTA ONPRO)pegfilgrastim-jm db (FULPHILA)pembrolizuma b (KEYTRUDA) chemo infusionsodium chloride 0.9 % (NS)sodium chloride 0.9% (NS) Therapy Complete Teetee Singleton MD 12 of 12 cycles started Therapy Infusion Plan 1 Plan Name Start Date Discontinue Date Treatment Medications Discontinue Reason Plan Provider [facility] ELECTROLYTE REPLACEMENT 11/27/2023 05/28/2024 potassium chloride (KLOR-CON)sodium chloride 0.9 % (NS) Therapy Complete - [facility] ELECTROLYTE REPLACEMENT 09/11/2023 09/25/2023 potassium chloride (KLOR-CON)sodium chloride 0.9 % (NS) Therapy Complete - Radiation Treatments * No radiation treatments are documented for this patient in [facility]. Treatments may have been administered in another system. Lifetime Dose Tracking * Chemical Lifetime Dose Automatic Entry Manual Entr y doxorubicin 60 mg/m2 (141.6 mg) 60 mg/m2 (141.6 mg) 0 mg/m2 (0 mg) Radiation 143 mGy 143 mGy 0 mGy
--- OUTSIDE RECORDS SUMMARY | 2025-03-25 11:20 | XMS_ITS | Referral Summary ---
Author Organization [employer] Address [address] [facility] [place] [address] Care Team Providers Care Classifications Officer Cc/Cm Name Role Phone Raul Best MD Primary Care Provider [phone] Teetee Singleton MD Unavailable [phone] Jose Angel Schaefer Unavailable Unavailable Encounters Date Type Department Care Team Description 03/10/2025 Refill [facility] [address] [place] [address] Teetee Singleton MD 02/09/2025 Refill [facility] [address] [place] [address] Thalia Noe RN 01/18/2025 Documentation [facility] Research Department [address] [place] [phone] Jose Angel Schaefer 01/18/2025 Travel 01/18/2025 9:15 AM EDT Office Visit [facility] [address] [place] [address] Teetee Singleton MD Chronic radiation dermatitis (Primary Dx); History of breast cancer; Polyneuropathy 12/31/2024 Refill [facility] [address] [place] [address] Noelle Ramirez APRN 12/26/2024 Refill [facility] [address] [place] [address] Teetee Singleton MD from Last 3 Months Allergies Active Allergy Reactions Criticality Noted Date Comments Carboplatin Hives,Itching High 11/13/2023 Reaction to carboplatin : itching, hives, flushed Celecoxib Hives,Other (See Comments) High 10/17/2017 Other reaction(s): Unknown allergy reaction Naproxen Hives,Rash High 10/17/2017 Transparent Dressings 08/23/2023 Medications pantoprazole (PROTONIX) 40 MG tablet Take 1 tablet (40 mg total) by mouth daily. 3 Active meloxicam (MOBIC) 15 MG tablet Take 1 tablet (15 mg total) by mouth daily. 3 Active glimepiride (AMARYL) 4 MG tablet Take 1 tablet (4 mg total) by mouth every morning. 3 Active vitamin E 200 UNIT capsule Take 2 capsules (400 Units total) by mouth daily. Active SITagliptin phosphate (JANUVIA) 100 MG tablet Take 1 tablet (100 mg total) by mouth daily. Active furosemide (LASIX) 40 MG tablet Take 1 tablet (40 mg total) by mouth daily. 60 tablet 3 4 Active ibuprofen (ADVIL,MOTRIN) 800 MG tablet Take 1 tablet (800 mg total) by mouth 3 (three) times daily as needed for pain. 60 tablet 2 4 Active lisinopriL (ZESTRIL) 20 MG tablet Take 1 tablet (20 mg total) by mouth daily. 90 tablet 3 5 Active pregabalin (LYRICA) 150 MG capsule Take 1 capsule (150 mg total) by mouth 2 (two) times daily. 60 capsule 5 5 Active potassium chloride (KLOR-CON) 10 MEQ CR tablet Take 1 tablet (10 mEq total) by mouth 2 (two) times daily. 60 tablet 5 Active potassium chloride (KLOR-CON) 10 MEQ CR tablet Take 1 tablet (10 mEq total) by mouth 2 (two) times daily. 60 tablet 5 03/10/20 25 Discontinu ed(Reorder ) Active Problems Problem Noted Date Diagnosed Date Neutropenic fever 12/05/2023 Cancer of overlapping sites of right breast 06/2023 Cancer Staging:Clinical:Stage IIB(cT2, cN0, cM0, G3, ER-, IN-, HER2-) - Signed by Teetee Singleton MD on 08/15/2023 Pathologic stage from 01/15/2024:No Stage Recommended(ypT0, pN0(sn), cM0, G3, ER- , IN-, HER2-) - Signed by Jayson Schwartz MD on 01/23/2024 Abnormal result of cardiovascular function study 08/15/2023 Cervical radiculopathy 08/15/2023 Thoracic radiculopathy 08/15/2023 Degenerative disc disease, cervical 08/15/2023 Degenerative disc disease, thoracic 08/15/2023 Degenerative joint disease of knee, right 2022 Dyspnea 08/15/2023 Edema 08/15/2023 Encounter for pre-operative cardiovascular clear ance 08/15/2023 GERD (gastroesophageal reflux disease) 3 HTN (hypertension) 08/15/2023 Angina pectoris 08/15/2023 Chest pain 08/15/2023 Mid back pain 08/15/2023 Myofascial pain on right side 08/15/2023 Right shoulder pain 08/15/2023 Status post cervical spinal fusion 08/15/2023 Status post total left knee replacement 08/15/20 23 Immunizations Name Administration Dates Next Due Covid-19 Vaccine MRNA (PF) 1 2yr+ (Wellntel/Yell.ru)(AHZ060) 10/23/2020,10/02/2020 INFLUENZA (FLULAVAL, FLUARIX )_0.5mL QIV_IM (06mo+)([id number]) 08/23/2023 Pneumococcal Conjugate Vaccine (20-Valent) IM Tdap 08/23/2023 Social History Tobacco Use Types Packs/Day Years Used Date Smoking Tobacco: Never Passive Smoke Exposure: Past Smokeless Tobacco: Never Tobacco Cessation:Counseling Given: Not Answered Alcohol Use Standard Drinks/Week Comments Not Currently [...] place to sleep or slept in a half-way (including now)? No 12/06/2023 Utilities Answer Date [...] your living situation today? I [facility] a [facility] place to live 12/06/2023 Think about the [...] Do you speak a language other than Malian at [facility]? No 12/06/2023 Do you want help with [...] file Not on file Not on file Last Filed Vital Signs Vital Sign Reading Time Taken Comments Blood Pressure 127/79 01/18/2025 8:52 AM EDT Pulse 69 01/18/2025 8:52 AM EDT Temperature 35.8 C (96.4 F) 01/18/2025 8:52 AM EDT Respiratory Rate 18 01/18/2025 8:52 AM EDT Oxygen Saturation 97% 01/18/2025 8:52 AM EDT Inhaled Oxygen Concentration - - Weight 144.5 kg (318 lb 9.6 oz) 01/18/2025 8:52 AM EDT Height 160 cm (5' 3 ) 01/18/2025 8:52 AM EDT Body Mass Index 56.44 01/18/2025 8:52 AM EDT Functional Status * Are you deaf or [...] No 12/08/2023 11:28 AM Yudith Ortiz RN Mental Status * Because of a physical, mental, or emotional condition, do you have serious difficulty concentrating, remembering, or making decisions? (5 years old or older) Answer Entry Date Author No 12/08/2023 11:28 AM Yudith Ortiz RN Plan of Treatment Upcoming Encounters Date Type Department Care Team (Late st Contact Info) Description 07/20/2025 9:30 AM EDT Office Visit [facility] [place] [address] [place] [address] Teetee Singleton MD [address] [place] [address] 08/23/2025 10:00 AM EST Appointment [facility] [address] [place] [phone] 08/23/2025 11:00 AM EST Office Visit [facility] [address] [facility] [address] [place] [address] Erick Valle MD [address] [facility] [address] [place] [address] 08/23/2025 11:30 AM EST Appointment [facility] [address] [place] [phone] Jayson Schwartz MD [address] [facility] [address] [place] [address] Procedures Procedure Name Priority Date/Time Associated Diagnosis Comments COMPREHENSIVE METABOLIC PANEL Routine 01/18/2025 8:52 AM EDT History of breast cancer CBC W/ AUTO DIFF Routine 01/18/2025 8:52 AM EDT History of breast cancer MM DIGITAL MAMMO DIAGNOSTIC WITH LUDA BILATERAL Routine 07/16/2024 3:04 PM EDT Swelling HEPATITIS PANEL, ACUTE Routine 5:04 PM EST Cancer of overlapping sites of right breast (HCC) HIV 1/2 AG/AB COMBO Routine 08/15/2023 5 :04 PM EST Cancer of overlapping sites of right breast (HCC) from Last 3 Months or Most Recently Relevant to Health Maintenance Results * (ABNORMAL) CBC w/ Auto Diff (01/18/2025 8:52 AM EDT) [facility] WBC 7.6 4.5 - 12.5 K/ L 01/18/2025 9:08 AM EDT [facility] RBC 4.64 4.00 - 5.25 M/ L 01/18/2025 9:08 AM EDT [facility] Hemoglobin 13.2 12.0 - 16.0 GM/DL 01/18/2025 9:08 AM EDT [facility] Hematocrit 41.7 36.0 - 46.0 % 01/18/2025 9:08 AM EDT [facility] MCV 90 80 - 100 fL 01/18/2025 9:08 AM EDT [facility] MCH 28.4 26.0 - 34.0 pg 01/18/2025 9:08 AM EDT [facility] MCHC 31.7 31.0 - 37.0 GM/DL 01/18/2025 9:08 AM EDT [facility] RDW 14.4 12.0 - 16.8 % 01/18/2025 9:08 AM EDT [facility] Platelets 166 140 - 440 K/CU MM 01/18/2025 9:08 AM EDT [facility] MPV 10.2 7.4 - 10.4 fL 01/18/2025 9:08 AM EDT [facility] % Neutros 58 45 - 80 % 01/18/2025 9:08 AM EDT [facility] % Lymphs 28 15 - 45 % 01/18/2025 9:08 AM EDT [facility] % Monos 8 0 - 10 % 01/18/2025 9:08 AM EDT [facility] Eos 6(H) 0 - 5 % 01/18/2025 9:08 AM EDT [facility] % Baso 1 0 - 3 % 01/18/2025 9:08 AM EDT [facility] # Neutros 4.37 2.00 - 8.80 K/ L 01/18/2025 9:08 AM EDT [facility] # Lymphs 2.12 0.70 - 5.50 K/ L 01/18/2025 9:08 AM EDT [facility] # Monos 0.57 0.00 - 1.70 K/ L 01/18/2025 9:08 AM EDT [facility] # Eos 0.48 0.00 - 0.80 K/ L 01/18/2025 9:08 AM EDT [facility] # Baso 0.04 0.00 - 0.20 K/ L 01/18/2025 9:08 AM EDT [facility] Blood Venipuncture / Unknown 01/18/2025 8:52 AM EDT 01/18/2025 8:55 AM EDT Narrative [facility] - 01/18/2025 9:08 AM EDT When CBC w/ Auto Diff is ordered the lab will add a Manual Differential as a quality check at no additional charge if: Lymphocytes greater than seventy five percent with normal or increased WBC Monocytes greater than Fifteen percent Basophil greater than four percent Bands >10% or several immature myeloids are seen on scan Blast? Flag noted Atypical Lymph flag noted us Lili Santos PA-C LAB BLOOD ORDERABLES Final Re sult [facility] [address] [place] [address], [facility] [phone] * (ABNORMAL) CMP (done in hospital lab) (01/18/2025 8:52 AM EDT) Sodium 141 136 - 146 meq/L 01/18/2025 10:10 AM EDT [facility] Potassium 4.3 3.5 - 5.1 meq/L 01/18/2025 10:10 AM EDT [facility] Chloride 110 102 - 112 meq/L 01/18/2025 10:10 AM EDT [facility] CO2 27 21 - 32 meq/L 01/18/2025 10:10 AM EDT [facility] Calcium 8.7 8.5 - 10.1 mg/dL 01/18/2025 10:10 AM EDT [facility] Glucose 159(H) 74 - 106 mg/dL 01/18/2025 10:10 AM EDT [facility] BUN 18 7 - 22 mg/dL 01/18/2025 10:10 AM [facility] Creatinine 1.01 0.55 - 1.02 mg/dL 01/18/2025 10:10 AM [facility] BUN/Creatinine 18 8 - 20 01/18/2025 10:10 AM [facility] Albumin 3.2(L) 3.4 - 5.0 g/dL 01/18/2025 10:10 AM [facility] Alkaline Phosphatase 126 27 - 136 U/L 01/18/2025 10:10 AM [facility] ALT 18 12 - 78 U/L 01/18/2025 10:10 AM [facility] AST 18 5 - 37 U/L 01/18/2025 10:10 AM [facility] Total Bilirubin 0.3 0.2 - 1.3 mg/dL 01/18/2025 10:10 AM [facility] Protein, Total 7.2 6.4 - 8.2 gm/dL 01/18/2025 10:10 AM [facility] Anion Gap 8(L) 9 - 20 01/18/2025 10:10 AM [facility] A/G Ratio 0.8(L) 1.1 - 2.5 01/18/2025 10:10 AM [facility] Globulin 4.0 1.5 - 4.5 g/dL 01/18/2025 10:10 AM [facility] Osmolality Calc 286.5 mOsm/kg 10:10 AM [facility] eGFR (mL/min/1.73m2) >60 >=60 mL/min/1.7 3m2 01/18/2025 10:10 AM [facility] Comment:ESTIMATED GFR IS NOT ACCURATE CREATININE CLEARANCE IN PREDICTING GLOMERULAR FILTRATION RATE. ESTIMATED GFR IS NOT APPLICABLE FOR DIALYSIS PATIENTS. Blood Venipuncture / Unknown 01/18/2025 8:52 AM EDT 01/18/2025 8:55 AM EDT us Lili Santos PA-C LAB BLOOD ORDERABLES Final Re sult [facility] [address] [place] [address], [facility] [phone] * MM digital mammo diagnostic with luda bilateral (07/16/2024 3:04 PM EDT) Anatomical Region Laterality Modality Breast Bilateral Mammography 07/16/2024 4:17 PM EDT Impressions 07/16/2024 4:24 PM EDT FINAL IMPRESSION: ACR BI-RADS 2: Benign findings. Findings consistent with radiation induced cellulitis. RECOMMENDATIONS: Follow-up with Dr. Erick Valle next month. This report will serve as the order for recommended imaging studies. The results and recommendations were discussed with the patient on the day of the appointment. In addition, a written report in lay terms, including density notification, was given to the patient. At our facility, a houlton marker is positioned over a visible skin lesion and a linear marker is used to indicate a scar. A triangular marker is placed on a palpable finding. Narrative 07/16/2024 4:24 PM EDT PROCEDURES: Bilateral diagnostic mammogram with digital tomosynthesis (DBT) and Limited ultrasound of the right axilla. REASON FOR EXAM: The patient is status post right lumpectomy in January 2024. This was followed by radiation therapy. No residual tumor was seen on final pathology and the sentinel lymph node was negative. Recently the patient has developed diffuse erythema and swelling of the breast as well as right axilla. This has not responded to antibiotic and steroid treatment. FAMILY HISTORY: There is no family history of breast cancer COMPARISON STUDIES: 07/11/[address] [facility] FINDINGS: Today's mammogram consisted of bilateral craniocaudad and mediolateral oblique views obtained in 2D and Digital Breast Tomosynthesis (DBT) modes. Also, C-views were reconstructed from the 3D acquisition. The breast tissue is almost entirely fatty. The left breast has been stable and unremarkable. Minimal architectural distortion from recent lumpectomy is present in the anterior medial aspect of the breast at 4:00 location. Diffuse trabecular and skin thickening is seen throughout the right breast. This has classic appearance of edema. There is no evidence of dominant mass, architectural distortion, or suspicious calcifications. A port of an indwelling catheter is projecting over the right pectoralis muscle. Surrounding surgical clips from axillary lymphadenectomy are noted. Mammographic exam was reviewed with the benefit of computed aided detection. The right axilla was evaluated further with ultrasound utilizing an 18 MHz transducer. The swelling the patient is concerned about represents a prominent fat pad. It is more prominent than previously due to the presence of now healed lymphadenectomy incision which limits its inferior movement. In particular, there is no evidence of a mass, abnormal fluid collection, or lymphadenopathy. Lili Santos PA-C IMG MAMMOGRAPHY ORDERABLES Fi nal Result * HIV 1/2 AG/AB Combo ([facility], [facility]) (08/15/2023 5:04 PM EST) HIV-1 P24 Antigen Nonreactive Nonreactive 08/15/2023 7:02 PM EST [facility] Comment: The Combo HIV procedure is a fourth generation HIV test which detects BOTH p24 antigen AND HIV antibodies to HIV virus types 0, 1, and 2. A reactive result does not distinguish between the antigen or the antibody and does not specify which antibody is present. Additional testing is required to differentiate the component causing the reactive result. Biotin supplements can cause clinically significant incorrect lab results. The FDA has seen an increase in the number of adverse events related to biotin interference with lab tests. Blood Venipuncture / Unknown 08/15/2023 5:04 PM EST 08/15/2023 5:13 PM EST Teetee Singleton MD LAB BLOOD ORDERABLES Final Res ult Performing Organization Address City/State/[facility] Co de Phone Number [facility] [address] [place] [address] * Hepatitis Panel, acute ([facility] and [facility]) (08/15/2023 5:04 PM EST) Hep A IgM Nonreactive Nonreactive, Equivocal 08/15/2023 7:02 PM EST [facility] Hep B C IgM Nonreactive Nonreactive 08/15/2023 7:02 PM EST [facility] Hepatitis B surface antigen Nonreactive Nonreactive, Equivocal 08/15/2023 7:02 PM EST [facility] Hepatitis C Ab Nonreactive Nonreactive, Equivocal 08/15/2023 7:02 PM EST [facility] Blood Venipuncture / Unknown 08/15/2023 5:04 PM EST 08/15/2023 5:13 PM EST Narrative [facility] - 08/15/2023 7:02 PM EST Hepatitis A Antibody IgM: (a) A negative test result does not exclude the possibility of exposure to the hepatitis A virus. (b) This test can be used to determine if a patient has or recently had an acute or asymptomatic hepatitis A infection. (c) A reactive result does not exclude co-infection by another hepatitis virus. Biotin supplements can cause clinically significant incorrect lab results. The FDA has seen an increase in the number of adverse events related to biotin interference with lab tests. Hepatitis B Core Antibody IgM: A reactive anti-HBc IgM result does not exclude co-infection by another hepatitis virus. Biotin supplements can cause clinically significant incorrect lab results. The FDA has seen an increase in the number of adverse events related to biotin interference with lab tests. Hepatitis B Surface Antibody Qual: This test does not differentiate between a vaccine induced immune response and an immune response induced by infection with HBV. Individuals that have received blood component therapies, (e.g. whole blood, plasma, immunoglobulin) administered during the previous 3 to 6 months may have a false reactive anti HBs due to passive transfer of anti HBs. A positive anti HBs result does not exclude co infection by another hepatitis virus. Biotin supplements can cause clinically significant incorrect lab results. The FDA has seen an increase in the number of adverse events related to biotin interference with lab tests. Hepatitis B Surface Antigen: This test may not detect all HBV mutants. If acute or chronic HBV infection is suspected and this test is non-reactive other HBV markers should be tested. Biotin supplements can cause clinically significant incorrect lab results. The FDA has seen an increase in the number of adverse events related to biotin interference with lab tests. Hepatitis C Antibody: A negative test result does not exclude the possibility of exposure to the hepatitis C virus and a reactive result does not exclude co-infection by another hepatitis virus. Biotin supplements can cause clinically significant incorrect lab results. The FDA has seen an increase in the number of adverse events related to biotin interference with lab tests. us Teetee Singleton MD LAB BLOOD ORDERABLES Final Res ult [facility] [address] [id number], [facility] [phone] from Last 3 Months or Most Recently Relevant to Health Maintenance Insurance [employer] [facility] BLUE CROSS/BLUE SHIELD Advance Directives For more information, please contact: [phone] * Full Code (Latest Code Status on File) Date Activated Date Inactivated Comments 12/05/2023 5:49 PM 12/08/2023 1:50 PM Care Teams Classifications Officer Cc/Cm Relationship Specialty Start Date End Date Raul Best MD [address] [place] [address] PCP - General Family Medicine 07/25/23 Teetee Singleton MD [address] [facility] [address] [place] [address] Medical Oncologist Hematology and Oncology 08/14/23 Jose Angel Schaefer Brusher Operator Research Coordinator 04/21/24
--- OUTSIDE RECORDS SUMMARY | 2025-03-25 11:22 | XMS_ITS | Encounter Summary ---
Author Organization [employer] Address [address] [place] [address] Care Team Providers Care Warper Fixer Name Role Phone Raul Best MD Primary Care Provider [phone] Teetee Singleton MD Unavailable [phone] Jose Angel Schaefer Unavailable Unavailable Reason for Referral * Mammography (Routine) - Authorized Specialty Diagnoses / Procedures Referred By Contac t Referred To Contact Radiology Diagnoses History of lumpectomy of right breast Procedures MM digital mammo diagnostic bilateral Erick Valle MD [address] [place] [address] Phone: tel: fax: [facility] [address] [place] [address] Phone: tel: fax: Referral ID Status Reason Start Date Expiration Date V isits Requested Visits Authorized [id number] Authorized 08/16/2025 08/16/2026 1 1 Encounter Details Date Type Department Care Team (Late st Contact Info) Description 08/13/2024 Outside Orders [facility] Breast [facility] Department [address] [place] [address] Erick Valle MD [address] [place] [address] History of lumpectomy of right breast (Primary Dx) Social History Tobacco Use Types Packs/Day Years [...] place to sleep or slept in a custodial (including now)? No 12/06/2023 Utilities Answer Date [...] Do you speak a language other than Faroese at [facility]? No 12/06/2023 Do you want help with [...] Yudith Ortiz RN documented in this encounter Plan of Treatment Upcoming Encounters Date Type Department Care Team (Late st Contact Info) Description 07/20/2025 9:30 AM EDT Office Visit [facility] [place] [address] [facility] [address] [place] [phone] Teetee Singleton MD [address] [place] [address] 08/23/2025 10:00 AM EST Appointment [facility] [address] [facility] [address] [place] [address] 08/23/2025 11:00 AM EST Office Visit [facility] [address] [place] [phone] Erick Valle MD [address] [facility] [address] [place] [address] 08/23/2025 11:30 AM EST Appointment [facility] [address] [place] [address] [address] [place] [address] Jayson Schwartz MD [address] [facility] [address] [place] [address] Scheduled Orders Name Type Priority Associated Diagnoses Orde r Schedule MM digital mammo diagnostic bilateral Imaging Routine History of lumpectomy of right breast Expected: 08/16/2025, Expires: 08/16/2026 documented as of this encounter Visit Diagnoses Diagnosis History of lumpectomy of right breast- Primary documented in this encounter Care Teams Warper Fixer Relationship Specialty Start Date End Date Raul Best MD [address] [place] [address] PCP - General Family Medicine 07/25/23 Teetee Singleton MD [address] [facility] [address] [place] [address] Medical Oncologist Hematology and Oncology 08/14/23 Jose Angel Schaefer Hearing And Speech Assistant Research Coordinator 04/21/24 documented as of this encounter
--- OUTSIDE RECORDS SUMMARY | 2025-03-25 11:22 | XMS_ITS | Encounter Summary ---
Author Organization [employer] Address [address] [facility] [address] [address] Care Team Providers Care Forklift Driver Name Role Phone Raul Best MD Primary Care Provider [phone] Teetee Singleton MD Unavailable [phone] Thalia Guzmán RN Unavailable Unavailable Jose Angel Schaefer Unavailable Unavailable Reason for Referral * CAT Scan (Routine) - Closed Specialty Diagnoses / Procedures Referred By Jamel kelly Referred To Contact Radiology Diagnoses Radiculopathy, cervical Procedures CT cervical spine without contrast Fortunato Foss MD [address] [place] [address] Phone: tel: fax: Referral ID Status Reason Start Date Expiration Date Visits Re quested Visits Authorized [id number] Closed 07/04/2023 10/02/2023 1 1 Encounter Details Date Type Department Care Team (Late st Contact Info) Description 07/23/2023 Outside Orders [facility] Central Scheduling 1 [place] [address] Fortunato Foss MD [facility] [place] [phone] Radiculopathy, cervical (Primary Dx) Social History Tobacco Use Types Packs/Day Years Used Date Smoking Tobacco: Never Assessed Comments Unknown Sex and Gender Information Value Date Recorded Sex Assigned at Not on file Legal Sex Female 6:14 PM CDT Gender Identity Not on file Sexual Orientation Not on file COVID-19 Exposure Response Date Recorded In the last 10 days, have yo u been in contact with someone who was confirmed or suspected to have Coronavirus/COVID-19? No / Unsure 07/25/2023 4:35 PM EDT documented as of this encounter Plan of Treatment Upcoming Encounters Date Type Department Care Team (Late st Contact Info) Description 07/20/2025 9:30 AM EDT Office Visit [facility] [address] [place] [address] Teetee Singleton MD [address] [place] [address] 08/23/2025 10:00 AM EST Appointment [facility] [address] [facility] [address] [facility] [address] [place] [address] 08/23/2025 11:00 AM EST Office Visit [facility] [address] [facility] [address] [place] [address] Erick Valle MD [address] [facility] [address] [place] [address] 08/23/2025 11:30 AM EST Appointment [facility] [address] [place] [address] Jayson Schwartz MD [address] [place] [address] documented as of this encounter Results * CT cervical spine without contrast (07/30/2023 9:08 AM EDT) Anatomical Region Laterality Modality C-spine, T-spine, Neck Computed Tomography (CT) 07/30/2023 10:1 6 AM EDT Impressions 07/30/2023 10:58 AM EDT Degenerative disc disease as detailed above. Images reviewed, interpreted, and dictated by Brayden Bernal MD Narrative 07/30/2023 10:[address] WITH CONTRAST - POST MYELOGRAM; 07/30/2023 8:57 AM HISTORY: Chronic cervical pain. PROCEDURE: After the patient's myelogram, axial images were obtained through the spine by computed tomography. Sagittal reconstruction images were performed. This study was performed with techniques to keep radiation doses as low as reasonably achievable, (ALARA). Individualized dose reduction techniques using automated exposure control or adjustment of mA and/or kV according to the patient size were employed. FINDINGS: Contrast is identified in the thecal space. Status post anterior screw-plate fixation at C5-C6-C7. There is severe disc space narrowing at these levels. There is diffuse degenerative disc disease. There is opacification of the right sphenoid sinus. C2-3: There is facet arthropathy without stenosis. C3-4: There is facet and uncovertebral joint hypertrophic change. A disc osteophyte complex is present. It is paracentric to the left resulting in moderate central canal stenosis to the left of midline. There is mild right and moderate left neural foraminal stenosis. C4-5: There is facet and uncovertebral joint hypertrophic change. A disc osteophyte complex is present. There is mild central canal stenosis. There is mild left neural foraminal stenosis. C5-6: The level is fused. A calcified disc osteophyte complex is present paracentric to the right resulting in severe central canal stenosis to the right of midline. There is mild bilateral neural foraminal stenosis. C6-7: There is facet and uncovertebral joint hypertrophic change. A disc osteophyte complex is present. There is mild to moderate central canal stenosis. There is mild neural foraminal stenosis. C7-T1: Unremarkable. Procedure Note Eros Bernal MD - 07/30/[address] WITH CONTRAST - POST MYELOGRAM; 07/30/2023 8:57 AM HISTORY: Chronic cervical pain. PROCEDURE: After the patient's myelogram, axial images were obtained through the spine by computed tomography. Sagittal reconstruction images were performed. This study was performed with techniques to keep radiation doses as low as reasonably achievable, (ALARA). Individualized dose reduction techniques using automated exposure control or adjustment of mA and/or kV according to the patient size were employed. FINDINGS: Contrast is identified in the thecal space. Status post anterior screw-plate fixation at C5-C6-C7. There is severe disc space narrowing at these levels. There is diffuse degenerative disc disease. There is opacification of the right sphenoid sinus. C2-3: There is facet arthropathy without stenosis. C3-4: There is facet and uncovertebral joint hypertrophic change. A disc osteophyte complex is present. It is paracentric to the left resulting in moderate central canal stenosis to the left of midline. There is mild right and moderate left neural foraminal stenosis. C4-5: There is facet and uncovertebral joint hypertrophic change. A disc osteophyte complex is present. There is mild central canal stenosis. There is mild left neural foraminal stenosis. C5-6: The level is fused. A calcified disc osteophyte complex is present paracentric to the right resulting in severe central canal stenosis to the right of midline. There is mild bilateral neural foraminal stenosis. C6-7: There is facet and uncovertebral joint hypertrophic change. A disc osteophyte complex is present. There is mild to moderate central canal stenosis. There is mild neural foraminal stenosis. C7-T1: Unremarkable. IMPRESSION: Degenerative disc disease as detailed above. Images reviewed, interpreted, and dictated by Brayden Bernal MD Fortunato Foss MD IMG CT ORDERABLES Final Result documented in this encounter Visit Diagnoses Diagnosis Radiculopathy, cervical- Primary Brachial neuritis or radiculitis nos Radiculopathy, cervical Brachial neuritis or radiculitis nos documented in this encounter Care Teams Forklift Driver Relationship Specialty Start Date End Date Raul Best MD [address] [place] [address] PCP - General Family Medicine 07/25/23 Teetee Singleton MD [facility] [address] [place] [address] Medical Oncologist Hematology and Oncology 08/14/23 Thalia Guzmán, RN Nurse Navigator Medical Oncology 08/14/23 04/05/24 Jose Angel Schaefer Product Safety Lead Research Coordinator 04/21/24 documented as of this encounter
--- OUTSIDE RECORDS SUMMARY | 2025-03-25 11:22 | XMS_ITS | Clinical Summary ---
Author Organization [facility] Address [address] [place] [address] Phone Care Team Providers Care Advertising Consultant Name Role Phone Unavailable Unavailable Conditions or Problems No information available. Medications No information available. Medications Administered No information available. Allergies, Adverse Reactions, Alerts No information available. Results No information available. Plan of Care No information available. Procedures No information available. Vital Signs No information available. Immunizations No information available. Advance Directives No information available.
--- OUTSIDE RECORDS SUMMARY | 2025-03-25 11:22 | XMS_ITS | Encounter Summary ---
Author Organization [employer] Address [address] [place] [address] Care Team Providers Care Snow Shoveler Name Role Phone Raul Best MD Primary Care Provider [phone] Teetee Singleton MD Unavailable [phone] Thalia Guzmán RN Unavailable Unavailable Jose Angel Schaefer Unavailable Unavailable Encounter Details Date Type Department Care Team (Late st Contact Info) Description 12/25/2023 Outside Orders [facility] Breast [facility] [address] [place] [address] Erick Valle MD [address] [place] [address] Malignant neoplasm of right female breast, unspecified estrogen receptor status, unspecified site of breast (HCC) (Primary Dx); History of lumpectomy of right breast Social History Tobacco Use Types Packs/Day Years Used Date Smoking Tobacco: Never Smokeless Tobacco: Never Alcohol Use Standard Drinks/Week Comments Not Currently 0 (1 standard drink = 0.6 oz pur e alcohol) PHQ-2 Answer Date Recorded PHQ-2 Total Score 0 08/23/2023 PRAPARE - Transportation Answer Date Re corded [...] your living situation today? I have a [facility] place to live 12/06/2023 Think about [...] Do you speak a language other than Martiniquais at ho ca? No 12/06/2023 Do you want help with [...] Description 07/20/2025 9:30 AM EDT Office Visit [facility] [place] [address] [facility] [address] [place] [address] Teetee Singleton MD [address] [facility] [address] [place] [address] 08/23/2025 10:00 AM EST Appointment [facility] [address] [facility] [address] [place] [address] 08/23/2025 11:00 AM EST Office Visit [facility] [address] [facility] [address] [place] [address] Erick Valle MD [address] [facility] [address] [place] [address] 08/23/2025 11:30 AM EST Appointment [facility] [address] [place] [address] Jayson Schwartz MD [address] [place] [address] documented as of this encounter Visit Diagnoses Diagnosis Malignant neoplasm of right female breast, unspecified estrogen receptor status, unspecified site of breast (HCC)- Primary History of lumpectomy of right breast documented in this encounter Care Teams Snow Shoveler Relationship Specialty Start Date End Date Raul Best MD [address] [facility] [place] [address] PCP - General Family Medicine 07/25/23 Teetee Singleton MD [address] [facility] [address] [place] [address] Medical Oncologist Hematology and Oncology 08/14/23 Thalia Guzmán RN Nurse Navigator Medical Oncology 08/14/23 04/05/24 Jose Angel Schaefer Bone Drier Research Coordinator 04/21/24 documented as of this encounter
--- OUTSIDE RECORDS SUMMARY | 2025-03-25 11:22 | XMS_ITS | Data Portability ---
Author Organization [facility], [facility] Address [address] [facility] [address] [place] [address] Care Team Providers Care Supervisor Stripping Name Role Phone CHANTELLE COELLO Primary Care Provider RIVAS RODRIGUEZ Referring Provider Assessment Encounter Date Assessment Date Assessment LastModified by Organization Details LastModified Time 07/04/2023 07/04/2023 Mrs. Franklin is a 52-year-old female with a history of a C5-6 and C6-[address] Joyce. She does have herniation on the left at C3-4 with some cord impingement, as well as some residual right L4-5 herniation. C6-7 is unremarkable. With regards to her thoracic MRI she has fairly impressive disc herniations from mid thoracic down to lower thoracic. The largest appearing to be at T11-12 and off to the right. I would like to visualize the ACDF with a CT scan, as there is significant spurring on the right at C5-6. We will go ahead and order a cervical and thoracic myelogram so we can visualize the neural structures along with the bony anatomy/hardwa re. We will see her back after this study is completed. We will upload her MRI of the cervical and thoracic spine onto the [facility] PACS system, and mail her back her films. Not available 07/04/2023 10:39:56 08/01/2023 08/01/2023 Mrs. 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 Her foraminal stenosis is more significant than the myelogram report documents. However, at this time she states that her neck is not bothering her. I am thankful for this, and do not recommend any surgical intervention. However, she is complaining of severe left lower thoracic pain. This may be related to one of the significant thoracic disc herniations. The most impressive is soft to the right, therefore I think she may be symptomatic from T10-11, as it is leftward. I am going to have her revisit with Dr. Rodriguez to consider some thoracic epidurals, targeting her pain. She has an upcoming appointment August 15. We will see if they can get the injection approved for that time. Not available 08/01/2023 11:04:24 Plan of Treatment Reminders Order Date Submit Date Provider Last Modified By Organization Details Last Modified Time Details Appointments None record ed. Lab None record ed. Referral None record ed. Procedures None record ed. Surgeries None record ed. Imaging None record ed. Medication Orders None record ed. Patient TargetsNo targets recorded. Patient InstructionsNo instructions recorded. Reason for Referral None Reported. Results Created Date Observation Date Name Description Value Unit Range Abnormal Flag Note LastModifiedBy Organization Detail LastModifiedTime 07/05/20 23 11/15/2022 MRI, cervi ewa spine , w/o contr ast No observ ation record ed. [facility] Not Available 2022 09:49:14 08/06/2007/30/2023 CT, myelo gram, cervi ewa spine No observ ation record ed. [facility] Central Scheduling [address] [facility] , [place], [address], 08/06/2023 10:42:05 Result Notes None recorded. Procedures Surgical History Date Name Laterality Status Provider Name and Address Organization Details Recorded Time Neck Surgery completed [facility] 07/04/2023 09:55:47 Knee arthroscopy/surgery completed [facility] 07/04/2023 09:55:53 hyste[facility]04[facility]23 09:55:59 section completed [facility] 07/04/2023 09:56:06 Shoulder joint surgery completed [facility] 07/04/2023 09:56:13 Cholecystectomy completed Rebeca Flannery [facility] 07/04/2023 09:56:22 Appendectomy completed Rebeca Flannery [facility] 07/04/2023 09:56:31 Imaging Results None recorded. Procedure Notes None recorded. Medical Equipment None Reported. Allergies Allergen ID Allergen Name Allergen Category Reaction Reaction Severity Criticality Documentation Date Start Date Code Code System Note Provider Name and Address Organization Details Recorded Time 557829 Celebrex medicatio n Not available Not available Not available 07/04/2023 74952 7 [facility] 09:57:06 700361 Aleve medicatio n Not available Not available Not available 07/04/202353430 1 [facility] 09:57:22 Medications Name Sig Start Date Stop Date Status Note LastModified by Organization Details LastModified Time methocarbamol 500 mg tablet TAKE 1 TABLET BY MOUTH AT BEDTIME NIGHTLY NEEDED FOR SPASMS active Not Available Not Available No t Available atorvastatin 20 mg tablet TAKE 1 TABLET BY MOUTH ONCE DAILY active Not Available Not Available No t Available fluconazole 200 mg tablet TAKE 1 TABLET BY MOUTH ONCE DAILY FOR 10 DAYS active Not Available Not Available No t Available meloxicam 15 mg tablet TAKE 1 TABLET BY MOUTH ONCE DAILY active Not Available Not Available No t Available ciprofloxacin 500 mg tablet TAKE 1 TABLET BY MOUTH EVERY 12 HOURS FOR 10 DAYS active Not Available Not Available No t Available tramadol 50 mg tablet TAKE 1 TABLET BY MOUTH EVERY 6 HOURS NEEDED active Not Available Not Available No t Available amoxicillin 875 mg tablet TAKE 1 TABLET BY MOUTH TWICE DAILY FOR 10 DAYS active Not Available Not Available No t Available pantoprazole 40 mg tablet,delaye d release TAKE 1 TABLET BY MOUTH ONCE DAILY active Not Available Not Available No t Available glimepiride 4 mg tablet TAKE 1 TABLET BY MOUTH ONCE DAILY WITH BREAKFAST OR FIRST MAIN MEAL OF THE DAY active Not Available Not Available N ot Available lisinopril 20 mg-hydrochlor othiazide 25 mg tablet TAKE 1 TABLET BY MOUTH ONCE DAILY active Not Available Not Available No t Available prednisone 5 mg tablets in a dose pack TAKE DIRECTED active Not Available Not Available No t Available ketamine (bulk) 100 % powder active Not Available Not Available Not Available Januvia 100 mg tablet TAKE 1 TABLET BY MOUTH ONCE DAILY active Not Available Not Available No t Available Farxiga 10 mg tablet TAKE 1 TABLET BY MOUTH ONCE DAILY active Not Available Not Available No t Available OneTouch Delica Plus Lancet 33 gauge USE 1 TO CHECK GLUCOSE ONCE DAILY DIRECTED active Not Available Not Available No t Available Vitals Date Recorded Body height Body mass index (BMI) Body weight Systolic blood pressure Diastolic blood pressure Provider Name and Address Organization Details Last Updated DateTime 07/04/2023 160.02 cm 49.6 kg/m2 789818.8 6 g 132 mm[Hg] 82 mm[Hg] [facility] 10:04:05 Date Recorded Body height Body mass index (BMI) Body weight Systolic blood pressure Diastolic blood pressure Provider Name and Address Organization Details Last Updated DateTime 08/01/2023 160.02 cm 49.6 kg/m2 952018.8 6 g 132 mm[Hg] 82 mm[Hg] [facility] 10:13:47 Social History None recorded. Functional Status None recorded. Mental Status None recorded. Family History Relationship Description Onset Age of this Age Resolved Age Notes LastModified by Organization Details LastModified Time Unspecified Relation Diabetes mellitus [email or web address] Not available 07/04 09:55:00 Unspecified Relation Hypertensive disorder [email or web address] Not available 07/04 09:55:04 Medical History Condition Response Arthritis Y Diabetes Y Hypertension Y Gynecological HistoryNo gynecological history recorded. Obstetrics History GPAL:G 0 P 0 0 0 0 Past Encounters Encounter ID Performer Location Encounter Start Date Encounter Closed Date Diagnosis/Indication Diagnosis SNOMED-CT Code Diagnosis ICD10 Code Diagnosis Note [id number] DELICIA GUZMAN MD [facility] [address] [place] [address] 07/04/2023 09:08:13 07/05/2023 04:13:09 Cervical radiculopathy 30472080 M54.12 Thoracic radiculopathy 78884970 M54.14 [id number] DELICIA GUZMAN MD [facility] [address] [place] [address] 08/01/2023 09:37:12 08/02/2023 04:15:33 Neck pain 24566938 M54.2 Health Concerns Section Related Observation LastModified by Organization Detai ls LastModified Time None Recorded Concern Status LastModified by Organization Details LastModified Time None Recorded Advance Directives Directive None Recorded Payers Insurance Date Sequence Insurance Name Policy Number Policy White Covered Member ID White Member ID Guarantor Name 01/21/2024 2 [employer] [facility] (MEDICAID HMO) Kristy Franklin [id number] Kristy Franklin 01/21/2024 1 [place] [place] - PATHWAY X (HMO) [id number] Kristy Franklin [id number] Kristy Franklin 01/21/2024 1 *SELF PAY* Na hunter Franklin 12/11/2023 1 [place] [id number] Kristy Franklin [id number] Kristy Franklin Notes Date Note Type Note Provider Name and Address Organization Details Recorded Time 07/04/2023 text/html Mrs. Franklin is a 52-year-old female with a history of a C5-6 and C6-[address] Joyce at [facility]. She presented at that time with right-sided upper extremity radicular pain which resolved with surgery. At this time she describes diffuse cervical pain, headaches with some bilateral hand numbness and tingling. This has been severe for the past year. She describes 6 out of 10 pain which is burning, sharp, stabbing with aching and tightness. The pain is intermittent, better with rest and worse with twisting. No balance difficulties. No loss of bowel or bladder control. She has done 4 visits of physical therapy including cervical traction. She has trialed a TENS unit, takes ibuprofen and Mobic as needed. She takes tramadol as needed. She takes muscle relaxers as needed. She denies any cervical injection therapy. She presents today with the cervical and thoracic MRI performed on November 15, 2022. DELICIA GUZMAN MD [address] [place] [address], [phone], [facility] 07/04/2023 10:40:35 08/01/2023 text/html Mrs. Franklin is a 52-year-old female who presented with a history of a C5-6 and C6-7 ACDF with severe neck pain. At this point. Her main complaint is lower thoracic/flank pain off to the left. After her last visit we ordered a CT myelogram to be performed at [facility] of the cervical and thoracic spine. She presents today to discuss those results. DELICIA GUZMAN MD [facility] [place], [address], [facility] 08/01/2023 11:04:39 OBGyn Episode No OBEpisode recorded.
--- OUTSIDE RECORDS SUMMARY | 2025-03-25 11:22 | XMS_ITS | Encounter Summary ---
Author Organization [employer] Address [address] [facility] [place] [address] Care Team Providers Care Hardware Designer Name Role Phone Raul Best MD Primary Care Provider [phone] Teetee Singleton MD Unavailable [phone] Thalia Guzmán RN Unavailable Unavailable Jose Angel Schaefer Unavailable Unavailable Reason for Referral * CAT Scan (Routine) - Closed Specialty Diagnoses / Procedures Referred By Jamel kelly Referred To Contact Radiology Diagnoses Radiculopathy of cervical spine Procedures CT spine thoracic without IV contrast Fortunato Foss MD [facility] [place] [address] Phone: tel: fax: Referral ID Status Reason Start Date Expiration Date Visits Re quested Visits Authorized [id number] Closed 07/04/2023 08/02/2023 1 1 Encounter Details Date Type Department Care Team (Late st Contact Info) Description 07/23/2023 Outside Orders [facility] Central Scheduling [address] [place] [address] Fortunato Foss MD [address] [place] [address] Radiculopathy of cervical spine (Primary Dx) Social History Tobacco Use Types [...] Description 07/20/2025 9:30 AM EDT Office Visit [facility] [place] [address] [place] [address] Teetee Singleton MD [address] [facility] [address] [place] [address] 08/23/2025 10:00 AM EST Appointment [facility] [address] [place] [phone] 08/23/2025 11:00 AM EST Office Visit [facility] [address] [place] [phone] Erick Valle MD [address] [facility] [address] [place] [address] 08/23/2025 11:30 AM EST Appointment [facility] [place] [address] [place] [id number] Jayson Schwartz MD [address] [place] [address] documented as of this encounter Results * CT spine thoracic without IV contrast (07/30/2023 9:15 AM EDT) Anatomical Region Laterality Modality C-spine, T-spine, L-spine, Chest Computed Tomography (CT) 07/30/2023 1:12 PM EDT Impressions 07/30/2023 1:46 PM EDT Degenerative disc disease as detailed above. Images reviewed, interpreted, and dictated by Brayden Bernal MD Narrative 07/30/2023 1:[address] WITH CONTRAST - POST MYELOGRAM 07/30/2023 8:57 AM HISTORY: Chronic thoracic back pain. PROCEDURE: After the patient's myelogram, axial images were obtained through the spine by computed tomography. Sagittal reconstruction images were performed. This study was performed with techniques to keep radiation doses as low as reasonably achievable, (ALARA). Individualized dose reduction techniques using automated exposure control or adjustment of mA and/or kV according to the patient size were employed. FINDINGS: Contrast was identified in the thecal space. There is diffuse degenerative disc disease. At T6-7, there is a disc osteophyte complex paracentric to the left resulting in moderate central canal stenosis to the left of midline. There is mild bilateral neural foraminal stenosis. T7-8: There is a central disc bulge resulting in moderate central canal stenosis. There is mild right and moderate left neural foraminal stenosis. T8-9: There is a calcified disc bulge resulting in moderate central canal stenosis. There is moderate bilateral neural foraminal stenosis. T9-10: There is a calcified disc bulge paracentric to the right resulting in severe central canal stenosis to the right of midline. There is severe right and moderate left neural foraminal stenosis. T10-11: There is a disc protrusion paracentric to the left resulting in moderate central canal stenosis. There is mild right and moderate left neural foraminal stenosis. T11-12: There is a central disc bulge resulting in moderate central canal stenosis. It is accentuated in the right neural foramen resulting in moderate right neural foraminal stenosis. T12-L1: There is a large disc protrusion paracentric to the right resulting in severe central canal stenosis to the right of midline. Procedure Note rEos Bernal MD - 07/30/[address] WITH CONTRAST - POST MYELOGRAM 07/30/2023 8:57 AM HISTORY: Chronic thoracic back pain. PROCEDURE: After the patient's myelogram, axial images were obtained through the spine by computed tomography. Sagittal reconstruction images were performed. This study was performed with techniques to keep radiation doses as low as reasonably achievable, (ALARA). Individualized dose reduction techniques using automated exposure control or adjustment of mA and/or kV according to the patient size were employed. FINDINGS: Contrast was identified in the thecal space. There is diffuse degenerative disc disease. At T6-7, there is a disc osteophyte complex paracentric to the left resulting in moderate central canal stenosis to the left of midline. There is mild bilateral neural foraminal stenosis. T7-8: There is a central disc bulge resulting in moderate central canal stenosis. There is mild right and moderate left neural foraminal stenosis. T8-9: There is a calcified disc bulge resulting in moderate central canal stenosis. There is moderate bilateral neural foraminal stenosis. T9-10: There is a calcified disc bulge paracentric to the right resulting in severe central canal stenosis to the right of midline. There is severe right and moderate left neural foraminal stenosis. T10-11: There is a disc protrusion paracentric to the left resulting in moderate central canal stenosis. There is mild right and moderate left neural foraminal stenosis. T11-12: There is a central disc bulge resulting in moderate central canal stenosis. It is accentuated in the right neural foramen resulting in moderate right neural foraminal stenosis. T12-L1: There is a large disc protrusion paracentric to the right resulting in severe central canal stenosis to the right of midline. IMPRESSION: Degenerative disc disease as detailed above. Images reviewed, interpreted, and dictated by Brayden Bernal MD Fortunato Foss MD IMG CT ORDERABLES Final Result documented in this encounter Visit Diagnoses Diagnosis Radiculopathy of cervical spine- Primary Brachial neuritis or radiculitis nos Radiculopathy of cervical spine Brachial neuritis or radiculitis nos documented in this encounter Care Teams Hardware Designer Relationship Specialty Start Date End Date Raul Best MD [address] [place] [id number] PCP - General Family Medicine 07/25/23 Teetee Singleton MD [address] [facility] [address] [place] [address] Medical Oncologist Hematology and Oncology 08/14/23 Thalia Guzmán, RN Nurse Navigator Medical Oncology 08/14/23 04/05/24 Jose Angel Schaefer Beaming Machine Operator Research Coordinator 04/21/24 documented as of this encounter
[2025-03-25 11:38] VITALS: BP 125/83; PULSE 79; RESP 12; O2SAT 97; BMI 56.7
--- NOTE | 2025-03-25 11:44 | EXP.PAIN.SOA ---
[facility] Disclaimer: The information contained in this section may have been updated after the patient was seen, as this information can be updated by other users. Medical History (Updated 03/25/25 @ 11:49 by Roz Joyce APRN) Cataract History of COVID-19 Anxiety Diabetes mellitus, type 2 Breast cancer Abnormal result of cardiovascular function study Angina pectoris Chest pain Dyspnea Edema Encounter for pre-operative cardiovascular clearance Gastroesophageal reflux disease Hypertension Osteoarthritis of right knee Degenerative disc disease, cervical Dyspnea Chest pain GERD (gastroesophageal reflux disease) HTN (hypertension) Encounter for pre-operative cardiovascular clearance Edema Surgical History Hx of cataract surgery Hx of neck surgery History of appendectomy History of cholecystectomy Hx of section Hx of total knee replacement H/O: hysterectomy H/O rotator cuff surgery Family History Grandmother Colon cancer Family/Other Colon cancer Other DJD (degenerative joint disease) Diabetes Fatty liver Hypertension Social History Smoking Status: Never smoker second hand exposure: No alcohol intake: never substance use type: denies use current occupational status: other Travel in the last 8 weeks?: None household members: spouse housing: house number of children: 3 (26 and 21 year old twins) current occupation: [employer] current occupational exposures/hazards: Yes caffeine: Yes Have you lived/traveled outside US in past 30 days?: No Contact w/someone who lives/traveled outside US past 30 days?: No Exposure to someone with infectious disease in past 14 days?: No Do you have a fever (greater than 100.4 F or 38 C)?: No Have you tested positive for COVID-19?: No Exposed to someone with COVID-19 in past 14 days?: No Do you have a sore throat?: No Do you have a cough?: No Do you have any weakness?: No Are you experiencing any nausea/vomitting?: No Do you have any diarrhea?: No Are you experiencing any unusual bleeding?: No Do you have any muscle aches/pain?: No Do you have any abdominal pain?: No Are you experiencing loss of taste or smell?: No PM Subjective & Objective Subjective Subjective:: Patient is a pleasant 54-year-old female who presents today for follow-up of her psychological evaluation. She rates her pain today a 3 out of 10. Patient states she denies any new falls or injuries. Patient states the pain will get worse the more activity she does. Patient does state that she would like to still proceed forward with the pump trial option. Patient has been seen by orthospine and was told she was not a candidate at this time. Patient states that the physician did think that there was a lot of calcifications and scarring and that there would be the possibility that the surgery would make it worse. Patient was recommending more conservative treatment. Patient does also have significant history of breast cancer. Her Sam has been reviewed and is appropriate. She is prescribed compounded cream from our office. Review of Systems: General: No recent weight changes, no fever, no sleep disturbances Respiratory: No cough, no shortness of air, no recurring pulmonary infections Cardiovascular/peripheral vascular: No chest pain, no palpitations, no edema, no shortness of breath Gastrointestinal: No new onset incontinence, normal bowel movements reported Genitourinary: No new onset incontinence Musculoskeletal: Chronic back pain Psychiatric: [Normal mood/affect] Neurological: [Denies weakness in extremities], [denies balance issues] Pain at rest (0-10 scale): 3 Objective Objective:: Physical Exam: General: Alert and oriented x3, no acute distress, pleasant and cooperative Lungs: Respirations even and unlabored, symmetrical chest expansion Eyes: PERRL Musculoskeletal: Flexion and extension of lumbar [spine] somewhat guarded secondary to pain, [antalgic gait noted] Neurological: Speech clear, no gross sensory deficit Has patient had previous pain injection?: No Conservative treatment options previously tried: Home exercise plan Length of treatment: Longer than 12 weeks Meds Home Medications and Allergies Home Medications ?Medication ?Instructions ?Recorded ?Confirmed ?Type glucosamine-chondroitin 250 mg-200 2 tab PO DAILY Supplement 11/19/18 03/25/25 History mg tablet (Osteo Bi-Flex) vitamin E 670 mg (1,000 unit) 1,000 unit PO DAILY Supplement 11/28/18 03/25/25 History capsule pantoprazole 40 mg tablet,delayed 40 mg PO DAILY GERD 05/02/20 03/25/25 History release (Protonix) meloxicam 15 mg tablet 15 mg PO DAILY pain 05/17/20 03/25/25 History furosemide 40 mg tablet 40 mg PO DAILY PRN . 07/08/24 03/25/25 History glimepiride 4 mg tablet 4 mg PO DAILY 07/08/24 03/25/25 History lisinopril 20 mg tablet 20 mg PO DAILY HTN 07/08/24 03/25/25 History potassium chloride 10 mEq 10 meq PO BID 07/08/24 03/25/25 History tablet,extended release pregabalin 150 mg capsule 150 mg PO BID 07/08/24 03/25/25 History sitagliptin phosphate 100 mg 100 mg PO DAILY DM 07/08/24 03/25/25 History tablet (Januvia) New Prescriptions to Start Prescriptions: Allergies Allergy/AdvReac Type Severity Reaction Status Date / Time celecoxib (CELECOXIB) Allergy Unknown Unknown Verified 03/16/25 07:14 allergy reaction naproxen (NAPROXEN) Allergy Unknown Unknown Verified 03/16/25 07:14 allergy reaction silver (From Tegaderm [employer] Allergy Unknown Unknown Verified 03/16/25 07:14 Mesh) allergy reaction adhesive Allergy Blister Verified 03/16/25 07:14 carboplatin Allergy Hives Verified 03/16/25 07:14 Assessment and Plan *Assessment and plan (1) Degenerative disc disease: Status: Acute Category: Medical (2) Lumbar degenerative disc disease: Status: Acute Category: Medical Code(s): M51.369 - Other intervertebral disc degeneration, lumbar region without mention of lumbar back pain or lower extremity pain (3) Chronic pain syndrome: Status: Acute Category: Medical Code(s): G89.4 - Chronic pain syndrome (4) Cervical radiculopathy: Status: Acute Category: Medical Code(s): M54.12 - Radiculopathy, cervical region (5) Status post cervical spinal fusion: Status: Acute Category: Surgical Code(s): Z98.1 - Arthrodesis status (6) Degenerative disc disease, thoracic: Status: Acute Category: Medical Code(s): M51.34 - Other intervertebral disc degeneration, thoracic region Plan Patient was reviewed over the risk and benefits of the intrathecal pain pump trial and she would like to proceed forward with this plan of care. Patient does have chronic back pain related to degenerative disc disease as well as breast cancer history. Patient has tried and failed conservative therapy including oral medications, heat and ice, topicals, physical therapy, injection therapy and continued at home stretching exercise for longer than 12 weeks. Patient has seen orthospine and is not a surgical candidate at this time. Patient has already had previous spine surgery. Patient does have significant issues with her cervical, thoracic and lumbar spine. We have also done updated imaging that did show significant degenerative changes with varying degrees of narrowing. Patient will be submitted for the intrathecal pain pump trial under fluoroscopy. Patient agrees with this plan of care. We will contact the patient once we have insurance approval. Patient did just recently get denied of her repeat lumbar epidural. Patient has been instructed to contact the clinic with any concerns before the next appointment. Dr. Rodriguez has reviewed this note and agrees with this plan of care. This note was dictated using voice recognition software and make contain errors or omissions. All injections are used with Lidocaine, Bupivacaine and dexamethasone. Occasionally urine drug screen is needed to verify patient's compliance with our office pain contract. This is ordered based off specific treatments related to chronic pain with the potential to abuse certain medications.
== END 2025-03-25 23:59 | disposition home or self-care (01) ==
LOC: SC.PAIN 11:17
PROVIDERS: PCP Family Medicine; Visit Provider Nurse Practitioner Family
DX: M51.360 Other intervertebral disc degeneration, lumbar region with discogenic back pain only (principal); G89.4 Chronic pain syndrome; M54.12 Radiculopathy, cervical region; Z98.1 Arthrodesis status; M51.34 Other intervertebral disc degeneration, thoracic region; Z85.3 Personal history of malignant neoplasm of breast; Z98.890 Other specified postprocedural states
CPT/HCPCS: 99212; G0463

== ENCOUNTER 2025-05-21 09:24 | Day surgery (SDC) | payer OTHER, SELFPAY ==
[2025-05-21 09:35] VITALS: BP 155/82; PULSE 83; RESP 18; O2SAT 94; BMI 56.7
[2025-05-21] MEDS: FENTANYL 100MCG/2ML VIAL 100 MCG (10:02)
[2025-05-21] MEDS: LIDOCAINE 1% 30ML PF VIAL 30 ML (10:02)
[2025-05-21 10:03] VITALS: BP 133/60; PULSE 98; RESP 18; O2SAT 98
[2025-05-21 10:06] VITALS: BP 133/60; PULSE 87; RESP 18; O2SAT 96
[2025-05-21 10:10] VITALS: BP 139/85; PULSE 80; RESP 18; O2SAT 95
[2025-05-21 10:40] VITALS: BP 144/87; PULSE 68; RESP 18; O2SAT 94
--- NOTE | 2025-05-21 10:46 | EXP.HP ---
History of Present Illness *Admission Date: 05/21/25 *Reason for visit:: Intrathecal pain pump trial *History of present illness: This patient is a pleasant 54-year-old white female who we are treating for degenerative disease of the lumbar spine with lumbar radiculopathy symptoms she has failed all previous conservative treatments including injections, oral medications, physical therapy. She has had a successful psychological valuation. She presents for intrathecal pump trial today [facility] Disclaimer: The information contained in this section may have been updated after the patient was seen, as this information can be updated by other users. Medical History Cataract History of COVID-19 Anxiety Diabetes mellitus, type 2 Breast cancer Abnormal result of cardiovascular function study Angina pectoris Chest pain Dyspnea Edema Encounter for pre-operative cardiovascular clearance Gastroesophageal reflux disease Hypertension Osteoarthritis of right knee Degenerative disc disease, cervical Dyspnea Chest pain GERD (gastroesophageal reflux disease) HTN (hypertension) Encounter for pre-operative cardiovascular clearance Edema Surgical History Hx of cataract surgery Hx of neck surgery History of appendectomy History of cholecystectomy Hx of section Hx of total knee replacement H/O: hysterectomy H/O rotator cuff surgery Family History Colon cancer Grandmother Family/Other Diabetes Fatty liver DJD (degenerative joint disease) Hypertension Social History Smoking Status: Never smoker second hand exposure: No alcohol intake: never substance use type: denies use current occupational status: other Travel in the last 8 weeks?: None household members: spouse housing: house number of children: 3 (26 and 21 year old twins) current occupation: [employer] current occupational exposures/hazards: Yes caffeine: Yes Other Medical History Have you received the Flu Vaccine for this season: No Have you received the Pneumonia Vaccine: No Review of Systems Review of Systems Review of systems:: pertinent systems reviewed and negative unless documented below Constitutional Constitutional: Reports system reviewed and no additional complaints, except as documented Eyes Eyes: Reports system reviewed and no additional complaints, except as documented ENT Ears, Nose, Mouth, and Throat: Reports system reviewed and no additional complaints, except as documented *Cardiovascular Cardiovascular: Reports system reviewed and no additional complaints, except as documented *Respiratory Respiratory: Reports system reviewed and no additional complaints, except as documented *Gastrointestinal Gastrointestinal: Reports system reviewed and no additional complaints, except as documented *Genitourinary Genitourinary: Reports system reviewed and no additional complaints, except as documented *Musculoskeletal Musculoskeletal: Reports system reviewed and no additional complaints, except as documented Integumentary/Breasts Skin/Breast: Reports system reviewed and no additional complaints, except as documented *Neurologic Neurologic: Reports system reviewed and no additional complaints, except as documented Psychiatric Psychiatric: Reports system reviewed and no additional complaints, except as documented Endocrine Endocrine: Reports system reviewed and no additional complaints, except as documented Hematologic/Lymphatic Hematologic/Lymphatic: Reports system reviewed and no additional complaints, except as documented Allergic/Immunologic Allergic/Immunologic: Reports system reviewed and no additional complaints, except as documented Meds Home Medications and Allergies Home Medications ?Medication ?Instructions ?Recorded ?Confirmed ?Type glucosamine-chondroitin 250 mg-200 2 tab PO DAILY Supplement 11/19/18 05/21/25 History mg tablet (Osteo Bi-Flex) vitamin E 670 mg (1,000 unit) 1,000 unit PO DAILY Supplement 11/28/18 05/21/25 History capsule pantoprazole 40 mg tablet,delayed 40 mg PO DAILY GERD 05/02/20 05/21/25 History release (Protonix) meloxicam 15 mg tablet 15 mg PO DAILY pain 05/17/20 05/21/25 History furosemide 40 mg tablet 40 mg PO DAILY PRN . 07/08/24 05/21/25 History glimepiride 4 mg tablet 4 mg PO DAILY 07/08/24 05/21/25 History lisinopril 20 mg tablet 20 mg PO DAILY HTN 07/08/24 05/21/25 History potassium chloride 10 mEq 10 meq PO BID 07/08/24 05/21/25 History tablet,extended release pregabalin 150 mg capsule 150 mg PO BID 07/08/24 05/21/25 History sitagliptin phosphate 100 mg 100 mg PO DAILY DM 07/08/24 05/21/25 History tablet (Januvia) New Prescriptions to Start Prescriptions: Allergies Allergy/AdvReac Type Severity Reaction Status Date / Time celecoxib (CELECOXIB) Allergy Unknown Unknown Verified 03/16/25 07:14 allergy reaction naproxen (NAPROXEN) Allergy Unknown Unknown Verified 03/16/25 07:14 allergy reaction silver (From Tegaderm AG Allergy Unknown Unknown Verified 03/16/25 07:14 Mesh) allergy reaction adhesive Allergy Blister Verified 03/16/25 07:14 carboplatin Allergy Hives Verified 03/16/25 07:14 Exam Data for Last 24 hours Vital signs and Labs for Last 24 Hours: Pulse Resp BP Pulse Ox O2 Del Method 87 18 133/60 96 Room Air 05/21/25 10:06 05/21/25 10:06 05/21/25 10:06 05/21/25 10:06 05/21/25 10:06 I & O for Last 24 hours: Intake & Output 05/18/25 05/19/25 05/20/25 05/21/25 11:59 11:59 11:59 11:59 Weight 320 lb *Routine HEENT Exam Head: Present normocephalic Eye: Present EOMI and PERRL ENT: Present mucous membranes moist *Routine Neck Exam Neck: Present supple and full ROM *Routine Respiratory Exam Respiratory: Present normal respiratory effort *Routine Cardiovascular Exam Cardiovascular: Present RRR, Normal S1 and Normal S2 *Routine Abdominal Exam Abdominal: Present soft *Routine Rectal Exam Rectal:: deferred *Routine Genitalia Exam Genitalia:: deferred *Routine Extremities Exam Extremities: Present full ROM Routine Back/Spine/Pelvis Exam Back/Spine: Present full ROM *Routine Skin Exam Skin: Present intact *Routine Neurological Exam Neurological: Present alert and oriented X3 Assessment and Plan *Assessment and plan (1) Lumbar radiculopathy: Status: Acute Category: Medical Code(s): M54.16 - Radiculopathy, lumbar region (2) Degenerative disc disease: Status: Acute Qualifiers: Spinal region: lumbar Disc-related pain type: discogenic back pain and lower extremity pain Qualified Code(s): M51.362 - Other intervertebral disc degeneration, lumbar region with discogenic back pain and lower extremity pain Category: Medical (3) Lumbar degenerative disc disease: Status: Acute Qualifiers: Disc-related pain type: discogenic back pain and lower extremity pain Qualified Code(s): M51.362 - Other intervertebral disc degeneration, lumbar region with discogenic back pain and lower extremity pain Category: Medical Code(s): M51.369 - Other intervertebral disc degeneration, lumbar region without mention of lumbar back pain or lower extremity pain Plan Intrathecal pain pump trial
--- NOTE | 2025-05-21 10:50 | EXP.PAIN.PRO ---
Procedure Date: 05/21/25 Time: 10:50 Anesthesiologist:: Ryley Rodriguez MD Complications:: None Pre-procedure Diagnosis:: Degenerative disease of lumbar spine with lumbar radiculopathy symptoms Post-procedure Diagnosis:: Same Indications for Procedure:: This patient's pleasant 54-year-old white female who we are treating for degenerative disease of lumbar spine with lumbar radiculopathy symptoms. She has failed all previous conservative therapy including injections, oral medications, physical therapy and she is not a candidate for surgery. She has had a successful psychological evaluation. She presents for intrathecal pump trial today. Procedure Details:: Pain pump trial Informed consent was obtained and the risk and benefits of the procedure was explained to the patient. The patient was taken to the procedure room and placed prone on the procedure table. Patient was prepped and draped in sterile fashion. C-arm fluoroscopy was used to view the lumbar spine. The skin and subcutaneous tissues were anesthetized using lidocaine. I placed a 18-gauge spinal needle into the L4-5 interspace and advanced until clear CSF was obtained. After this intrathecal catheter was inserted and advanced very easily to the L1 vertebral body. The needle was withdrawn. We were able to freely withdraw clear CSF through the catheter. We then injected intrathecal fentanyl single shot bolus of 25 mcg followed by saline and followed by the previous CSF that was withdrawn. The needle and catheter were then removed and a Band-Aid was placed. Patient tolerated the procedure well with no complications. We reevaluated the patient after 30 minutes to 1 hour. She had good relief of pain symptoms. Plan and Disposition:: Will follow-up with this patient in 1 week we will assess efficacy of this trial. If successful patient will need to be under a BMI of 50 prior to permanent placement. We will plan on permanent placement with intrathecal morphine 1 mg/mL to start at 100 mcg/day. Catheter tip will be at the T8 vertebral body.
[2025-05-21] MEDS: ONDANSETRON 4MG/2ML VIAL 4 MG IV (10:56)
--- NOTE | 2025-05-21 10:58 | PC.NURSE ---
PT REPORT NAUSEA, DID HAVE A SMALL AMOUNT OF VOMITING. PT REPORTS SHE DID NOT EAT THIS MORNING. PT MEDICATED PER DEC WITH ZOFRAN ODT.
--- NOTE | 2025-05-21 11:00 | PC.NURSE ---
1005- PT REPORTED PAIN SCALE 4/10 UPON INITIALLY COMING BACK TO HER ROOM.
--- NOTE | 2025-05-21 11:00 | PC.NURSE ---
1010- PT PROVIDED WITH DRINK, PT NOW REPORTING PAIN 0/10. PT REPORTS ABLE TO MOVE AROUND MUCH BETTER THAN NORMAL. PT STATES SHE DOES NOT FEEL ANY PAIN AT THIS TIME.
[2025-05-21 11:30] VITALS: BP 109/76; PULSE 73; RESP 18; O2SAT 95
== END 2025-05-21 11:30 | disposition home or self-care (01) ==
PROVIDERS: PCP Family Medicine; Visit Provider Anesthesiology
DX: G89.4 Chronic pain syndrome (principal); M51.16 Intervertebral disc disorders with radiculopathy, lumbar region; M51.362 Other intervertebral disc degeneration, lumbar region with discogenic back pain and lower extremity pain; E11.9 Type 2 diabetes mellitus without complications; I10 Essential (primary) hypertension; M19.90 Unspecified osteoarthritis, unspecified site; F41.9 Anxiety disorder, unspecified; Z85.3 Personal history of malignant neoplasm of breast; M50.30 Other cervical disc degeneration, unspecified cervical region; K21.9 Gastro-esophageal reflux disease without esophagitis; Z79.84 Long term (current) use of oral hypoglycemic drugs; Z79.899 Other long term (current) drug therapy; Z88.6 Allergy status to analgesic agent; Z88.8 Allergy status to other drugs, medicaments and biological substances; Z91.048 Other nonmedicinal substance allergy status
CPT/HCPCS: 62323; 99221; J0690; J2003; J2405; J3010

== ENCOUNTER 2025-05-27 11:27 | Outpatient (POV) | payer OTHER, SELFPAY ==
--- OUTSIDE RECORDS SUMMARY | 2025-05-27 11:29 | XMS_ITS | Clinical Summary ---
Author Organization [facility] Address [address] [place] [address] Phone Care Team Providers Care [place] Commissioner Name Role Phone Unavailable Unavailable Conditions or Problems No information available. Medications No information available. Medications Administered No information available. Allergies, Adverse Reactions, Alerts No information available. Results No information available. Plan of Care No information available. Procedures No information available. Vital Signs No information available. Immunizations No information available. Advance Directives No information available.
--- OUTSIDE RECORDS SUMMARY | 2025-05-27 11:30 | XMS_ITS | Clinical Summary ---
Author Organization [facility] Address [address] [place] [address] Care Team Providers Care Wheel Cutter Name Role Phone Jael Flower APRN Primary Care Provider [phone] Allergies Active Allergy Reactions Criticality Noted Date Comments Naproxen 10/17/2017 Celecoxib 10/17/2017 Medications traMADol (ULTRAM) 50 MG tablet Take 50 mg by mouth Every 6 (Six) Hours As Needed for Moderate Pain . Active estrogens, conjugated, (PREMARIN) 0.625 MG tablet Take 0.625 mg by mouth Daily. Take daily for 21 days then do not take for 7 days. Active lisinopril-hydr ochlorothiazide (PRINZIDE,ZESTO RETIC) 20-25 MG per tablet Take 1 tablet by mouth Daily. Active pantoprazole (PROTONIX) 40 MG EC tablet Take 40 mg by mouth Daily. Active diclofenac-miso prostol (ARTHROTEC 75) 75-0.2 MG EC tablet Take 1 tablet by mouth 2 (Two) Times a Day. Active promethazine (PHENERGAN) 25 MG tablet Take 25 mg by mouth Every 6 (Six) Hours As Needed for Nausea or Vomiting. Active raNITIdine (ZANTAC) 150 MG tablet Take 150 mg by mouth 2 (Two) Times a Day. Active Active Problems No known active problems Family History Medical History Relation Name Comments Heart disease Father Diabetes Mother Hyperlipidemia Mother Relation Name Status Comments Father Mother Social History Tobacco Use Types Packs/Day Years Used Date Smoking Tobacco: Never Smokeless Tobacco: Never Alcohol Use Standard Drinks/Week Comments No 0 (1 standard drink = 0.6 oz pur e alcohol) Abuse Screen Answer Date Recorded Unsafe at Home or Work/School Not on file Feels Threatened by Someone? Not on file 06/2023 Does Anyone Keep You from Co ntacting Others or Doint Things Outside the Home? Not on file 07/15/2023 Physical Sign of Abuse Present Not on file 1 Housing Stability Answer Date Recorded Current Living Arrangements Not on file 06/2023 Potentially Unsafe Housing Conditions Not on silvano e 07/15/2023 Family and Community Support Answer Hal e Recorded Help with Day-to-Day Activities Not on file 07/15/2023 Lonely or Isolated Not on file 07/15/2023 Employment Answer Date Recorded Do you want help finding or keeping work or a cande b? Not on file 07/15/2023 Disabilities Answer Date Recorded Concentrating, Remembering, or Making Decisions Difficulty Not on file 07/15/2023 Doing Errands Independently Difficulty Not on fi le 07/15/2023 Education Answer Date Recorded Help with school or training? Not on file Preferred Language Not on file 07/15/2023 Comments Unknown Sex and Gender Information Value Date Recorded Sex Assigned at Not on file Legal Sex Female 11:20 AM EDT Gender Identity Not on file Sexual Orientation Not on file Last Filed Vital Signs Vital Sign Reading Time Taken Comments Blood Pressure - - Pulse - - Temperature 36.1 C (96.9 F) 10/18/2017 9:26 AM EST Respiratory Rate - - Oxygen Saturation - - Inhaled Oxygen Concentration - - Weight 121 kg (267 lb) 10/18/2017 9:26 AM EST Height 160 cm (5' 3 ) 10/18/2017 9:26 AM EST Body Mass Index 47.3 10/18/2017 9:26 AM EST Plan of Treatment Health Maintenance Due Date Last Done Comments Annual Gynecologic Pelvic and Breast Exam 1971 TDAP/TD VACCINES (1 - Tdap) 1990 COLOGUARD 2016 COLON CANCER SCREENING 5 YEAR SIGMOIDOSCOPY 2016 COLONOSCOPY [address] CANCER SCREENING 2016 CT COLONOGRAPHY 2016 FECAL OCCULT BLOOD TEST 2016 FIT Testing (1 year) 2016 ANNUAL PHYSICAL 10/17/2017 HEPATITIS C SCREENING 10/17/2017 Pneumococcal Vaccine 50+ (1 of 1 - PCV) 2021 ZOSTER VACCINE (1 of 2) 2021 COVID-19 Vaccine (1 - 2023- season) 2024 INFLUENZA VACCINE 07/07/2025 MAMMOGRAM 07/11/2025 07/11/2023 Procedures Procedure Name Priority Date/Time Associated Diagnosis Comments SCANNED - MAMMO 07/11/2023 from Last 3 Months or Most Recently Relevant to Health Maintenance Results * SCANNED - MAMMO (07/11/2023) Anatomical Region Laterality Modality Other [facility] CH[facility] RE[facility] TABS Final Re sult from Last 3 Months or Most Recently Relevant to Health Maintenance [place] [address] [place] [address] PPO Care Teams Wheel Cutter Relationship Specialty Start Date End Date Jael Flower APRN PCP - General Family Medicine 10/10/17
--- NOTE | 2025-05-27 11:48 | EXP.PAIN.SOA ---
[facility] Disclaimer: The information contained in this section may have been updated after the patient was seen, as this information can be updated by other users. Medical History Cataract History of COVID-19 Anxiety Diabetes mellitus, type 2 Breast cancer Abnormal result of cardiovascular function study Angina pectoris Chest pain Dyspnea Edema Encounter for pre-operative cardiovascular clearance Gastroesophageal reflux disease Hypertension Osteoarthritis of right knee Degenerative disc disease, cervical Dyspnea Chest pain GERD (gastroesophageal reflux disease) HTN (hypertension) Encounter for pre-operative cardiovascular clearance Edema Surgical History Hx of cataract surgery Hx of neck surgery History of appendectomy History of cholecystectomy Hx of section Hx of total knee replacement H/O: hysterectomy H/O rotator cuff surgery Family History Colon cancer Grandmother Family/Other Diabetes Fatty liver DJD (degenerative joint disease) Hypertension Social History Smoking Status: Never smoker second hand exposure: No alcohol intake: never substance use type: denies use current occupational status: other Travel in the last 8 weeks?: None household members: spouse housing: house number of children: 3 (26 and 21 year old twins) current occupation: [employer] current occupational exposures/hazards: Yes caffeine: Yes PM Subjective & Objective Subjective Subjective:: Patient is a pleasant 54-year-old female who presents today for follow-up of her pain pump trial on 05/21/2025. Patient does state she had at least 85% improvement and felt like it was very beneficial. Patient states that she was able to move around easier with overall decreased pain. Patient would like to proceed forward with the pump. Patient is aware that she does have to lose some weight before proceeding forward with this option. Patient is currently prescribed pregabalin from an outside provider and is on meloxicam from our office. Patient is asking if we can do anything in between to help with the pain. She states that a lot of times she just cannot sleep due to the worsening symptoms. Her Sam has been reviewed and is appropriate. Review of Systems: General: No recent weight changes, no fever, no sleep disturbances Respiratory: No cough, no shortness of air, no recurring pulmonary infections Cardiovascular/peripheral vascular: No chest pain, no palpitations, no edema, no shortness of breath Gastrointestinal: No new onset incontinence, normal bowel movements reported Genitourinary: No new onset incontinence Musculoskeletal: Low back pain Psychiatric: [Normal mood/affect] Neurological: [Denies weakness in extremities], [denies balance issues] Pain at rest (0-10 scale): 4 Objective Objective:: Physical Exam: General: Alert and oriented x3, no acute distress, pleasant and cooperative Lungs: Respirations even and unlabored, symmetrical chest expansion Eyes: PERRL Musculoskeletal: Flexion and extension of lumbar [spine] somewhat guarded secondary to pain, [antalgic gait noted] Neurological: Speech clear, no gross sensory deficit Has patient had previous pain injection?: Yes What percentage of improvement in pain since last injection?: 85% Conservative treatment options previously tried: Home exercise plan Length of treatment: Longer than 12 weeks Meds Home Medications and Allergies Home Medications ?Medication ?Instructions ?Recorded ?Confirmed ?Type glucosamine-chondroitin 250 mg-200 2 tab PO DAILY Supplement 11/19/18 05/21/25 History mg tablet (Osteo Bi-Flex) vitamin E 670 mg (1,000 unit) 1,000 unit PO DAILY Supplement 11/28/18 05/21/25 History capsule pantoprazole 40 mg tablet,delayed 40 mg PO DAILY GERD 05/02/20 05/21/25 History release (Protonix) meloxicam 15 mg tablet 15 mg PO DAILY pain 05/17/20 05/21/25 History furosemide 40 mg tablet 40 mg PO DAILY PRN . 07/08/24 05/21/25 History glimepiride 4 mg tablet 4 mg PO DAILY 07/08/24 05/21/25 History lisinopril 20 mg tablet 20 mg PO DAILY HTN 07/08/24 05/21/25 History potassium chloride 10 mEq 10 meq PO BID 07/08/24 05/21/25 History tablet,extended release pregabalin 150 mg capsule 150 mg PO BID 07/08/24 05/21/25 History sitagliptin phosphate 100 mg 100 mg PO DAILY DM 07/08/24 05/21/25 History tablet (Januvia) New Prescriptions to Start Prescriptions: Allergies Allergy/AdvReac Type Severity Reaction Status Date / Time celecoxib (CELECOXIB) Allergy Unknown Unknown Verified 03/16/25 07:14 allergy reaction naproxen (NAPROXEN) Allergy Unknown Unknown Verified 03/16/25 07:14 allergy reaction silver (From Tegaderm AG Allergy Unknown Unknown Verified 03/16/25 07:14 Mesh) allergy reaction adhesive Allergy Blister Verified 03/16/25 07:14 carboplatin Allergy Hives Verified 03/16/25 07:14 Assessment and Plan *Assessment and plan (1) Chronic pain syndrome: Status: Acute Category: Medical Code(s): G89.4 - Chronic pain syndrome (2) Degenerative disc disease: Status: Acute Qualifiers: Spinal region: lumbar Disc-related pain type: discogenic back pain and lower extremity pain Qualified Code(s): M51.362 - Other intervertebral disc degeneration, lumbar region with discogenic back pain and lower extremity pain Category: Medical Plan Patient did undergo a intrathecal pump trial with significant improvement in the patient would like to proceed forward with the intrathecal implant. Patient did have 85% improvement. Patient did have improved function with decreased pain. Risk and benefits have been discussed and they still wish to continue with this plan of care. Patient has tried and failed conservative therapies. Patient has had a psychological evaluation and was deemed an appropriate candidate for this procedure. Patient has also been evaluated by neurosurgery and was not a candidate for additional intervention. Patient does have a signed agreement that if we proceed forward with the intrathecal pump that there will be a decrease in oral pain medications if this is applicable with the overall goal 2-no oral opioids once the intrathecal pain pump is established. Prior to the intrathecal trial patient was on a fixed schedule with her medications and patient has been compliant with her medication regimen. I did discuss with the patient we will follow-up with her in 1 month to see how her weight loss is going. Patient is currently in the process of getting on Ozempic from her primary care. I will send in a 1 month supply of [place] 5 mg at bedtime. We will plan for the patient's catheter tip to be at the T8 vertebral level and medication to be morphine 1 mg/mL with a starting dose of 100 mcg/day. Patient agrees with this plan of care. Patient has been instructed to contact the clinic with any concerns before the next appointment. Dr. Rodriguez has reviewed this note and agrees with this plan of care. This note was dictated using voice recognition software and make contain errors or omissions. All injections are used with Lidocaine, Bupivacaine and dexamethasone. Occasionally urine drug screen is needed to verify patient's compliance with our office pain contract. This is ordered based off specific treatments related to chronic pain with the potential to abuse certain medications.
[2025-05-27 14:47] VITALS: BP 122/83; PULSE 81; RESP 18; O2SAT 93; BMI 56.1
== END 2025-05-27 23:59 | disposition home or self-care (01) ==
PROVIDERS: PCP Family Medicine; Visit Provider Nurse Practitioner Family
DX: G89.4 Chronic pain syndrome (principal); M51.362 Other intervertebral disc degeneration, lumbar region with discogenic back pain and lower extremity pain; Z79.891 Long term (current) use of opiate analgesic; Z79.899 Other long term (current) drug therapy; Z79.1 Long term (current) use of non-steroidal anti-inflammatories (NSAID)
CPT/HCPCS: 99212; G0463